=== PATIENT | female | born 1950 | race Caucasian/White ===

== ENCOUNTER → 2016-07-24 | Outpatient (CLI) | payer OTHER ==
[~2016-07-24] MED LIST: ASPEC81 PO; ASPI81TA28 PO; ATOR-24 PO; AZIT250T PO; BCTROWC TOP; FLUO40CA8 PO; FLUT1INH INH; GLC500 PO; HYG/25 PO; IPRA1AER2 INH; LISI-461 PO; METF-841 PO
[2016-07-24 12:27] LABS: BASO % 0.4 %; BASO ABS # 0.04 K/uL (0-0.2); COMPLETE YES; EOS % 5.3 %; HEMATOCRIT 39.9 % (37-47); IG% 0.3 %; LYMPH % 29.8 %; LYMPH ABS # 3.19 K/uL (1.2-3.4); MEAN CELL VOLUME 91.3 fL (80-100); MEAN CORPUSCULAR HEMOGLOBIN 30.4 pg (25-34); MEAN CORPUSCULAR HGB CONC 33.3 g/dl (32-36); MONO % 6.3 %; NEUT % 57.9 %; PLATELET COUNT 350 K/uL (130-400); RED BLOOD COUNT 4.37 M/uL (4.2-5.4); WHITE BLOOD COUNT 10.69 K/uL (4.8-10.8)
[2016-07-24 12:41] LABS: ESTIMATED AVERAGE GLUCOSE 134 mg/dl; HA1C FLAG Normal (Normal)
[2016-07-24 13:20] LABS: ALT/SGPT 21 U/L (12-78); BLOOD UREA NITROGEN 14 mg/dl (7-18); BUN/CREATININE RATIO 13.9 (10-20); CALCIUM 9.3 mg/dl (8.5-10.1); CARBON DIOXIDE 27 mmol/L (21-32); CHLORIDE 100 mmol/L (98-107); CHOLESTEROL 117 mg/dl (0-200); CREATININE 0.97 mg/dl (0.60-1.20); GLUCOSE 141 mg/dl (70-99); POTASSIUM 3.6 mmol/L (3.5-5.1); SODIUM 140 mmol/L (136-145)
[2016-07-24 13:25] LABS: ALB/GLOB RATIO 0.9 (0.9-2); ALKALINE PHOSPHATASE 97 U/L (45-117); AST/SGOT 12 U/L (15-37); CHOLESTEROL/HDL RATIO 1.9; HDL CHOLESTEROL 62 mg/dl; LDL CHOLESTEROL CALCULATED 19 mg/dl; TRIGLYCERIDES 180 mg/dl (0-150); VERY LOW DENSITY LIPOPROT CALC 36 mg/dl
== END | disposition home or self-care (01) ==
LOC: C.LABPVFM 07:53
PROVIDERS: ATTEND Family Medicine
DX: I10 Essential (primary) hypertension (principal); E11.9 Type 2 diabetes mellitus without complications; J44.9 Chronic obstructive pulmonary disease, unspecified; E78.5 Hyperlipidemia, unspecified

== ENCOUNTER → 2016-08-02 | Outpatient (CLI) | payer OTHER | END | disposition home or self-care (01) | LOC: C.LABPVFM 11:04 | PROVIDERS: ATTEND Family Medicine | DX: E11.9 Type 2 diabetes mellitus without complications (principal) ==

== ENCOUNTER → 2017-01-27 | Outpatient (CLI) | payer OTHER ==
[~2017-01-27] MED LIST changes: -AZIT250T PO
[2017-01-27 12:38] LABS: ALT/SGPT 22 U/L (12-78); AST/SGOT 13 U/L (15-37); BLOOD UREA NITROGEN 15 mg/dl (7-18); BUN/CREATININE RATIO 16.5 (10-20); CALCIUM 9.3 mg/dl (8.5-10.1); CARBON DIOXIDE 28 mmol/L (21-32); CHLORIDE 104 mmol/L (98-107); GLUCOSE 109 mg/dl (70-99); POTASSIUM 3.7 mmol/L (3.5-5.1); SODIUM 138 mmol/L (136-145)
[2017-01-27 12:41] LABS: ALB/GLOB RATIO 0.8 (0.9-2); ALKALINE PHOSPHATASE 88 U/L (45-117); CHOLESTEROL 190 mg/dl (0-200); CHOLESTEROL/HDL RATIO 3.5; HDL CHOLESTEROL 54 mg/dl; LDL CHOLESTEROL CALCULATED 83 mg/dl; TRIGLYCERIDES 267 mg/dl (0-150); VERY LOW DENSITY LIPOPROT CALC 53 mg/dl
[2017-01-27 12:58] LABS: ESTIMATED AVERAGE GLUCOSE 120 mg/dl; HA1C FLAG Normal (Normal)
[2017-01-27 13:25] LABS: RATIO 5.1 mcg/mg (0-30.0)
== END | disposition home or self-care (01) ==
LOC: C.LABPVFM 08:36
PROVIDERS: ATTEND Family Medicine
DX: J44.9 Chronic obstructive pulmonary disease, unspecified (principal); F32.9 Major depressive disorder, single episode, unspecified; E78.5 Hyperlipidemia, unspecified; I10 Essential (primary) hypertension; R73.03 Prediabetes

== ENCOUNTER → 2017-02-24 | Day surgery (SDC) | payer OTHER ==
[2017-02-20 11:24] VITALS: Ht 160 cm; Wt 80.9 kg
[~2017-02-24] VITALS: Ht 160 cm; Wt 80.9 kg
[~2017-02-24] MED LIST changes: +500ML BSS 0.3ML EPI 1:1000PF IRRIG ONE; +ACETAMINOPHEN 325 MG TAB PO PRN; +AMVISC PLUS 0.8ML SYRINGE INT OCU ONE; -ASPEC81 PO; +ATROPINE SULFATE 0.1 MG/ML 5ML SYR IV PRN; -BCTROWC TOP; +BRIMONIDINE TART 0.2% OP SOLN PER DROP CHARGE ONE; +BSS FLUSH ONE; +ENDOCOAT 0.85ML SYRINGE INT OCU ONE; +EpHEDrine SULFATE INJ 50 MG/ML AMP IV PRN; +EpINEphrine INJ 1MG/ML AMP 1 MG/ML AMP ONE; -GLC500 PO; +LACTATED RINGER'S 1000ML 500 ML IV SCH; +LIDOCAINE 4% OP SOLN DROP CHARGE ONE; +LIDOCAINE 4% OP SOLN DROP CHARGE OPL SCH; +LIDOCAINE HCL 1% MPF 2 ML VIAL ONE; +MIDAZOLAM HCL 1 MG/ML 2ML VIAL ONE; +MOXIFLOXACIN OPH SOLN PER DROP CHARGE ONE; +POVIDONE-IODINE OP SOLN 30 ML BTL ONE; +PROPARACAINE 0.5% OP SOLN PER DROP CHARGE OPL SCH; +TOBRAMYCIN/DEXAMETHASONE OPH OINT PER APPLN CHARGE ONE
[2017-02-24] MEDS: PHENYLEPHRINE HCL 2.5% OP SOLN PER DROP CHARGE OPL SCH ×2 (07:27→07:32)
[2017-02-24] MEDS: TROPICAMIDE 1% OP SOLN PER DROP CHARGE OPL SCH ×2 (07:28→07:33)
[2017-02-24] MEDS: CYCLOPENTOLATE HCL 1% OP SOLN PER DROP CHARGE OPL SCH ×2 (07:29→07:34)
[2017-02-24] MEDS: KETOROLAC 0.5% OP SOLN PER DROP CHARGE OPL SCH ×2 (07:30→07:35)
[2017-02-24] MEDS: MOXIFLOXACIN OPH SOLN PER DROP CHARGE OPL SCH ×2 (07:31→07:43)
--- NOTE | 2017-02-24 07:42 | History & Physical Bridge - [place] ---
H&P Re-Evaluation Bridge Note: I have examined the patient, reviewed the History & Physical and in the interval since the performance of the History & Physical I have noted the following changes of clinical significance: No changes noted
[2017-02-24 08:34] VITALS: TEMP 36.6
--- NOTE | 2017-02-24 08:35 | Discharge Instructions-SurgCtr ---
Discharge Instructions Date of Service Feb 24, 2017. Visit Reason for Visit: Cataract Left Eye Discharge Discharge Diagnosis / Problem: cataract left eye Discharge Goals Goal(s): Improve function Activity Recommendations Activity Limitations: per Instructions/Follow-up section Lifting Limitations: no more than 5 pounds Anesthesia . Post Anesthesia Instructions: If you have had General Anesthesia or IV Sedation: * Do not drive today. * Resume driving when surgeon permits. * Do not make important decisions or sign legal documents today. * Call surgeon for: 1. Temperature elevations greater than 101 degrees F. 2. Uncontrollable pain. 3. Excessive bleeding. 4. Persistent nausea and vomiting. 5. Medication intolerance (nausea, vomiting or rash). * For nausea and vomiting use only clear liquids such as: tea, soda, bouillon until nausea subsides, then gradually increase diet as tolerated. * If you have any concerns or questions, call your surgeon's office. If physician is unavailable and it is an emergency, call 911 or go to the nearest emergency room. . Instructions / Follow-Up Instructions / Follow-Up ACTIVITY RECOMMENDATIONS: * Light activities * You may walk outside, read, watch television. * Mild irritation and blurred vision are common for the first few days, redness around the white part of the eye is common. MEDICATIONS: Resume previous medications unless instructed otherwise by your surgeon. Eye drops (today and tomorrow): Cipro - one drop in operative eye every 2 hours while awake Prednisolone 1% - one drop in operative eye every 2 hours while awake Bromfenac - one drop in operative eye once daily SPECIAL CARE INSTRUCTIONS: * If any problems or concerns, please call Dr. Bose's office at . * Keep plastic shield taped over eye to sleep at night. * Keep plastic shield taped over eye except to administer eye drops. * Keep plastic shield on until office visit the following day. FOLLOW UP VISIT: Follow-up with Dr. Bose in the [place] office as scheduled. If not already scheduled, please call the office at . Diet Recommendations Home Diet: resume previous diet Procedures Procedures Performed: Left Cataract Phacoemulsification With Intraocular Lens Implant Pending Studies Studies pending at discharge: no Medical Emergencies . Who to Call and When: Medical Emergencies: If at any time you feel your situation is an emergency, please call 911 immediately. . Non-Emergent Contact Non-Emergency issues call your: Hat Lining Paster . . "Provider Documentation" section prepared by Zeyad Bose. .
--- NOTE | 2017-02-24 08:36 | [facility] Operative Report ---
Operative Report Operative Date Feb 24, 2017. 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 Gentle IV sedation was given, and the patient's left eye was prepped and draped in usual sterile fashion. A wire lid speculum was placed into the left eye and the operating microscope was swung into position. Using 0.12 forceps and a Supersharp blade a paracentesis port was made 2 o'clock hours away from the 3 o'clock position of the patient's left eye. 1% non-preserved Lidocaine was then injected into the anterior chamber for anesthesia. A 2.0 mm keratotome blade was then used to make a shelved clear corneal incision at the 3 o'clock position of the left eye. Amvisc was injected into the anterior chamber and a cystotome and Utrata forceps were used to perform a curvilinear capsulorrhexis. BSS on a hydrodissection cannula was used to hydrodissect the lens nucleus away from the capsular bag. The phacoemulsification handpiece was then used in a stop and chop fashion to remove the lens nucleus. The irrigation and aspiration handpiece was then used to remove the residual cortical material. Amvisc was injected into the capsular bag and anterior chamber and a Bausch [employer] Lomb MX60 23.0 Diopter intraocular lens was injected into the capsular bag. Irrigation and aspiration handpiece was used to remove the residual viscoelastic material. The wounds were hydrated and noted to be watertight. The wire lid speculum was removed from the eye. Vigamox, Brimonidine, and TobraDex ointment were placed on the eye and it was shielded. It should be noted that EndoCoat was used extensively during the case to protect the cornea endothelium. DISPOSITION: The patient tolerated the procedure well and was wheeled to the post anesthesia care unit in stable condition. I attest to the content of the Intraoperative Record and any orders documented therein. Any exceptions are noted below. I attest to the content of the Intraoperative Record and any orders documented therein. Any exceptions are noted below.
[2017-02-24 08:51] VITALS: BP 120/85; PULSE 74; O2SAT 95
--- NOTE | 2017-02-24 09:09 | Anesthesia Progress Nt - [facility] ---
Anesthesia Post Op Note Date & Time Feb 24, 2017 at 09:08 Vital Signs Pain Intensity: 0 Vital Signs Past 12 Hours Date Time Temp Pulse Resp B/P (MAP) Pulse Ox O2 Delivery O2 Flow Rate FiO2 02/24/17 08:51 74 20 120/85 (97) 95 Room Air 02/24/17 08:34 36.6 74 20 146/93 (110) 94 Room Air 02/24/17 07:17 36.9 83 18 143/88 (106) 95 Room Air Notes Mental Status: alert / awake / arousable, participated in evaluation Pt Amnestic to Procedure: Yes Nausea / Vomiting: adequately controlled Pain: adequately controlled Airway Patency, RR, SpO2: stable & adequate BP & HR: stable & adequate Hydration State: stable & adequate Anesthetic Complications: no major complications apparent
== END | disposition home or self-care (01) ==
LOC: X.SURG 07:06
PROVIDERS: ATTEND Ophthalmology
DX: H25.12 Age-related nuclear cataract, left eye (principal); E11.9 Type 2 diabetes mellitus without complications; F31.9 Bipolar disorder, unspecified; M19.90 Unspecified osteoarthritis, unspecified site; I10 Essential (primary) hypertension; Z79.899 Other long term (current) drug therapy; Z79.84 Long term (current) use of oral hypoglycemic drugs

== ENCOUNTER → 2017-06-10 | Outpatient (CLI) | payer OTHER ==
[~2017-06-10] MED LIST changes: -500ML BSS 0.3ML EPI 1:1000PF IRRIG ONE; -ACETAMINOPHEN 325 MG TAB PO PRN; -AMVISC PLUS 0.8ML SYRINGE INT OCU ONE; -ATROPINE SULFATE 0.1 MG/ML 5ML SYR IV PRN; -BRIMONIDINE TART 0.2% OP SOLN PER DROP CHARGE ONE; -BSS FLUSH ONE; -ENDOCOAT 0.85ML SYRINGE INT OCU ONE; -EpHEDrine SULFATE INJ 50 MG/ML AMP IV PRN; -EpINEphrine INJ 1MG/ML AMP 1 MG/ML AMP ONE; -LACTATED RINGER'S 1000ML 500 ML IV SCH; -LIDOCAINE 4% OP SOLN DROP CHARGE ONE; -LIDOCAINE 4% OP SOLN DROP CHARGE OPL SCH; -LIDOCAINE HCL 1% MPF 2 ML VIAL ONE; -MIDAZOLAM HCL 1 MG/ML 2ML VIAL ONE; -MOXIFLOXACIN OPH SOLN PER DROP CHARGE ONE; -POVIDONE-IODINE OP SOLN 30 ML BTL ONE; -PROPARACAINE 0.5% OP SOLN PER DROP CHARGE OPL SCH; -TOBRAMYCIN/DEXAMETHASONE OPH OINT PER APPLN CHARGE ONE
--- NOTE | 2017-06-10 15:11 | MAMMOGRAPHY REPORT ---
BILATERAL DIGITAL SCREENING MAMMOGRAM WITH CAD: 06/10/2017 CLINICAL HISTORY: Routine screening. Patient has no complaints. TECHNIQUE: Bilateral CC, MLO and right XCCL views were obtained. Current study was also evaluated wi th a Computer Aided Detection (CAD) system. COMPARISON: Comparison is made to exams dated: 06/06/2016 mammogram, 06/02/2015 mammogram, 06/01/2014 m ammogram, 05/31/2013 mammogram, 05/26/2012 mammogram, and 05/21/2011 mammogram - [facility]. BREAST COMPOSITION: There are scattered areas of fibroglandular density in both breasts. FINDINGS: A small grouping of faint punctate microcalcifications in the lateral left breast is unchan ged dating back to at least 2007, therefore likely benign. No suspicious mass, architectural distort ion or cluster of new, suspicious microcalcifications is seen. IMPRESSION: ACR BI-RADS CATEGORY 1: NEGATIVE There is no mammographic evidence of malignancy. A 1 year screening mammogram is recommended. The pa tient will receive written notification of the results. Approximately 10% of breast cancers are not detected with mammography. A negative mammographic report should not delay biopsy if a clinically suggestive mass is present. Eugenie Johnson M.D. ay/:06/10/2017 08:37:49 Male Model: Tamara HOPPER(Abdelrahman)(M), [facility] letter sent: Normal 1/2 BI-RADS Code: ACR BI-RADS Category 1: Negative
== END | disposition home or self-care (01) ==
LOC: C.MAMM 07:11
PROVIDERS: ATTEND Family Medicine
DX: Z12.31 Encounter for screening mammogram for malignant neoplasm of breast (principal)

== ENCOUNTER → 2017-10-21 | Outpatient (CLI) | payer OTHER ==
--- NOTE | 2017-10-21 16:02 | DIAGNOSTIC IMAGING REPORT ---
LEFT KNEE 2 VIEWS HISTORY: ARTHRITIS, KNEE JOINT EFFUSION, LT KNEE PAIN COMPARISON: None. FINDINGS: There is no fracture or dislocation. Soft tissues are unremarkable. No significant joint effusion. Moderate cartilage space narrowing within the medial compartment of the knee. Tricompartmental osteophytes. Mild cartilage space narrowing within the patellofemoral and lateral compartment of the knee. IMPRESSION: Mild to moderate osteoarthritis within the left knee most pronounced at the medial compartment. Electronically signed by: Tono Dial M.D. 10/21/2017 4:00 PM Dictated Date/Time: 10/21/2017 3:59 PM
== END | disposition home or self-care (01) ==
LOC: C.RADPV 15:45
PROVIDERS: ATTEND Family Medicine
DX: M17.12 Unilateral primary osteoarthritis, left knee (principal); M25.469 Effusion, unspecified knee; M25.562 Pain in left knee

== ENCOUNTER → 2018-01-26 | Outpatient (CLI) | payer OTHER ==
[2018-01-26 13:34] LABS: ALBUMIN 3.8 gm/dl (3.4-5.0); ALKALINE PHOSPHATASE 90 U/L (45-117); ALT/SGPT 21 U/L (12-78); AST/SGOT 15 U/L (15-37); BLOOD UREA NITROGEN 19 mg/dl (7-18); CALCIUM 9.4 mg/dl (8.5-10.1); CARBON DIOXIDE 28 mmol/L (21-32); CHOLESTEROL 95 mg/dl (0-200); CREATININE 0.98 mg/dl (0.60-1.20); GLUCOSE 134 mg/dl (70-99); LDL CHOLESTEROL CALCULATED 10 mg/dl; POTASSIUM 3.4 mmol/L (3.5-5.1); SODIUM 135 mmol/L (136-145); TOTAL PROTEIN 8.2 gm/dl (6.4-8.2)
[2018-01-26 13:39] LABS: HEMOGLOBIN A1C 6.7 % (4.5-5.6)
== END | disposition home or self-care (01) ==
LOC: C.LABPVFM 07:26
PROVIDERS: ATTEND Family Medicine
DX: F32.9 Major depressive disorder, single episode, unspecified (principal); E11.9 Type 2 diabetes mellitus without complications; S39.012A Strain of muscle, fascia and tendon of lower back, initial encounter; E78.5 Hyperlipidemia, unspecified; X58.XXXA Exposure to other specified factors, initial encounter

== ENCOUNTER 2019-06-01 13:54 | Inpatient (IN) ==
[2019-06-01] MEDS ORDERED: methylPREDNISolone 125 MG/2 ML VIAL IV STA (14:24)
[2019-06-01] MEDS ORDERED: ALBUT/IPRATROP 3MG/0.5MG NEB 3 ML VIAL NEB STA ×3 (14:24→16:28)
[2019-06-01 15:06] LABS: Basophils # (auto) 0.05 K/uL (0-0.2); Basophils % (auto) 0.4 %; Eosinophils # (auto) 1.16 K/uL (0-0.5); Eosinophils % (auto) 9.5 %; Hematocrit (blood only) 41.3 % (37-47); Immature Granulocytes # (auto) 0.04 K/uL (0.00-0.02); Immature Granulocytes % (auto) 0.3 %; Lymphocytes # (auto) 2.94 K/uL (1.2-3.4); Lymphocytes % (auto) 24.1 %; Mean Corpuscular Hemoglobin 31.1 pg (25-34); Mean Corpuscular Hgb Conc 33.9 g/dL (32-36); Mean Corpuscular Volume 91.8 fL (80-100); Mean Platelet Volume 9.3 fL (7.4-10.4); Monocytes # (auto) 0.85 K/uL (0.11-0.59); Neutrophils # (auto) 7.16 K/uL (1.4-6.5); Neutrophils % (auto) 58.7 %; Platelet Count 300 K/uL (130-400); RDW Coefficient of Variation 14.2 % (11.5-14.5); RDW Standard Deviation 47.8 fL (36.4-46.3)
[2019-06-01 15:21] LABS: BUN Creatinine Ratio 11.9 (10-20); Blood Urea Nitrogen 11 mg/dl (7-18); Calcium 9.2 mg/dl (8.5-10.1); Carbon Dioxide 27 mmol/L (21-32); Chloride 102 mmol/L (98-107); Creatinine Clr Calc Pharmacy 60.8 ml/min; Est GFR (African American) 73.7; Est GFR (Non-African American) 63.6; Glucose 228 mg/dl (70-99); Potassium 3.2 mmol/L (3.5-5.1); Sodium 136 mmol/L (136-145)
[2019-06-01 15:25] LABS: Troponin I < 0.015 ng/ml (0-0.045)
[2019-06-01 15:34] LABS: Influenza A virus by PCR Neg for Influ A (Neg); Influenza B virus by PCR Neg for Influ B (Neg)
--- NOTE | 2019-06-01 16:00 | XRay Report ---
XR chest 2V PA/lateral CLINICAL HISTORY: sob cough COMPARISON STUDY: 03/03/2016 FINDINGS: The cardiac and mediastinal contours are normal. There is no evidence of focal pulmonary co nsolidation. There is no evidence of failure. No pleural effusions are visualized.[There is a promine nt left cardiophrenic angle fat pad IMPRESSION: No active disease in the chest. Electronically signed by: Ruy Porras M.D. 06/01/2019 3:58 PM
--- NOTE | 2019-06-01 16:58 | Emergency Department Note ---
Entered by Zulema Healy acting as a scribe for History of Present Illness General Chief complaint: Shortness of Breath/Dyspnea Stated complaint: SOB, COUGH Time Seen by Provider: 06/01/19 14:08 Source: patient History of Present Illness Onset (ago): week(s) (1.5) Location: chest Pain Consistency: + other (persistent) Maximum Pain Intensity: 3 Quality: + other (shortness of breath) Relieved By: not by medication (inhaler) Associated symptoms: + cough (productive of clear/green phlegm); no chest pain The patient is a 69 year old female that is presenting to the Emergency Room wit h complaints of a persistent difficulty breathing that started 1.5 weeks ago. The patient reports that she has an associated cough producing a clear/green phlegm. She denies any blood in her sputum. She denies any significant chest pain except when coughing. The patient notes that she has a history of COPD and states that she has been using her inhalers without significant relief in her symptoms. She states that she is unable to take Prednisone as it makes her sick to her stomach. She denies using any other steroids in the past for her COPD. She denies having been intubated or hospitalized for COPD exacerbations. She notes that this is the first bad bout that she has had. She states that she stopped smoking tobacco 4 years ago. She notes that she smoked a pack a day for an extended period of time. The patient denies any recent surgeries, trauma, or long travel. She denies using any hormone therapies or blood thinners. She denies any history of blood clots. Home Medications Home Medications Medication Instructions Recorded Confirmed Type albuterol sulfate [ProAir HFA] 1 - 2 puff INHALATION Q4H PRN 04/10/18 06/01/19 History aspirin 81 mg PO DAILY 04/10/18 06/01/19 History blood sugar diagnostic #10 ea 01/25/19 01/25/19 History fluticasone furoate 100 1 inh INHALATION DAILY #60 ea 01/25/19 06/01/19 Rx mcg-vilanterol 25 mcg/dose inhalation powder lancets 33 gauge #100 ea 01/25/19 01/25/19 History atorvastatin 20 mg tablet 20 mg PO DAILY #90 tab 02/01/19 06/01/19 Rx fluoxetine 40 mg capsule 40 mg PO DAILY #90 cap 02/01/19 06/01/19 Rx hydrochlorothiazide 12.5 mg tablet 12.5 mg PO QAM #90 tab 02/01/19 06/01/19 Rx lisinopril 10 mg tablet 10 mg PO DAILY #90 tab 02/01/19 06/01/19 Rx metformin 500 mg tablet 500 mg PO BID #180 tab 02/01/19 06/01/19 Rx acetaminophen [Tylenol Extra 1,000 mg PO Q6H PRN 06/01/19 06/01/19 History Strength] Allergies Allergy/AdvReac Type Severity Reaction Status Date / Time acetaminophen [From Vicodin] Allergy Verified 02/01/19 07:49 hydrocodone AdvReac Mild NAUSEA Verified 02/01/19 07:49 prednisone AdvReac Mild NAUSEA Verified 02/01/19 07:49 Past Med/Surg History Medical History Chronic obstructive pulmonary disease (Acute) COPD (chronic obstructive pulmonary disease) (Chronic) Depression (Acute) Diabetes (Chronic) Diabetes type 2, controlled (Acute) Hypertension (Acute) IgG monoclonal gammopathy (Acute) Surgical History H/O oophorectomy H/O: hysterectomy (Chronic) Family History Father Diabetes CHF (congestive heart failure) Grandfather (Paternal) Diabetes Mother Deep vein thrombosis NHL (non-Hodgkin's lymphoma) Grandfather (Maternal) Acute leukemia Grandmother (Maternal) Deep vein thrombosis Aunt Deep vein thrombosis Other No pertinent family history Social History Feels Safe at Home: Yes Smoking Status: Former smoker Hx Alcohol Use: No Hx Substance Use: No Seatbelt Use: always Review of Systems See HPI for pertinent positives & negatives. and A total of 10 systems reviewed and were otherwise negative Physical Exam Vital Signs Vital Signs - 24 hr 06/01/19 14:02 06/01/19 14:15 06/01/19 14:18 Temperature 37.0 C Temperature Source Oral Pulse Rate 95 H 84 Pulse Rate [Right Radial] Pulse Rate from SpO2 Sensor 84 Respiratory Rate 22 21 Respiratory Effort / Characteristics Non-Labored Spontaneous Spontaneous Short of Breath Respiratory Depth Normal Respiratory Pattern Regular Blood Pressure 208/115 H 151/111 H Blood Pressure Mean 146 134 Pulse Oximetry 93 96 93 Oxygen Delivery Method Room Air Room Air Sepsis Recent Fever Within 48 Hours No Sepsis New/Unexplained Change in Mental Status No Sepsis Action Taken by Nursing No Action Required 06/01/19 14:27 06/01/19 14:30 06/01/19 14:47 Temperature Temperature Source Pulse Rate 82 Pulse Rate [Right Radial] 8 L Pulse Rate from SpO2 Sensor 82 Respiratory Rate 23 18 Respiratory Effort / Characteristics Non-Labored Spontaneous Respiratory Depth Respiratory Pattern Blood Pressure 151/105 H Blood Pressure Mean 115 Pulse Oximetry 95 94 98 Oxygen Delivery Method Room Air Room Air Sepsis Recent Fever Within 48 Hours Sepsis New/Unexplained Change in Mental Status Sepsis Action Taken by Nursing 06/01/19 15:06 Temperature Temperature Source Pulse Rate Pulse Rate [Right Radial] 81 Pulse Rate from SpO2 Sensor Respiratory Rate 20 Respiratory Effort / Characteristics Non-Labored Spontaneous Respiratory Depth Respiratory Pattern Blood Pressure Blood Pressure Mean Pulse Oximetry 93 Oxygen Delivery Method Room Air Sepsis Recent Fever Within 48 Hours Sepsis New/Unexplained Change in Mental Status Sepsis Action Taken by Nursing GENERAL: She is oriented to person, place, and time. She appears well-developed and well-nourished. She does not appear distressed. HENT: Exam performed. - Head: Normocephalic and atraumatic. - Right Ear: External ear normal. No mastoid tenderness. - Left Ear: External ear normal. No mastoid tenderness. - Mouth/Throat: The oropharynx is clear and moist. No trismus in the jaw. No dental abscesses or uvula swelling. No oropharyngeal exudate or tonsillar abscesses. EYES: Conjunctivae and EOM are normal. Pupils are equal, round, and reactive to light. Right eye exhibits no discharge. Left eye exhibits no discharge. No scleral icterus. NECK: Normal range of motion. Neck supple. No JVD present. No spinous process tenderness present. No carotid bruit present. No rigidity. No tracheal deviation and normal range of motion present. No Brudzinski's sign and no Kernig's sign noted. CV: Normal rate, regular rhythm, normal heart sounds and intact distal pulses. There is no peripheral edema. Palpable radial pulses bue. PULM/CHEST: Effort normal and breath sounds normal. No respiratory distress. No stridor. She has expiratory wheezes bilaterally. She has no rales. Chest Wall: She exhibits no tenderness. ABD: The abdomen is soft. Bowel sounds are normal. She has no distension. No mass is present. There is no tenderness. There is no rebound, no guarding, no Muñoz's sign and no tenderness at McBurney's point. Rovsig negative MUSC/SKEL: Normal range of motion. There is no peripheral edema, tenderness or deformity. LYMPH: No cervical adenopathy. NEURO: She is alert and oriented to person, place, and time. She has normal strength. No cranial nerve deficit or sensory deficit. Coordination and gait normal. GCS eye subscore is 4. GCS verbal subscore is 5. GCS motor subscore is 6. cerebellar tests wnl. SKIN: Skin is warm and dry. She is not diaphoretic. PSYCH: She has a normal mood and affect. Her behavior is normal. Judgment and thought content normal. Course Course 1421:The patient was evaluated in room A03. A complete history and physical examination was performed. 1456: I reassessed the patient. Vital signs stable. Patient reports feeling better after first Duoneb. On repeat exam, patient continues to have expiratory wheezes. Repeat Duoneb was ordered. 1635: Vital signs stable. Labs within normal limits with exception of a white count of 12.2 and potassium of 3.2. Potassium replaced in the emergency department. Imaging is within normal limits. Patient reports feeling better after second Duoneb treatment. Patient blew 100 on peak flow after 2 duo nebs but then started coughing heavily. Patient has agreed to being kept in the hospital for further evaluation. I discussed the patients case with Enriqueta llamas PA-C [facility], who will evaluate the patient for further management and care with Dr. Naima Car as the attending physician. Administered Medications Discontinued Medications Albuterol (Duoneb) 3 ml NEB NOW STA Stop: 06/01/19 14:25 Last Admin: 06/01/19 14:49 Dose: 3 ml Documented by: [id number] Albuterol (Duoneb) 3 ml NEB NOW STA Stop: 06/01/19 14:57 Last Admin: 06/01/19 15:05 Dose: 3 ml Documented by: [id number] Methylprednisolone (Solumedrol) 125 mg IV NOW STA Stop: 06/01/19 14:25 Last Admin: 06/01/19 15:12 Dose: 125 mg Documented by: [id number] Medical Decision Making Medical Records Attestation: I reviewed the patient's medical records. Home Medications Current Medication List: was personally reviewed by me Laboratory Data Attestation: I reviewed the patient's lab results. Result diagrams: 06/01/19 14:53 06/01/19 14:53 Lab Results 06/01/19 06/01/19 06/01/19 Range/Units 14:53 14:53 14:53 WBC 12.20 H (4.8-10.8) K/uL RBC 4.50 (4.2-5.4) M/uL Hgb 14.0 (12.0-16.0) g/dL Hct 41.3 (37-47) % MCV 91.8 (80-100) fL MCH 31.1 (25-34) pg MCHC 33.9 (32-36) g/dL RDW Std Deviation 47.8 H (36.4-46.3) fL RDW Coeff of Aniyah 14.2 (11.5-14.5) % Plt Count 300 (130-400) K/uL MPV 9.3 (7.4-10.4) fL Immature Gran % (Auto) 0.3 % Neut % (Auto) 58.7 % Lymph % (Auto) 24.1 % [place] % (Auto) 7.0 % Eos % (Auto) 9.5 % Baso % (Auto) 0.4 % Immature Gran # (Auto) 0.04 H (0.00-0.02) K/uL Neut # (Auto) 7.16 H (1.4-6.5) K/uL Lymph # (Auto) 2.94 (1.2-3.4) K/uL [place] # (Auto) 0.85 H (0.11-0.59) K/uL Eos # (Auto) 1.16 H (0-0.5) K/uL Baso # (Auto) 0.05 (0-0.2) K/uL Sodium 136 (136-145) mmol/L Potassium 3.2 L (3.5-5.1) mmol/L Chloride 102 (98-107) mmol/L Carbon Dioxide 27 (21-32) mmol/L Anion Gap 7.0 (3-11) BUN 11 (7-18) mg/dl Creatinine 0.93 (0.6-1.2) mg/dl Est Cr Clr Drug Dosing 60.8 ml/min Est GFR ( Amer) 73.7 Est GFR (Non-Af Amer) 63.6 BUN/Creatinine Ratio 11.9 (10-20) Glucose 228 H (70-99) mg/dl Calcium 9.2 (8.5-10.1) mg/dl Troponin I < 0.015 (0-0.045) ng/ml Influenza Type A (PCR) Neg for Influ A (Neg) Influenza Type B (PCR) Neg for Influ B (Neg) Imaging Data Radiologist's Impression: Radiology results as stated below per my review and the radiologist's interpretation: XR chest 2V PA/lateral CLINICAL HISTORY: sob cough COMPARISON STUDY: 03/03/2016 FINDINGS: The cardiac and mediastinal contours are normal. There is no evidence of focal pulmonary consolidation. There is no evidence of failure. No pleural effusions are visualized.[There is a prominent left cardiophrenic angle fat pad IMPRESSION: No active disease in the chest. Electronically signed by: Ruy Porras M.D. 06/01/2019 3:58 PM ECG Data Attestation: I personally reviewed and interpreted this ECG as follows: Indication: + SOB/dyspnea Rate (beats per minute): 85 Rhythm: + sinus rhythm ECG Intervals/blocks: + Normal QRS, + Normal QT and + Normal [place] ECG ST segments: + T-wave inversions (mild in lead 1, v2-v5) Blood Pressure Blood Pressure Findings: Elevated blood pressure Blood Pressure Disposition: elevated BP felt to be situational MDM Narrative 1421:The patient was evaluated in room A03. A complete history and physical examination was performed. 1456: I reassessed the patient. Vital signs stable. Patient reports feeling better after first Duoneb. On repeat exam, patient continues to have expiratory wheezes. Repeat Duoneb was ordered. 1635: Vital signs stable. Labs within normal limits with exception of a white count of 12.2 and potassium of 3.2. Potassium replaced in the emergency department. Imaging is within normal limits. Patient reports feeling better after second Duoneb treatment. Patient blew 100 on peak flow after 2 duo nebs but then started coughing heavily. Patient has agreed to being kept in the hospital for further evaluation. I discussed the patients case with Enriqueta Rogers PA-C [facility], who will evaluate the patient for further management and care with Dr. Naima Car as the attending physician. Impression & Plan COPD exacerbation Discharge Plan Visit Data Chief Complaint: Shortness of Breath/Dyspnea Stated Complaint: SOB, COUGH ED Provider: [place] [facility] Discharge Problem: COPD exacerbation Patient Disposition: Being Evaluated by Hospitalist Forms Stand Alone Forms: My [facility] LookFlow Prescriptions Prescriptions: No Action (DME) lancets [OneTouch Delica Lancets] 33 gauge misc See Dose Instructions .ROUTE .MEDSUPPLY Qty: 100 RF: 0 (DME) OneTouch Ultra Blue Test Strip strip See Dose Instructions .ROUTE .MEDSUPPLY Qty: 10 RF: 0 Breo Ellipta 100-25 mcg/dose blister with device 1 inh INHALATION DAILY Qty: 60 RF: 5 atorvastatin 20 mg tablet 20 mg PO DAILY Qty: 90 RF: 1 fluoxetine 40 mg capsule 40 mg PO DAILY Qty: 90 RF: 1 hydrochlorothiazide 12.5 mg tablet 12.5 mg PO QAM Qty: 90 RF: 1 lisinopril 10 mg tablet 10 mg PO DAILY Qty: 90 RF: 1 metformin 500 mg tablet 500 mg PO BID Qty: 180 RF: 1 aspirin 81 mg Tablet,Chewable 81 mg PO DAILY RF: 0 albuterol sulfate [ProAir HFA] 90 mcg/actuation Hfa Aerosol Inhaler 1 - 2 puff INHALATION Q4H PRN (Reason: SOB) RF: 0 acetaminophen [Tylenol Extra Strength] 500 mg Tablet 1,000 mg PO Q6H PRN (Reason: Pain) RF: 0 Referrals Referrals: Ryanne Smallwood MD [Primary Care Provider] - The scribe's documentation has been prepared under my direction and personally reviewed by me in its entirety. I confirm that the note above accurately reflects all work, treatment, procedures, and medical decision making performed by me.
[2019-06-01] MEDS ORDERED: POTASSIUM CHLORIDE 10 MEQ TABCR PO STA (17:05)
--- NOTE | 2019-06-01 17:33 | History & Physical Report ---
Date of Service June 01, 2019 Assessment & Plan (1) COPD exacerbation: 69-year-old female was admitted on 01 June 2019 for a COPD exacerbation. Shortness of breath, COPD exacerbation: Over the past 10 days. No known fevers or chest pain. Increased use of home albuterol without much relief. Also is on Breo Ellipta at baseline. - In the ED, afebrile, not tachycardic, is hypertensive, with lowest SpO2 87% on room air (during exam). WBC 12. Influenza negative. pCXR clear. EKG NSR [address]-segment depression in lateral leads (similar to 2016). TnI negative. - In ED, treated with DuoNeb 3 times as well as Solu-Medrol 125 mg IV x1. - Will continue with Solu-Medrol 40 mg IV twice daily, scheduled duo nebs, and azithromycin. - Given above EKG findings, as a precaution, will recheck EKG and TnI in the morning, though this does not seem like ACS. Prolonged QTc: EKG noted QTc 485. Is on fluoxetine. Would recommend against adding further contributing meds if possible. Hypokalemia: Admit K 3.2, perhaps related to home HTN meds. Given KCl 40 mEq in ED. Will recheck in a.m. Ongoing medical issues: - Hypertension: Continue home aspirin, hydrochlorothiazide, lisinopril. - Type 2 diabetes: Last HbA1c in chart was 7.0 in Jan 2019. Hold home metformin. Insulin sliding scale here. Continue atorvastatin. - Depression: Continue home fluoxetine. Code status: Full code. Diet: DM 2. DVT prophy: Lovenox. PT/OT: Deferred. Disbo: Admit to MedSurg. (2) Prolonged QT interval: (3) Hypokalemia: (4) Hypertension: (5) Diabetes type 2, controlled: (6) Depression: History of Present Illness Primary Care Provider: Ryanne Smallwood MD 69-year-old female notes that she has had persistent shortness of breath and productive cough over the past 10 days or so. No noted hemoptysis. Says she only has chest discomfort with prolonged coughing. Has been using her Breo as prescribed and increased amounts of albuterol during this time. Has a known history of COPD but denies any previous COPD exacerbations, hospitalizations, or other underlying lung disease. Otherwise she denies any other focal symptoms or concerns. - Past medical history includes hypertension, type 2 diabetes, IgG monoclonal gammopathy, COPD, depression, - Past surgical history includes hysterectomy and oophorectomy, cholecystectomy, appendectomy. - Social history includes having smoked about 1/2 pack/day for 40 years but quit in 2014. Denies alcohol use. , lives at home with her dog and daughter nearby. Allergies Allergy/AdvReac Type Severity Reaction Status Date / Time acetaminophen [From Vicodin] Allergy Verified 02/01/19 07:49 hydrocodone AdvReac Mild NAUSEA Verified 02/01/19 07:49 prednisone AdvReac Mild NAUSEA Verified 02/01/19 07:49 Home Medications Home Medications Medication Instructions Recorded Confirmed Type albuterol sulfate [ProAir HFA] 1 - 2 puff INHALATION Q4H PRN 04/10/18 06/01/19 History aspirin 81 mg PO DAILY 04/10/18 06/01/19 History blood sugar diagnostic #10 ea 01/25/19 01/25/19 History fluticasone furoate 100 1 inh INHALATION DAILY #60 ea 01/25/19 06/01/19 Rx mcg-vilanterol 25 mcg/dose inhalation powder lancets 33 gauge #100 ea 01/25/19 01/25/19 History atorvastatin 20 mg tablet 20 mg PO DAILY #90 tab 02/01/19 06/01/19 Rx fluoxetine 40 mg capsule 40 mg PO DAILY #90 cap 02/01/19 06/01/19 Rx hydrochlorothiazide 12.5 mg tablet 12.5 mg PO QAM #90 tab 02/01/19 06/01/19 Rx lisinopril 10 mg tablet 10 mg PO DAILY #90 tab 02/01/19 06/01/19 Rx metformin 500 mg tablet 500 mg PO BID #180 tab 02/01/19 06/01/19 Rx acetaminophen [Tylenol Extra 1,000 mg PO Q6H PRN 06/01/19 06/01/19 History Strength] Past Med/Surg History Medical History Chronic obstructive pulmonary disease (Acute) COPD (chronic obstructive pulmonary disease) (Chronic) Depression (Acute) Diabetes (Chronic) Diabetes type 2, controlled (Acute) Hypertension (Acute) IgG monoclonal gammopathy (Acute) Surgical History H/O oophorectomy H/O: hysterectomy (Chronic) Family History Father Diabetes CHF (congestive heart failure) Grandfather (Paternal) Diabetes Mother Deep vein thrombosis NHL (non-Hodgkin's lymphoma) Grandfather (Maternal) Acute leukemia Grandmother (Maternal) Deep vein thrombosis Aunt Deep vein thrombosis Other No pertinent family history Social History Preferred Language: [place] Communication Ability: Effective Beliefs That Will Affect Care: None Current Living Situation: Alone Other Information That Helps Us Care for You: No Feels Safe at Home: Yes Safety Concerns: Feels Safe At This Time Smoking Status: Former smoker Hx Alcohol Use: No Hx Substance Use: No Seatbelt Use: always Review of Systems Review of Systems: Constitutional: Denies fevers, chills, focal weakness Eyes: Denies any visual loss or diplopia ENT: Denies any ear/nose/throat pain or difficulty speaking or swallowing Respiratory: Positive cough and dyspnea. Denies hemoptysis. Cardiovascular: Denies any chest pain or feeling of edema Gastrointestinal: Denies any abdominal pain, nausea/vomiting/diarrhea Musculoskeletal: Denies any acute extremity pains, myalgias, or focal weakness Skin: Denies any known acute rashes or lesions Neuro: Denies any headache, acute focal weakness or numbness, or difficulties with speech or swallow. Physical Exam Physical Exam: GENERAL: Awake, alert, well-appearing, in no acute distress HENT: Normocephalic, atraumatic. Oropharynx unremarkable. EYES: Normal conjunctiva. Sclera non-icteric. NECK: Inspection normal. Supple and full ROM. No nuchal rigidity. CARDIAC: +S1S2 RRR, no murmurs. RESPIRATORY: Diffuse inspiratory and expiratory wheezing throughout. No overt ongoing cough during exam. GI: +BS, soft, non-distended. No tenderness to palpation. No rebound or guarding. EXTREMITIES: No pedal edema or calf tenderness. Moving all extremities naturally and easily. NEURO: No gross neuro deficits. Results & Data Vital Signs (Past 12 Hours) Vital Signs Temp Pulse Pulse Resp BP Pulse Ox 06/01/19 17:02 92 H 22 91 06/01/19 15:30 90 27 H 166/99 H 91 06/01/19 15:06 81 20 93 06/01/19 15:00 81 21 160/106 H 92 06/01/19 14:47 8 L 18 98 06/01/19 14:30 82 23 151/105 H 94 06/01/19 14:27 95 06/01/19 14:18 84 21 151/111 H 93 06/01/19 14:15 96 06/01/19 14:02 37.0 C 95 H 22 208/115 H 93 Laboratory Results 06/01/19 06/01/19 06/01/19 Range/Units 14:53 14:53 14:53 WBC 12.20 H (4.8-10.8) K/uL RBC 4.50 (4.2-5.4) M/uL Hgb 14.0 (12.0-16.0) g/dL Hct 41.3 (37-47) % MCV 91.8 (80-100) fL MCH 31.1 (25-34) pg MCHC 33.9 (32-36) g/dL RDW Std Deviation 47.8 H (36.4-46.3) fL RDW Coeff of Aniyah 14.2 (11.5-14.5) % Plt Count 300 (130-400) K/uL MPV 9.3 (7.4-10.4) fL Immature Gran % (Auto) 0.3 % Neut % (Auto) 58.7 % Lymph % (Auto) 24.1 % [place] % (Auto) 7.0 % Eos % (Auto) 9.5 % Baso % (Auto) 0.4 % Immature Gran # (Auto) 0.04 H (0.00-0.02) K/uL Neut # (Auto) 7.16 H (1.4-6.5) K/uL Lymph # (Auto) 2.94 (1.2-3.4) K/uL [place] # (Auto) 0.85 H (0.11-0.59) K/uL Eos # (Auto) 1.16 H (0-0.5) K/uL Baso # (Auto) 0.05 (0-0.2) K/uL Sodium 136 (136-145) mmol/L Potassium 3.2 L (3.5-5.1) mmol/L Chloride 102 (98-107) mmol/L Carbon Dioxide 27 (21-32) mmol/L Anion Gap 7.0 (3-11) BUN 11 (7-18) mg/dl Creatinine 0.93 (0.6-1.2) mg/dl Est Cr Clr Drug Dosing 60.8 ml/min Est GFR ( Amer) 73.7 Est GFR (Non-Af Amer) 63.6 BUN/Creatinine Ratio 11.9 (10-20) Glucose 228 H (70-99) mg/dl Calcium 9.2 (8.5-10.1) mg/dl Troponin I < 0.015 (0-0.045) ng/ml Influenza Type A (PCR) Neg for Influ A (Neg) Influenza Type B (PCR) Neg for Influ B (Neg) Medications Administered Discontinued Medications Albuterol (Duoneb) 3 ml NEB NOW STA Stop: 06/01/19 14:25 Last Admin: 06/01/19 14:49 Dose: 3 ml Documented by: [id number] Albuterol (Duoneb) 3 ml NEB NOW STA Stop: 06/01/19 14:57 Last Admin: 06/01/19 15:05 Dose: 3 ml Documented by: [id number] Albuterol (Duoneb) 3 ml NEB NOW STA Stop: 06/01/19 16:29 Last Admin: 06/01/19 17:01 Dose: 3 ml Documented by: [id number] Methylprednisolone (Solumedrol) 125 mg IV NOW STA Stop: 06/01/19 14:25 Last Admin: 06/01/19 15:12 Dose: 125 mg Documented by: [id number] Code Status & VTE Plan Code Status Full code VTE Prophylaxis Plan VTE Prophylaxis will be ordered: Yes Supervising Physician Co-Signing Physician Notes Patient seen and examined, chart reviewed, case discussed with Dr. Prado and I agree with his assessment and plan as documented above. Briefly, patient is a 69yo C female with history of COPD presenting with 10 d of SOB, cough, wheeze. No prior hospitalizations for COPD. Patient was walking in the cold today and did not have her inhaler - after that her breathing became acutely worse. On exam she is afebrile, tachycardic and mildly hypertensive, 92% on room air. Sats dropped to 89% with coughing Gen - patient appears anxious, + frequent coughing Skin- no rash HEENT - MMM, neck supple, no JVD Heart - +S1/S2, regular, tachycardic, no m/r/g Lungs - diffuse inspiratory and expiratory wheezing throughout bilateral lung calderon Abd - +BS, soft, NT/ND Ext - No edema Labs and images reviewed. Assessment/Plan - 69yo C female with COPD presenting with acute exacerbation -Admit to medical floor -Solulmedrol, Nebs, Azithromycin -Repeat troponin in AM - patient with some lateral TWI on EKG. She denies chest pain -Electrolyte repletion -Remainder of plan as above Resident Activity Tracking Resident Involvement: Resident Care Provided Care Provided: Adult Hospital Medicine
[2019-06-01] MEDS ORDERED: DEXTROSE 50% 50 ML SYRINGE IV PRN (19:30)
[2019-06-01] MEDS ORDERED: GLUCOSE 40% GEL 15 GM TUBE PO PRN (19:30)
[2019-06-01] MEDS ORDERED: GLUCOSE 10 TABS/TUBE PO PRN (19:30)
[2019-06-01] MEDS ORDERED: ACETAMINOPHEN 325 MG TAB PO PRN (19:30)
[2019-06-01] MEDS ORDERED: GLUCAGON FOR INJ 1 MG VIAL SQ PRN (19:30)
[2019-06-01] MEDS ORDERED: CARBOHYDRATES FOR HYPOGLYCEMIA PO PRN (19:30)
--- NOTE | 2019-06-01 19:42 | Billing Data ---
Coding Level of Care Code 90002 Initial Inpt Care Lvl 3
[2019-06-01] MEDS: ALBUT/IPRATROP 3MG/0.5MG NEB 3 ML VIAL NEB SCH ×2 (20:26→23:14)
[2019-06-01] MEDS: INSULIN ASPART 100 UNITS/ML 3 ML PEN SC SCH (20:39)
[2019-06-01] MEDS: INSULIN GLARGINE SOLOSTAR 100 UNITS/ML 3 ML PEN SC SCH (20:41)
[2019-06-01] MEDS: ENOXAPARIN INJ 40 MG/0.4 ML SYR SQ SCH (20:43)
[2019-06-02] MEDS: INSULIN ASPART 100 UNITS/ML 3 ML PEN SC SCH ×6 (00:49→20:42)
[2019-06-02] MEDS: ALBUT/IPRATROP 3MG/0.5MG NEB 3 ML VIAL NEB SCH ×6 (03:04→22:17)
[2019-06-02 07:23] LABS: BUN Creatinine Ratio 14.3 (10-20); Blood Urea Nitrogen 17 mg/dl (7-18); Calcium 9.8 mg/dl (8.5-10.1); Carbon Dioxide 23 mmol/L (21-32); Chloride 105 mmol/L (98-107); Creatinine Clr Calc Pharmacy 47.5 ml/min; Est GFR (African American) 54.7; Est GFR (Non-African American) 47.2; Glucose 205 mg/dl (70-99); Potassium 3.5 mmol/L (3.5-5.1); Sodium 139 mmol/L (136-145)
[2019-06-02 07:28] LABS: Troponin I < 0.015 ng/ml (0-0.045)
[2019-06-02] MEDS: INSULIN GLARGINE SOLOSTAR 100 UNITS/ML 3 ML PEN SC SCH ×2 (08:44→20:41)
[2019-06-02] MEDS: hydroCHLOROthiazide 25 MG TAB PO SCH (08:45)
[2019-06-02] MEDS: FLUOXETINE HCL 20 MG CAP PO SCH (08:46)
[2019-06-02] MEDS: lisinopriL 10 MG TAB PO SCH (08:46)
[2019-06-02] MEDS: ATORVASTATIN 20 MG TAB PO SCH (08:46)
[2019-06-02] MEDS: methylPREDNISolone 40 MG in SYRINGE 0 ML IV SCH ×2 (08:47→20:41)
[2019-06-02] MEDS: ASPIRIN 81 MG ECTAB PO SCH (08:47)
[2019-06-02] MEDS ORDERED: COUGH DROP (SUGAR FREE) LOZ 24 LOZ/1 BOX BUCCAL PRN (10:06)
[2019-06-02] MEDS ORDERED: COUGH DROP (SUGAR FREE) LOZ 24 LOZ/1 BOX BUCCAL ONE (10:16)
[2019-06-02] MEDS: BENZONATATE 100 MG CAPSULE PO PRN (10:58)
--- NOTE | 2019-06-02 12:21 | Hospitalist Progress Note ---
Date of Service June 02, 2019 Assessment & Plan (1) COPD exacerbation: Patient with COPD exacerbation, acute respiratory failure, likely bronchitic component to this. Patient is on nebulizers along with IV steroids she will continue as ordered. We did add Tessalon Perles earlier but consider stronger antitussive such as Tussionex if patient continues to have significant symptoms. Continue O2 support. (2) Prolonged QT interval: (3) Hypokalemia: Improved today to 3.5. Continue to monitor, replete as needed. (4) Hypertension: (5) Diabetes type 2, controlled: Blood sugars elevated overnight, likely secondary to steroid administration. Sugars seem to be improved at this morning. Continue sliding scale along with Lantus 15 units twice daily. If blood sugars remain elevated throughout the day, consider increasing Lantus slightly. (6) Depression: Subjective Patient was admitted last night with hypoxia, likely secondary to COPD exacerbation. Patient was in bed, vitals were improved the patient has had an ongoing barking cough. Difficult for her to communicate secondary cough. She was also in the middle of the nebulizer treatment with respiratory bedside. Physical Exam Physical Exam: Gen: AAOx3, NAD HEENT: neck supple, no JVD. MMM. Heart: RR, no murmurs Lungs: High-pitched expiratory wheeze. Limited by cough Abd: soft, nontender, nondistended. Normal BS Neuro: awake, alert. Nonfocal Psych: appropriate mood and affect Ext: No clubbing, cyanosis, edema Results & Data Vital Signs (Past 12 Hours) Vital Signs Temp Pulse Resp BP Pulse Ox 06/02/19 11:06 104 H 20 89 L 06/02/19 07:27 36.7 C 107 H 20 151/95 H 91 06/02/19 06:55 103 H 18 91 06/02/19 03:04 101 H 16 92 PG Care Time/CCT Total # of Minutes Spent Total Time Spent with Patient: Total time spent is greater than 50% in coordination of care (as documented) at patient's floor/unit and/or counseling patient:
[2019-06-02] MEDS: GUAIFENESIN/CODEINE 200MG/20MG 10ML UDC PO PRN ×2 (15:35→21:40)
[2019-06-02] MEDS: ENOXAPARIN INJ 40 MG/0.4 ML SYR SQ SCH (20:42)
[2019-06-03] MEDS: ALBUT/IPRATROP 3MG/0.5MG NEB 3 ML VIAL NEB SCH ×6 (03:16→23:11)
[2019-06-03 05:52] LABS: Basophils # (auto) 0.01 K/uL (0-0.2); Basophils % (auto) 0.1 %; Hematocrit (blood only) 39.3 % (37-47); Hemoglobin 12.7 g/dL (12.0-16.0); Immature Granulocytes # (auto) 0.07 K/uL (0.00-0.02); Immature Granulocytes % (auto) 0.4 %; Lymphocytes % (auto) 8.2 %; Mean Corpuscular Hemoglobin 30.1 pg (25-34); Mean Corpuscular Hgb Conc 32.3 g/dL (32-36); Mean Corpuscular Volume 93.1 fL (80-100); Mean Platelet Volume 10.1 fL (7.4-10.4); Monocytes # (auto) 0.66 K/uL (0.11-0.59); Monocytes % (auto) 4.2 %; Neutrophils # (auto) 13.84 K/uL (1.4-6.5); Neutrophils % (auto) 87.1 %; Platelet Count 297 K/uL (130-400); RDW Coefficient of Variation 14.9 % (11.5-14.5); RDW Standard Deviation 50.5 fL (36.4-46.3); Red Blood Count 4.22 M/uL (4.2-5.4); White Blood Count 15.88 K/uL (4.8-10.8)
[2019-06-03 06:34] LABS: BUN Creatinine Ratio 26.8 (10-20); Calcium 9.3 mg/dl (8.5-10.1); Creatinine Clr Calc Pharmacy 52.9 ml/min; Est GFR (African American) 62.2; Est GFR (Non-African American) 53.7; Potassium 4.2 mmol/L (3.5-5.1)
[2019-06-03] MEDS: INSULIN GLARGINE SOLOSTAR 100 UNITS/ML 3 ML PEN SC SCH ×2 (08:43→21:03)
[2019-06-03] MEDS: INSULIN ASPART 100 UNITS/ML 3 ML PEN SC SCH ×4 (08:43→21:02)
[2019-06-03] MEDS: ASPIRIN 81 MG ECTAB PO SCH (08:45)
[2019-06-03] MEDS: ATORVASTATIN 20 MG TAB PO SCH (08:45)
[2019-06-03] MEDS: hydroCHLOROthiazide 25 MG TAB PO SCH (08:45)
[2019-06-03] MEDS: lisinopriL 10 MG TAB PO SCH (08:46)
[2019-06-03] MEDS: FLUOXETINE HCL 20 MG CAP PO SCH (08:46)
[2019-06-03] MEDS: BENZONATATE 100 MG CAPSULE PO PRN ×2 (08:46→21:01)
[2019-06-03] MEDS: methylPREDNISolone 40 MG in SYRINGE 0 ML IV SCH (08:47)
[2019-06-03] MEDS: GUAIFENESIN/CODEINE 200MG/20MG 10ML UDC PO PRN (19:57)
[2019-06-03] MEDS: guaiFENesin 600 MG TABCR PO SCH (19:59)
[2019-06-03] MEDS: ENOXAPARIN INJ 40 MG/0.4 ML SYR SQ SCH (20:00)
[2019-06-03] MEDS: methylPREDNISolone 30 MG in SYRINGE 0 ML IV SCH (20:01)
--- NOTE | 2019-06-03 20:05 | Hospitalist Progress Note ---
Date of Service June 03, 2019 Assessment & Plan (1) COPD exacerbation: improving. wean IV solumedrol to 30mg q12h. hopefully over to prednisone tomorrow. add mucinex. add flutter valve. add incentive spirometry. wean O2 if O2 sats are >90%. cont nebs. consider antibiotics if any worsening. (2) Hypertension: controlled cont home meds (3) Depression: cont SSRI (4) Prolonged QT interval: I reviewed several EKGs going back several years and QTc has been mildly prolonged for some time. K was recently low but now normal. Check mag in am. (5) Abnormal EKG: diffuse anterior ST depressions. this is somewhat chronic - [address] depression but now more pronounced. had stress test in the last few years - negative. will inquire with her tomorrow if she is having symptoms suggestive of ischemia. (6) DM w/o complication type II, uncontrolled: adjust correction and carb ratio on novolog (7) DVT prophylaxis: lovenox if o2 is weaned off by the AM and she is feeling well can likely d/c home Subjective patient reports feeling "80-90%" better no MCKINNEY minimal cough she did, however, desaturate into the high 80s with walking and O2 was placed back eating well no fever no other complaints Review of Systems Constitutional: no fever, no chills, no fatigue and no anorexia Respiratory: no hemoptysis, no sputum production and no wheezing Cardiovascular: no chest pain, no orthopnea, no paroxysmal nocturnal dyspnea and no edema Gastrointestinal: no abdominal pain, no nausea and no vomiting Physical Exam Constitutional: well developed and well nourished; no acute distress ENMT: external ear and nose normal, oropharynx normal Respiratory: normal respiratory effort, lungs clear to auscultation Auscultation: + diminished lung sounds (expiratory phase as well as bases ) Cardiovascular: Rate/Rhythm: regular rate and regular rhythm Heart Sounds: normal S1 and normal S2; no murmur Vessels: posterior tibial pulses present and dorsalis pedis pulses present; no JVD Extremities: no edema Gastrointestinal (Abdomen): normal bowel sounds, soft, nontender, no hepatosplenomegaly Psychiatric: A+Ox3, euthymic affect Results & Data Vital Signs (Past 12 Hours) Vital Signs Temp Pulse Resp BP Pulse Ox 06/03/19 19:08 115 H 20 91 06/03/19 15:17 36.8 C 87 20 128/78 94 06/03/19 15:14 85 20 97 06/03/19 13:45 95 06/03/19 11:24 99 H 20 85 L Laboratory Results Laboratory Results - last 24 hr 06/02/19 06/03/19 06/03/19 20:33 05:14 05:14 WBC 15.88 H RBC 4.22 Hgb 12.7 Hct 39.3 MCV 93.1 MCH 30.1 MCHC 32.3 RDW Std Deviation 50.5 H RDW Coeff of Aniyah 14.9 H Plt Count 297 MPV 10.1 Immature Gran % (Auto) 0.4 Neut % (Auto) 87.1 Lymph % (Auto) 8.2 [place] % (Auto) 4.2 Eos % (Auto) 0.0 Baso % (Auto) 0.1 Immature Gran # (Auto) 0.07 H Neut # (Auto) 13.84 H Lymph # (Auto) 1.30 [place] # (Auto) 0.66 H Eos # (Auto) 0.00 Baso # (Auto) 0.01 Sodium 138 Potassium 4.2 D Chloride 104 Carbon Dioxide 28 Anion Gap 6.0 BUN 29 H D Creatinine 1.07 Est Cr Clr Drug Dosing 52.9 Est GFR ( Amer) 62.2 Est GFR (Non-Af Amer) 53.7 BUN/Creatinine Ratio 26.8 H Glucose 285 H POC Glucose 197 H Calcium 9.3 06/03/19 06/03/19 06/03/19 07:28 11:27 16:21 WBC RBC Hgb Hct MCV MCH MCHC RDW Std Deviation RDW Coeff of Aniyah Plt Count MPV Immature Gran % (Auto) Neut % (Auto) Lymph % (Auto) [place] % (Auto) Eos % (Auto) Baso % (Auto) Immature Gran # (Auto) Neut # (Auto) Lymph # (Auto) [place] # (Auto) Eos # (Auto) Baso # (Auto) Sodium Potassium Chloride Carbon Dioxide Anion Gap BUN Creatinine Est Cr Clr Drug Dosing Est GFR ( Amer) Est GFR (Non-Af Amer) BUN/Creatinine Ratio Glucose POC Glucose 241 H 149 H 148 H Calcium PG Care Time/CCT Total # of Minutes Spent Total Time Spent with Patient: Total time spent is greater than 50% in coordination of care (as documented) at patient's floor/unit and/or counseling patient: (1) Hypertension Hypertension type: essential hypertension Qualified Code(s): I10 - Essential (primary) hypertension (2) Depression Depression Type: other depression Qualified Code(s): F32.89 - Other specified depressive episodes (3) DM w/o complication type II, uncontrolled Glycemic state: with hyperglycemia Qualified Code(s): E11.65 - Type 2 diabetes mellitus with hyperglycemia
[2019-06-04] MEDS: ALBUT/IPRATROP 3MG/0.5MG NEB 3 ML VIAL NEB SCH ×6 (03:19→23:30)
[2019-06-04] MEDS: FLUOXETINE HCL 20 MG CAP PO SCH (08:23)
[2019-06-04] MEDS: methylPREDNISolone 30 MG in SYRINGE 0 ML IV SCH ×2 (08:23→20:42)
[2019-06-04] MEDS: ASPIRIN 81 MG ECTAB PO SCH (08:25)
[2019-06-04] MEDS: INSULIN GLARGINE SOLOSTAR 100 UNITS/ML 3 ML PEN SC SCH ×2 (08:25→20:44)
[2019-06-04] MEDS: guaiFENesin 600 MG TABCR PO SCH ×2 (08:25→20:43)
[2019-06-04] MEDS: ATORVASTATIN 20 MG TAB PO SCH (08:25)
[2019-06-04] MEDS: lisinopriL 10 MG TAB PO SCH (08:26)
[2019-06-04] MEDS: hydroCHLOROthiazide 25 MG TAB PO SCH (08:26)
[2019-06-04] MEDS: BENZONATATE 100 MG CAPSULE PO PRN (08:29)
[2019-06-04] MEDS: INSULIN ASPART 100 UNITS/ML 3 ML PEN SC SCH ×4 (08:30→20:42)
[2019-06-04] MEDS: GUAIFENESIN/CODEINE 200MG/20MG 10ML UDC PO PRN (15:50)
[2019-06-04] MEDS: ENOXAPARIN INJ 40 MG/0.4 ML SYR SQ SCH (20:43)
--- NOTE | 2019-06-04 21:26 | Hospitalist Progress Note ---
Date of Service June 04, 2019 Assessment & Plan (1) COPD exacerbation: improving. airation much better today following aggressive use of incentive reza & flutter valve overnight. however, with walking today, sats were 80-86% in RA. thus, I deferred on d/c home today. cont IV solumedrol 30mg q12h overnight. I encouraged ongoing flutter/incentive use and walking to promote pulm toilet. hopefully over to prednisone tomorrow if sats are stable (at rest and with walking). cont nebs. consider antibiotics if any worsening. ultimately, she could potentially need a 2-step prior to d/c home. (2) Hypertension: controlled cont home meds (3) Depression: cont SSRI (4) Prolonged QT interval: I reviewed several EKGs going back several years and QTc has been mildly prolonged for some time. K was recently low but now normal. Check mag in am. (5) Abnormal EKG: diffuse anterior ST depressions. this is somewhat chronic - [address] depression but now more pronounced. had stress test in the last few years - negative. she denies any chronic ischemic type symptoms to me today. denies any family h/o CAD. [id number] consider outpatient stress test. (6) DM w/o complication type II, uncontrolled: improved glycemic control w/ weaning of steroids cont lantus and novolog (7) DVT prophylaxis: lovenox no d/c today due to hypoxia w/ walking cont IV steroids eval candidacy for d/c home tomorrow Subjective patient feeling good still having MCKINNEY hoping for discharge home today mild cough some sputum good appetite patient denies any chronic ischemic symptoms at home - no exertional cp, no cp at rest, chronic MCKINNEY has been unchanged no family h/o CAD Review of Systems Constitutional: no fever, no chills and no anorexia Respiratory: + dyspnea on exertion; no hemoptysis Cardiovascular: no chest pain, no dyspnea at rest, no orthopnea and no paroxysmal nocturnal dyspnea Gastrointestinal: no abdominal pain, no nausea and no vomiting Physical Exam Constitutional: well developed and well nourished; no acute distress ENMT: external ear and nose normal, oropharynx normal Respiratory: Auscultation: + wheezes (airation markedly better today); no crackles Cardiovascular: Rate/Rhythm: regular rate and regular rhythm Heart Sounds: normal S1 and normal S2; no murmur Vessels: posterior tibial pulses present and dorsalis pedis pulses present; no JVD Extremities: no edema Gastrointestinal (Abdomen): normal bowel sounds, soft, nontender, no hepatosplenomegaly Psychiatric: A+Ox3, euthymic affect Results & Data Vital Signs (Past 12 Hours) Vital Signs Temp Pulse Resp BP Pulse Ox 06/04/19 19:10 92 H 19 06/04/19 15:05 91 H 16 94 06/04/19 14:44 36.9 C 91 H 18 139/84 91 06/04/19 13:34 86 L 06/04/19 12:01 84 14 90 06/04/19 11:00 92 Laboratory Results Laboratory Results - last 24 hr 06/04/19 06/04/19 06/04/19 07:57 11:47 16:10 POC Glucose 169 H 106 H 207 H 06/04/19 06/04/19 18:17 20:02 POC Glucose 199 H 85 PG Care Time/CCT Total # of Minutes Spent Total Time Spent with Patient: Total time spent is greater than 50% in coordination of care (as documented) at patient's floor/unit and/or counseling patient: (1) Depression Depression Type: other depression Qualified Code(s): F32.89 - Other specified depressive episodes (2) Hypertension Hypertension type: essential hypertension Qualified Code(s): I10 - Essential (primary) hypertension (3) DM w/o complication type II, uncontrolled Glycemic state: with hyperglycemia Qualified Code(s): E11.65 - Type 2 diabetes mellitus with hyperglycemia
[2019-06-05] MEDS: ALBUT/IPRATROP 3MG/0.5MG NEB 3 ML VIAL NEB SCH ×3 (03:24→10:56)
[2019-06-05 06:31] LABS: BUN Creatinine Ratio 28.2 (10-20); Calcium 9.2 mg/dl (8.5-10.1); Creatinine Clr Calc Pharmacy 50.1 ml/min; Est GFR (African American) 58.2; Est GFR (Non-African American) 50.3; Magnesium 2.2 mg/dl (1.8-2.4); Potassium 4.1 mmol/L (3.5-5.1)
[2019-06-05] MEDS: hydroCHLOROthiazide 25 MG TAB PO SCH (08:42)
[2019-06-05] MEDS: methylPREDNISolone 30 MG in SYRINGE 0 ML IV SCH (08:42)
[2019-06-05] MEDS: ATORVASTATIN 20 MG TAB PO SCH (08:42)
[2019-06-05] MEDS: guaiFENesin 600 MG TABCR PO SCH (08:42)
[2019-06-05] MEDS: BENZONATATE 100 MG CAPSULE PO PRN (08:43)
[2019-06-05] MEDS: FLUOXETINE HCL 20 MG CAP PO SCH (08:43)
[2019-06-05] MEDS: lisinopriL 10 MG TAB PO SCH (08:43)
[2019-06-05] MEDS: ASPIRIN 81 MG ECTAB PO SCH (08:43)
[2019-06-05] MEDS: INSULIN ASPART 100 UNITS/ML 3 ML PEN SC SCH ×2 (08:45→12:57)
[2019-06-05] MEDS ORDERED: INSULIN GLARGINE SOLOSTAR 100 UNITS/ML 3 ML PEN SC SCH (09:00)
[2019-06-05] MEDS: GUAIFENESIN/CODEINE 200MG/20MG 10ML UDC PO PRN (10:06)
--- NOTE | 2019-06-05 11:46 | Discharge Summary ---
Date of Service June 05, 2019 Admission HPI Per Admitting Provider 69-year-old female notes that she has had persistent shortness of breath and productive cough over the past 10 days or so. No noted hemoptysis. Says she only has chest discomfort with prolonged coughing. Has been using her Breo as prescribed and increased amounts of albuterol during this time. Has a known history of COPD but denies any previous COPD exacerbations, hospitalizations, or other underlying lung disease. Otherwise she denies any other focal symptoms or concerns. - Past medical history includes hypertension, type 2 diabetes, IgG monoclonal gammopathy, COPD, depression, - Past surgical history includes hysterectomy and oophorectomy, cholecystectomy, appendectomy. - Social history includes having smoked about 1/2 pack/day for 40 years but quit in 2014. Denies alcohol use. , lives at home with her dog and daughter nearby. Principal Diagnosis COPD Exacerbation Discharge Exam Constitutional WD/WN, vitals as above Eyes PERRL, conjunctivae normal, anicteric sclerae ENMT external ear and nose normal, oropharynx normal Neck trachea midline, no thyromegaly Respiratory normal respiratory effort; no respiratory distress Auscultation: + wheezes (faint, end exhalation bilaterally); no crackles, no rales, no rhonchi and no egophony Cardiovascular RRR, no murmur, no edema Gastrointestinal (Abdomen) normal bowel sounds, soft, nontender, no hepatosplenomegaly Musculoskeletal no cyanosis or clubbing, extremities motor strength 5/5 Skin no rashes, warm and dry Neurologic patellar DTR's 2+ bilat, sensation intact and PERRL, EOMI, accommodation nl, no face palsy, no dysarthria Psychiatric A+Ox3, euthymic affect Lymphatic no cervical or axillary lymphadenopathy Discharge Data Allergies Allergy/AdvReac Type Severity Reaction Status Date / Time acetaminophen [From Vicodin] Allergy Verified 02/01/19 07:49 hydrocodone AdvReac Mild NAUSEA Verified 02/01/19 07:49 prednisone AdvReac Mild NAUSEA Verified 02/01/19 07:49 Consultations 06/01/19 16:35 ED Decision to Admit Stat Hospital Course (1) COPD exacerbation: responded well to Solu Medrol and Duoneb aeration much better today following aggressive use of incentive reza & flutter valve overnight. 2 step on 06/05 shows no need for home oxygen transition to Prednisone 40mg daily, taper down to 10mg every 2 days over next 8 days since she admits to increased mucous production, will use Doxycycline Bid for 5 days (cannot use Zithromax or Levaquin due to QT prolongation) cont nebs, provided with script for home nebulizer and wrote for Duoneb follow up with PCP in one week (2) Hypertension: controlled cont home meds (3) Depression: cont SSRI (4) Prolonged QT interval: I reviewed several EKGs going back several years and QTc has been mildly prolonged for some time. K was recently low but now normal. Check mag in am. (5) Abnormal EKG: diffuse anterior ST depressions. this is somewhat chronic - [address] depression but now more pronounced. had stress test in the last few years - negative. she denies any chronic ischemic type symptoms to me today. denies any family h/o CAD. [id number] consider outpatient stress test. (6) DM w/o complication type II, uncontrolled: improved glycemic control w/ weaning of steroids cont lantus and novolog (7) DVT prophylaxis: lovenox no d/c today due to hypoxia w/ walking cont IV steroids eval candidacy for d/c home tomorrow Total Time Total Time Spent Total Time Spent (In Minutes): 31 minutes Total Time Includes: Examination of the Patient, Discharge Planning and Medication Reconciliation Discharge Plan Discharge Items Patient Disposition: Home - Self-Care Reason For Visit: COPD EXACERBATION Discharge Diagnosis: COPD Exacerbation Condition on Discharge: Good Goals: improve treatment of COPD exacerbation Activity: Resume your previous activity Non-emergency contact: Primary Care Provider Call non-emergency contact if: you have any medication questions, your symptoms worsen and you have a fever Follow-up/Referrals: Ryanne Smallwood MD [Primary Care Provider] - Diet: Carb Consistent or DM2 and Heart Healthy Addtl Attending Provider Instructions: Medications: - PREDNISONE: taper as follows, starting tomorrow take 40mg (4 tabs) for two days, then 30mg for two days, 20mg for two days and 10mg for two days then stop - DOXYCYCLINE: 100mg twice a day for 5 days, start this evening - DUONEB: use nebulizer four times a day scheduled for the next 4 days then you can use as needed COPD exacerbation responded well to steroids and breathing treatment will finish taper of Prednisone and 5 day course of Doxycycline use Duoneb at home, will provide you with home nebulizer script oxygen testing today showed that you do not need oxygen at home FOLLOW UP - call office of Dr. Jameson on Friday to request a hospital follow up visit for later in the week Pending Studies at Discharge: No Stand-Alone Forms: My [facility], Smoking Cessation Medications and DC Order Prescriptions: New ipratropium-albuterol 0.5 mg-3 mg(2.5 mg base)/3 mL Solution For Nebulization 3 ml NEB QID 7 Days Qty: 90 RF: 1 doxycycline hyclate 100 mg capsule 100 mg PO BID 5 Days Qty: 10 RF: 0 prednisone 10 mg tablet 10 mg PO UD 8 Days Qty: 20 RF: 0 Continued Breo Ellipta 100-25 mcg/dose blister with device 1 inh INHALATION DAILY Qty: 60 RF: 5 atorvastatin 20 mg tablet 20 mg PO DAILY Qty: 90 RF: 1 fluoxetine 40 mg capsule 40 mg PO DAILY Qty: 90 RF: 1 hydrochlorothiazide 12.5 mg tablet 12.5 mg PO QAM Qty: 90 RF: 1 lisinopril 10 mg tablet 10 mg PO DAILY Qty: 90 RF: 1 metformin 500 mg tablet 500 mg PO BID Qty: 180 RF: 1 aspirin 81 mg Tablet,Chewable 81 mg PO DAILY RF: 0 albuterol sulfate [ProAir HFA] 90 mcg/actuation Hfa Aerosol Inhaler 1 - 2 puff INHALATION Q4H PRN (Reason: SOB) RF: 0 acetaminophen [Tylenol Extra Strength] 500 mg Tablet 1,000 mg PO Q6H PRN (Reason: Pain) RF: 0 Discharge Orders: Discharge Order (Routine); Ordered 06/05/19 Ordered By: Julián Dozier Admission Data Admit Date/Time: 06/01/19 17:58 Attending Provider: Julián Dozier Admit Provider: Maxim Prado Primary Care Provider: Ryanne Smallwood Other Providers: Polina Car
[2019-06-05] MEDS ORDERED: predniSONE 20 MG TAB PO STA (11:49)
[2019-06-05] MEDS ORDERED: DOXYCYCLINE HYCLATE 100 MG CAP PO STA (11:49)
--- NOTE | 2019-06-14 12:47 | Coding Query ---
CODING QUERY To promote full compliance with coding requirements relating to patient care, provider participation is requested in all cases of billing machine operator uncertainty. Please assist us with the question(s) below: Coding Question(s): There is documentation on the first Progress Note on of, "Patient with COPD exacerbation, acute respiratory failure, likely bronchitic component to this.". There is no further documentation of Acute Respiratory Failure. Please clarify below, in your clinical opinion, regarding Acute Respiratory Failure. ( ) Acute Respiratory Failure ( ) likely present on admission ( ) not likely present on admission ( ) unknown if present on admission or occurred after admission (x ) No Acute Respiratory Failure - this is Ruled-Out ( ) Other: Please Specify Physician's Response(s): Thank you Maria Elena Mendoza Principal Diagnosis: "that condition established after study, to be chiefly responsible for occasioning the admission of the patient to the hospital for care." Co-Existing Principal Diagnosis: "when two or more diagnoses equally meet the criteria for principal diagnosis as determined by the circumstances of admission, diagnostic work up, and/or therapy provided, and the Alphabetic Index, Tabular List, or another coding guideline does not provide sequencing direction, any one of the diagnoses may be sequenced first." "When the physician has documented what appears to be a current diagnosis in the body of the record, but has not included the diagnosis in the final diagnostic statement, the physician should be asked whether the diagnosis should be added." (Source Coding Clinic 2 QTR90. p3-4) [place]
== END 2019-06-05 13:45 | disposition home or self-care (01) | DRG 192 ==
LOC: ED 13:54 → 4W 17:58 → SUATTDRO 17:58 → 4W 19:03

== ENCOUNTER 2020-12-09 02:59 | Inpatient (IN) ==
[2020-12-09] MEDS ORDERED: methylPREDNISolone 125 MG/2 ML VIAL IV STA (03:05)
[2020-12-09] MEDS ORDERED: ALBUT/IPRATROP 3MG/0.5MG NEB 3 ML VIAL ONE (03:05)
[2020-12-09] MEDS ORDERED: ALBUT/IPRATROP 3MG/0.5MG NEB 3 ML VIAL NEB ONE (03:05)
[2020-12-09] MEDS ORDERED: ONDANSETRON INJ 2 MG/ML 2 ML VIAL IV STA (03:12)
--- NOTE | 2020-12-09 03:12 | Emergency Department Note ---
History of Present Illness General Chief complaint: Respiratory Problems Stated complaint: BREATHING DIFFICULTY Time Seen by Provider: 12/09/20 03:00 Source: patient and EMS Mode of arrival: EMS Limitations: clinical acuity History of Present Illness Provider complaint: Shortness of breath Onset (ago): hour(s) Associated symptoms: + cough and + shortness of breath; no chest pain, no fever/chills and no nausea/vomiting This is a 62-year-old female who presents via EMS with acute onset of respiratory distress. Per EMS patient stated she began getting short of breath earlier in the day. Does wear 3 L of oxygen chronically and uses home MDI and nebulizer treatments. Upon their arrival patient was 90% on her usual 3 L/min however had increased work of breathing, tachypnea, and diaphoresis. They began by giving the patient additional nebulizer treatments with minimal improvement and due to her increased work of breathing then transitioned her to CPAP. State patient did seem slightly improved after breathing treatments and application of CPAP in route here. Patient does have a history of COPD, and does smoke. Patient denies chest pain, abdominal pain, or fevers. Denies any known sick contacts. States minimal improvement after treatment prehospital. States she feels nauseated. Patient immediately transitioned to BiPAP and continuous nebulizer treatment started. RT at bedside. Pt seen during a time of high acuity and national emergency pandemic while wearing PPE. Home Medications Medication Instructions Recorded Confirmed Type aspirin 81 mg PO QAM 04/10/18 10/13/20 History acetaminophen [Tylenol Extra 1,000 mg PO Q6H PRN 06/01/19 10/13/20 History Strength] lancets 33 gauge #100 ea 03/02/20 10/13/20 Rx [id number]-[id number] 1 inh INH QAM 09/28/20 10/13/20 History [Trelegy Ellipta] atorvastatin 20 mg tablet 20 mg PO QAM #30 tab 10/13/20 10/13/20 Rx blood sugar diagnostic #100 ea 10/13/20 10/13/20 Rx fluoxetine 40 mg capsule 40 mg PO QAM #30 cap 10/13/20 10/13/20 Rx glimepiride 2 mg tablet 2 mg PO QAM #30 tab 10/13/20 10/13/20 Rx hydrochlorothiazide 25 mg tablet 25 mg PO QAM #90 tab 10/13/20 10/13/20 Rx lisinopril 10 mg tablet 10 mg PO QAM #90 tab 10/13/20 10/13/20 Rx meclizine 25 mg tablet 25 mg PO TID PRN #12 tab 10/13/20 10/13/20 Rx metformin 500 mg tablet 1,000 mg PO BID #360 tab 10/13/20 10/13/20 Rx ipratropium 0.5 mg-albuterol 3 mg See Rx Instructions .ROUTE 10/23/20 Rx (2.5 mg base)/3 mL nebulization .COMPLEX #90 milliliter soln Allergies Allergy/AdvReac Type Severity Reaction Status Date / Time acetaminophen [From Vicodin] Allergy Verified 10/13/20 08:49 hydrocodone AdvReac Mild NAUSEA Verified 10/13/20 08:49 prednisone AdvReac Mild NAUSEA Verified 10/13/20 08:49 Past Med/Surg History Medical History Chronic obstructive pulmonary disease Depression Hyperlipidemia Hypertension Surgical History H/O oophorectomy H/O: hysterectomy Family History Father Diabetes CHF (congestive heart failure) Grandfather (Paternal) Diabetes Mother Deep vein thrombosis NHL (non-Hodgkin's lymphoma) Grandfather (Maternal) Acute leukemia Grandmother (Maternal) Deep vein thrombosis Aunt Deep vein thrombosis Other No pertinent family history Denies family history of Ovarian cancer Prostate cancer Myocardial infarction Breast cancer Colorectal cancer Social History Smoking Status: Former smoker Tobacco Type: Cigarettes Second Hand Exposure: No; Hx Alcohol Use: No Hx Substance Use: No Preferred Language: Namibian Communication Ability: Effective Visual Impairment: No Limitations Hearing Ability: Normal 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 and A total of 10 systems reviewed and were otherwise negative Physical Exam Vital Signs Vital Signs - 24 hr 12/09/20 02:59 12/09/20 03:07 12/09/20 03:11 Temperature 36.7 C Temperature Source Oral Pulse Rate 88 103 H Pulse Rate [Right Finger] 87 Pulse Rate from SpO2 Sensor 101 H Respiratory Rate 30 H 22 32 H Respiratory Effort / Characteristics Labored Spontaneous Labored Short of Breath Respiratory Pattern Blood Pressure 153/115 H 136/84 Blood Pressure Mean 127 101 Pulse Oximetry 94 100 96 Oxygen Delivery Method CPAP BiPAP BiPAP Fraction of Inspired Oxygen 35 Sepsis Recent Fever Within 48 Hours No Sepsis New/Unexplained Change in Mental Status No Sepsis Action Taken by Nursing No Action Required 12/09/20 03:15 12/09/20 04:00 12/09/20 04:34 Temperature Temperature Source Pulse Rate 98 H 103 H 106 H Pulse Rate [Right Finger] Pulse Rate from SpO2 Sensor 102 H 107 H Respiratory Rate 28 H 23 22 Respiratory Effort / Characteristics Spontaneous Labored Short of Breath Respiratory Pattern Tachypnea Blood Pressure 126/78 139/83 Blood Pressure Mean 94 101 Pulse Oximetry 99 99 97 Oxygen Delivery Method BiPAP BiPAP Fraction of Inspired Oxygen 35 Sepsis Recent Fever Within 48 Hours Sepsis New/Unexplained Change in Mental Status Sepsis Action Taken by Nursing 12/09/20 05:00 Temperature Temperature Source Pulse Rate 106 H Pulse Rate [Right Finger] Pulse Rate from SpO2 Sensor 107 H Respiratory Rate 30 H Respiratory Effort / Characteristics Respiratory Pattern Blood Pressure 115/76 Blood Pressure Mean 89 Pulse Oximetry 97 Oxygen Delivery Method BiPAP Fraction of Inspired Oxygen Sepsis Recent Fever Within 48 Hours Sepsis New/Unexplained Change in Mental Status Sepsis Action Taken by Nursing GENERAL: alert, ill and uncomfortable appearing, well nourished, moderate distress, non-toxic, diaphoretic EYE EXAM: normal conjunctiva, PERRL and EOM's grossly intact OROPHARYNX: no exudate, no erythema, lips, buccal mucosa, and tongue normal and mucous membranes are moist NECK: supple, no nuchal rigidity, no adenopathy, non-tender LUNGS: Significantly diminished bilaterally to auscultation. Normal chest wall mechanics, no r/r, scattered bilateral expiratory wheeze HEART: no murmurs, S1 normal and S2 normal ABDOMEN: abdomen soft, non-tender, normo-active bowel sounds, no masses, no rebound or guarding. BACK: Back is symmetrical on inspection and there is no deformity, no midline tenderness, no CVA tenderness. SKIN: no rashes and no bruising, slightly pale UPPER EXTREMITIES: upper extremities are grossly normal. FROM, nml pulses b/l. LOWER EXTREMITIES: No pitting edema. FROM, nml pulses b/l. NEURO EXAM: Normal sensorium, cranial nerves II-XII grossly intact, normal speech, no gross weakness of arms, no gross weakness of legs. Gross sensation intact. Course Course 0324: Patient sitting up, BiPAP in place, patient still tachypneic although slightly improved. 0342: Patient states nausea is improved since medication. Patient still feels breathing is not normal though it is slowly improving. Neb running through the BiPAP. Administered Medications Discontinued Medications Albuterol (Albut/Ipratrop 3mg/0.5mg Neb 3 Ml Vial) Confirm Administered Dose 12 ml .ROUTE .STK-MED ONE Stop: 12/09/20 03:06 Last Admin: 12/09/20 03:37 Dose: Not Given Documented by: [id number] Albuterol (Albut/Ipratrop 3mg/0.5mg Neb 3 Ml Vial) 12 ml NEB ONE ONE Stop: 12/09/20 03:06 Last Admin: 12/09/20 03:14 Dose: 12 ml Documented by: [id number] Cefepime HCl (Maxipime) 2,000 mg in 20 mls @ 5 mls/min IV NOW STA Stop: 12/09/20 04:22 Last Admin: 12/09/20 04:31 Dose: 5 mls/min Documented by: [id number] Ioversol (Optiray 350 500ml) 118 ml IV ONCE ONE Stop: 12/09/20 06:08 Last Admin: 12/09/20 06:08 Dose: 118 ml Documented by: [id number] Methylprednisolone (Methylprednisolone 125 Mg/2 Ml Vial) 60 mg IV NOW STA Stop: 12/09/20 03:06 Last Admin: 12/09/20 03:37 Dose: 60 mg Documented by: [id number] Ondansetron HCl (Ondansetron Inj 2 Mg/Ml 2 Ml Vial) 4 mg IV NOW STA Stop: 12/09/20 03:13 Last Admin: 12/09/20 03:37 Dose: 4 mg Documented by: [id number] Critical Care Time Critical Care Time: Yes Total Critical Care Time: 39 Critical care of 39 min performed to assess and manage high likelihood of life- threatening respiratory failure, involving labs and imaging performed with assessment to evaluate respiratory failure diagnosis with frequent reassessment. This time includes bedside time, treatment discussions with patient/family/consultants, documentation time and excludes procedure time. Medical Decision Making Differential Diagnosis Differential diagnoses includes but is not limited to pneumonia, bronchitis, COPD/Asthma exacerbation, pneumothorax, pulmonary embolism, congestive heart failure, acute coronary syndrome Medical Records Attestation: I reviewed the patient's medical records. Home Medications Current Medication List: was personally reviewed by me Laboratory Data Attestation: I reviewed the patient's lab results. Result diagrams: 12/09/20 03:35 12/09/20 04:41 Lab Results 12/09/20 12/09/20 12/09/20 Range/Units 03:35 03:35 03:35 WBC 15.46 H (4.8-10.8) K/uL RBC 3.94 L (4.2-5.4) M/uL Hgb 12.1 (12.0-16.0) g/dL Hct 37.1 (37-47) % MCV 94.2 (80-100) fL MCH 30.7 (25-34) pg MCHC 32.6 (32-36) g/dL RDW Std Deviation 47.0 H (36.4-46.3) fL RDW Coeff of Aniyah 13.6 (11.5-14.5) % Plt Count 258 (130-400) K/uL MPV 9.9 (7.4-10.4) fL Immature Gran % (Auto) 0.3 % Neut % (Auto) 65.3 % Lymph % (Auto) 18.4 % [place] % (Auto) 5.8 % Eos % (Auto) 9.9 % Baso % (Auto) 0.3 % Neut # (Auto) 10.09 H (1.4-6.5) K/uL Lymph # (Auto) 2.85 (1.2-3.4) K/uL [place] # (Auto) 0.90 H (0.11-0.59) K/uL Eos # (Auto) 1.53 H (0-0.5) K/uL Baso # (Auto) 0.04 (0-0.2) K/uL Immature Gran # (Auto) 0.05 H (0.00-0.02) K/uL Sodium 140 (136-145) mmol/L Potassium (3.5-5.1) mmol/L Chloride 109 H (98-107) mmol/L Carbon Dioxide 25 (21-32) mmol/L Anion Gap 6.0 (3-11) BUN 12 (7-18) mg/dl Creatinine 0.87 (0.6-1.2) mg/dl Est Cr Clr Drug Dosing 66.6 ml/min Est GFR ( Amer) 79.3 ml/min Est GFR (Non-Af Amer) 68.5 ml/min BUN/Creatinine Ratio 13.2 (10-20) Glucose 206 H (70-99) mg/dl Calcium 8.7 (8.5-10.1) mg/dl Magnesium (1.8-2.4) mg/dl Total Bilirubin 0.5 (0.2-1) mg/dl AST (15-37) U/L ALT 17 (12-78) U/L Alkaline Phosphatase 70 (45-117) U/L Troponin I 0.157 H* (0-0.045) ng/ml NT-Pro-B Natriuret Pep 109 (0-900) pg/ml Total Protein 7.6 (6.4-8.2) gm/dl Albumin 3.4 (3.4-5.0) gm/dl Globulin 4.2 H (2.5-4.0) gm/dl Albumin/Globulin Ratio 0.8 L (0.9-2) COVID-19 Eval Order Covid19 at [facility] SARS-CoV-2 (PCR) (Negative) 12/09/20 12/09/20 Range/Units 03:35 04:41 WBC (4.8-10.8) K/uL RBC (4.2-5.4) M/uL Hgb (12.0-16.0) g/dL Hct (37-47) % MCV (80-100) fL MCH (25-34) pg MCHC (32-36) g/dL RDW Std Deviation (36.4-46.3) fL RDW Coeff of Aniyah (11.5-14.5) % Plt Count (130-400) K/uL MPV (7.4-10.4) fL Immature Gran % (Auto) % Neut % (Auto) % Lymph % (Auto) % [place] % (Auto) % Eos % (Auto) % Baso % (Auto) % Neut # (Auto) (1.4-6.5) K/uL Lymph # (Auto) (1.2-3.4) K/uL [place] # (Auto) (0.11-0.59) K/uL Eos # (Auto) (0-0.5) K/uL Baso # (Auto) (0-0.2) K/uL Immature Gran # (Auto) (0.00-0.02) K/uL Sodium (136-145) mmol/L Potassium 3.6 (3.5-5.1) mmol/L Chloride (98-107) mmol/L Carbon Dioxide (21-32) mmol/L Anion Gap (3-11) BUN (7-18) mg/dl Creatinine (0.6-1.2) mg/dl Est Cr Clr Drug Dosing ml/min Est GFR ( Amer) ml/min Est GFR (Non-Af Amer) ml/min BUN/Creatinine Ratio (10-20) Glucose (70-99) mg/dl Calcium (8.5-10.1) mg/dl Magnesium 2.1 (1.8-2.4) mg/dl Total Bilirubin (0.2-1) mg/dl AST 10 L (15-37) U/L ALT (12-78) U/L Alkaline Phosphatase (45-117) U/L Troponin I (0-0.045) ng/ml NT-Pro-B Natriuret Pep (0-900) pg/ml Total Protein (6.4-8.2) gm/dl Albumin (3.4-5.0) gm/dl Globulin (2.5-4.0) gm/dl Albumin/Globulin Ratio (0.9-2) COVID-19 Eval Order SARS-CoV-2 (PCR) NEGATIVE (Negative) Imaging Data My Impression: X-ray: I interpreted the following studies. Chest: A single view study of the chest was reviewed and was negative for cardiomegaly, focal infiltrate, effusion, pulmonary edema, or wide mediastinum. ECG Data Attestation: I personally reviewed and interpreted this ECG as follows: Indication: + SOB/dyspnea Rate (beats per minute): 97 Rhythm: + normal sinus ECG Intervals/blocks: + Normal QRS and + Prolonged QT ECG ST segments: + Nonspecific ST abnormalities MDM Narrative This is a 62-year-old female [facility] emergency department in acute respiratory distress. Patient given nebulizer treatments and started on CPAP by EMS prior to arrival. Patient with longstanding history of COPD, is a reformed smoker, and wears chronic oxygen daily at home. Patient had tried her own home nebulizer treatments prior to EMS arrival. Upon arrival here in the emergency department she was quickly transitioned to BiPAP therapy and a continuous nebulizer treatment started. RT was at bedside assisting with this. Patient had diminished breath sounds bilaterally and a scattered expiratory wheeze. Stated she only felt marginally improved from EMS treatment, continued to sit bolt upright, appear to have increased work of breathing, pursed lip respirations, and appear mildly diaphoretic. Patient denied any chest pain, abdominal pain, did admit to nausea. Patient denies any prior cardiac history. Patient's x-ray did not reveal any obvious CHF, pleural effusion, or pneumonia. Patient's labs were reassuring. Patient remained on BiPAP. She was given IV steroids, Covid swab was negative. Patient's troponin mildly elevated although no acute EKG changes. I suspect this may be due to demand. Leukocytosis also noted, unclear if this is secondary to evolving infection versus stress to margination. Patient was covered with cefepime. Patient does have a history of prolonged QT syndrome. I do not suspect ACS, PE, dissection, perforation, foreign body, deep space infection. Case discussed with hospitalist for additional evaluation and management. An order was placed for continuous cardiac monitoring. The monitor shows a rate of 102_ with _sinus tachycardia_ rhythm. Impression & Plan Respiratory failure, Acute exacerbation of chronic obstructive pulmonary disease (COPD), Chronic respiratory failure with hypoxia, on home O2 therapy, Prolonged QT interval Discharge Plan Visit Data Chief Complaint: Respiratory Problems Stated Complaint: BREATHING DIFFICULTY ED Provider: Brittany Jaimes Discharge Problem: Respiratory failure, Acute exacerbation of chronic obstructive pulmonary disease (COPD), Chronic respiratory failure with hypoxia, on home O2 therapy, Prolonged QT interval Patient Disposition: Admitted As Inpatient Discharge Instructions Interventions: ED Discharge Assessment Last Done: 12/09/20 05:43 Discharge Problem: Respiratory failure Qualifiers: Chronicity: acute on chronic Respiratory failure complication: unspecified whether with hypoxia or hypercapnia Qualified Code(s): J96.20 - Acute and chronic respiratory failure, unspecified whether with hypoxia or hypercapnia
[2020-12-09 03:46] LABS: Basophils # (auto) 0.04 K/uL (0-0.2); Basophils % (auto) 0.3 %; Eosinophils # (auto) 1.53 K/uL (0-0.5); Eosinophils % (auto) 9.9 %; Hematocrit (blood only) 37.1 % (37-47); Hemoglobin 12.1 g/dL (12.0-16.0); Immature Granulocytes # (auto) 0.05 K/uL (0.00-0.02); Immature Granulocytes % (auto) 0.3 %; Lymphocytes # (auto) 2.85 K/uL (1.2-3.4); Lymphocytes % (auto) 18.4 %; Mean Corpuscular Hemoglobin 30.7 pg (25-34); Mean Corpuscular Hgb Conc 32.6 g/dL (32-36); Mean Corpuscular Volume 94.2 fL (80-100); Mean Platelet Volume 9.9 fL (7.4-10.4); Monocytes % (auto) 5.8 %; Neutrophils # (auto) 10.09 K/uL (1.4-6.5); Neutrophils % (auto) 65.3 %; Platelet Count 258 K/uL (130-400); RDW Coefficient of Variation 13.6 % (11.5-14.5); Red Blood Count 3.94 M/uL (4.2-5.4); White Blood Count 15.46 K/uL (4.8-10.8)
[2020-12-09 04:11] LABS: Albumin Level 3.4 gm/dl (3.4-5.0); Bilirubin,Total 0.5 mg/dl (0.2-1); Creatinine Clr Calc Pharmacy 66.6 ml/min; Est GFR (African American) 79.3 ml/min; Est GFR (Non-African American) 68.5 ml/min
[2020-12-09 04:12] LABS: Albumin Globulin Ratio 0.8 (0.9-2); BUN Creatinine Ratio 13.2 (10-20); Calcium 8.7 mg/dl (8.5-10.1); Globulin 4.2 gm/dl (2.5-4.0); Total Protein 7.6 gm/dl (6.4-8.2)
[2020-12-09 04:14] LABS: Troponin I 0.157 ng/ml (0-0.045)
[2020-12-09] MEDS ORDERED: CEFEPIME 2,000 MG/20 ML VIAL IV STA (04:19)
[2020-12-09 05:05] LABS: Potassium 3.6 mmol/L (3.5-5.1)
[2020-12-09 05:10] LABS: Magnesium 2.1 mg/dl (1.8-2.4)
--- NOTE | 2020-12-09 05:50 | History & Physical Report ---
Date of Service December 09, 2020 Assessment & Plan Admission and Anticipated Discharge Date Admission Date: 70 yo F w/ pMHx. of DM II, HTN, HLD, BPPV, COPD on 3L baseline presents with acute worsening of COPD requiring BiPAP in the ER admit PCU Acute COPD exacerbation CXR with no clear acute process BiPAP ordered - continue home inhalers - DuoNeb scheduled and PRN - Pulmicort, Mucinex - Solu-Medrol 125 IV in the ER and 40 Q6H - Azithromycin Elevated troponin likely type II supply demand mismatch 2/2 COPD exacerbation initial troponin 0.125, no history of IN although she does have risk factors including DM, HTN, HLD EKG without ST elevation or depression seen - trend troponin - ECHO ordered to evaluate for wall motion abnormalities Tachycardia Wells' criteria 4.5 -- points moderate risk based on HR and PE as equally likely diagnosis - CTA ordered DM II held oral home meds - Pharmacy consult given steroids HTN - continue home medications HLD - continue home statin BPPV - continue home meds Code: DNR/DNI Diet: CC w/ DM II VTE: Heparin History of Present Illness Chief Complaint: shortness of breath Primary Care Provider: Shira Lopez MD Sharri Conklin is here with shortness of breath and cough over the last week that got worse today. She was on BiPAP when I saw here and she was not able to speak much at one time. She has no increased sputum production, just some slight clear sputum. She has no sick contacts. She feels improved after starting BiPAP, Cefepime and steroids in the ER. She is normally on 3L oxygen at home. She was hospitalized last for COPD exacerbation on 06/01/19. She has been taking her medication as prescribed. She has been lying in bed more. She has no history of blood clot or IN. Allergies Allergy/AdvReac Type Severity Reaction Status Date / Time acetaminophen [From Vicodin] Allergy Verified 10/13/20 08:49 hydrocodone AdvReac Mild NAUSEA Verified 10/13/20 08:49 prednisone AdvReac Mild NAUSEA Verified 10/13/20 08:49 Home Medications Medication Instructions Recorded Confirmed Type aspirin 81 mg PO QAM 04/10/18 10/13/20 History acetaminophen [Tylenol Extra 1,000 mg PO Q6H PRN 06/01/19 10/13/20 History Strength] lancets 33 gauge #100 ea 03/02/20 10/13/20 Rx khxbssabfow-efdwqwkzk-qtuaijkw 1 inh INH QAM 09/28/20 10/13/20 History [Trelegy Ellipta] atorvastatin 20 mg tablet 20 mg PO QAM #30 tab 10/13/20 10/13/20 Rx blood sugar diagnostic #100 ea 10/13/20 10/13/20 Rx fluoxetine 40 mg capsule 40 mg PO QAM #30 cap 10/13/20 10/13/20 Rx glimepiride 2 mg tablet 2 mg PO QAM #30 tab 10/13/20 10/13/20 Rx hydrochlorothiazide 25 mg tablet 25 mg PO QAM #90 tab 10/13/20 10/13/20 Rx lisinopril 10 mg tablet 10 mg PO QAM #90 tab 10/13/20 10/13/20 Rx meclizine 25 mg tablet 25 mg PO TID PRN #12 tab 10/13/20 10/13/20 Rx metformin 500 mg tablet 1,000 mg PO BID #360 tab 10/13/20 10/13/20 Rx ipratropium 0.5 mg-albuterol 3 mg See Rx Instructions .ROUTE 10/23/20 Rx (2.5 mg base)/3 mL nebulization .COMPLEX #90 milliliter soln Past Med/Surg History Medical History Chronic obstructive pulmonary disease Depression Hyperlipidemia Hypertension Surgical History H/O oophorectomy H/O: hysterectomy Family History Father Diabetes CHF (congestive heart failure) Grandfather (Paternal) Diabetes Mother Deep vein thrombosis NHL (non-Hodgkin's lymphoma) Grandfather (Maternal) Acute leukemia Grandmother (Maternal) Deep vein thrombosis Aunt Deep vein thrombosis Other No pertinent family history Denies family history of Ovarian cancer Prostate cancer Myocardial infarction Breast cancer Colorectal cancer Social History Smoking Status: Former smoker Tobacco Type: Cigarettes Second Hand Exposure: No; Hx Alcohol Use: No Hx Substance Use: No Preferred Language: Welsh Communication Ability: Effective Visual Impairment: No Limitations Hearing Ability: Normal Director Of Placement Required: No Beliefs That Will Affect Care: None Current Living Situation: Alone current occupational status: retired Feels Safe at Home: Yes Safety Concerns: Feels Safe At This Time Dental Care, Regularly: No Seatbelt Use: always Sunscreen Use: Yes Assistive Devices: Oxygen - Continuous Review of Systems Review of Systems: Constitutional: denies fevers, chills, nausea, vomiting, weight loss, admits nigh sweats Head: denies trauma or LOC admits some confusion and lightheadedness ENT: denies current vertigo, rhinorrhea, stuffiness, sneezing Cardiac: denies chest pain, palpitations Pulm: denies hemoptysis admits cough and shortness of breath GI: denies constipation, diarrhea : denies urgency, dysuria Physical Exam Constitutional: + acute distress Eyes: PERRL, conjunctivae normal, anicteric sclerae ENMT: external ear and nose normal, oropharynx normal Neck: normal visual inspection Respiratory: able to speak in 3 word sentences increased work of breathing slight wheeze more prominent on left lung calderon Cardiovascular: RRR, no murmur, no edema Gastrointestinal (Abdomen): normal bowel sounds, soft, nontender, no hepatosplenomegaly Skin: no rashes, warm and dry Neurologic: no focal motor deficits Psychiatric: A+Ox3, euthymic affect Results & Data Results & Data ([facility]) Vital Signs (Past 12 Hours) Vital Signs Temp Pulse Pulse Resp BP Pulse Ox 12/09/20 05:00 106 H 30 H 115/76 97 12/09/20 04:34 106 H 22 139/83 97 12/09/20 04:00 103 H 23 126/78 99 12/09/20 03:15 98 H 28 H 99 12/09/20 03:11 87 32 H 96 12/09/20 03:07 103 H 22 136/84 100 12/09/20 02:59 36.7 C 88 30 H 153/115 H 94 CBC Results Results Complete Blood Count Results: RBC 3.94 M/uL (4.2-5.4) L 12/09/20 WBC 15.46 K/uL (4.8-10.8) H 12/09/20 Hgb 12.1 g/dL (12.0-16.0) 12/09/20 Hct 37.1 % (37-47) 12/09/20 Plt Count 258 K/uL (130-400) 12/09/20 Chemistry (BMP) Results BMP Results: Sodium 140 mmol/L (136-145) 12/09/20 Potassium 3.6 mmol/L (3.5-5.1) 12/09/20 Chloride 109 mmol/L (98-107) H 12/09/20 BUN 12 mg/dl (7-18) 12/09/20 Creatinine 0.87 mg/dl (0.6-1.2) 12/09/20 Glucose 206 mg/dl (70-99) H 12/09/20 Code Status & VTE Plan VTE Prophylaxis Plan VTE Prophylaxis will be ordered: Yes Supervising Physician Co-Signing Physician Notes Attending addendum: I have physically seen this patient, have supervised the medical residents activities, and agree with the H&P unless as otherwise noted. Assessment and Plan: COPD exacerbation with hypoxia- Continue BiPAP and has begun in the ED, and titrate downward to nasal cannula as symptoms improve Duonebs every 4 hours while awake and every 2 hours when necessary. Guaifenesin extended release 600 mg p.o. twice daily Pulmicort Respules 0.5 mg inhaled twice daily Given methylprednisolone 1.5 mg IV in the ED. Continue methylprednisolone 40 mg IV every 6 hours Azithromycin 2050 mg IV daily Elevated troponin/hypertension- The patient will be admitted to telemetry for serial cardiac enzymes, serial EKG's, cardiac rhythm monitoring and a 2-D echocardiogram with Dopplers. Likely supply demand type II IN Continue aspirin and lisinopril. Hold HCTZ Consult cardiology Diabetes mellitus- Hold glimepiride and Metformin Placed on Accu-Cheks before meals and at bedtime with NovoLog coverage per scale Remaining orders and notations as noted Resident Activity Tracking Resident Involvement: Resident Care Provided Care Provided: Adult Hospital Medicine
[2020-12-09] MEDS ORDERED: OPTIRAY 350 500ml IV ONE (06:07)
[2020-12-09] MEDS ORDERED: ALBUT/IPRATROP 3MG/0.5MG NEB 3 ML VIAL NEB PRN (06:14)
[2020-12-09] MEDS ORDERED: PHARMACY GLYCEMIC MGMT CONSULT PRN (06:43)
[2020-12-09] MEDS ORDERED: GLUCOSE 10 TABS/TUBE PO PRN (07:00)
[2020-12-09] MEDS ORDERED: DEXTROSE 50% 50 ML SYRINGE IV PRN (07:00)
[2020-12-09] MEDS ORDERED: GLUCAGON FOR INJ 1 MG VIAL IM PRN (07:00)
[2020-12-09] MEDS: BUDESONIDE 0.5 MG/2 ML VIAL (PULMICORT) NEB SCH ×2 (07:20→19:46)
[2020-12-09] MEDS: ALBUT/IPRATROP 3MG/0.5MG NEB 3 ML VIAL NEB SCH ×5 (07:20→19:37)
--- NOTE | 2020-12-09 07:24 | XRay Report ---
XR chest 1V portable CLINICAL HISTORY: sob COMPARISON STUDY: Chest radiograph September 28, 2020. FINDINGS: Lung volumes are normal. Lungs are clear. There is no pneumothorax or pleural effusion. Car diac size is normal. Mediastinal contours are normal. There is slight interstitial prominence. IMPRESSION: 1. Slight interstitial thickening, a nonspecific finding. 2. No consolidation. ACT 112: Negative or not required by law. Electronically signed by: Glen Humphrey M.D. 12/09/2020 7:23 AM
--- NOTE | 2020-12-09 07:55 | CT Scan Report ---
CT ANGIOGRAPHY OF THE CHEST, PULMONARY EMBOLUS PROTOCOL CLINICAL HISTORY: Shortness of breath. Evaluate for pulmonary embolus. COMPARISON STUDY: Chest CT March 03, 2016. Chest radiograph December 09, 2020. TECHNIQUE: Following IV administration of 118 mL of Optiray, helical axial images of the chest were o btained utilizing the pulmonary embolus protocol. Maximal intensity projections and sagittal and cor onal reformats were viewed on an independent 3D workstation. IV contrast was administered without co mplication. Automated exposure control was utilized for the study. A dose lowering technique was ut ilized adhering to the principles of ALARA. CT DOSE: 905.01 mGy.cm FINDINGS: This exam is mildly compromised by respiratory motion artifact. No pulmonary emboli are id entified. There is no thoracic aortic dissection. Size the heart is normal. There is no pericardial e ffusion. No enlarged axillary, mediastinal or hilar lymph nodes are present. Mild diffuse bronchial w all thickening is noted. There is no consolidation. No pneumothorax or pleural effusion is noted. No acute fractures are identified within visualized portions of the bony thorax. IMPRESSION: 1. Exam mildly compromised by motion artifact. No pulmonary emboli identified. 2. No consolidation. Mild diffuse bronchial wall thickening. ACT 112: Negative or not required by law. Electronically signed by: Glen Humphrey M.D. 12/09/2020 7:54 AM
[2020-12-09] MEDS ORDERED: INSULIN GLARGINE SOLOSTAR 100 UNITS/ML 3 ML PEN SC ONE ×2 (08:00)
[2020-12-09] MEDS ORDERED: ATORVASTATIN 20 MG TAB PO SCH (09:00)
[2020-12-09] MEDS ORDERED: HEPARIN SOD 5,000 UNIT/0.5 ML VIAL SQ SCH (09:00)
[2020-12-09] MEDS: FLUoxetine HCL 20 MG CAP PO SCH (09:03)
[2020-12-09] MEDS: AZITHROMYCIN 500 MG in DEXTROSE 5% 250 ML IV SCH (09:03)
[2020-12-09] MEDS: guaiFENesin 600 MG TABCR PO SCH ×2 (09:04→20:56)
[2020-12-09] MEDS: lisinopril 10 MG TAB PO SCH (09:04)
[2020-12-09] MEDS: hydroCHLOROthiazide 25 MG TAB PO SCH (09:04)
[2020-12-09] MEDS: ASPIRIN 81 MG CHEW PO SCH (09:04)
[2020-12-09] MEDS: MECLIZINE HCL 25 MG TAB PO PRN (09:04)
[2020-12-09] MEDS: UMECLIDINIUM/VILANTEROL 62.5/25MCG 7 PUFFS/INHALER INH SCH (09:05)
[2020-12-09] MEDS: INSULIN ASPART 100 UNITS/ML 3 ML PEN SC SCH ×4 (09:28→20:58)
[2020-12-09] MEDS: methylPREDNISolone 40 MG in SYRINGE 0 ML IV SCH ×3 (09:34→23:00)
[2020-12-09] MEDS ORDERED: Heparin IV Adult Wt-Based Standard WITH Bolus Protocol IV STA (11:27)
[2020-12-09] MEDS ORDERED: METOPROLOL TARTRATE 1 MG/ML VIAL IV STA (11:28)
[2020-12-09] MEDS ORDERED: MoRPHine SULFATE 2 MG/ML CARP IV PRN (11:33)
[2020-12-09] MEDS ORDERED: NITROGLYCERIN SL 0.4 MG/TAB TAB SL STA (11:33)
[2020-12-09] MEDS ORDERED: NITROGLYCERIN SL 0.4 MG/TAB TAB SL PRN (11:33)
[2020-12-09] MEDS ORDERED: ATORVASTATIN 40 MG TAB PO SCH (11:45)
--- NOTE | 2020-12-09 11:47 | Pharmacy Report ---
Pharmacy Glycemic Short Note 2 - Date of Service December 09, 2020 - Glycemic Short BSG Results (Last 24 hours): 12/09/20 12/09/20 12/09/20 03:35 07:13 11:23 Glucose 206 H POC Glucose 214 H 290 H OUTPATIENT ANTIDIABETIC REGIMEN: * Metformin 1g PO BIDM * Glimepiride 2mg PO QAM * A1c = 6.6% on 10/13/20 ASSESSMENT: * 70 yo T2DM female with excellent outpatient control on oral antidiabetic agents * Oral agents are not recommended for inpatient use d/t drug interactions, changing PO intake, and difficulty titrating for acute hyper/hypoglycemia. ADA recommends re-initiating outpatient oral agents 1-2 days prior to discharge if/when appropriate if they were held on admission. * Will hold oral agents for admission and utilize SQ basal bolus insulin regimen which is the recommended regimen for inpatient glycemic control. * Will initiate weight based insulin dosing for insulin genny patient and titrate based on BSG trends. * Pt initiated on high dose RTC steroids - will start with weight based, high stress insulin dosing and titrate based on BSG trends PLAN FOR INPATIENT GLYCEMIC CONTROL: * Hold outpatient oral diabetes medications * Basal insulin * Lantus 40 units SQ x 1 dose this AM then * Lantus SQ BID - dosing based on BSG * BSG below 110 --> HOLD * BSG 110-140 --> 7 units * BSG 141 - 180 --> 14 units * BSG above 180 --> 20 units * Bolus insulin * NovoLog per scale ACHS or Q6hrs while NPO * Goal Range: Low 110 mg/dL - High 140 mg/dL * Correction Factor: 15 mg/dL/unit * Nutritional / Prandial insulin per carb ratio of 1 unit per 6 grams CHO consumed PLAN FOR DISCHARGE: * A1c = 6.6% on 10/13/20 * Goal A1c < 7% * No changes needed to outpatient regimen unless patient will be going home on significant steroid taper.
[2020-12-09 11:49] LABS: Partial Thromboplastin Ratio 0.8; Partial Thromboplastin Time 21.5 Seconds (21.0-31.0)
[2020-12-09] MEDS: METOPROLOL TARTRATE 1 MG/ML VIAL IV SCH ×3 (12:19→20:57)
[2020-12-09] MEDS ORDERED: HEPARIN SOD (PORCINE) 1000 UNIT/ML IV ONE (12:30)
[2020-12-09] MEDS ORDERED: HEPARIN SODIUM/DEXTROSE 25,000 UNITS/500 ML BAG IV SCH (12:30)
--- NOTE | 2020-12-09 14:16 | XCELERA ---
[id number]
--- NOTE | 2020-12-09 14:36 | Cardiology Consultation ---
Date of Consultation December 09, 2020 Assessment & Plan (1) Chest pain syndrome: -she describes upper abdominal discomfort as an elephant sitting on her abdomen. -concurrent with her shortness of breath. -prolonged episode prompting admission, but minimal troponin elevation. -echocardiogram technically limited, but no obvious wall motion abnormality. -agree with intravenous heparin for now. -would trend troponin I for an additional 24 hours. (2) Elevated troponin: -minimal elevation. -suspect supply demand mismatch as she was very hypertensive on presentation, and has mild LVH. -could consider stress testing at a later date if her troponins remain minimally elevated. (3) Acute exacerbation of chronic obstructive pulmonary disease (COPD): -management per Dr. Marshall. (4) Hypertension: -adequate control on current regimen. History of Present Illness Attending Physician: Chucky Marshall, History of Present Illness Mrs. Conklin is a 70-year-old female admitted earlier today with a chest pain syndrome and a COPD exacerbation. This consultation was ordered as she has a mildly elevated troponin I level. The patient carries the diagnosis of severe COPD and has been oxygen dependent for approximately 4 months. Approximately 1 week ago, she began to note progressive shortness of breath and an associated upper abdominal discomfort. The patient explains that her episodes of shortness of breath occurred paroxysmally. She describes her upper abdominal discomfort as an elephant sitting on her abdomen. The patient explains that her symptoms of shortness of breath and her upper abdominal discomfort improved when she used nebulizer treatments. However, last evening at approximately 8:00 p.m., she developed another paroxysm which was severe and did not respond to her nebulizer treatments. She proceeded to the emergency room for further care. She explains that her symptoms finally improved at approximately 3:00 a.m. after she received intravenous steroid. The patient's initial troponin on presentation was mildly elevated 0.157. A follow-up value was increased to 1.09. The patient has never known of a cardiac event. She has never had a cardiac catheterization. She has never experienced exertional angina pectoris. She further denies syncope, presyncope, PND, orthopnea, palpitations, lower extremity edema, and claudication. Currently, patient is resting comfortably in bed without complaints. Past medical and surgical history 1. Hypertension 2. Hypercholesterolemia 3. Diabetes mellitus 4. Oxygen-dependent COPD 5. Depression 6. Benign paroxysmal positional vertigo 7. HIEU/BSO Social history , lives alone Retired from [employer] Quit tobacco use 6 years ago, 25 pack year history. No alcohol Family history Mother at 82 from non-Hodgkin's lymphoma Father at 75 from CHF No early coronary artery disease Review of systems A 10 review systems was undertaken and negative except that described above. Allergies Allergy/AdvReac Type Severity Reaction Status Date / Time acetaminophen [From Vicodin] Allergy Verified 10/13/20 08:49 hydrocodone AdvReac Mild NAUSEA Verified 10/13/20 08:49 prednisone AdvReac Mild NAUSEA Verified 10/13/20 08:49 Home Medications Medication Instructions Recorded Confirmed Type aspirin 81 mg PO QAM 04/10/18 10/13/20 History acetaminophen [Tylenol Extra 1,000 mg PO Q6H PRN 06/01/19 10/13/20 History Strength] lancets 33 gauge #100 ea 03/02/20 10/13/20 Rx yaochdkysas-jiiaxrqac-eramwazh 1 inh INH QAM 09/28/20 10/13/20 History [Trelegy Ellipta] atorvastatin 20 mg tablet 20 mg PO QAM #30 tab 10/13/20 10/13/20 Rx blood sugar diagnostic #100 ea 10/13/20 10/13/20 Rx fluoxetine 40 mg capsule 40 mg PO QAM #30 cap 10/13/20 10/13/20 Rx glimepiride 2 mg tablet 2 mg PO QAM #30 tab 10/13/20 10/13/20 Rx hydrochlorothiazide 25 mg tablet 25 mg PO QAM #90 tab 10/13/20 10/13/20 Rx lisinopril 10 mg tablet 10 mg PO QAM #90 tab 10/13/20 10/13/20 Rx meclizine 25 mg tablet 25 mg PO TID PRN #12 tab 10/13/20 10/13/20 Rx metformin 500 mg tablet 1,000 mg PO BID #360 tab 10/13/20 10/13/20 Rx ipratropium 0.5 mg-albuterol 3 mg See Rx Instructions .ROUTE 10/23/20 Rx (2.5 mg base)/3 mL nebulization .COMPLEX #90 milliliter soln Patient History Medical History Chronic obstructive pulmonary disease Depression Hyperlipidemia Hypertension Surgical History H/O oophorectomy H/O: hysterectomy Family History Father Diabetes CHF (congestive heart failure) Grandfather (Paternal) Diabetes Mother Deep vein thrombosis NHL (non-Hodgkin's lymphoma) Grandfather (Maternal) Acute leukemia Grandmother (Maternal) Deep vein thrombosis Aunt Deep vein thrombosis Other No pertinent family history Denies family history of Ovarian cancer Prostate cancer Myocardial infarction Breast cancer Colorectal cancer Social History Smoking Status: Former smoker Tobacco Type: Cigarettes Second Hand Exposure: No; Hx Alcohol Use: No Hx Substance Use: No Preferred Language: Mauritian Communication Ability: Effective Visual Impairment: No Limitations Hearing Ability: Normal [employer] Required: No Beliefs That Will Affect Care: None Current Living Situation: Alone current occupational status: retired Feels Safe at Home: Yes Safety Concerns: Feels Safe At This Time Dental Care, Regularly: No Seatbelt Use: always Sunscreen Use: Yes Assistive Devices: Oxygen - Continuous Physical Exam Physical Exam: In general is well-developed well-nourished white female no acute distress. HEENT exam is negative. Neck is supple with full carotid upstrokes. No carotid bruits. Jugular venous pressure is flat at 90. There is no thyromegaly. Cardiovascular exam reveals a regular rhythm with normal S1 and S2. No S3, S4, or murmurs are noted. Lungs note rhonchorous breath sounds throughout. No rales or wheezes. Abdomen is soft without bruits. Extremities reveal intact radial artery pulses bilaterally. There is no peripheral edema. Results & Data ([facility]) Vital Signs (Past 12 Hours) Vital Signs Temp Pulse Pulse Pulse Resp BP BP 12/09/20 13:00 90 104/72 12/09/20 12:30 94 H 116/73 12/09/20 12:08 109 H 111/78 12/09/20 11:26 37.5 C 102 H 31 H 105/71 12/09/20 09:45 117 H 22 12/09/20 08:00 110 H 12/09/20 07:30 108 H 18 12/09/20 07:20 104 H 104 H 23 12/09/20 07:08 37.0 C 105 H 26 H 123/83 12/09/20 06:58 115 H 12/09/20 06:15 36.7 C 113 H 24 135/86 12/09/20 06:04 118 H 34 H 12/09/20 05:00 106 H 30 H 115/76 12/09/20 04:34 106 H 22 139/83 12/09/20 04:00 103 H 23 126/78 12/09/20 03:15 98 H 28 H 12/09/20 03:11 87 32 H 12/09/20 03:07 103 H 22 136/84 12/09/20 02:59 36.7 C 88 30 H 153/115 H Pulse Ox 12/09/20 13:00 12/09/20 12:30 12/09/20 12:08 12/09/20 11:26 93 12/09/20 09:45 95 12/09/20 08:00 12/09/20 07:30 95 12/09/20 07:20 94 12/09/20 07:08 94 12/09/20 06:58 12/09/20 06:15 95 12/09/20 06:04 100 12/09/20 05:00 97 12/09/20 04:34 97 12/09/20 04:00 99 12/09/20 03:15 99 12/09/20 03:11 96 12/09/20 03:07 100 12/09/20 02:59 94 PG Care Time/CCT Total # of Minutes Spent Total Time Spent with Patient: Total time spent is greater than 50% in coordination of care (as documented) at patient's floor/unit and/or counseling patient: Coding Level of Care Code 46302 Initial Inpt Care Lvl 3 Diagnoses Chest pain syndrome R07.9 Elevated troponin R77.8 Acute exacerbation of chronic obstructive pulmonary disease (COPD) J44.1 Hypertension I10 Hypertension type: essential hypertension (1) Hypertension Hypertension type: essential hypertension Qualified Code(s): I10 - Essential (primary) hypertension
--- NOTE | 2020-12-09 14:59 | Electrocardiogram Report ---
Test Reason : Blood Pressure : / mmHG Vent. Rate : 104 BPM Atrial Rate : 104 BPM P-R Int : 148 ms QRS Dur : 086 ms QT Int : 304 ms P-R-T Axes : 076 020 086 degrees QTc Int : 399 ms Sinus tachycardia with occasional Premature ventricular complexes Nonspecific T wave abnormality Abnormal ECG When compared with ECG of 09-DEC-2020 03:20, (unconfirmed) Premature ventricular complexes are now Present Nonspecific T wave abnormality, worse in Inferior leads Nonspecific T wave abnormality now evident in Anterolateral leads QT has shortened Confirmed by Franklin Boucher ([id number]) on 12/09/2020 2:59:15 PM Referred By: REFERRED SELF Confirmed By:Franklin Boucher
--- NOTE | 2020-12-09 15:01 | Electrocardiogram Report ---
Test Reason : Blood Pressure : / mmHG Vent. Rate : 097 BPM Atrial Rate : 097 BPM P-R Int : 154 ms QRS Dur : 086 ms QT Int : 402 ms P-R-T Axes : 079 013 047 degrees QTc Int : 510 ms Normal sinus rhythm Nonspecific ST abnormality Prolonged QT Abnormal ECG When compared with ECG of 28-SEP-2020 11:37, Nonspecific T wave abnormality no longer evident in Anterolateral leads Confirmed by Franklin Boucher ([id number]) on 12/09/2020 3:01:01 PM Referred By: REFERRED SELF Confirmed By:Franklin Boucher
--- NOTE | 2020-12-09 15:50 | Hospitalist Progress Note ---
Date of Service December 09, 2020 Assessment & Plan (1) Acute exacerbation of chronic obstructive pulmonary disease (COPD): Steroids, Zithromax, inhalers, supportive care, time (2) Elevated troponin: Most likely demand ischemia from her COPD exacerbation and hypoxia, elevator service technician raise concern of new wall motion abnormalitiestherefore management as a possible non-STEMI was initiated, fortunately later in discussion with cardiology it was very difficult study and the wall motion abnormalities may not even be real. At any rate given that she does appear to have demand ischemia, including a positive troponin, will need to manage with supportive care at this point time, and then likely at a later date whenever she is improved from the COPD exacerbation move towards an ischemic work-up (either nuc med stress test or less likely cath) (3) Chronic respiratory failure with hypoxia, on home O2 therapy: (4) Hypertension: Blood pressure reasonable for the situation. Continue to follow (5) Hyperlipidemia: While managing her non-STEMI type demand ischemia, have escalated her atorvastatin to 80 mg for the time being. (6) DM w/o complication type II, uncontrolled: Continue glycemic management, adjust as needed to match sugars in light of the steroids (7) DVT prophylaxis: Was on heparin subcuuntil the situation declares itself as it relates to her cardiac status, she is now on a heparin drip (8) Discharge planning issues: Maintain on PCU for now Admission and Anticipated Discharge Date Admission Date: December 09, 2020 Subjective Still feeling short of breath, on and off chest pressureapparently improved after nebulizer. Ongoing cough. No cardiac history that she is aware of. Review of Systems Review of Systems: All systems reviewed & are unremarkable except as noted in HPI & below Physical Exam Physical Exam: General she is awake and alert pleasant no distress. HEENT normocephalic atraumatic mucous membranes moist. Lungs show faint wheezes throughout, moderate air entry although it is somewhat diminished. Cardio is regular no rubs murmurs or gallops. Skin shows no rashes no pallor or icterus. Results & Data Results & Data ([facility]) Vital Signs (Past 12 Hours) Vital Signs Temp Pulse Pulse Pulse Resp BP BP 12/09/20 15:02 99.0 F 87 105/74 12/09/20 15:00 88 12/09/20 14:48 90 24 12/09/20 13:30 89 114/82 12/09/20 13:00 90 104/72 12/09/20 12:30 94 H 116/73 12/09/20 12:08 109 H 111/78 12/09/20 11:26 99.5 F 102 H 31 H 105/71 12/09/20 09:45 117 H 22 12/09/20 08:00 110 H 12/09/20 07:30 108 H 18 12/09/20 07:20 104 H 104 H 23 12/09/20 07:08 98.6 F 105 H 26 H 123/83 12/09/20 06:58 115 H 12/09/20 06:15 98.1 F 113 H 24 135/86 12/09/20 06:04 118 H 34 H 12/09/20 05:00 106 H 30 H 115/76 12/09/20 04:34 106 H 22 139/83 12/09/20 04:00 103 H 23 126/78 Pulse Ox 12/09/20 15:02 100 12/09/20 15:00 12/09/20 14:48 95 12/09/20 13:30 12/09/20 13:00 12/09/20 12:30 12/09/20 12:08 12/09/20 11:26 93 12/09/20 09:45 95 12/09/20 08:00 12/09/20 07:30 95 12/09/20 07:20 94 12/09/20 07:08 94 12/09/20 06:58 12/09/20 06:15 95 12/09/20 06:04 100 12/09/20 05:00 97 12/09/20 04:34 97 12/09/20 04:00 99 PG Care Time/CCT Total # of Minutes Spent Total Time Spent with Patient: Total time spent is greater than 50% in coordination of care (as documented) at patient's floor/unit and/or counseling patient: Coding Level of Care Code None Diagnoses Acute exacerbation of chronic obstructive pulmonary disease (COPD) J44.1 Elevated troponin R77.8 Chronic respiratory failure with hypoxia, on home O2 therapy J96.11; Z99.81 Hypertension I10 Hypertension type: essential hypertension Hyperlipidemia E78.5 DM w/o complication type II, uncontrolled E11.65 Glycemic state: with hyperglycemia DVT prophylaxis Z29.9 Discharge planning issues Z02.9 (1) Hypertension Hypertension type: essential hypertension Qualified Code(s): I10 - Essential (primary) hypertension (2) DM w/o complication type II, uncontrolled Glycemic state: with hyperglycemia Qualified Code(s): E11.65 - Type 2 diabetes mellitus with hyperglycemia
[2020-12-09] MEDS: guaiFENesin/CODEINE 100MG/10MG 5ML UDC PO PRN ×2 (16:54→23:00)
[2020-12-09 19:16] LABS: Partial Thromboplastin Ratio 2.5
[2020-12-09 19:30] LABS: Partial Thromboplastin Time 64.6 Seconds (21.0-31.0)
[2020-12-09] MEDS ORDERED: INSULIN GLARGINE SOLOSTAR 100 UNITS/ML 3 ML PEN SC SCH (21:00)
[2020-12-10] MEDS: METOPROLOL TARTRATE 1 MG/ML VIAL IV SCH ×3 (00:20→09:18)
[2020-12-10] MEDS: methylPREDNISolone 40 MG in SYRINGE 0 ML IV SCH ×4 (04:38→23:10)
--- NOTE | 2020-12-10 05:26 | Billing Data ---
Date of Service December 10, 2020 Coding Level of Care Code 69004 Initial Inpt Care Lvl 3
[2020-12-10 06:45] LABS: Hemoglobin 12.3 g/dL (12.0-16.0); Mean Corpuscular Hemoglobin 31.1 pg (25-34); Mean Corpuscular Hgb Conc 33.2 g/dL (32-36); Mean Corpuscular Volume 93.4 fL (80-100); Mean Platelet Volume 9.9 fL (7.4-10.4); Platelet Count 321 K/uL (130-400); RDW Coefficient of Variation 13.5 % (11.5-14.5); Red Blood Count 3.96 M/uL (4.2-5.4); White Blood Count 23.58 K/uL (4.8-10.8)
[2020-12-10 06:52] LABS: Calcium 9.5 mg/dl (8.5-10.1); Creatinine Clr Calc Pharmacy 56.8 ml/min; Est GFR (African American) 71.3 ml/min; Est GFR (Non-African American) 61.5 ml/min; Potassium 4.1 mmol/L (3.5-5.1)
[2020-12-10 06:56] LABS: Partial Thromboplastin Ratio 2.5
[2020-12-10] MEDS: ALBUT/IPRATROP 3MG/0.5MG NEB 3 ML VIAL NEB SCH ×4 (07:13→19:35)
[2020-12-10] MEDS: BUDESONIDE 0.5 MG/2 ML VIAL (PULMICORT) NEB SCH ×2 (07:13→19:35)
[2020-12-10 07:19] LABS: Basophils # (auto) 0.01 K/uL (0-0.2); Immature Granulocytes % (auto) 0.4 %; Lymphocytes # (auto) 1.73 K/uL (1.2-3.4); Lymphocytes % (auto) 7.3 %; Monocytes # (auto) 0.99 K/uL (0.11-0.59); Monocytes % (auto) 4.2 %; Neutrophils # (auto) 20.75 K/uL (1.4-6.5); Neutrophils % (auto) 88.1 %; Partial Thromboplastin Time 64.9 Seconds (21.0-31.0)
[2020-12-10] MEDS ORDERED: INSULIN GLARGINE SOLOSTAR 100 UNITS/ML 3 ML PEN SC ONE (08:00)
[2020-12-10] MEDS: guaiFENesin 600 MG TABCR PO SCH ×2 (08:32→20:40)
[2020-12-10] MEDS: lisinopril 10 MG TAB PO SCH (08:32)
[2020-12-10] MEDS: hydroCHLOROthiazide 25 MG TAB PO SCH (08:33)
[2020-12-10] MEDS: ASPIRIN 81 MG CHEW PO SCH (08:33)
[2020-12-10] MEDS: MECLIZINE HCL 25 MG TAB PO PRN (08:33)
[2020-12-10] MEDS: FLUoxetine HCL 20 MG CAP PO SCH (08:33)
[2020-12-10] MEDS: INSULIN ASPART 100 UNITS/ML 3 ML PEN SC SCH ×4 (08:36→20:44)
[2020-12-10] MEDS: UMECLIDINIUM/VILANTEROL 62.5/25MCG 7 PUFFS/INHALER INH SCH (08:38)
[2020-12-10] MEDS: AZITHROMYCIN 500 MG in DEXTROSE 5% 250 ML IV SCH (08:43)
[2020-12-10] MEDS: METOPROLOL TARTRATE 25 MG TAB PO SCH ×2 (09:59→20:42)
[2020-12-10] MEDS: ATORVASTATIN 40 MG TAB PO SCH (09:59)
--- NOTE | 2020-12-10 10:15 | Pharmacy Report ---
Pharmacy Glycemic Short Note 2 - Date of Service December 10, 2020 - Glycemic Short BSG Results (Last 24 hours): 12/09/20 12/09/20 12/09/20 11:23 16:02 20:05 Glucose POC Glucose 290 H 107 H 163 H 12/10/20 12/10/20 06:16 07:08 Glucose 212 H POC Glucose 235 H OUTPATIENT ANTIDIABETIC REGIMEN: * Metformin 1g PO BIDM * Glimepiride 2mg PO QAM * A1c = 6.6% on 10/13/20 ASSESSMENT: 12/10 * Pt has received 94 units of insulin over the past 24hrs * 54 units of basal with Lantus * 40 units of bolus with NovoLog * BSGs 254-106-470-163-235 mg/dl * Pt continues on RTC steroids with Solumedrol 40mg IV Q6hrs. Most BSGs above goal range; will increase basal and tighten CR/CR * Insulin regimen will need tapered when steroids tapered 12/09 * 70 yo T2DM female with excellent outpatient control on oral antidiabetic agents * Oral agents are not recommended for inpatient use d/t drug interactions, changing PO intake, and difficulty titrating for acute hyper/hypoglycemia. ADA recommends re-initiating outpatient oral agents 1-2 days prior to discharge if/when appropriate if they were held on admission. * Will hold oral agents for admission and utilize SQ basal bolus insulin regimen which is the recommended regimen for inpatient glycemic control. * Will initiate weight based insulin dosing for insulin genny patient and titrate based on BSG trends. * Pt initiated on high dose RTC steroids - will start with weight based, high stress insulin dosing and titrate based on BSG trends PLAN FOR INPATIENT GLYCEMIC CONTROL: * Hold outpatient oral diabetes medications * Basal insulin * Lantus 40 units SQ x 1 dose this AM then * Lantus SQ BID - dosing based on BSG * BSG 180 mg/dl or below --> 20 units * BSG above 180 --> 30 units * Bolus insulin * NovoLog per scale ACHS or Q6hrs while NPO * Goal Range: Low 110 mg/dL - High 140 mg/dL * Correction Factor: 18 mg/dL/unit * Nutritional / Prandial insulin per carb ratio of 1 unit per 5 grams CHO consumed PLAN FOR DISCHARGE: * A1c = 6.6% on 10/13/20 * Goal A1c < 7% * No changes needed to outpatient regimen unless patient will be going home on significant steroid taper.
[2020-12-10] MEDS: guaiFENesin/CODEINE 100MG/10MG 5ML UDC PO PRN (10:54)
[2020-12-10] MEDS: BENZONATATE 100 MG CAPSULE PO SCH ×2 (13:48→20:40)
[2020-12-10] MEDS: CARBOHYDRATES FOR HYPOGLYCEMIA PO PRN (16:10)
--- NOTE | 2020-12-10 19:19 | Hospitalist Progress Note ---
Date of Service December 10, 2020 Assessment & Plan (1) Acute exacerbation of chronic obstructive pulmonary disease (COPD): Steroids, Zithromax, inhalers, supportive care, timeseems to be slowly improving. (2) Elevated troponin: Most likely demand ischemia from her COPD exacerbation and hypoxia, fortunately troponin peaked, and on cardiology reading, question of wall motion abnormalities that was raised by the oven technician yesterday were more because it was a very difficult study. Treat the COPD exacerbation, and then once she is back to her baseline, would be quite reasonable to proceed with a stress test (probably nuclear medicine study given the difficulty getting good echo views) to rule out any clinically significant reversible ischemia (To clarifyyesterday given the "wet read" of new wall motion abnormalities this was being labeled as a non-STEMInow that I have better information at my disposal, it is simply demand ischemia) (3) Chronic respiratory failure with hypoxia, on home O2 therapy: (4) Hypertension: Blood pressure reasonable for the situation. Continue to follow (5) Hyperlipidemia: While managing her demand ischemia, have escalated her atorvastatin to 80 mg for the time being. (6) DM w/o complication type II, uncontrolled: Ongoing insulin titration/inpatient glycemic control consult (7) DVT prophylaxis: Lovenox (8) Discharge planning issues: Maintain on PCU for now Admission and Anticipated Discharge Date Admission Date: December 09, 2020 Subjective Significant coughing fits, and in the coughing flares of her chronic vertigo. But otherwise feeling a decent amount better. Breathing is a little bit easier. Out of bed. Still short of breath, but seems overall better than yesterday. Review of Systems Review of Systems: All systems reviewed & are unremarkable except as noted in HPI & below Physical Exam Physical Exam: Vitals noted, awake alert oriented x3 pleasant fatigued but no distress. HEENT normocephalic atraumatic mucous membranes moist. Lungs diminished throughout but actually no wheezes may be a scattered rale here there. No accessory muscle use good effort. Extremities show no cyanosis or clubbing. Neuro shows no focal deficits. Results & Data Results & Data ([facility]) Vital Signs (Past 12 Hours) Vital Signs Temp Pulse Pulse Resp BP Pulse Ox 12/10/20 15:03 99.5 F 81 10 L 105/63 96 12/10/20 15:00 89 12/10/20 14:25 85 20 94 06/13/21 11:09 99.0 F 89 25 H 125/81 95 12/10/20 10:21 65 18 97 12/10/20 08:00 93 H 12/10/20 07:37 98.8 F 78 19 104/74 95 PG Care Time/CCT Total # of Minutes Spent Total Time Spent with Patient: Total time spent is greater than 50% in coordination of care (as documented) at patient's floor/unit and/or counseling patient: Coding Level of Care Code 29517 Subseq Hosp Care Lvl 3 Diagnoses Acute exacerbation of chronic obstructive pulmonary disease (COPD) J44.1 Elevated troponin R77.8 Chronic respiratory failure with hypoxia, on home O2 therapy J96.11; Z99.81 Hypertension I10 Hypertension type: essential hypertension Hyperlipidemia E78.5 DM w/o complication type II, uncontrolled E11.65 Glycemic state: with hyperglycemia DVT prophylaxis Z29.9 Discharge planning issues Z02.9 (1) Hypertension Hypertension type: essential hypertension Qualified Code(s): I10 - Essential (primary) hypertension (2) DM w/o complication type II, uncontrolled Glycemic state: with hyperglycemia Qualified Code(s): E11.65 - Type 2 diabetes mellitus with hyperglycemia
[2020-12-10] MEDS ORDERED: INSULIN GLARGINE SOLOSTAR 100 UNITS/ML 3 ML PEN SC SCH (21:00)
[2020-12-11] MEDS: methylPREDNISolone 40 MG in SYRINGE 0 ML IV SCH ×2 (03:58→10:27)
[2020-12-11] MEDS: guaiFENesin/CODEINE 100MG/10MG 5ML UDC PO PRN ×2 (03:58→14:45)
[2020-12-11 06:09] LABS: Hematocrit (blood only) 37.2 % (37-47); Hemoglobin 12.2 g/dL (12.0-16.0); Mean Corpuscular Hemoglobin 30.7 pg (25-34); Mean Corpuscular Hgb Conc 32.8 g/dL (32-36); Mean Corpuscular Volume 93.7 fL (80-100); Mean Platelet Volume 9.9 fL (7.4-10.4); Platelet Count 366 K/uL (130-400); RDW Coefficient of Variation 13.8 % (11.5-14.5); RDW Standard Deviation 47.3 fL (36.4-46.3); Red Blood Count 3.97 M/uL (4.2-5.4); White Blood Count 24.78 K/uL (4.8-10.8)
[2020-12-11 06:52] LABS: BUN Creatinine Ratio 26.8 (10-20); Calcium 8.9 mg/dl (8.5-10.1); Creatinine Clr Calc Pharmacy 54.6 ml/min; Est GFR (Non-African American) 57.8 ml/min; Potassium 3.5 mmol/L (3.5-5.1)
[2020-12-11 06:56] LABS: Basophils # (auto) 0.01 K/uL (0-0.2); Immature Granulocytes # (auto) 0.08 K/uL (0.00-0.02); Immature Granulocytes % (auto) 0.3 %; Lymphocytes # (auto) 1.27 K/uL (1.2-3.4); Lymphocytes % (auto) 5.1 %; Monocytes # (auto) 0.87 K/uL (0.11-0.59); Monocytes % (auto) 3.5 %; Neutrophils # (auto) 22.55 K/uL (1.4-6.5); Neutrophils % (auto) 91.1 %
[2020-12-11] MEDS: ALBUT/IPRATROP 3MG/0.5MG NEB 3 ML VIAL NEB SCH ×4 (07:41→19:33)
[2020-12-11] MEDS: BUDESONIDE 0.5 MG/2 ML VIAL (PULMICORT) NEB SCH (07:41)
[2020-12-11] MEDS: AZITHROMYCIN 500 MG in DEXTROSE 5% 250 ML IV SCH (08:15)
[2020-12-11] MEDS: POLYETHYLENE (MIRALAX) 17 GM PACK PO PRN (08:15)
[2020-12-11] MEDS: ASPIRIN 81 MG CHEW PO SCH (08:17)
[2020-12-11] MEDS: hydroCHLOROthiazide 25 MG TAB PO SCH (08:17)
[2020-12-11] MEDS: FLUoxetine HCL 20 MG CAP PO SCH (08:17)
[2020-12-11] MEDS: ATORVASTATIN 40 MG TAB PO SCH (08:17)
[2020-12-11] MEDS: guaiFENesin 600 MG TABCR PO SCH ×2 (08:18→20:05)
[2020-12-11] MEDS: METOPROLOL TARTRATE 25 MG TAB PO SCH ×2 (08:18→20:06)
[2020-12-11] MEDS: lisinopril 10 MG TAB PO SCH (08:18)
[2020-12-11] MEDS: BENZONATATE 100 MG CAPSULE PO SCH ×3 (08:18→20:07)
[2020-12-11] MEDS: ENOXAPARIN INJ 40 MG/0.4 ML SYR SQ SCH (08:20)
[2020-12-11] MEDS: UMECLIDINIUM/VILANTEROL 62.5/25MCG 7 PUFFS/INHALER INH SCH (08:21)
[2020-12-11] MEDS: INSULIN ASPART 100 UNITS/ML 3 ML PEN SC SCH ×4 (08:23→21:37)
[2020-12-11] MEDS ORDERED: INSULIN GLARGINE SOLOSTAR 100 UNITS/ML 3 ML PEN SC SCH ×2 (09:00→21:00)
--- NOTE | 2020-12-11 09:18 | Pharmacy Report ---
Pharmacy Glycemic Short Note 2 - Date of Service December 11, 2020 - Glycemic Short BSG Results (Last 24 hours): 12/10/20 12/10/20 12/10/20 10:58 16:00 16:26 Glucose POC Glucose 325 H* 63 L* 72 12/10/20 12/11/20 12/11/20 20:12 05:40 07:11 Glucose 168 H POC Glucose 113 H 152 H OUTPATIENT ANTIDIABETIC REGIMEN: * Metformin 1g PO BIDM * Glimepiride 2mg PO QAM * A1c = 6.6% on 10/13/20 ASSESSMENT: 12/11 * BSGs yesterday of 235, 325, 62, and 113 mg/dL * trend continues of elevated lunchtime and subsequent dinnertime low * Received 101+ units of insulin yesterday (60 units of basal and 41+ units of bolus) * Continues on Solu-medrol 40 mg IV q6h * Give BSG trend throughout the day - will tighten AM Novolog and loosen at lunchtime 12/10 * Pt has received 94 units of insulin over the past 24hrs * 54 units of basal with Lantus * 40 units of bolus with NovoLog * BSGs 402-661-232-163-235 mg/dl * Pt continues on RTC steroids with Solumedrol 40mg IV Q6hrs. Most BSGs above goal range; will increase basal and tighten CR/CR * Insulin regimen will need tapered when steroids tapered 12/09 * 70 yo T2DM female with excellent outpatient control on oral antidiabetic agents * Oral agents are not recommended for inpatient use d/t drug interactions, changing PO intake, and difficulty titrating for acute hyper/hypoglycemia. ADA recommends re-initiating outpatient oral agents 1-2 days prior to discharge if/when appropriate if they were held on admission. * Will hold oral agents for admission and utilize SQ basal bolus insulin regimen which is the recommended regimen for inpatient glycemic control. * Will initiate weight based insulin dosing for insulin genny patient and titrate based on BSG trends. * Pt initiated on high dose RTC steroids - will start with weight based, high stress insulin dosing and titrate based on BSG trends PLAN FOR INPATIENT GLYCEMIC CONTROL: * Hold outpatient oral diabetes medications * Basal insulin * Lantus 20-30 units SC BID (see EHR for details) * Bolus insulin * NovoLog per scale ACHS or Q6hrs while NPO * Goal Range: Low 110 mg/dL - High 140 mg/dL * Correction Factor: 15 mg/dL/unit at breakfast, 20 mg/dL/unit at lunch, dinner, and HS * Nutritional / Prandial insulin per carb ratio of 1 unit per 5 grams CHO consumed at breakfast, and 1 unit per 7 grams CHO at lunch, dinner, and HS PLAN FOR DISCHARGE: * A1c = 6.6% on 10/13/20 * Goal A1c < 7% * No changes needed to outpatient regimen unless patient will be going home on significant steroid taper.
--- NOTE | 2020-12-11 12:19 | Hospitalist Progress Note ---
Date of Service December 11, 2020 Assessment & Plan (1) Acute exacerbation of chronic obstructive pulmonary disease (COPD): Improved from admission but still bad cough CXR and CTA CHest clear, no PNA< no PE No PFTs in recent past and does not follow with PULM Would be a good candidate for PULM rehab as per RT-will place PULM consult -continue same dose of Steroids -continue Zithromax x 5 day course -continue inhalers, supportive care, timeseems to be slowly improving -add flutter valve today -continue chronic O2 (2) Elevated troponin: Most likely myocardial demand ischemia from her COPD exacerbation and hypoxia - fortunately troponin peaked at 1.5 -was on heparin gtt for 48 hrs Appreciate Cardiology consult -cardiology reading of ECHO--> question of wall motion abnormalities that was raised by the technician support engineer more because it was a very difficult study. EF preserved, pro BNP normal on admission ECGs with nonspecific TW abnormalities in inferior and anterolat leads Treat the COPD exacerbation, and then once she is back to her baseline, would be quite reasonable to proceed with a stress test (probably nuclear medicine study given the difficulty getting good echo views) to rule out any clinically significant reversible ischemia continue home ASA, atorvastatin increased to 40mg, and added on metoprolol (3) Chronic respiratory failure with hypoxia, on home O2 therapy: on 3LNC at home continue such here (4) Hypertension: Blood pressure normal -continue lisinopril, HCTZ, metoprolol (5) Hyperlipidemia: While managing her demand ischemia, have escalated her atorvastatin to 40 mg for the time being. (6) DM w/o complication type II, uncontrolled: Ongoing insulin titration/inpatient glycemic control consult holding home po meds (7) DVT prophylaxis: Lovenox (8) Discharge planning issues: Maintain on PCU for now Admission and Anticipated Discharge Date Admission Date: December 09, 2020 Subjective Pt still feeling "blah" and not much better than yesterday. Not currently SOB at rest. Is coughing a lot. APpetite is "ok." Tele with NSR, PACs, PVCs, rtes 70-80s. Review of Systems Review of Systems: All systems reviewed & are unremarkable except as noted in HPI & below no diarrhea, no constipation no leg swelling Physical Exam Constitutional: WD/WN, vitals as above Eyes: + anicteric sclerae ENMT: external ear and nose normal, oropharynx normal Neck: trachea midline, no thyromegaly Respiratory: normal respiratory effort Auscultation: + diminished lung sounds (throughout); no crackles and no wheezes Cardiovascular: RRR, no murmur, no edema Vessels: dorsalis pedis pulses present Chest (Breasts): Chest: normal inspection of chest Gastrointestinal (Abdomen): normal bowel sounds, soft, nontender, no hepatosplenomegaly Musculoskeletal: Extremities: extremities normal to inspection; no cyanosis and no clubbing Skin: no rashes, warm and dry Neurologic: moves all extremities and awake; no focal motor deficits Psychiatric: A+Ox3, euthymic affect Lymphatic: no lymphedema Results & Data Results & Data ([facility]) Vital Signs (Past 12 Hours) Vital Signs Temp Pulse Pulse Resp BP Pulse Ox Pulse Ox 12/11/20 11:54 37.0 C 90 20 107/71 95 12/11/20 10:50 87 21 98 12/11/20 07:30 87 22 97 12/11/20 07:08 36.7 C 73 20 131/84 93 12/11/20 07:00 72 12/11/20 06:00 95 12/11/20 03:28 37.2 C 81 20 105/77 98 12/11/20 01:56 83 Laboratory Results 12/11/20 12/11/20 12/11/20 Range/Units 11:24 07:11 05:40 WBC (4.8-10.8) K/uL RBC (4.2-5.4) M/uL Hgb (12.0-16.0) g/dL Hct (37-47) % MCV (80-100) fL MCH (25-34) pg MCHC (32-36) g/dL RDW Std Deviation (36.4-46.3) fL RDW Coeff of Aniyah (11.5-14.5) % Plt Count (130-400) K/uL MPV (7.4-10.4) fL Immature Gran % (Auto) % Neut % (Auto) % Lymph % (Auto) % [place] % (Auto) % Eos % (Auto) % Baso % (Auto) % Neut # (Auto) (1.4-6.5) K/uL Lymph # (Auto) (1.2-3.4) K/uL [place] # (Auto) (0.11-0.59) K/uL Eos # (Auto) (0-0.5) K/uL Baso # (Auto) (0-0.2) K/uL Immature Gran # (Auto) (0.00-0.02) K/uL Sodium 139 (136-145) mmol/L Potassium 3.5 (3.5-5.1) mmol/L Chloride 103 (98-107) mmol/L Carbon Dioxide 29 (21-32) mmol/L Anion Gap 7.0 (3-11) BUN 27 H (7-18) mg/dl Creatinine 1.00 (0.6-1.2) mg/dl Est Cr Clr Drug Dosing 54.6 ml/min Est GFR ( Amer) 67.0 ml/min Est GFR (Non-Af Amer) 57.8 ml/min BUN/Creatinine Ratio 26.8 H (10-20) Glucose 168 H (70-99) mg/dl POC Glucose 219 H 152 H (70-99) mg/dl Calcium 8.9 (8.5-10.1) mg/dl 12/11/20 12/10/20 12/10/20 Range/Units 05:40 20:12 16:26 WBC 24.78 H (4.8-10.8) K/uL RBC 3.97 L (4.2-5.4) M/uL Hgb 12.2 (12.0-16.0) g/dL Hct 37.2 (37-47) % MCV 93.7 (80-100) fL MCH 30.7 (25-34) pg MCHC 32.8 (32-36) g/dL RDW Std Deviation 47.3 H (36.4-46.3) fL RDW Coeff of Aniyah 13.8 (11.5-14.5) % Plt Count 366 (130-400) K/uL MPV 9.9 (7.4-10.4) fL Immature Gran % (Auto) 0.3 % Neut % (Auto) 91.1 % Lymph % (Auto) 5.1 % [place] % (Auto) 3.5 % Eos % (Auto) 0.0 % Baso % (Auto) 0.0 % Neut # (Auto) 22.55 H (1.4-6.5) K/uL Lymph # (Auto) 1.27 (1.2-3.4) K/uL [place] # (Auto) 0.87 H (0.11-0.59) K/uL Eos # (Auto) 0.00 (0-0.5) K/uL Baso # (Auto) 0.01 (0-0.2) K/uL Immature Gran # (Auto) 0.08 H (0.00-0.02) K/uL Sodium (136-145) mmol/L Potassium (3.5-5.1) mmol/L Chloride (98-107) mmol/L Carbon Dioxide (21-32) mmol/L Anion Gap (3-11) BUN (7-18) mg/dl Creatinine (0.6-1.2) mg/dl Est Cr Clr Drug Dosing ml/min Est GFR ( Amer) ml/min Est GFR (Non-Af Amer) ml/min BUN/Creatinine Ratio (10-20) Glucose (70-99) mg/dl POC Glucose 113 H 72 (70-99) mg/dl Calcium (8.5-10.1) mg/dl 12/10/20 Range/Units 16:00 WBC (4.8-10.8) K/uL RBC (4.2-5.4) M/uL Hgb (12.0-16.0) g/dL Hct (37-47) % MCV (80-100) fL MCH (25-34) pg MCHC (32-36) g/dL RDW Std Deviation (36.4-46.3) fL RDW Coeff of Aniyah (11.5-14.5) % Plt Count (130-400) K/uL MPV (7.4-10.4) fL Immature Gran % (Auto) % Neut % (Auto) % Lymph % (Auto) % [place] % (Auto) % Eos % (Auto) % Baso % (Auto) % Neut # (Auto) (1.4-6.5) K/uL Lymph # (Auto) (1.2-3.4) K/uL [place] # (Auto) (0.11-0.59) K/uL Eos # (Auto) (0-0.5) K/uL Baso # (Auto) (0-0.2) K/uL Immature Gran # (Auto) (0.00-0.02) K/uL Sodium (136-145) mmol/L Potassium (3.5-5.1) mmol/L Chloride (98-107) mmol/L Carbon Dioxide (21-32) mmol/L Anion Gap (3-11) BUN (7-18) mg/dl Creatinine (0.6-1.2) mg/dl Est Cr Clr Drug Dosing ml/min Est GFR ( Amer) ml/min Est GFR (Non-Af Amer) ml/min BUN/Creatinine Ratio (10-20) Glucose (70-99) mg/dl POC Glucose 63 L* (70-99) mg/dl Calcium (8.5-10.1) mg/dl PG Care Time/CCT Total # of Minutes Spent Total Time Spent with Patient: Total time spent is greater than 50% in coordination of care (as documented) at patient's floor/unit and/or counseling patient: Coding Level of Care Code 68929 Subseq Hosp Care Lvl 3 Diagnoses Acute exacerbation of chronic obstructive pulmonary disease (COPD) J44.1 Elevated troponin R77.8 Chronic respiratory failure with hypoxia, on home O2 therapy J96.11; Z99.81 Hypertension I10 Hypertension type: essential hypertension Hyperlipidemia E78.5 DM w/o complication type II, uncontrolled E11.65 Glycemic state: with hyperglycemia DVT prophylaxis Z29.9 Discharge planning issues Z02.9 (1) Hypertension Hypertension type: essential hypertension Qualified Code(s): I10 - Essential (primary) hypertension (2) DM w/o complication type II, uncontrolled Glycemic state: with hyperglycemia Qualified Code(s): E11.65 - Type 2 diabetes mellitus with hyperglycemia
--- NOTE | 2020-12-11 16:01 | Pulmonary Consultation ---
Date of Consultation December 11, 2020 Assessment & Plan (1) Acute exacerbation of chronic obstructive pulmonary disease (COPD): 62-year-old female with a past medical history of tobacco abuse and secondhand exposure to tobacco presenting to the hospital due to shortness of breath. Shortness of breath: No PFTs available for review, but history is suggestive of COPD/asthma. PFTs will need to be obtained in the outpatient setting. Transition Solu-Medrol to prednisone 40 mg daily. She did note a history of adverse reaction to prednisone which caused upset stomach and nausea. She has been on high doses of IV Solu-Medrol and tolerated this well. Suspect that she should tolerate prednisone well and if we run into difficulties, then we can consider Decadron instead of prednisone. I have changed her hospital inhaler regimen to Breo Ellipta 200 mcg daily and Incruse Ellipta. Upon discharge, she should be discharged on a higher dose of Trelegy (200 mcg daily). I would recommend discontinuing lisinopril as this can cause an DELBERT inhibitor induced cough. She does have a history of peripheral eosinophilia and most recently her absolute eosinophil count was 1500 on admission. I suspect that she likely has an eosinophilic phenotype to her airway disease and she may have underlying eosinophilic asthma. I am going to add montelukast to her regimen. IgE level can be ordered as an outpatient. I encouraged her to get out of bed and increase her mobility. She may be a candidate for pulmonary rehab depending on her pulmonary function testing as an outpatient. Cough: Likely secondary to underlying asthma and possible COPD. Allergies may be playing a role. Recommend discontinuing lisinopril. Pulmonary will continue to follow along with you. Thank you for the consult. (2) Cough: (3) Shortness of breath: (4) Peripheral eosinophilia: History of Present Illness Reason for Consultation: Shortness of breath and wheezing Attending Physician: Arleen Espinoza MD History of Present Illness 62-year-old female with a past medical history of depression, hypertension and history of tobacco abuse presenting to the hospital due to shortness of breath. Patient notes that over the past month she has been having increasing shortness of breath. She uses albuterol and Trelegy at home. She denies ever being seen by a paper roller. She denies any history of pulmonary function testing. She notes that she smoked for roughly 20 years and quit many years ago. She has had significant secondhand exposure to tobacco in her lifetime. She notes a significant cough which will worsen her shortness of breath symptoms. She has occasional phlegm. She denies any hemoptysis. She had chest pain earlier during the hospitalization and was evaluated by cardiology. She did have a mild troponin elevation. Echo was completed on 12/09/2020 which demonstrated normal LVEF of 50 to 55%. RV was poorly visualized. Mild concentric LVH was noted. She is currently on IV Solu-Medrol. She notes a history of upset stomach with prednisone. Allergies Allergy/AdvReac Type Severity Reaction Status Date / Time acetaminophen [From Vicodin] Allergy Verified 10/13/20 08:49 hydrocodone AdvReac Mild NAUSEA Verified 10/13/20 08:49 prednisone AdvReac Mild NAUSEA Verified 10/13/20 08:49 Home Medications Medication Instructions Recorded Confirmed Type aspirin 81 mg PO QAM 04/10/18 10/13/20 History acetaminophen [Tylenol Extra 1,000 mg PO Q6H PRN 06/01/19 10/13/20 History Strength] lancets 33 gauge #100 ea 03/02/20 10/13/20 Rx [id number]-[id number] 1 inh INH QAM 09/28/20 10/13/20 History [Trelegy Ellipta] atorvastatin 20 mg tablet 20 mg PO QAM #30 tab 10/13/20 10/13/20 Rx blood sugar diagnostic #100 ea 10/13/20 10/13/20 Rx fluoxetine 40 mg capsule 40 mg PO QAM #30 cap 10/13/20 10/13/20 Rx glimepiride 2 mg tablet 2 mg PO QAM #30 tab 10/13/20 10/13/20 Rx hydrochlorothiazide 25 mg tablet 25 mg PO QAM #90 tab 10/13/20 10/13/20 Rx lisinopril 10 mg tablet 10 mg PO QAM #90 tab 10/13/20 10/13/20 Rx meclizine 25 mg tablet 25 mg PO TID PRN #12 tab 10/13/20 10/13/20 Rx metformin 500 mg tablet 1,000 mg PO BID #360 tab 10/13/20 10/13/20 Rx ipratropium 0.5 mg-albuterol 3 mg See Rx Instructions .ROUTE 10/23/20 Rx (2.5 mg base)/3 mL nebulization .COMPLEX #90 milliliter soln Patient History Medical History Chronic obstructive pulmonary disease Depression Hyperlipidemia Hypertension Surgical History H/O oophorectomy H/O: hysterectomy Family History Father Diabetes CHF (congestive heart failure) Grandfather (Paternal) Diabetes Mother Deep vein thrombosis NHL (non-Hodgkin's lymphoma) Grandfather (Maternal) Acute leukemia Grandmother (Maternal) Deep vein thrombosis Aunt Deep vein thrombosis Other No pertinent family history Denies family history of Ovarian cancer Prostate cancer Myocardial infarction Breast cancer Colorectal cancer Social History Smoking Status: Former smoker Tobacco Type: Cigarettes Second Hand Exposure: No; Hx Alcohol Use: No Hx Substance Use: No Preferred Language: Latvian Communication Ability: Effective Visual Impairment: No Limitations Hearing Ability: Normal Telephone Cleaner Required: No Beliefs That Will Affect Care: None Current Living Situation: Alone current occupational status: retired Feels Safe at Home: Yes Safety Concerns: Feels Safe At This Time Dental Care, Regularly: No Seatbelt Use: always Sunscreen Use: Yes Assistive Devices: Oxygen - Continuous Review of Systems Review of Systems: All systems reviewed & are unremarkable except as noted in HPI & below Physical Exam 2 Constitutional: WD/WN, vitals as above Respiratory: no cough and not tachypneic Auscultation: + wheezes Cardiovascular: RRR, no murmur, no edema Gastrointestinal (Abdomen): normal bowel sounds, soft, nontender, no hepatosplenomegaly Neurologic: PERRL, EOMI, accommodation nl, no face palsy, no dysarthria Psychiatric: A+Ox3, euthymic affect Results & Data Results & Data ([facility]) Vital Signs (Past 12 Hours) Vital Signs Temp Pulse Pulse Pulse Resp BP Pulse Ox 12/11/20 15:20 76 20 96 12/11/20 11:54 98.6 F 90 20 107/71 95 12/11/20 10:50 87 21 98 12/11/20 07:30 87 22 97 12/11/20 07:08 98.1 F 73 20 131/84 93 12/11/20 07:00 72 12/11/20 06:00 Pulse Ox 12/11/20 15:20 12/11/20 11:54 12/11/20 10:50 12/11/20 07:30 12/11/20 07:08 12/11/20 07:00 12/11/20 06:00 95 vital signs, labs and imaging reviewed PG Care Time/CCT Total # of Minutes Spent Total Time Spent with Patient: Total time spent is greater than 50% in coordination of care (as documented) at patient's floor/unit and/or counseling patient: Coding Level of Care Code 15232 Initial Inpt Care Lvl 3 Diagnoses Acute exacerbation of chronic obstructive pulmonary disease (COPD) J44.1 Cough R05 Shortness of breath R06.02 Peripheral eosinophilia D72.19
[2020-12-11] MEDS: MONTELUKAST SODIUM 10 MG TABLET PO SCH (21:36)
[2020-12-12 06:46] LABS: Basophils # (auto) 0.01 K/uL (0-0.2); Basophils % (auto) 0.1 %; Eosinophils # (auto) 0.01 K/uL (0-0.5); Eosinophils % (auto) 0.1 %; Hematocrit (blood only) 37.2 % (37-47); Hemoglobin 12.2 g/dL (12.0-16.0); Immature Granulocytes # (auto) 0.08 K/uL (0.00-0.02); Immature Granulocytes % (auto) 0.5 %; Lymphocytes # (auto) 3.25 K/uL (1.2-3.4); Lymphocytes % (auto) 18.6 %; Mean Corpuscular Hemoglobin 30.3 pg (25-34); Mean Corpuscular Hgb Conc 32.8 g/dL (32-36); Mean Corpuscular Volume 92.5 fL (80-100); Mean Platelet Volume 9.5 fL (7.4-10.4); Monocytes # (auto) 1.54 K/uL (0.11-0.59); Monocytes % (auto) 8.8 %; Neutrophils # (auto) 12.63 K/uL (1.4-6.5); Neutrophils % (auto) 71.9 %; Platelet Count 293 K/uL (130-400); RDW Coefficient of Variation 13.8 % (11.5-14.5); RDW Standard Deviation 46.9 fL (36.4-46.3); Red Blood Count 4.02 M/uL (4.2-5.4); White Blood Count 17.52 K/uL (4.8-10.8)
[2020-12-12] MEDS: ALBUT/IPRATROP 3MG/0.5MG NEB 3 ML VIAL NEB SCH ×4 (07:06→19:16)
[2020-12-12 07:20] LABS: BUN Creatinine Ratio 37.7 (10-20); Calcium 8.7 mg/dl (8.5-10.1); Creatinine Clr Calc Pharmacy 65.7 ml/min; Est GFR (Non-African American) 72.5 ml/min; Magnesium 2.4 mg/dl (1.8-2.4); Potassium 3.3 mmol/L (3.5-5.1)
[2020-12-12] MEDS: INSULIN ASPART 100 UNITS/ML 3 ML PEN SC SCH ×4 (08:04→21:15)
[2020-12-12] MEDS: guaiFENesin 600 MG TABCR PO SCH ×2 (08:05→20:47)
[2020-12-12] MEDS: ATORVASTATIN 40 MG TAB PO SCH (08:05)
[2020-12-12] MEDS: hydroCHLOROthiazide 25 MG TAB PO SCH (08:06)
[2020-12-12] MEDS: ASPIRIN 81 MG CHEW PO SCH (08:06)
[2020-12-12] MEDS: BENZONATATE 100 MG CAPSULE PO SCH ×3 (08:06→20:45)
[2020-12-12] MEDS: FLUoxetine HCL 20 MG CAP PO SCH (08:06)
[2020-12-12] MEDS: METOPROLOL TARTRATE 25 MG TAB PO SCH ×2 (08:06→20:46)
[2020-12-12] MEDS: ENOXAPARIN INJ 40 MG/0.4 ML SYR SQ SCH (08:07)
[2020-12-12] MEDS: AZITHROMYCIN 500 MG in DEXTROSE 5% 250 ML IV SCH (08:09)
[2020-12-12] MEDS: FLUTICASONE/VILANTEROL 200/25MCG 14 PUFFS/INHALER INH SCH (08:37)
[2020-12-12] MEDS: predniSONE 20 MG TAB PO SCH (08:37)
[2020-12-12] MEDS: LOSARTAN POTASSIUM 50 MG TAB PO SCH (08:37)
[2020-12-12] MEDS: UMECLIDINIUM BROMIDE 62.5MCG/BLISTER 7 PUFFS/INHALER INH SCH (08:38)
[2020-12-12] MEDS: POLYETHYLENE (MIRALAX) 17 GM PACK PO PRN (08:46)
--- NOTE | 2020-12-12 08:47 | Pharmacy Report ---
Pharmacy Glycemic Short Note 2 - Date of Service December 12, 2020 - Glycemic Short BSG Results (Last 24 hours): 12/11/20 12/11/20 12/11/20 11:24 16:09 20:33 Glucose POC Glucose 219 H 136 H 220 H 12/12/20 12/12/20 06:20 07:28 Glucose 65 L POC Glucose 74 OUTPATIENT ANTIDIABETIC REGIMEN: * Metformin 1g PO BIDM * Glimepiride 2mg PO QAM * A1c = 6.6% on 10/13/20 ASSESSMENT: 12/12 * BSGs yesterday of 152, 219, 136, and 220 mg/dL * Received 96 units of insulin (60 units of basal and 36 units of prandial/correctional bolus) * Solu-medrol was discontinued after noon dose - glycemic pharmacist not notified and HS Lantus dose not adjusted * Borderline low BSG fasting BSG this morning at 74 mg/dL * Steroids changed to prednisone 40 mg PO daily to start this morning * Will utilize NPH at ~0.4 unit/kg to cover steroid * Unfortunately, patient experienced a symptomatically hypoglycemic episode at lunchtime (experiencing diaphoresis and lightheadedness for BSG of 48 mg/dL). Treated with 45 g of glucose gel and apple juice. Lunch was not covered with insulin and 1400 BSG check was 348 mg/dL. * Will cover lunch carbs late 12/11 * BSGs yesterday of 235, 325, 62, and 113 mg/dL * trend continues of elevated lunchtime and subsequent dinnertime low * Received 101+ units of insulin yesterday (60 units of basal and 41+ units of bolus) * Continues on Solu-medrol 40 mg IV q6h * Give BSG trend throughout the day - will tighten AM Novolog and loosen at lunchtime 12/10 * Pt has received 94 units of insulin over the past 24hrs * 54 units of basal with Lantus * 40 units of bolus with NovoLog * BSGs 119-218-214-163-235 mg/dl * Pt continues on RTC steroids with Solumedrol 40mg IV Q6hrs. Most BSGs above goal range; will increase basal and tighten CR/CR * Insulin regimen will need tapered when steroids tapered 12/09 * 70 yo T2DM female with excellent outpatient control on oral antidiabetic agents * Oral agents are not recommended for inpatient use d/t drug interactions, changing PO intake, and difficulty titrating for acute hyper/hypoglycemia. ADA recommends re-initiating outpatient oral agents 1-2 days prior to discharge if/when appropriate if they were held on admission. * Will hold oral agents for admission and utilize SQ basal bolus insulin regimen which is the recommended regimen for inpatient glycemic control. * Will initiate weight based insulin dosing for insulin genny patient and ti trate based on BSG trends. * Pt initiated on high dose RTC steroids - will start with weight based, high stress insulin dosing and titrate based on BSG trends PLAN FOR INPATIENT GLYCEMIC CONTROL: * Hold outpatient oral diabetes medications * Basal insulin * NPH 30 units (~0.4 unit) SC qAM with prednisone 40 mg PO daily * Hold Lantus for now * Bolus insulin * NovoLog per scale ACHS or Q6hrs while NPO * Goal Range: Low 110 mg/dL - High 140 mg/dL * Correction Factor: 15 mg/dL/unit at breakfast, 20 mg/dL/unit at lunch, dinner, and HS * Nutritional / Prandial insulin per carb ratio of 1 unit per 5 grams CHO consumed at breakfast, and 1 unit per 7 grams CHO at lunch, dinner, and HS PLAN FOR DISCHARGE: * A1c = 6.6% on 10/13/20 * Goal A1c < 7% * No changes needed to outpatient regimen unless patient will be going home on significant steroid taper.
[2020-12-12] MEDS ORDERED: predniSONE 20 MG TAB PO SCH (09:00)
[2020-12-12] MEDS ORDERED: INSULIN HUMAN NPH SC SCH (09:00)
[2020-12-12] MEDS ORDERED: POTASSIUM CHLORIDE CRTAB 20 MEQ TABCR PO SCH (09:00)
[2020-12-12] MEDS: CARBOHYDRATES FOR HYPOGLYCEMIA PO PRN (11:20)
[2020-12-12] MEDS: GLUCOSE 40% GEL 15 GM TUBE PO PRN ×2 (11:40→12:02)
[2020-12-12] MEDS ORDERED: INSULIN ASPART 100 UNITS/ML 3 ML PEN SC ONE (14:30)
--- NOTE | 2020-12-12 15:08 | Hospitalist Progress Note ---
Date of Service December 12, 2020 Assessment & Plan (1) Acute exacerbation of chronic obstructive pulmonary disease (COPD): Improved from admission but still bad cough CXR and CTA CHest clear, no PNA< no PE Eosinophils high on admission PULM thinks may have component of eosinophilic asthma Now much improved No PFTs in recent past and does not follow with PULM Would be a good candidate for PULM rehab -can be referred as outpt through PULM -was on IV SOlu Medrol and now weaned down to po prednisone 40mg daily -continue Zithromax x 5 day course-convert to po for last dose tomorrow -continue inhalers, supportive care, timeseems to be slowly improving -continue flutter valve today -continue chronic O2 -PULM changed lisinopril to losartan in case of ACEi-associated cough -added SIngulair (2) Elevated troponin: Most likely myocardial demand ischemia from her COPD exacerbation and hypoxia - fortunately troponin peaked at 1.5 -was on heparin gtt for 48 hrs Appreciate Cardiology consult -cardiology reading of ECHO--> question of wall motion abnormalities that was raised by the technician preventative medicine more because it was a very difficult study. EF preserved, pro BNP normal on admission ECGs with nonspecific TW abnormalities in inferior and anterolat leads Treat the COPD exacerbation, and then once she is back to her baseline, would be quite reasonable to proceed with a stress test (probably nuclear medicine study given the difficulty getting good echo views) to rule out any clinically significant reversible ischemia. WOuld do as an outpt continue home ASA, atorvastatin increased to 40mg, and added on metoprolol (3) Chronic respiratory failure with hypoxia, on home O2 therapy: Acute respiratory failure, POA, resolved In setting of chronic resp failure with hypoxia on 3LNC at home continue such here (4) Hypertension: Blood pressure normal -continue lisinopril, HCTZ, metoprolol (5) Hyperlipidemia: While managing her demand ischemia, have escalated her atorvastatin to 40 mg for the time being. (6) DM w/o complication type II, uncontrolled: Ongoing insulin titration/inpatient glycemic control consult holding home po meds With hypoglycemia here after switching from IV to po steroids from overcorrection Continue Lantus and Novolog, NPH for prednisone (7) Hypokalemia: low today replace with po KCl follow BMP in AM (8) DVT prophylaxis: Lovenox (9) Discharge planning issues: Dispo-downgrade to medical floor and likely dc to home tomorrow-held off on dc today due to labile glucose Admission and Anticipated Discharge Date Admission Date: December 09, 2020 Subjective Pt feels better today, less cough, not SOB. Is on home O2 requirement. Is eating and drinking. Not moving bowels yet. Had symptomatic hypoglycemia this AM that persisted and is now hyperglycemic with correction orally and with reducing/holding insulin. Denies chest pain Tele with NSR, rates 60-70s, PVCs Review of Systems Review of Systems: All systems reviewed & are unremarkable except as noted in HPI & below Physical Exam Constitutional: WD/WN, vitals as above Eyes: + anicteric sclerae Neck: trachea midline, no thyromegaly Respiratory: normal respiratory effort Auscultation: + diminished lung sounds (throughout but improved air movement from yesterday); no crackles and no wheezes Cardiovascular: RRR, no murmur, no edema Chest (Breasts): Chest: normal inspection of chest Gastrointestinal (Abdomen): normal bowel sounds, soft, nontender, no hepatosplenomegaly Musculoskeletal: Extremities: extremities normal to inspection; no cyanosis and no clubbing Skin: no rashes, warm and dry Neurologic: moves all extremities and awake; no focal motor deficits Psychiatric: A+Ox3, euthymic affect Lymphatic: no lymphedema Results & Data Results & Data ([facility]) Vital Signs (Past 12 Hours) Vital Signs Temp Pulse Pulse Pulse Resp BP Pulse Ox 12/12/20 12:06 64 22 156/91 H 12/12/20 11:44 36.4 C L 64 22 167/109 H 97 12/12/20 11:24 78 194/109 H 12/12/20 11:01 62 16 97 12/12/20 08:25 116/74 12/12/20 07:16 66 12/12/20 07:07 62 16 99 12/12/20 06:00 12/12/20 03:23 36.4 C L 64 14 144/90 H 99 Pulse Ox 12/12/20 12:06 12/12/20 11:44 12/12/20 11:24 12/12/20 11:01 12/12/20 08:25 12/12/20 07:16 12/12/20 07:07 12/12/20 06:00 96 12/12/20 03:23 Laboratory Results 12/12/20 12/12/20 12/12/20 Range/Units 14:00 11:56 11:34 WBC (4.8-10.8) K/uL RBC (4.2-5.4) M/uL Hgb (12.0-16.0) g/dL Hct (37-47) % MCV (80-100) fL MCH (25-34) pg MCHC (32-36) g/dL RDW Std Deviation (36.4-46.3) fL RDW Coeff of Aniyah (11.5-14.5) % Plt Count (130-400) K/uL MPV (7.4-10.4) fL Immature Gran % (Auto) % Neut % (Auto) % Lymph % (Auto) % Hooker % (Auto) % Eos % (Auto) % Baso % (Auto) % Neut # (Auto) (1.4-6.5) K/uL Lymph # (Auto) (1.2-3.4) K/uL Hooker # (Auto) (0.11-0.59) K/uL Eos # (Auto) (0-0.5) K/uL Baso # (Auto) (0-0.2) K/uL Immature Gran # (Auto) (0.00-0.02) K/uL Sodium (136-145) mmol/L Potassium (3.5-5.1) mmol/L Chloride (98-107) mmol/L Carbon Dioxide (21-32) mmol/L Anion Gap (3-11) BUN (7-18) mg/dl Creatinine (0.6-1.2) mg/dl Est Cr Clr Drug Dosing ml/min Est GFR ( Amer) ml/min Est GFR (Non-Af Amer) ml/min BUN/Creatinine Ratio (10-20) Glucose (70-99) mg/dl POC Glucose 348 H* 64 L* 52 L* (70-99) mg/dl Calcium (8.5-10.1) mg/dl Magnesium (1.8-2.4) mg/dl Hepatitis C Ab Screen (Neg) 12/12/20 12/12/20 12/12/20 Range/Units 11:18 07:28 06:20 WBC (4.8-10.8) K/uL RBC (4.2-5.4) M/uL Hgb (12.0-16.0) g/dL Hct (37-47) % MCV (80-100) fL MCH (25-34) pg MCHC (32-36) g/dL RDW Std Deviation (36.4-46.3) fL RDW Coeff of Aniyah (11.5-14.5) % Plt Count (130-400) K/uL MPV (7.4-10.4) fL Immature Gran % (Auto) % Neut % (Auto) % Lymph % (Auto) % Hooker % (Auto) % Eos % (Auto) % Baso % (Auto) % Neut # (Auto) (1.4-6.5) K/uL Lymph # (Auto) (1.2-3.4) K/uL Hooker # (Auto) (0.11-0.59) K/uL Eos # (Auto) (0-0.5) K/uL Baso # (Auto) (0-0.2) K/uL Immature Gran # (Auto) (0.00-0.02) K/uL Sodium 144 (136-145) mmol/L Potassium 3.3 L (3.5-5.1) mmol/L Chloride 105 (98-107) mmol/L Carbon Dioxide 34 H (21-32) mmol/L Anion Gap 5.0 (3-11) BUN 31 H (7-18) mg/dl Creatinine 0.83 (0.6-1.2) mg/dl Est Cr Clr Drug Dosing 65.7 ml/min Est GFR ( Amer) 84.0 ml/min Est GFR (Non-Af Amer) 72.5 ml/min BUN/Creatinine Ratio 37.7 H (10-20) Glucose 65 L (70-99) mg/dl POC Glucose 48 L* 74 (70-99) mg/dl Calcium 8.7 (8.5-10.1) mg/dl Magnesium 2.4 (1.8-2.4) mg/dl Hepatitis C Ab Screen (Neg) 12/12/20 12/11/20 12/11/20 Range/Units 06:20 20:33 16:09 WBC 17.52 H (4.8-10.8) K/uL RBC 4.02 L (4.2-5.4) M/uL Hgb 12.2 (12.0-16.0) g/dL Hct 37.2 (37-47) % MCV 92.5 (80-100) fL MCH 30.3 (25-34) pg MCHC 32.8 (32-36) g/dL RDW Std Deviation 46.9 H (36.4-46.3) fL RDW Coeff of Aniyah 13.8 (11.5-14.5) % Plt Count 293 (130-400) K/uL MPV 9.5 (7.4-10.4) fL Immature Gran % (Auto) 0.5 % Neut % (Auto) 71.9 % Lymph % (Auto) 18.6 % Hooker % (Auto) 8.8 % Eos % (Auto) 0.1 % Baso % (Auto) 0.1 % Neut # (Auto) 12.63 H (1.4-6.5) K/uL Lymph # (Auto) 3.25 (1.2-3.4) K/uL Hooker # (Auto) 1.54 H (0.11-0.59) K/uL Eos # (Auto) 0.01 (0-0.5) K/uL Baso # (Auto) 0.01 (0-0.2) K/uL Immature Gran # (Auto) 0.08 H (0.00-0.02) K/uL Sodium (136-145) mmol/L Potassium (3.5-5.1) mmol/L Chloride (98-107) mmol/L Carbon Dioxide (21-32) mmol/L Anion Gap (3-11) BUN (7-18) mg/dl Creatinine (0.6-1.2) mg/dl Est Cr Clr Drug Dosing ml/min Est GFR ( Amer) ml/min Est GFR (Non-Af Amer) ml/min BUN/Creatinine Ratio (10-20) Glucose (70-99) mg/dl POC Glucose 220 H 136 H (70-99) mg/dl Calcium (8.5-10.1) mg/dl Magnesium (1.8-2.4) mg/dl Hepatitis C Ab Screen (Neg) 12/10/20 Range/Units 06:16 WBC (4.8-10.8) K/uL RBC (4.2-5.4) M/uL Hgb (12.0-16.0) g/dL Hct (37-47) % MCV (80-100) fL MCH (25-34) pg MCHC (32-36) g/dL RDW Std Deviation (36.4-46.3) fL RDW Coeff of Aniyah (11.5-14.5) % Plt Count (130-400) K/uL MPV (7.4-10.4) fL Immature Gran % (Auto) % Neut % (Auto) % Lymph % (Auto) % Hooker % (Auto) % Eos % (Auto) % Baso % (Auto) % Neut # (Auto) (1.4-6.5) K/uL Lymph # (Auto) (1.2-3.4) K/uL Hooker # (Auto) (0.11-0.59) K/uL Eos # (Auto) (0-0.5) K/uL Baso # (Auto) (0-0.2) K/uL Immature Gran # (Auto) (0.00-0.02) K/uL Sodium (136-145) mmol/L Potassium (3.5-5.1) mmol/L Chloride (98-107) mmol/L Carbon Dioxide (21-32) mmol/L Anion Gap (3-11) BUN (7-18) mg/dl Creatinine (0.6-1.2) mg/dl Est Cr Clr Drug Dosing ml/min Est GFR ( Amer) ml/min Est GFR (Non-Af Amer) ml/min BUN/Creatinine Ratio (10-20) Glucose (70-99) mg/dl POC Glucose (70-99) mg/dl Calcium (8.5-10.1) mg/dl Magnesium (1.8-2.4) mg/dl Hepatitis C Ab Screen Neg (Neg) PG Care Time/CCT Total # of Minutes Spent Total Time Spent with Patient: Total time spent is greater than 50% in coordination of care (as documented) at patient's floor/unit and/or counseling patient: Coding Level of Care Code 43087 Subseq Hosp Care Lvl 3 Diagnoses Acute exacerbation of chronic obstructive pulmonary disease (COPD) J44.1 Elevated troponin R77.8 Chronic respiratory failure with hypoxia, on home O2 therapy J96.11; Z99.81 Hypertension I10 Hypertension type: essential hypertension Hyperlipidemia E78.5 DM w/o complication type II, uncontrolled E11.65 Glycemic state: with hyperglycemia Hypokalemia E87.6 DVT prophylaxis Z29.9 Discharge planning issues Z02.9 (1) Hypertension Hypertension type: essential hypertension Qualified Code(s): I10 - Essential (primary) hypertension (2) DM w/o complication type II, uncontrolled Glycemic state: with hyperglycemia Qualified Code(s): E11.65 - Type 2 diabetes mellitus with hyperglycemia
--- NOTE | 2020-12-12 15:47 | Pulmonology Progress Note ---
Date of Service December 12, 2020 Assessment & Plan (1) Acute exacerbation of chronic obstructive pulmonary disease (COPD): 62-year-old female with a past medical history of tobacco abuse and secondhand exposure to tobacco presenting to the hospital due to shortness of breath. Shortness of breath: No PFTs available for review, but history is suggestive of COPD/asthma. PFTs will need to be obtained in the outpatient setting. She is tolerant of prednisone. I have changed her hospital inhaler regimen to Breo Ellipta 200 mcg daily and Incruse Ellipta. Upon discharge, she should be discharged on a higher dose of Trelegy (200 mcg daily). Lisinopril has been discontinued in favor of losartan given the possibility of DELBERT inhibitor cough. She does have a history of peripheral eosinophilia and most recently her absolute eosinophil count was 1500 on admission. I suspect that she likely has an eosinophilic phenotype to her airway disease and she may have underlying eosinophilic asthma. Montelukast was added to her regimen. IgE level can be ordered as an outpatient. I encouraged her to get out of bed and increase her mobility. She may be a candidate for pulmonary rehab depending on her pulmonary function testing as an outpatient. Cough: Likely secondary to underlying asthma and possible COPD. Allergies may be playing a role. Lisinopril may have been playing a role. I think she is close to her baseline and can likely be discharged tomorrow. Thank you for the consultation. Please call with questions. (2) Cough: (3) Shortness of breath: (4) Peripheral eosinophilia: Admission and Anticipated Discharge Date Admission Date: December 09, 2020 Subjective Patient seen and examined this afternoon. She is feeling improved from a respiratory standpoint. She still has occasional cough. No wheezing today. She did feel like she was "floating on air" due to hypoglycemia earlier today. She has had no significant nausea from prednisone. Denies chest pain. Review of Systems Review of Systems: All systems reviewed & are unremarkable except as noted in HPI & below Physical Exam Constitutional: WD/WN, vitals as above Respiratory: no cough and not tachypneic Auscultation: no wheezes Cardiovascular: RRR, no murmur, no edema Gastrointestinal (Abdomen): normal bowel sounds, soft, nontender, no hep atosplenomegaly Neurologic: PERRL, EOMI, accommodation nl, no face palsy, no dysarthria Psychiatric: A+Ox3, euthymic affect Results & Data Results & Data ([facility]) Vital Signs (Past 12 Hours) Vital Signs Temp Pulse Pulse Pulse Resp BP Pulse Ox 12/12/20 15:22 68 12/12/20 15:18 98.4 F 64 19 119/76 97 12/12/20 12:06 64 22 156/91 H 12/12/20 11:44 97.5 F L 64 22 167/109 H 97 12/12/20 11:24 78 194/109 H 12/12/20 11:01 62 16 97 12/12/20 08:25 116/74 12/12/20 07:16 66 12/12/20 07:07 62 16 99 12/12/20 06:00 Pulse Ox 12/12/20 15:22 12/12/20 15:18 12/12/20 12:06 12/12/20 11:44 12/12/20 11:24 12/12/20 11:01 12/12/20 08:25 12/12/20 07:16 12/12/20 07:07 12/12/20 06:00 96 vital signs, labs and imaging reviewed. PG Care Time/CCT Total # of Minutes Spent Total Time Spent with Patient: Total time spent is greater than 50% in coordination of care (as documented) at patient's floor/unit and/or counseling patient: Coding Level of Care Code 87533 Subseq Hosp Care Lvl 2 Diagnoses Acute exacerbation of chronic obstructive pulmonary disease (COPD) J44.1 Cough R05 Shortness of breath R06.02 Peripheral eosinophilia D72.19
[2020-12-12] MEDS: MONTELUKAST SODIUM 10 MG TABLET PO SCH (20:46)
[2020-12-13] MEDS: INSULIN ASPART 100 UNITS/ML 3 ML PEN SC SCH ×6 (00:58→20:53)
[2020-12-13 06:55] LABS: Hematocrit (blood only) 37.5 % (37-47); Hemoglobin 11.9 g/dL (12.0-16.0); Mean Corpuscular Hemoglobin 30.3 pg (25-34); Mean Corpuscular Hgb Conc 31.7 g/dL (32-36); Mean Corpuscular Volume 95.4 fL (80-100); Mean Platelet Volume 9.8 fL (7.4-10.4); Platelet Count 283 K/uL (130-400); RDW Coefficient of Variation 14.1 % (11.5-14.5); RDW Standard Deviation 49.3 fL (36.4-46.3); Red Blood Count 3.93 M/uL (4.2-5.4); White Blood Count 14.64 K/uL (4.8-10.8)
[2020-12-13 07:15] LABS: BUN Creatinine Ratio 31.6 (10-20); Calcium 8.6 mg/dl (8.5-10.1); Est GFR (African American) 75.1 ml/min; Est GFR (Non-African American) 64.8 ml/min; Magnesium 2.3 mg/dl (1.8-2.4); Potassium 3.6 mmol/L (3.5-5.1)
[2020-12-13] MEDS: ALBUT/IPRATROP 3MG/0.5MG NEB 3 ML VIAL NEB SCH ×4 (07:54→22:35)
[2020-12-13] MEDS ORDERED: AZITHROMYCIN 250 MG TAB PO SCH (09:00)
[2020-12-13] MEDS ORDERED: INSULIN HUMAN NPH SC SCH (09:00)
[2020-12-13] MEDS: predniSONE 20 MG TAB PO SCH (09:48)
[2020-12-13] MEDS: BENZONATATE 100 MG CAPSULE PO SCH ×3 (09:51→20:59)
[2020-12-13] MEDS: FLUoxetine HCL 20 MG CAP PO SCH (09:51)
[2020-12-13] MEDS: ASPIRIN 81 MG CHEW PO SCH (09:52)
[2020-12-13] MEDS: ATORVASTATIN 40 MG TAB PO SCH (09:52)
[2020-12-13] MEDS: guaiFENesin 600 MG TABCR PO SCH ×2 (09:53→20:50)
[2020-12-13] MEDS: FLUTICASONE/VILANTEROL 200/25MCG 14 PUFFS/INHALER INH SCH (09:54)
[2020-12-13] MEDS: UMECLIDINIUM BROMIDE 62.5MCG/BLISTER 7 PUFFS/INHALER INH SCH (09:54)
[2020-12-13] MEDS: ENOXAPARIN INJ 40 MG/0.4 ML SYR SQ SCH (09:58)
[2020-12-13] MEDS: hydroCHLOROthiazide 25 MG TAB PO SCH (10:29)
[2020-12-13] MEDS: LOSARTAN POTASSIUM 50 MG TAB PO SCH (10:29)
[2020-12-13] MEDS: METOPROLOL TARTRATE 25 MG TAB PO SCH ×2 (10:31→20:50)
--- NOTE | 2020-12-13 10:34 | Pharmacy Report ---
Pharmacy Glycemic Short Note 2 - Date of Service December 13, 2020 - Glycemic Short BSG Results (Last 24 hours): 12/12/20 12/12/20 12/12/20 11:18 11:34 11:56 Glucose POC Glucose 48 L* 52 L* 64 L* 12/12/20 12/12/20 12/12/20 14:00 16:39 20:35 Glucose POC Glucose 348 H* 162 H 88 12/13/20 12/13/20 12/13/20 00:05 03:15 06:26 Glucose 70 POC Glucose 105 H 80 12/13/20 08:11 Glucose POC Glucose 70 OUTPATIENT ANTIDIABETIC REGIMEN: * Metformin 1g PO BIDM * Glimepiride 2mg PO QAM * A1c = 6.6% on 10/13/20 ASSESSMENT: 12/13: * BSGs yesterday: 74,48,348,168,88,105 mg/dL * Received 50 units of insulin (30 basal, 29 bolus) * Labile BSG's yesterday likely due to IV solumedrol cut (see below for more info) and correction of low/lack of novolog coverage at lunch * Although hypoglycemia yesterday was thought to be due in part to higher Lantus dose after IV steroid d/c, symptomatic hypoglycemia occurred again today even with a NPH dose reduction of ~35% this morning and loosening of novolog. Patient's BSGs appear to be affected much less by oral prednisone when compared to IV solumedrol. Will plan on withholding NPH tomorrow and re- evaluating basal needs at that time. * Blood sugar corrected to 166 mg/dL after 2 juices and an amp of dextrose. The patient then ate lunch. Discussed with RN to cover carbs only. * Patient remains on prednisone 40mg daily and is tolerating a diet. 12/12 * BSGs yesterday of 152, 219, 136, and 220 mg/dL * Received 96 units of insulin (60 units of basal and 36 units of prandial/correctional bolus) * Solu-medrol was discontinued after noon dose - glycemic pharmacist not notified and HS Lantus dose not adjusted * Borderline low BSG fasting BSG this morning at 74 mg/dL * Steroids changed to prednisone 40 mg PO daily to start this morning * Will utilize NPH at ~0.4 unit/kg to cover steroid * Unfortunately, patient experienced a symptomatically hypoglycemic episode at lunchtime (experiencing diaphoresis and lightheadedness for BSG of 48 mg/dL). Treated with 45 g of glucose gel and apple juice. Lunch was not covered with insulin and 1400 BSG check was 348 mg/dL. * Will cover lunch carbs late 12/11 * BSGs yesterday of 235, 325, 62, and 113 mg/dL * trend continues of elevated lunchtime and subsequent dinnertime low * Received 101+ units of insulin yesterday (60 units of basal and 41+ units of bolus) * Continues on Solu-medrol 40 mg IV q6h * Give BSG trend throughout the day - will tighten AM Novolog and loosen at lunchtime 12/10 * Pt has received 94 units of insulin over the past 24hrs * 54 units of basal with Lantus * 40 units of bolus with NovoLog * BSGs [id number] mg/dl * Pt continues on RTC steroids with Solumedrol 40mg IV Q6hrs. Most BSGs above goal range; will increase basal and tighten CR/CR * Insulin regimen will need tapered when steroids tapered 12/09 * 70 yo T2DM female with excellent outpatient control on oral antidiabetic agents * Oral agents are not recommended for inpatient use d/t drug interactions, changing PO intake, and difficulty titrating for acute hyper/hypoglycemia. ADA recommends re-initiating outpatient oral agents 1-2 days prior to discharge if/when appropriate if they were held on admission. * Will hold oral agents for admission and utilize SQ basal bolus insulin regimen which is the recommended regimen for inpatient glycemic control. * Will initiate weight based insulin dosing for insulin genny patient and titrate based on BSG trends. * Pt initiated on high dose RTC steroids - will start with weight based, high stress insulin dosing and titrate based on BSG trends PLAN FOR INPATIENT GLYCEMIC CONTROL: * Hold outpatient oral diabetes medications * Basal insulin * NPH 20 units (~0.25 unit) SC qAM with prednisone 40 mg PO daily- d/c'd for tomorrow * Hold Lantus for now * Bolus insulin * NovoLog per scale ACHS or Q6hrs while NPO * Goal Range: Low 110 mg/dL - High 140 mg/dL * Correction Factor: 25 mg/dL/unit * Nutritional / Prandial insulin per carb ratio of 1 unit per 8 grams CHO consumed PLAN FOR DISCHARGE: * A1c = 6.6% on 10/13/20 * Goal A1c < 7% * No changes needed to outpatient regimen unless patient will be going home on significant steroid taper.
[2020-12-13] MEDS: CARBOHYDRATES FOR HYPOGLYCEMIA PO PRN (11:53)
--- NOTE | 2020-12-13 12:15 | Hospitalist Progress Note ---
Date of Service December 13, 2020 Assessment & Plan (1) Acute exacerbation of chronic obstructive pulmonary disease (COPD): Improved from admission, cough improved CXR and CTA CHest clear, no PNA< no PE peripheral abs Eosinophils high on admission PULM thinks may have component of eosinophilic asthma Now much improved No PFTs in recent past and does not follow with PULM Would be a good candidate for PULM rehab -can be referred as outpt through PULM -was on IV SOlu Medrol and then weaned down to po prednisone 40mg daily -completed Zithromax x 5 day course -continue inhalers, supportive care, timeseems to be slowly improving -continue flutter valve -continue chronic O2 -PULM changed lisinopril to losartan in case of ACEi-associated cough -added SIngulair (2) Elevated troponin: Most likely myocardial demand ischemia from her COPD exacerbation and hypoxia - fortunately troponin peaked at 1.5 -was on heparin gtt for 48 hrs Appreciate Cardiology consult -cardiology reading of ECHO--> question of wall motion abnormalities that was raised by the satellite technician more because it was a very difficult study. EF preserved, pro BNP normal on admission ECGs with nonspecific TW abnormalities in inferior and anterolat leads Treat the COPD exacerbation, and then once she is back to her baseline, would be quite reasonable to proceed with a stress test (probably nuclear medicine study given the difficulty getting good echo views) to rule out any clinically significant reversible ischemia. WOuld do as an outpt continue home ASA, atorvastatin increased to 40mg, and added on low dose metoprolol (3) Chronic respiratory failure with hypoxia, on home O2 therapy: Acute respiratory failure, POA, resolved In setting of chronic resp failure with hypoxia on 3LNC at home continue such here (4) Hypertension: Blood pressure low normal today -continue losartan but lowered dose to 25mg daily dc HCTZ -started low dose metoprolol as above for elevated trop, suspected underlying CAD (5) Hyperlipidemia: While managing her demand ischemia, have escalated her atorvastatin to 40 mg (6) DM w/o complication type II, uncontrolled: Again today with severe, symptomatic hypoglycemia gave 1 amp D50 and 2 OJs discussed with Pharmacist and will dc NPH for tomorrow, loosen Novolog, dcd Lantus yesterday holding home po meds (7) Hypokalemia: resolved with replacement dc HCTZ as low normal BPs as above after adding metoprolol follow BMP in AM (8) DVT prophylaxis: Lovenox (9) Discharge planning issues: Dispo-continued stay on medical floor and likely dc to home tomorrow-held off on dc AGAIN today due to severe hypoglycemia Admission and Anticipated Discharge Date Admission Date: December 09, 2020 Subjective Pt seen urgently at lunchtime as was sweating and noted to be pursed-lip breathing and felt like a pill was stuck in her throat.Her vitals were normal and POx 95% on her usual NC but glucose found to be severely low in the mid 30s. SHe drank 2 orange juices just before I saw her. She was lethargic, diaphoretic, and would wake up and give simple answers but was certainly not at her baseline. I asked RN to give 1 amp of D50. She was starting to improve already within minutes and she said she no longer felt like a pill was in her throat. Denies CP or SOB, no headache or lightheadedness, no abd pain or nausea. [place] "like I was floating on air." Review of Systems Review of Systems: All systems reviewed & are unremarkable except as noted in HPI & below Physical Exam Constitutional: WD/WN, vitals as above + diaphoretic and + lethargic Eyes: + anicteric sclerae Neck: trachea midline, no thyromegaly Respiratory: normal respiratory effort Auscultation: + diminished lung sounds (throughout but improved air movement from yesterday); no crackles and no wheezes Cardiovascular: RRR, no murmur, no edema Chest (Breasts): Chest: normal inspection of chest Gastrointestinal (Abdomen): normal bowel sounds, soft, nontender, no hepatosplenomegaly Musculoskeletal: Extremities: extremities normal to inspection; no cyanosis and no clubbing Neurologic: PERRL, EOMI, accommodation nl, no face palsy, no dysarthria moves all extremities and awake; no focal motor deficits Psychiatric: Orientation: oriented x 3 and cooperative Speech: normal rate/rhythm/volume of speech Lymphatic: no lymphedema Results & Data Results & Data ([facility]) Vital Signs (Past 12 Hours) Vital Signs Temp Pulse Resp BP Pulse Ox 12/13/20 11:32 64 24 98 12/13/20 09:57 74 101/65 12/13/20 07:54 63 18 98 12/13/20 07:28 36.9 C 59 L 16 112/72 98 12/13/20 00:07 37.0 C 71 16 117/74 99 Laboratory Results 12/13/20 12/13/20 12/13/20 Range/Units 11:53 11:52 08:11 WBC (4.8-10.8) K/uL RBC (4.2-5.4) M/uL Hgb (12.0-16.0) g/dL Hct (37-47) % MCV (80-100) fL MCH (25-34) pg MCHC (32-36) g/dL RDW Std Deviation (36.4-46.3) fL RDW Coeff of Aniyah (11.5-14.5) % Plt Count (130-400) K/uL MPV (7.4-10.4) fL Sodium (136-145) mmol/L Potassium (3.5-5.1) mmol/L Chloride (98-107) mmol/L Carbon Dioxide (21-32) mmol/L Anion Gap (3-11) BUN (7-18) mg/dl Creatinine (0.6-1.2) mg/dl Est Cr Clr Drug Dosing ml/min Est GFR ( Amer) ml/min Est GFR (Non-Af Amer) ml/min BUN/Creatinine Ratio (10-20) Glucose (70-99) mg/dl POC Glucose 36 L* 38 L* 70 (70-99) mg/dl Calcium (8.5-10.1) mg/dl Magnesium (1.8-2.4) mg/dl 12/13/20 12/13/20 12/13/20 Range/Units 06:26 06:26 03:15 WBC 14.64 H (4.8-10.8) K/uL RBC 3.93 L (4.2-5.4) M/uL Hgb 11.9 L (12.0-16.0) g/dL Hct 37.5 (37-47) % MCV 95.4 (80-100) fL MCH 30.3 (25-34) pg MCHC 31.7 L (32-36) g/dL RDW Std Deviation 49.3 H (36.4-46.3) fL RDW Coeff of Aniyah 14.1 (11.5-14.5) % Plt Count 283 (130-400) K/uL MPV 9.8 (7.4-10.4) fL Sodium 141 (136-145) mmol/L Potassium 3.6 (3.5-5.1) mmol/L Chloride 103 (98-107) mmol/L Carbon Dioxide 34 H (21-32) mmol/L Anion Gap 4.0 (3-11) BUN 29 H (7-18) mg/dl Creatinine 0.91 (0.6-1.2) mg/dl Est Cr Clr Drug Dosing 60.0 ml/min Est GFR ( Amer) 75.1 ml/min Est GFR (Non-Af Amer) 64.8 ml/min BUN/Creatinine Ratio 31.6 H (10-20) Glucose 70 (70-99) mg/dl POC Glucose 80 (70-99) mg/dl Calcium 8.6 (8.5-10.1) mg/dl Magnesium 2.3 (1.8-2.4) mg/dl 12/13/20 12/12/20 12/12/20 Range/Units 00:05 20:35 16:39 WBC (4.8-10.8) K/uL RBC (4.2-5.4) M/uL Hgb (12.0-16.0) g/dL Hct (37-47) % MCV (80-100) fL MCH (25-34) pg MCHC (32-36) g/dL RDW Std Deviation (36.4-46.3) fL RDW Coeff of Aniyah (11.5-14.5) % Plt Count (130-400) K/uL MPV (7.4-10.4) fL Sodium (136-145) mmol/L Potassium (3.5-5.1) mmol/L Chloride (98-107) mmol/L Carbon Dioxide (21-32) mmol/L Anion Gap (3-11) BUN (7-18) mg/dl Creatinine (0.6-1.2) mg/dl Est Cr Clr Drug Dosing ml/min Est GFR ( Amer) ml/min Est GFR (Non-Af Amer) ml/min BUN/Creatinine Ratio (10-20) Glucose (70-99) mg/dl POC Glucose 105 H 88 162 H (70-99) mg/dl Calcium (8.5-10.1) mg/dl Magnesium (1.8-2.4) mg/dl 12/12/20 Range/Units 14:00 WBC (4.8-10.8) K/uL RBC (4.2-5.4) M/uL Hgb (12.0-16.0) g/dL Hct (37-47) % MCV (80-100) fL MCH (25-34) pg MCHC (32-36) g/dL RDW Std Deviation (36.4-46.3) fL RDW Coeff of Aniyah (11.5-14.5) % Plt Count (130-400) K/uL MPV (7.4-10.4) fL Sodium (136-145) mmol/L Potassium (3.5-5.1) mmol/L Chloride (98-107) mmol/L Carbon Dioxide (21-32) mmol/L Anion Gap (3-11) BUN (7-18) mg/dl Creatinine (0.6-1.2) mg/dl Est Cr Clr Drug Dosing ml/min Est GFR ( Amer) ml/min Est GFR (Non-Af Amer) ml/min BUN/Creatinine Ratio (10-20) Glucose (70-99) mg/dl POC Glucose 348 H* (70-99) mg/dl Calcium (8.5-10.1) mg/dl Magnesium (1.8-2.4) mg/dl PG Care Time/CCT Total # of Minutes Spent Total Time Spent with Patient: Total time spent is greater than 50% in coordination of care (as documented) at patient's floor/unit and/or counseling patient: Coding Level of Care Code 17101 Subseq Hosp Care Lvl 3 Diagnoses Acute exacerbation of chronic obstructive pulmonary disease (COPD) J44.1 Elevated troponin R77.8 Chronic respiratory failure with hypoxia, on home O2 therapy J96.11; Z99.81 Hypertension I10 Hypertension type: essential hypertension Hyperlipidemia E78.5 DM w/o complication type II, uncontrolled E11.65 Glycemic state: with hyperglycemia Hypokalemia E87.6 DVT prophylaxis Z29.9 Discharge planning issues Z02.9 (1) Hypertension Hypertension type: essential hypertension Qualified Code(s): I10 - Essential (primary) hypertension (2) DM w/o complication type II, uncontrolled Glycemic state: with hyperglycemia Qualified Code(s): E11.65 - Type 2 diabetes mellitus with hyperglycemia
[2020-12-13] MEDS: MONTELUKAST SODIUM 10 MG TABLET PO SCH (20:51)
[2020-12-14] MEDS: INSULIN ASPART 100 UNITS/ML 3 ML PEN SC SCH ×4 (00:32→12:50)
[2020-12-14 07:34] LABS: BUN Creatinine Ratio 26.4 (10-20); Calcium 8.7 mg/dl (8.5-10.1); Creatinine Clr Calc Pharmacy 59.3 ml/min; Est GFR (African American) 74.2 ml/min; Potassium 3.9 mmol/L (3.5-5.1)
[2020-12-14] MEDS: ALBUT/IPRATROP 3MG/0.5MG NEB 3 ML VIAL NEB SCH (07:36)
[2020-12-14] MEDS: guaiFENesin 600 MG TABCR PO SCH (08:49)
[2020-12-14] MEDS: FLUTICASONE/VILANTEROL 200/25MCG 14 PUFFS/INHALER INH SCH (08:49)
[2020-12-14] MEDS: METOPROLOL TARTRATE 25 MG TAB PO SCH (08:49)
[2020-12-14] MEDS: UMECLIDINIUM BROMIDE 62.5MCG/BLISTER 7 PUFFS/INHALER INH SCH (08:49)
[2020-12-14] MEDS: FLUoxetine HCL 20 MG CAP PO SCH (08:50)
[2020-12-14] MEDS: predniSONE 20 MG TAB PO SCH (08:50)
[2020-12-14] MEDS: ATORVASTATIN 40 MG TAB PO SCH (08:50)
[2020-12-14] MEDS: ENOXAPARIN INJ 40 MG/0.4 ML SYR SQ SCH (08:51)
[2020-12-14] MEDS: BENZONATATE 100 MG CAPSULE PO SCH ×2 (08:57→12:50)
[2020-12-14] MEDS: ASPIRIN 81 MG CHEW PO SCH (08:57)
[2020-12-14] MEDS ORDERED: LOSARTAN POTASSIUM 25 MG TAB PO SCH (09:00)
--- NOTE | 2020-12-14 11:30 | Pharmacy Report ---
Pharmacy Glycemic Short Note 2 - Date of Service December 14, 2020 - Glycemic Short BSG Results (Last 24 hours): 12/13/20 12/13/20 12/13/20 11:52 11:53 12:14 Glucose POC Glucose 38 L* 36 L* 166 H 12/13/20 12/13/20 12/13/20 16:31 17:10 20:46 Glucose POC Glucose 164 H 165 H 178 H 12/13/20 12/14/20 12/14/20 23:59 03:50 06:57 Glucose 166 H POC Glucose 141 H 123 H 12/14/20 08:24 Glucose POC Glucose 134 H OUTPATIENT ANTIDIABETIC REGIMEN: * Metformin 1g PO BIDM * Glimepiride 2mg PO QAM * A1c = 6.6% on 10/13/20 ASSESSMENT: 12/14 * Pt with multiple lows with NPH to cover steroid induced hyperglycemia. NO further NPH per patient and provider. Will titrate CF/CR on NovoLog to maintain BSGs < 180 mg/dl. No Lantus likely needed based on A1c of 6.6% 12/13: * BSGs yesterday: 74,48,348,168,88,105 mg/dL * Received 50 units of insulin (30 basal, 29 bolus) * Labile BSG's yesterday likely due to IV solumedrol cut (see below for more info) and correction of low/lack of novolog coverage at lunch * Although hypoglycemia yesterday was thought to be due in part to higher Lantus dose after IV steroid d/c, symptomatic hypoglycemia occurred again today even with a NPH dose reduction of ~35% this morning and loosening of novolog. Patient's BSGs appear to be affected much less by oral prednisone when compared to IV solumedrol. Will plan on withholding NPH tomorrow and re- evaluating basal needs at that time. * Blood sugar corrected to 166 mg/dL after 2 juices and an amp of dextrose. The patient then ate lunch. Discussed with RN to cover carbs only. * Patient remains on prednisone 40mg daily and is tolerating a diet. 12/12 * BSGs yesterday of 152, 219, 136, and 220 mg/dL * Received 96 units of insulin (60 units of basal and 36 units of prandial/correctional bolus) * Solu-medrol was discontinued after noon dose - glycemic pharmacist not notified and HS Lantus dose not adjusted * Borderline low BSG fasting BSG this morning at 74 mg/dL * Steroids changed to prednisone 40 mg PO daily to start this morning * Will utilize NPH at ~0.4 unit/kg to cover steroid * Unfortunately, patient experienced a symptomatically hypoglycemic episode at lunchtime (experiencing diaphoresis and lightheadedness for BSG of 48 mg/dL). Treated with 45 g of glucose gel and apple juice. Lunch was not covered with insulin and 1400 BSG check was 348 mg/dL. * Will cover lunch carbs late 12/11 * BSGs yesterday of 235, 325, 62, and 113 mg/dL * trend continues of elevated lunchtime and subsequent dinnertime low * Received 101+ units of insulin yesterday (60 units of basal and 41+ units of bolus) * Continues on Solu-medrol 40 mg IV q6h * Give BSG trend throughout the day - will tighten AM Novolog and loosen at lunchtime 12/10 * Pt has received 94 units of insulin over the past 24hrs * 54 units of basal with Lantus * 40 units of bolus with NovoLog * BSGs [phone] mg/dl * Pt continues on RTC steroids with Solumedrol 40mg IV Q6hrs. Most BSGs above goal range; will increase basal and tighten CR/CR * Insulin regimen will need tapered when steroids tapered 12/09 * 70 yo T2DM female with excellent outpatient control on oral antidiabetic agents * Oral agents are not recommended for inpatient use d/t drug interactions, changing PO intake, and difficulty titrating for acute hyper/hypoglycemia. ADA recommends re-initiating outpatient oral agents 1-2 days prior to discharge if/when appropriate if they were held on admission. * Will hold oral agents for admission and utilize SQ basal bolus insulin regimen which is the recommended regimen for inpatient glycemic control. * Will initiate weight based insulin dosing for insulin genny patient and titrate based on BSG trends. * Pt initiated on high dose RTC steroids - will start with weight based, high stress insulin dosing and titrate based on BSG trends PLAN FOR INPATIENT GLYCEMIC CONTROL: * Hold outpatient oral diabetes medications * Basal insulin * DC- no NPH/Lantus * Bolus insulin * NovoLog per scale ACHS or Q6hrs while NPO * Goal Range: Low 110 mg/dL - High 140 mg/dL * Correction Factor: 25 mg/dL/unit * Nutritional / Prandial insulin per carb ratio of 1 unit per 8 grams CHO consumed PLAN FOR DISCHARGE: * A1c = 6.6% on 10/13/20 * Goal A1c < 7% * No changes needed to outpatient regimen
--- NOTE | 2020-12-14 15:22 | Discharge Summary ---
Date of Service December 14, 2020 Admission HPI Per Admitting Provider Sharri Conklin is here with shortness of breath and cough over the last week that got worse today. She was on BiPAP when I saw here and she was not able to speak much at one time. She has no increased sputum production, just some slight clear sputum. She has no sick contacts. She feels improved after starting BiPAP, Cefepime and steroids in the ER. She is normally on 3L oxygen at home. She was hospitalized last for COPD exacerbation on 06/01/19. She has been taking her medication as prescribed. She has been lying in bed more. She has no history of blood clot or OK. Principal Diagnosis COPD exacerbation Discharge Exam Constitutional WD/WN, vitals as above Eyes + anicteric sclerae Neck trachea midline, no thyromegaly Respiratory normal respiratory effort, lungs clear to auscultation Cardiovascular RRR, no murmur, no edema Chest (Breasts) Chest: normal inspection of chest Gastrointestinal (Abdomen) normal bowel sounds, soft, nontender, no hepatosplenomegaly Musculoskeletal Extremities: extremities normal to inspection; no cyanosis and no clubbing Skin no rashes, warm and dry Neurologic moves all extremities and awake; no focal motor deficits Psychiatric A+Ox3, euthymic affect Lymphatic no lymphedema Discharge Data Allergies Allergy/AdvReac Type Severity Reaction Status Date / Time acetaminophen [From Vicodin] Allergy Verified 12/21/20 09:20 hydrocodone AdvReac Mild NAUSEA Verified 12/21/20 09:20 prednisone AdvReac Mild NAUSEA Verified 12/21/20 09:20 Consultations 12/09/20 06:11 ED Decision to Admit Stat 12/09/20 11:26 Consult Cardiology Routine 12/11/20 11:01 Consult Pulmonology Routine Ordered Studies 12/09/20 05:25 CT angio chest PE protocol Urgent Chest X-Ray 12/09/20 03:06 XR chest 1V portable CLINICAL HISTORY: sob COMPARISON STUDY: Chest radiograph September 28, 2020. FINDINGS: Lung volumes are normal. Lungs are clear. There is no pneumothorax or pleural effusion. Cardiac size is normal. Mediastinal contours are normal. There is slight interstitial prominence. IMPRESSION: 1. Slight interstitial thickening, a nonspecific finding. 2. No consolidation. ACT 112: Negative or not required by law. Electronically signed by: Glen Humphrey M.D. 12/09/2020 7:23 AM Chest CTA 12/09/20 05:25 CT ANGIOGRAPHY OF THE CHEST, PULMONARY EMBOLUS PROTOCOL CLINICAL HISTORY: Shortness of breath. Evaluate for pulmonary embolus. COMPARISON STUDY: Chest CT March 03, 2016. Chest radiograph December 09, 2020. TECHNIQUE: Following IV administration of 118 mL of Optiray, helical axial images of the chest were obtained utilizing the pulmonary embolus protocol. Maximal intensity projections and sagittal and coronal reformats were viewed on an independent 3D workstation. IV contrast was administered without complication. Automated exposure control was utilized for the study. A dose lowering technique was utilized adhering to the principles of ALARA. CT DOSE: 905.01 mGy.cm FINDINGS: This exam is mildly compromised by respiratory motion artifact. No pulmonary emboli are identified. There is no thoracic aortic dissection. Size the heart is normal. There is no pericardial effusion. No enlarged axillary, mediastinal or hilar lymph nodes are present. Mild diffuse bronchial wall thickening is noted. There is no consolidation. No pneumothorax or pleural effusion is noted. No acute fractures are identified within visualized portions of the bony thorax. IMPRESSION: 1. Exam mildly compromised by motion artifact. No pulmonary emboli identified. 2. No consolidation. Mild diffuse bronchial wall thickening. ACT 112: Negative or not required by law. Electronically signed by: Glen Humphrey M.D. 12/09/2020 7:54 AM Hospital Course (1) Acute exacerbation of chronic obstructive pulmonary disease (COPD): Much improved from admission, cough improved CXR and CTA CHest clear, no PNA, no PE peripheral abs Eosinophils high on admission PULM thinks may have component of eosinophilic asthma Now much improved No PFTs in recent past and does not follow with PULM Would be a good candidate for PULM rehab -can be referred as outpt through PULM -initially was on IV SOlu Medrol and then weaned down to po prednisone 40mg daily-finish out taper after discharge -completed Zithromax x 5 day course -continue inhalers, supportive care -continue flutter valve -continue chronic O2 -PULM changed lisinopril to losartan in case of ACEi-associated cough -added SIngulair Stable for dc to home (2) Elevated troponin: Most likely myocardial demand ischemia from her COPD exacerbation and hypoxia - fortunately troponin peaked at 1.5 -was on heparin gtt for 48 hrs Appreciate Cardiology consult -cardiology reading of ECHO--> question of wall motion abnormalities that was raised by the emg technician more because it was a very difficult study. EF preserved, pro BNP normal on admission ECGs with nonspecific TW abnormalities in inferior and anterolat leads Treat the COPD exacerbation, and then once she is back to her baseline, would be quite reasonable to proceed with a stress test (probably nuclear medicine study given the difficulty getting good echo views) to rule out any clinically significant reversible ischemia. WOuld do as an outpt continue home ASA, atorvastatin increased to 40mg, and added on low dose metoprolol (3) Chronic respiratory failure with hypoxia, on home O2 therapy: Acute respiratory failure, POA, resolved In setting of chronic resp failure with hypoxia on 3LNC at home (4) Hypertension: Blood pressure acceptable -continue losartan 25mg daily dcd HCTZ as BPs were low normal after starting metoprolol for heart as above -started low dose metoprolol as above for elevated trop, suspected underlying CAD (5) Hyperlipidemia: While managing her demand ischemia, have escalated her atorvastatin to 40 mg (6) DM w/o complication type II, uncontrolled: had 2 mornings in a row of severe, symptomatic hypoglycemia after receiving extra insulin for high dose steroids Corrected and long acting insulin discontinued, now much improved restart home po meds after discharge (7) Hypokalemia: resolved with replacement dcd HCTZ as low normal BPs as above after adding metoprolol (8) DVT prophylaxis: Lovenox (9) Discharge planning issues: Dispo-dc to home Total Time Total Time Spent Total Time Spent (In Minutes): 35 min Total Time Includes: Examination of the Patient, Discharge Planning and Medication Reconciliation Discharge Plan Discharge Items Patient Disposition: Home - Self-Care Reason For Visit: COPD EXACERBATION Discharge Diagnosis: COPD Exacerbation, hypoglycemia, ELevated troponin Condition on Discharge: Good Activity: Resume your previous activity Non-emergency contact: Primary Care Provider, [employer] P[employer] Operator and [employer] Call non-emergency contact if: you have any medication questions, your symptoms worsen, you have a fever and your temperature is above 101 Follow-up/Referrals: Franklin Boucher MD [Physician] - 01/03/21 11:15 am (Follow up within 1-2 weeks and need to have outpatient stress test arranged) Shira Lopez MD [Primary Care Provider] - 12/21/20 9:30 am (Follow up within 1- 2 weeks) Calvin Penaloza MD [Physician] - 12/27/20 9:30 am (Follow up within 2-3 weeks for COPD ) Diet: Carb Consistent or DM2 and Heart Healthy Addtl Attending Provider Instructions: Please finish out the course of prednisone as prescribed for your COPD. You were started on Singulair to help with your asthma/COPD. Your Trelegy inhaler dose was increased to 200mcg daily. Follow up with the Metal Pattern Maker. You were also showing some signs of strain on your heart, but did not have a heart attack. Please follow up with Cardiology to arrange a cardiac stress test as an outpatient. You were started on metoprolol to help your heart. Your HCTZ was stopped. Your lisinopril was stopped in case this was worsening your cough. This was replaced with losartan for your blood pressure. You had 2 seriously low blood glucose events from overcorrection with insulin in the setting of taking steroids. Please keep a close eye on your blood glucose at home. Follow up with your PCP within 1-2 weeks. Pending Studies at Discharge: No Stand-Alone Forms: My [facility] [employer], Smoking Cessation Medications and DC Order Prescriptions: New atorvastatin 40 mg Tablet 40 mg PO QAM Qty: 30 RF: 0 losartan 25 mg Tablet 25 mg PO DAILY Qty: 30 RF: 0 metoprolol tartrate 25 mg Tablet 12.5 mg PO BID Qty: 30 RF: 0 benzonatate [Tessalon Perles] 100 mg Capsule 100 mg PO TID PRN (Reason: cough) Qty: 10 RF: 0 montelukast [Singulair] 10 mg Tablet 10 mg PO HS Qty: 30 RF: 0 Trelegy Ellipta 200-62.5-25 mcg blister with device 1 inh inhalation DAILY Qty: 60 RF: 0 Continued (DME) lancets [OneTouch Delica Lancets] 33 gauge misc See Dose Instructions .ROUTE .MEDSUPPLY Qty: 100 RF: 5 ipratropium-albuterol 0.5 mg-3 mg(2.5 mg base)/3 mL solution for nebulization See Rx Instructions .ROUTE .COMPLEX Qty: 90 RF: 5 (DME) OneTouch Ultra Blue Test Strip Strip See Dose Instructions .ROUTE .MEDSUPPLY Qty: 100 RF: 5 fluoxetine 40 mg capsule 40 mg PO QAM Qty: 30 RF: 11 glimepiride 2 mg tablet 2 mg PO QAM Qty: 30 RF: 5 meclizine 25 mg tablet 25 mg PO TID PRN (Reason: dizziness) Qty: 12 RF: 0 metformin 500 mg tablet 1,000 mg PO BID Qty: 360 RF: 1 aspirin 81 mg Tablet,Chewable 81 mg PO QAM RF: 0 acetaminophen [Tylenol Extra Strength] 500 mg Tablet 1,000 mg PO Q6H PRN (Reason: Pain) RF: 0 Discontinued atorvastatin 20 mg tablet 20 mg PO QAM Qty: 30 RF: 11 hydrochlorothiazide 25 mg tablet 25 mg PO QAM Qty: 90 RF: 3 lisinopril 10 mg tablet 10 mg PO QAM Qty: 90 RF: 3 Trelegy Ellipta 100-62.5-25 mcg blister with device 1 inh INH QAM RF: 0 Discharge Orders: Discharge Order (Routine); Ordered 12/14/20 Ordered By: Arleen Rivera/Other Patient Handouts: COPD: Using Inhalers Admission Data Admit Date/Time: 12/09/20 05:29 Attending Provider: Arleen Espinoza Admit Provider: Jean Paul King Primary Care Provider: Shira Lopez Other Providers: Franklin Boucher ; Calvin Penaloza Other Interventions: Discharge Summary Assessment (RN) Last Done: 12/14/20 15:29 Coding Level of Care Code D/C Day Management >30 mins Diagnoses Acute exacerbation of chronic obstructive pulmonary disease (COPD) J44.1 Elevated troponin R77.8 Chronic respiratory failure with hypoxia, on home O2 therapy J96.11; Z99.81 Hypertension I10 Hypertension type: essential hypertension Hyperlipidemia E78.5 DM w/o complication type II, uncontrolled E11.65 Glycemic state: with hyperglycemia Hypokalemia E87.6 DVT prophylaxis Z29.9 Discharge planning issues Z02.9
== END 2020-12-14 17:02 | disposition home or self-care (01) | DRG 190 ==
LOC: ED 02:59 → SUATTDRO 05:29 → 2S 05:29 → 3N 12-12 16:30
DX: Y92.239 Unspecified place in hospital as the place of occurrence of the external cause; Z87.891 Personal history of nicotine dependence; F32.9 Major depressive disorder, single episode, unspecified; I10 Essential (primary) hypertension; J96.21 Acute and chronic respiratory failure with hypoxia; Z99.81 Dependence on supplemental oxygen; E11.9 Type 2 diabetes mellitus without complications; T38.0X5A Adverse effect of glucocorticoids and synthetic analogues, initial encounter; E11.65 Type 2 diabetes mellitus with hyperglycemia; Z88.8 Allergy status to other drugs, medicaments and biological substances; R07.9 Chest pain, unspecified; Z79.84 Long term (current) use of oral hypoglycemic drugs; I24.8 Other forms of acute ischemic heart disease; Z88.6 Allergy status to analgesic agent; Z86.79 Personal history of other diseases of the circulatory system; H81.10 Benign paroxysmal vertigo, unspecified ear; E11.649 Type 2 diabetes mellitus with hypoglycemia without coma; E87.6 Hypokalemia; E78.00 Pure hypercholesterolemia, unspecified; Z88.5 Allergy status to narcotic agent; E78.5 Hyperlipidemia, unspecified; J82.83 Eosinophilic asthma; Z79.899 Other long term (current) drug therapy; Z82.49 Family history of ischemic heart disease and other diseases of the circulatory system; I25.10 Atherosclerotic heart disease of native coronary artery without angina pectoris; J44.1 Chronic obstructive pulmonary disease with (acute) exacerbation; Z79.82 Long term (current) use of aspirin

== ENCOUNTER 2021-04-18 09:52 | Inpatient (IN) ==
[2021-04-18] MEDS ORDERED: ALBUTEROL 0.083% NEBU SOLN 3 ML VIAL NEB STA (10:41)
[2021-04-18] MEDS ORDERED: methylPREDNISolone 125 MG/2 ML VIAL IV STA (10:41)
--- NOTE | 2021-04-18 10:41 | Emergency Department Note ---
Impression & Plan Chronic obstructive pulmonary disease, Cough, Chronic respiratory failure with hypoxia, on home O2 therapy ED Provider Note NAME: ELIE VILLARREAL AGE: 70 SEX: F : 1950 ARRIVES VIA: Ambulance INFORMANT: Patient ED PROVIDER(S): Chucky Sibley DO CHIEF COMPLAINT: Shortness of breath HPI: Patient is a 70-year-old female who presents the for shortness of breath. Patient has been short of breath for the past 2 weeks. She notes it has gotten worse over the past 2 days. She does cough with white productive sputum. This has not really changed that much. She notes new wheezing. History of asthma and COPD per her report. Denies any belly pain, nausea, vomiting, or diarrhea. No dysuria, urgency, or frequency. No chest pain. No other exacerbating or remitting factors. She is not vaccinated against Covid. She notes she is supposed to wear oxygen 24/7 but generally does not. ROS: See above HPI for pertinent positives & negatives. A total of 10 systems reviewed and were otherwise negative. PAST MEDICAL HISTORY:See Below PAST SURGICAL HISTORY:See Below FAMILY HISTORY:See Below SOCIAL HISTORY:See Below HOME MEDICATIONS:See Below ALLERGIES:See Below VITALS:See Below PHYSICAL EXAMINATION: GENERAL: Sitting up in bed, alert, well appearing, well nourished, no distress, non-toxic EYE EXAM: normal conjunctiva. PERRL and EOM's grossly intact. OROPHARYNX: no exudate, no erythema, lips, buccal mucosa, and tongue normal and mucous membranes are moist NECK: supple, no nuchal rigidity, no adenopathy, non-tender LUNGS: Clear to auscultation. Normal chest wall mechanics HEART: no murmurs, S1 normal and S2 normal ABDOMEN: abdomen soft, non-tender, normo-active bowel sounds, no masses, no rebound or guarding. UPPER EXTREMITIES: upper extremities are grossly normal. LOWER EXTREMITIES: No pitting edema. Calves are equal bilateral NEURO EXAM: Normal sensorium, cranial nerves II-XII grossly intact, normal speech, no gross weakness of arms, no gross weakness of legs. MEDICAL DECISION MAKING: Patient is a 70-year-old female who presents ER for shortness of breath which is been getting worse over the past 2 weeks. Significantly worse over the past 3 days. She admits to wheezing as well. She normally wears nasal cannula only at night but now is wearing 24/7. IV was established blood work was obtained. Her only relief at home is when she uses her inhaler/nebulizers. Labs show mild leukocytosis of 13,000. No anemia. BMP along with LFTs bilirubin and lipase is unremarkable. UA was clean. Covid was negative. Chest x-ray was unremarkable. Patient was given hour-long neb treatment. Received steroids prior to arrival 125 Solu-Medrol. After neb treatment she was feeling better. Small 10 foot walk to the bathroom and she became significantly dyspneic. She was placed back in bed. Discussed with hospitalist for further evaluation Triage Nursing notes reviewed. Limited review of prior medical records performed Vital Signs: reviewed and remarkable for HTN and hypoxic Differential diagnosis: Differential diagnoses includes but is not limited to pneumonia, bronchitis, COPD/Asthma exacerbation, pneumothorax, pulmonary embolism, congestive heart failure, acute coronary syndrome ER treatment provided: See below Diagnostics interpreted by me: ECG: Sinus rhythm rate [address] depressions in the inferior leads T wave inversions in the septal leads QTC 460 No significant change from August of this year Cardiac Monitoring: An order was placed for continuous cardiac monitoring. The monitor shows a rate of 78 with sinus rhythm. Laboratory studies: As stated above and show below. Imaging studies: Portable AP upright 1 view of the chest shows no focal infiltrate or pneumonia Consultation(s): Discussed with the hospitalist for further evaluation Procedures: none Critical Care: None Past Med/Surg History Medical History Asthma-COPD overlap syndrome Chronic obstructive pulmonary disease Depression Excessive daytime sleepiness History of nicotine dependence Hyperlipidemia Hypertension Insomnia Moderate persistent asthma Nocturnal hypoxemia Peripheral eosinophilia Surgical History H/O oophorectomy H/O: hysterectomy Family History Father Diabetes CHF (congestive heart failure) Grandfather (Paternal) Diabetes Mother Deep vein thrombosis NHL (non-Hodgkin's lymphoma) Grandfather (Maternal) Acute leukemia Grandmother (Maternal) Deep vein thrombosis Aunt Deep vein thrombosis Other No pertinent family history Denies family history of Ovarian cancer Prostate cancer Myocardial infarction Breast cancer Colorectal cancer Social History Smoking Status: Former smoker Tobacco Type: Cigarettes Second Hand Exposure: No; Do You Dip or Chew Tobacco: No; Tobacco Cessation Education Requested by Patient: No Hx Alcohol Use: No Hx Substance Use: No Preferred Language: Upper Sorbian Communication Ability: Effective Visual Impairment: No Limitations Hearing Ability: Normal Domestic Violence Advocate Required: No Beliefs That Will Affect Care: None Current Living Situation: Alone current occupational status: retired Other Information That Helps Us Care for You: No Feels Safe at Home: Yes Safety Concerns: Feels Safe At This Time Dental Care, Regularly: No Seatbelt Use: always Sunscreen Use: Yes Assistive Devices: Oxygen - Continuous Allergies Allergies Allergy/AdvReac Type Severity Reaction Status Date / Time acetaminophen [From Vicodin] Allergy Verified 04/18/21 11:19 hydrocodone AdvReac Mild NAUSEA Verified 04/18/21 08:46 prednisone AdvReac Mild NAUSEA Verified 04/18/21 08:46 Home Meds Home Medications Medication Instructions Recorded Confirmed aspirin 81 mg chewable tablet 81 mg PO QAM 04/10/18 04/18/21 [id number]-acetaminophen 7.5 30 ml PO QID PRN 04/18/21 04/18/21 mg-60 [id number] oral liqd ipratropium 0.5 mg-albuterol 3 mg 3 ml INHALATION QID 04/18/21 04/18/21 (2.5 mg base)/3 mL nebulization soln losartan 25 mg tablet 25 mg PO QAM 04/18/21 04/18/21 Previous Rx's Medication Instructions Recorded lancets 33 gauge (OneTouch Delica #100 ea 03/02/20 Lancets) blood sugar diagnostic (OneTouch #100 ea 10/13/20 Ultra Blue Test Strip) fluoxetine 40 mg capsule 40 mg PO QAM #30 cap 10/13/20 glimepiride 2 mg tablet 2 mg PO QAM #30 tab 10/13/20 metformin 500 mg tablet 1,000 mg PO BID #360 tab 10/13/20 benzonatate 100 mg capsule 100 mg PO TID PRN #10 cap 12/14/20 (Lila Hope) atorvastatin 40 mg tablet 40 mg PO QAM #30 tab 01/09/21 metoprolol tartrate 25 mg tablet 12.5 mg PO BID #60 tab 01/09/21 montelukast 10 mg tablet 10 mg PO HS #30 tab 01/09/21 (Singulair) Results & Data (ED) Vital Signs Vital Signs - 24 hr 04/18/21 09:52 04/18/21 10:04 04/18/21 10:09 Temperature 37.4 C Temperature Source Oral Pulse Rate 77 80 Pulse Rate [Right] Pulse Rate from SpO2 Sensor 79 Respiratory Rate 40 H 30 H Respiratory Effort / Characteristics Labored Respiratory Pattern Tachypnea Blood Pressure 222/132 H 195/104 H Blood Pressure [Right Arm] 195/104 H Blood Pressure Mean 162 134 Blood Pressure Mean [Right Arm] 134 Pulse Oximetry 98 97 Oxygen Delivery Method Room Air Oxygen Flow Rate Sepsis Recent Fever Within 48 Hours No Sepsis New/Unexplained Change in Mental Status No Sepsis Action Taken by Nursing No Action Required 04/18/21 10:15 04/18/21 10:30 04/18/21 10:45 Temperature Temperature Source Pulse Rate 75 75 80 Pulse Rate [Right] Pulse Rate from SpO2 Sensor 76 75 80 Respiratory Rate 28 H 24 32 H Respiratory Effort / Characteristics Respiratory Pattern Blood Pressure Blood Pressure [Right Arm] Blood Pressure Mean Blood Pressure Mean [Right Arm] Pulse Oximetry 96 94 94 Oxygen Delivery Method Oxygen Flow Rate Sepsis Recent Fever Within 48 Hours Sepsis New/Unexplained Change in Mental Status Sepsis Action Taken by Nursing 04/18/21 10:47 04/18/21 11:00 04/18/21 11:02 Temperature Temperature Source Pulse Rate 76 Pulse Rate [Right] 72 Pulse Rate from SpO2 Sensor 75 Respiratory Rate 27 H 20 Respiratory Effort / Characteristics Spontaneous Short of Breath Respiratory Pattern Blood Pressure 176/105 H Blood Pressure [Right Arm] Blood Pressure Mean 128 Blood Pressure Mean [Right Arm] Pulse Oximetry 97 94 96 Oxygen Delivery Method Nasal Cannula Nasal Cannula Oxygen Flow Rate 3 3 Sepsis Recent Fever Within 48 Hours Sepsis New/Unexplained Change in Mental Status Sepsis Action Taken by Nursing 04/18/21 11:15 04/18/21 11:30 04/18/21 11:45 Temperature Temperature Source Pulse Rate 79 80 88 Pulse Rate [Right] Pulse Rate from SpO2 Sensor 75 80 88 Respiratory Rate 25 H 21 21 Respiratory Effort / Characteristics Respiratory Pattern Blood Pressure Blood Pressure [Right Arm] Blood Pressure Mean Blood Pressure Mean [Right Arm] Pulse Oximetry 100 99 99 Oxygen Delivery Method Oxygen Flow Rate Sepsis Recent Fever Within 48 Hours Sepsis New/Unexplained Change in Mental Status Sepsis Action Taken by Nursing 04/18/21 12:00 04/18/21 12:15 04/18/21 12:35 Temperature Temperature Source Pulse Rate 91 H Pulse Rate [Right] Pulse Rate from SpO2 Sensor 92 H 90 106 H Respiratory Rate 22 Respiratory Effort / Characteristics Respiratory Pattern Blood Pressure 164/98 H Blood Pressure [Right Arm] Blood Pressure Mean 120 Blood Pressure Mean [Right Arm] Pulse Oximetry 99 100 94 Oxygen Delivery Method Oxygen Flow Rate Sepsis Recent Fever Within 48 Hours Sepsis New/Unexplained Change in Mental Status Sepsis Action Taken by Nursing 04/18/21 12:45 04/18/21 13:00 04/18/21 13:15 Temperature Temperature Source Pulse Rate 114 H 111 H Pulse Rate [Right] Pulse Rate from SpO2 Sensor 104 H 113 H Respiratory Rate 20 21 Respiratory Effort / Characteristics Respiratory Pattern Blood Pressure Blood Pressure [Right Arm] Blood Pressure Mean Blood Pressure Mean [Right Arm] Pulse Oximetry 97 96 Oxygen Delivery Method Oxygen Flow Rate Sepsis Recent Fever Within 48 Hours Sepsis New/Unexplained Change in Mental Status Sepsis Action Taken by Nursing Laboratory Data Result diagrams: 04/18/21 10:10 04/18/21 10:10 Lab Results 04/18/21 04/18/21 04/18/21 Range/Units 10:10 10:10 10:10 WBC 13.77 H (4.8-10.8) K/uL RBC 4.49 (4.2-5.4) M/uL Hgb 13.5 (12.0-16.0) g/dL Hct 40.8 (37-47) % MCV 90.9 (80-100) fL MCH 30.1 (25-34) pg MCHC 33.1 (32-36) g/dL RDW Std Deviation 46.0 (36.4-46.3) fL RDW Coeff of Aniyah 14.0 (11.5-14.5) % Plt Count 285 (130-400) K/uL MPV 9.4 (7.4-10.4) fL Immature Gran % (Auto) 0.3 % Neut % (Auto) 56.1 % Lymph % (Auto) 20.2 % [place] % (Auto) 5.0 % Eos % (Auto) 17.9 % Baso % (Auto) 0.5 % Neut # (Auto) 7.73 H (1.4-6.5) K/uL Lymph # (Auto) 2.78 (1.2-3.4) K/uL [place] # (Auto) 0.69 H (0.11-0.59) K/uL Eos # (Auto) 2.46 H (0-0.5) K/uL Baso # (Auto) 0.07 (0-0.2) K/uL Immature Gran # (Auto) 0.04 H (0.00-0.02) K/uL PT 9.9 (9.0-12.0) Seconds INR 1.0 (0.9-1.1) Sodium 139 (136-145) mmol/L Potassium 3.8 (3.5-5.1) mmol/L Chloride 105 (98-107) mmol/L Carbon Dioxide 28 (21-32) mmol/L Anion Gap 6.0 (3-11) BUN 14 (7-18) mg/dl Creatinine 0.89 (0.6-1.2) mg/dl Est Cr Clr Drug Dosing 57.1 ml/min Est GFR ( Amer) 77.2 ml/min Est GFR (Non-Af Amer) 66.6 ml/min BUN/Creatinine Ratio 15.2 (10-20) Glucose 121 H (70-99) mg/dl Calcium 9.4 (8.5-10.1) mg/dl Total Bilirubin 0.5 (0.2-1) mg/dl AST 11 L (15-37) U/L ALT 22 (12-78) U/L Alkaline Phosphatase 86 (45-117) U/L Troponin I < 0.015 (0-0.045) ng/ml Total Protein 8.1 (6.4-8.2) gm/dl Albumin 3.8 (3.4-5.0) gm/dl Globulin 4.3 H (2.5-4.0) gm/dl Albumin/Globulin Ratio 0.9 (0.9-2) Lipase 116 (73-393) U/L Urine Color Urine Appearance (Clear) Urine pH (4.5-7.5) Ur Specific [place] (1.000-1.030) Urine Protein (Negative) Urine Glucose (UA) (Negative) Urine Ketones (Negative) Urine Blood (Negative) Urine Nitrite (Negative) Urine Bilirubin (Negative) Urine Urobilinogen (Negative) Ur Leukocyte Esterase (Negative) Urine WBC (Auto) (0-5) /hpf Urine RBC (Auto) (0-4) /hpf U Hyaline Cast (Auto) (0-5) /lpf U Epithel Cells (Auto) (0-5) /lpf Urine Bacteria (Auto) (Negative) COVID-19 Eval Order SARS-CoV-2 (PCR) (Negative) 04/18/21 04/18/21 04/18/21 Range/Units 10:11 10:11 10:11 WBC (4.8-10.8) K/uL RBC (4.2-5.4) M/uL Hgb (12.0-16.0) g/dL Hct (37-47) % MCV (80-100) fL MCH (25-34) pg MCHC (32-36) g/dL RDW Std Deviation (36.4-46.3) fL RDW Coeff of Aniyah (11.5-14.5) % Plt Count (130-400) K/uL MPV (7.4-10.4) fL Immature Gran % (Auto) % Neut % (Auto) % Lymph % (Auto) % [place] % (Auto) % Eos % (Auto) % Baso % (Auto) % Neut # (Auto) (1.4-6.5) K/uL Lymph # (Auto) (1.2-3.4) K/uL [place] # (Auto) (0.11-0.59) K/uL Eos # (Auto) (0-0.5) K/uL Baso # (Auto) (0-0.2) K/uL Immature Gran # (Auto) (0.00-0.02) K/uL PT (9.0-12.0) Seconds INR (0.9-1.1) Sodium (136-145) mmol/L Potassium (3.5-5.1) mmol/L Chloride (98-107) mmol/L Carbon Dioxide (21-32) mmol/L Anion Gap (3-11) BUN (7-18) mg/dl Creatinine (0.6-1.2) mg/dl Est Cr Clr Drug Dosing ml/min Est GFR ( Amer) ml/min Est GFR (Non-Af Amer) ml/min BUN/Creatinine Ratio (10-20) Glucose (70-99) mg/dl Calcium (8.5-10.1) mg/dl Total Bilirubin (0.2-1) mg/dl AST (15-37) U/L ALT (12-78) U/L Alkaline Phosphatase (45-117) U/L Troponin I (0-0.045) ng/ml Total Protein (6.4-8.2) gm/dl Albumin (3.4-5.0) gm/dl Globulin (2.5-4.0) gm/dl Albumin/Globulin Ratio (0.9-2) Lipase (73-393) U/L Urine Color Yellow Urine Appearance Clear (Clear) Urine pH 6.5 (4.5-7.5) Ur Specific [place] 1.010 (1.000-1.030) Urine Protein Negative (Negative) Urine Glucose (UA) Negative (Negative) Urine Ketones Negative (Negative) Urine Blood Trace H (Negative) Urine Nitrite Negative (Negative) Urine Bilirubin Negative (Negative) Urine Urobilinogen Negative (Negative) Ur Leukocyte Esterase Trace H (Negative) Urine WBC (Auto) 1-5 (0-5) /hpf Urine RBC (Auto) 0-4 (0-4) /hpf U Hyaline Cast (Auto) 1-5 (0-5) /lpf U Epithel Cells (Auto) >30 H (0-5) /lpf Urine Bacteria (Auto) Negative (Negative) COVID-19 Eval Order Covid19 at [facility] SARS-CoV-2 (PCR) NEGATIVE (Negative) Administered Medications Albuterol (Albut/Ipratrop 3mg/0.5mg Neb 3 Ml Vial) 3 ml INH QIDR OVI Stop: 04/25/21 11:01 Last Admin: 04/18/21 15:03 Dose: 3 ml Documented by: [id number] Discontinued Medications Albuterol (Albuterol 0.083% Nebu Soln 3 Ml Vial) 5 mg NEB NOW STA Stop: 04/18/21 10:42 Last Admin: 04/18/21 11:00 Dose: 5 mg Documented by: [id number] Azithromycin (Azithromycin 250 Mg Tab) 500 mg PO NOW ONE Stop: 04/18/21 13:34 Last Admin: 04/18/21 14:16 Dose: 500 mg Documented by: [id number] Methylprednisolone (Methylprednisolone 125 Mg/2 Ml Vial) 60 mg IV NOW STA Stop: 04/18/21 10:42 Last Admin: 04/18/21 10:49 Dose: Not Given Documented by: [id number] Pantoprazole Sodium (Pantoprazole 40 Mg Tab) 40 mg PO DAILY STA Stop: 04/18/21 13:19 Last Admin: 04/18/21 13:24 Dose: 40 mg Documented by: [id number] Imaging Data Radiologist's Impression: Chest X-Ray 04/18/21 10:36 SINGLE VIEW CHEST CLINICAL HISTORY: Atypical chest pain. FINDINGS: An AP, portable, upright chest radiograph is compared to chest x-ray and chest CT dated 12/09/2020. The heart is top normal for projection. The pulmonary vasculature is noncongested. Chronic interstitial thickening is similar to previous. Scarring/atelectasis is noted at the lung bases. No airspace consolidation or large pleural effusion is identified. No pneumothorax is seen. The skeletal structures are osteopenic. The bony thorax is grossly intact. IMPRESSION: No acute cardiopulmonary abnormality. ACT 112: Negative or not required by law. Electronically signed by: Boone Quiroz M.D. 04/18/2021 12:29 PM Discharge Plan Visit Data Chief Complaint: Illness Stated Complaint: SOB Fatigue body aches cough ED Provider: Chucky Sibley Discharge Problem: Chronic obstructive pulmonary disease, Cough, Chronic respiratory failure with hypoxia, on home O2 therapy Patient Disposition: Admitted As Inpatient Discharge Instructions Interventions: ED Discharge Assessment Last Done: 04/18/21 14:25
[2021-04-18 10:42] LABS: Basophils # (auto) 0.07 K/uL (0-0.2); Basophils % (auto) 0.5 %; Eosinophils # (auto) 2.46 K/uL (0-0.5); Eosinophils % (auto) 17.9 %; Hematocrit (blood only) 40.8 % (37-47); Hemoglobin 13.5 g/dL (12.0-16.0); Immature Granulocytes # (auto) 0.04 K/uL (0.00-0.02); Immature Granulocytes % (auto) 0.3 %; Lymphocytes # (auto) 2.78 K/uL (1.2-3.4); Lymphocytes % (auto) 20.2 %; Mean Corpuscular Hemoglobin 30.1 pg (25-34); Mean Corpuscular Hgb Conc 33.1 g/dL (32-36); Mean Corpuscular Volume 90.9 fL (80-100); Mean Platelet Volume 9.4 fL (7.4-10.4); Monocytes # (auto) 0.69 K/uL (0.11-0.59); Neutrophils # (auto) 7.73 K/uL (1.4-6.5); Neutrophils % (auto) 56.1 %; Platelet Count 285 K/uL (130-400); Red Blood Count 4.49 M/uL (4.2-5.4); White Blood Count 13.77 K/uL (4.8-10.8)
[2021-04-18 10:52] LABS: Alanine Aminotransferase 22 U/L (12-78); Albumin Level 3.8 gm/dl (3.4-5.0); Aspartate Aminotransferase 11 U/L (15-37); BUN Creatinine Ratio 15.2 (10-20); Blood Urea Nitrogen 14 mg/dl (7-18); Calcium 9.4 mg/dl (8.5-10.1); Carbon Dioxide 28 mmol/L (21-32); Chloride 105 mmol/L (98-107); Creatinine Clr Calc Pharmacy 57.1 ml/min; Est GFR (African American) 77.2 ml/min; Est GFR (Non-African American) 66.6 ml/min; Glucose 121 mg/dl (70-99); Lipase 116 U/L (73-393); Potassium 3.8 mmol/L (3.5-5.1); Prothrombin Time 9.9 Seconds (9.0-12.0); Sodium 139 mmol/L (136-145)
[2021-04-18 10:56] LABS: Appearance Urine Clear (Clear); Bacteria Urine Automated Negative (Negative); Bilirubin Urine Negative (Negative); Blood Urine Trace (Negative); Color Urine Yellow; Epithelial Cell Urine Auto >30 /lpf (0-5); Glucose Urine UA Negative (Negative); Ketones Urine Negative (Negative); Leukocyte Esterase Urine Trace (Negative); Nitrite Urine Negative (Negative); Protein Urine Negative (Negative); RBC Urine Automated 0-4 /hpf (0-4); Urobilinogen Urine Negative (Negative); pH Urine 6.5 (4.5-7.5)
[2021-04-18 10:57] LABS: Albumin Globulin Ratio 0.9 (0.9-2); Alkaline Phosphatase 86 U/L (45-117); Bilirubin,Total 0.5 mg/dl (0.2-1); Globulin 4.3 gm/dl (2.5-4.0); Total Protein 8.1 gm/dl (6.4-8.2); Troponin I < 0.015 ng/ml (0-0.045)
--- NOTE | 2021-04-18 12:30 | XRay Report ---
SINGLE VIEW CHEST CLINICAL HISTORY: Atypical chest pain. FINDINGS: An AP, portable, upright chest radiograph is compared to chest x-ray and chest CT dated 11/28. The heart is top normal for projection. The pulmonary vasculature is noncongested. Chronic in terstitial thickening is similar to previous. Scarring/atelectasis is noted at the lung bases. No air space consolidation or large pleural effusion is identified. No pneumothorax is seen. The skeletal st ructures are osteopenic. The bony thorax is grossly intact. IMPRESSION: No acute cardiopulmonary abnormality. ACT 112: Negative or not required by law. Electronically signed by: Boone Quiroz M.D. 04/18/2021 12:29 PM
[2021-04-18] MEDS ORDERED: PANTOprazole 40 MG TAB PO STA (13:18)
--- NOTE | 2021-04-18 13:30 | History & Physical Report ---
Date of Service April 18, 2021 Assessment & Plan (1) Asthma-COPD overlap syndrome: Plan: COPD exacerbation - multifactorial ? allergic component with EOS elevation and seasonal change - Continue Albuterol/Combivent inhalers QID with Albuterol nebs q4 PRN in between if needed - continue her Tessalon perals as she thinks they have rj helping - Continue BREO and Icruse - Add Azithromycin with elevated peripheral EOS and smoking history - Methlpred 40mg IV q6- can change dose/frequency in morning likley - Continue Montelukast (2) Cough: Plan: Multifactorial but as this has been occurring more frequently after eating or drinking will start with PPI - Protonix 40m gPO daily- first dose now - ELECTRICAL AND INSTRUMENTATION MANAGER vs. swallow study evaluation may benefit if symptoms not controlled with above ? microaspiration - Consider GI evaluation for UGI evaluation - Continue Tessalon perles - Robitussin sugar free syrup added - Continue Montelukast (3) Chronic respiratory failure with hypoxia, on home O2 therapy: Plan: On night time oxygen therapy- now currently on 2-3LNC - Oxygen therapy to maintain SPO2 ~92% - She is awaiting sleep study (4) LVH (left ventricular hypertrophy): Plan: ECHO done in November - EF 50-55% mild MR with mild LVH - continue BB - Continue ARB- this was changed on previous admission secondary to cough syndrome - Continue Atorvastatin 40mg daily (5) Hypertension: Plan: As above- controlled (6) Hyperlipidemia: Plan: As above (7) DM w/o complication type II, uncontrolled: Plan: Hold metformin and glimepiride - transition to AC/HS glucose checks with Aspart coverage - CF 20; Ratio 1:15 goal <180 (8) Depression: Plan: Continue Fluoxetine 40 mg History of Present Illness Chief Complaint: SOB Primary Care Provider: Shira Lopez MD 70 YOF with past medical history of: COPD/Asthma overlap syndrome, previous smoker - quit ~6 years ago, HTN, HLD, mild MR and mild LVH with preserved EF. Patient was brought to the EMD today via EMS for increase in dyspnea, cough and inability to catch her breath. Patient reports that over the past week she has had an increase in her dyspnea and cough as well as an increase in her use of inhalers. She feels her sputum production remains the same. She denies any fevers or chills. She received 125mg solu-Medrol and nebulizers on the way to the EMD. In the EMD she felt somewhat improved after this therapy but was noted to be quite dyspneic when getting up and functioning. Patient recently had PFTs done in February with Moderate obstruction and significant air trapping with DLCO mildly reduced. Her FEV1/FVC was 66. Patient has a chronic cough, but has also noted over the past 3-4 weeks that any time she eats or drinks about 30 minutes after she starts coughing spells that may last 20-30 minutes. This at times also feels like something is in her lower throat, this is not associated with burning or chest pain and she denies that she has any pain or difficulty with swallowing. She never coughs up any food particles or liquid with this. The patient has never had UGI evaluation. Patient had routine labs done and CXR in the EMD. Routine labs reveal peripheral eos elevation and mildly elevated WBC at 13. CXR shows no acute process. Patient remains on albutero l/ipratropium nebulizers at home, BREO and Incruse Ellipta inhalers at home. She took these this morning. Patient will be admitted to continue symptom control and follow her dyspnea. With her EOS count and history of smoking will add on Azithromycin, start PPI for her cough after eating and further evaluate symptomatology. Patient has not had her COVID vaccine and her COVID test on admission is: NEGATIVE. Allergies Allergy/AdvReac Type Severity Reaction Status Date / Time acetaminophen [From Vicodin] Allergy Verified 04/18/21 11:19 hydrocodone AdvReac Mild NAUSEA Verified 04/18/21 08:46 prednisone AdvReac Mild NAUSEA Verified 04/18/21 08:46 Home Medications Medication Instructions Recorded Confirmed Type aspirin 81 mg chewable tablet 81 mg PO QAM 04/10/18 04/18/21 History lancets 33 gauge ([employer] [place] Delica #100 ea 03/02/20 04/18/21 Rx Lancets) blood sugar diagnostic ([employer] [place] #100 ea 10/13/20 04/18/21 Rx Ultra Blue Test Strip) fluoxetine 40 mg capsule 40 mg PO QAM #30 cap 10/13/20 04/18/21 Rx glimepiride 2 mg tablet 2 mg PO QAM #30 tab 10/13/20 04/18/21 Rx metformin 500 mg tablet 1,000 mg PO BID #360 tab 10/13/20 04/18/21 Rx benzonatate 100 mg capsule 100 mg PO TID PRN #10 cap 12/14/20 04/18/21 Rx (Lila Hope) atorvastatin 40 mg tablet 40 mg PO QAM #30 tab 01/09/21 04/18/21 Rx metoprolol tartrate 25 mg tablet 12.5 mg PO BID #60 tab 01/09/21 04/18/21 Rx montelukast 10 mg tablet 10 mg PO HS #30 tab 01/09/21 04/18/21 Rx (Singulair) gkksytmxs-PLE-TC-acetaminophen 7.5 30 ml PO QID PRN 04/18/21 04/18/21 History mg-60 [id number]/30mL oral liqd ipratropium 0.5 mg-albuterol 3 mg 3 ml INHALATION QID 04/18/21 04/18/21 History (2.5 mg base)/3 mL nebulization soln losartan 25 mg tablet 25 mg PO QAM 04/18/21 04/18/21 History Past Med/Surg History Medical History Asthma-COPD overlap syndrome Chronic obstructive pulmonary disease Depression Excessive daytime sleepiness History of nicotine dependence Hyperlipidemia Hypertension Insomnia Moderate persistent asthma Nocturnal hypoxemia Peripheral eosinophilia Surgical History H/O oophorectomy H/O: hysterectomy Family History Father Diabetes CHF (congestive heart failure) Grandfather (Paternal) Diabetes Mother Deep vein thrombosis NHL (non-Hodgkin's lymphoma) Grandfather (Maternal) Acute leukemia Grandmother (Maternal) Deep vein thrombosis Aunt Deep vein thrombosis Other No pertinent family history Denies family history of Ovarian cancer Prostate cancer Myocardial infarction Breast cancer Colorectal cancer Social History Smoking Status: Former smoker Tobacco Type: Cigarettes Second Hand Exposure: No; Do You Dip or Chew Tobacco: No; Tobacco Cessation Education Requested by Patient: No Hx Alcohol Use: No Hx Substance Use: No Preferred Language: Ethiopian Communication Ability: Effective Visual Impairment: No Limitations Hearing Ability: Normal City Controller Required: No Beliefs That Will Affect Care: None Current Living Situation: Alone current occupational status: retired Other Information That Helps Us Care for You: No Feels Safe at Home: Yes Safety Concerns: Feels Safe At This Time Dental Care, Regularly: No Seatbelt Use: always Sunscreen Use: Yes Assistive Devices: Nebulizer Review of Systems Review of Systems: REVIEW OF SYSTEMS: Constitutional: No fever, sweats or chills Eyes: No diplopia, no worsening or blurred vision ENT: normal hearing, no trouble swallowing Respiratory: (+)cough, sputum, dyspnea at rest or on exertion Cardiovascular: No chest pain, tightness or palpitations Abdomen: No pain, nausea, vomiting, diarrhea or constipation Musculoskeletal: No joint pain, calf pain, swelling Neurologic: No weakness, numbness/tingling, or balance problems Psychiatric: No anxiety or depression Skin: No rash or itch Physical Exam Physical Exam: PHYSICAL EXAM: General: awake, alert, no apparent distress Head: Normocephalic, atraumatic ENT: PERRL, EOMI, no pharyngeal exudate, mucous membranes moist Neuro: AAO x 3, speech clear and appropriate, strength intact bilaterally 5/5, sensation intact and equal all extremities and dermatomes, no pronator drift Chest: equal rise and fall of the chest, pursed lip breathing, expiratory wheeze, with non-productive cough Cardiac: Regular rate and rhythm, telemetry reviewed-NSR, skin warm dry, cap refill <3 seconds, peripheral pulses +2 no JVD, no murmur, no edema GI: NABS x 4 quadrants, soft, nontender to palpation, no rebound, guarding or tenderness : Spontaneously voiding, no pain, no CVA tenderness, Extremities: Normal inspection, no peripheral edema or erythema, calfs nontender to palpation Psych: Normal mood and affect Skin: no rash or erythema Results & Data Results & Data ([facility]) Vital Signs (Past 12 Hours) Vital Signs Temp Pulse Pulse Resp BP BP Pulse Ox 04/18/21 13:00 114 H 20 96 04/18/21 12:45 97 04/18/21 12:35 94 04/18/21 12:15 100 04/18/21 12:00 91 H 22 164/98 H 99 04/18/21 11:45 88 21 99 04/18/21 11:30 80 21 99 04/18/21 11:15 79 25 H 100 04/18/21 11:02 72 20 96 04/18/21 11:00 76 27 H 176/105 H 94 04/18/21 10:47 97 04/18/21 10:45 80 32 H 94 04/18/21 10:30 75 24 94 04/18/21 10:15 75 28 H 96 04/18/21 10:09 195/104 H 04/18/21 10:04 80 30 H 195/104 H 97 04/18/21 09:52 37.4 C 77 40 H 222/132 H 98 Laboratory Results Abnormal lab results 04/18/21 04/18/21 04/18/21 Range/Units 10:10 10:10 10:11 WBC 13.77 H (4.8-10.8) K/uL Neut # (Auto) 7.73 H (1.4-6.5) K/uL [place] # (Auto) 0.69 H (0.11-0.59) K/uL Eos # (Auto) 2.46 H (0-0.5) K/uL Immature Gran # (Auto) 0.04 H (0.00-0.02) K/uL Glucose 121 H (70-99) mg/dl AST 11 L (15-37) U/L Globulin 4.3 H (2.5-4.0) gm/dl Urine Blood Trace H (Negative) Ur Leukocyte Esterase Trace H (Negative) U Epithel Cells (Auto) >30 H (0-5) /lpf Diagnostic Findings Chest X-Ray 04/18/21 10:36 SINGLE VIEW CHEST CLINICAL HISTORY: Atypical chest pain. FINDINGS: An AP, portable, upright chest radiograph is compared to chest x-ray and chest CT dated 12/09/2020. The heart is top normal for projection. The pulmonary vasculature is noncongested. Chronic interstitial thickening is similar to previous. Scarring/atelectasis is noted at the lung bases. No airspace consolidation or large pleural effusion is identified. No pneumothorax is seen. The skeletal structures are osteopenic. The bony thorax is grossly intact. IMPRESSION: No acute cardiopulmonary abnormality. ACT 112: Negative or not required by law. Electronically signed by: Boone Quiroz M.D. 04/18/2021 12:29 PM Medications Administered Home Medications aspirin 81 mg chewable tablet 81 mg PO QAM 04/10/18 [History Confirmed 04/18/21] lancets 33 gauge ([employer] Delica Lancets) #100 ea 03/02/20 [Rx Confirmed 04/18/21] blood sugar diagnostic ([employer] [place] Ultra Blue Test Strip) #100 ea 10/13/20 [Rx Confirmed 04/18/21] fluoxetine 40 mg capsule 40 mg PO QAM #30 cap 10/13/20 [Rx Confirmed 04/18/21] glimepiride 2 mg tablet 2 mg PO QAM #30 tab 10/13/20 [Rx Confirmed 04/18/21] metformin 500 mg tablet 1,000 mg PO BID #360 tab 10/13/20 [Rx Confirmed 04/18/21] benzonatate 100 mg capsule ([place] Jayy) 100 mg PO TID PRN #10 cap 12/14/20 [Rx Confirmed 04/18/21] atorvastatin 40 mg tablet 40 mg PO QAM #30 tab 01/09/21 [Rx Confirmed 04/18/21] metoprolol tartrate 25 mg tablet 12.5 mg PO BID #60 tab 01/09/21 [Rx Confirmed 04/18/21] montelukast 10 mg tablet (Singulair) 10 mg PO HS #30 tab 01/09/21 [Rx Confirmed 04/18/21] wdfoudydf-WIM-RT-acetaminophen 7.5 mg-60 [id number]/30mL oral liqd 30 ml PO QID PRN 04/18/21 [History Confirmed 04/18/21] ipratropium 0.5 mg-albuterol 3 mg (2.5 mg base)/3 mL nebulization soln 3 ml INHALATION QID 04/18/21 [History Confirmed 04/18/21] losartan 25 mg tablet 25 mg PO QAM 04/18/21 [History Confirmed 04/18/21] Active Medications Azithromycin (Azithromycin 250 Mg Tab) 250 mg PO QAM OVI Stop: 04/26/21 08:59 Discontinued Medications Albuterol (Albuterol 0.083% Nebu Soln 3 Ml Vial) 5 mg NEB NOW STA Stop: 04/18/21 10:42 Last Admin: 04/18/21 11:00 Dose: 5 mg Documented by: [id number] Methylprednisolone (Methylprednisolone 125 Mg/2 Ml Vial) 60 mg IV NOW STA Stop: 04/18/21 10:42 Last Admin: 04/18/21 10:49 Dose: Not Given Documented by: [id number] Pantoprazole Sodium (Pantoprazole 40 Mg Tab) 40 mg PO DAILY STA Stop: 04/18/21 13:19 Last Admin: 04/18/21 13:24 Dose: 40 mg Documented by: [id number] ECG Additional Comments: Normal sinus rhythm Nonspecific ST and T wave abnormality Abnormal ECG When compared with ECG of 09-DEC-2020 11:46, Premature ventricular complexes are no longer Present QT has lengthened Code Status & VTE Plan Code Status CODE: FULL VTE: SCDS, Lovenox 40mg sub q daily VTE Prophylaxis Plan VTE Prophylaxis will be ordered: Yes Supervising Physician Co-Signing Physician Notes 70 yo female is seen and examined at bedside. During face to face encounter with patient, obtained a history and physical examination. Discussed case with DAVID Barros and answered all of the patient's questions. I reviewed above note and agree with it. Patient is coming in with likely COPD exacerbation. will admit and place on nebs and antibiotics. will place on antibiotics. PG Care Time/CCT Total # of Minutes Spent Total Time Spent with Patient: Total time spent is greater than 50% in coordination of care (as documented) at patient's floor/unit and/or counseling patient: Coding Level of Care Code 39677 Initial Inpt Care Lvl 3 Diagnoses Asthma-COPD overlap syndrome J44.9 LVH (left ventricular hypertrophy) I51.7 Chronic respiratory failure with hypoxia, on home O2 therapy J96.11; Z99.81 Depression F32.89 Depression Type: other depression Hypertension I10 Hypertension type: essential hypertension Hyperlipidemia E78.5 DM w/o complication type II, uncontrolled E11.65 Glycemic state: with hyperglycemia Cough R05.9 (1) Depression Depression Type: other depression Qualified Code(s): F32.89 - Other specified depressive episodes (2) Hypertension Hypertension type: essential hypertension Qualified Code(s): I10 - Essential (primary) hypertension (3) DM w/o complication type II, uncontrolled Glycemic state: with hyperglycemia Qualified Code(s): E11.65 - Type 2 diabetes mellitus with hyperglycemia
[2021-04-18] MEDS ORDERED: AZITHROMYCIN 250 MG TAB PO ONE (13:33)
[2021-04-18] MEDS ORDERED: GLUCOSE 10 TABS/TUBE PO PRN (14:45)
[2021-04-18] MEDS ORDERED: GLUCOSE 40% GEL 15 GM TUBE PO PRN (14:45)
[2021-04-18] MEDS ORDERED: ALBUTEROL 0.083% NEBU SOLN 3 ML VIAL NEB PRN (14:45)
[2021-04-18] MEDS ORDERED: GLUCAGON FOR INJ 1 MG VIAL SQ PRN (14:45)
[2021-04-18] MEDS ORDERED: ONDANSETRON INJ 2 MG/ML 2 ML VIAL IV PRN (14:45)
[2021-04-18] MEDS ORDERED: CARBOHYDRATES FOR HYPOGLYCEMIA PO PRN (14:45)
[2021-04-18] MEDS ORDERED: DEXTROSE 50% 50 ML SYRINGE IV PRN (14:45)
[2021-04-18] MEDS: ALBUT/IPRATROP 3MG/0.5MG NEB 3 ML VIAL INH SCH ×2 (15:03→19:26)
[2021-04-18] MEDS: BENZONATATE 100 MG CAPSULE PO PRN ×2 (15:49→21:36)
[2021-04-18] MEDS: methylPREDNISolone 40 MG in SYRINGE 0 ML IV SCH ×2 (15:49→21:32)
[2021-04-18] MEDS: ENOXAPARIN INJ 40 MG/0.4 ML SYR SQ SCH (15:49)
[2021-04-18] MEDS: guaiFENesin SUGAR FREE 200 MG/10 ML UDC PO PRN ×2 (18:17→21:34)
[2021-04-18] MEDS: INSULIN ASPART 100 UNITS/ML 3 ML PEN SC SCH ×2 (18:17→20:58)
[2021-04-18] MEDS: METOPROLOL TARTRATE 25 MG TAB PO SCH (20:51)
[2021-04-18] MEDS: MONTELUKAST SODIUM 10 MG TABLET PO SCH (20:51)
[2021-04-19] MEDS: methylPREDNISolone 40 MG in SYRINGE 0 ML IV SCH ×3 (03:54→16:46)
[2021-04-19] MEDS ORDERED: INSULIN ASPART PER SC ONE (05:00)
[2021-04-19] MEDS ORDERED: INSULIN ASPART 100 UNITS/ML 3 ML PEN SC ONE (05:00)
[2021-04-19] MEDS: guaiFENesin SUGAR FREE 200 MG/10 ML UDC PO PRN ×2 (05:24→19:40)
[2021-04-19] MEDS: BENZONATATE 100 MG CAPSULE PO PRN ×2 (05:24→19:40)
[2021-04-19] MEDS: ALBUT/IPRATROP 3MG/0.5MG NEB 3 ML VIAL INH SCH ×4 (07:37→19:17)
[2021-04-19] MEDS: FLUoxetine HCL 20 MG CAP PO SCH (07:56)
[2021-04-19] MEDS: ASPIRIN 81 MG CHEW PO SCH (07:57)
[2021-04-19] MEDS: ATORVASTATIN 40 MG TAB PO SCH (07:58)
[2021-04-19] MEDS: METOPROLOL TARTRATE 25 MG TAB PO SCH ×2 (07:59→21:07)
[2021-04-19] MEDS: FLUTICASONE/VILANTEROL 200/25MCG 14 PUFFS/INHALER INH SCH (08:00)
[2021-04-19] MEDS: LOSARTAN POTASSIUM 25 MG TAB PO SCH (08:00)
[2021-04-19] MEDS: UMECLIDINIUM BROMIDE 62.5MCG/BLISTER 7 PUFFS/INHALER INH SCH (08:00)
[2021-04-19] MEDS ORDERED: AZITHROMYCIN 250 MG TAB PO SCH (09:00)
[2021-04-19] MEDS: INSULIN ASPART 100 UNITS/ML 3 ML PEN SC SCH ×4 (09:09→21:00)
[2021-04-19 09:31] LABS: Basophils # (auto) 0.01 K/uL (0-0.2); Basophils % (auto) 0.1 %; Hematocrit (blood only) 39.3 % (37-47); Hemoglobin 13.1 g/dL (12.0-16.0); Immature Granulocytes # (auto) 0.05 K/uL (0.00-0.02); Immature Granulocytes % (auto) 0.3 %; Lymphocytes # (auto) 1.35 K/uL (1.2-3.4); Lymphocytes % (auto) 7.1 %; Mean Corpuscular Hgb Conc 33.3 g/dL (32-36); Mean Corpuscular Volume 89.9 fL (80-100); Mean Platelet Volume 9.9 fL (7.4-10.4); Monocytes # (auto) 0.79 K/uL (0.11-0.59); Monocytes % (auto) 4.2 %; Neutrophils # (auto) 16.75 K/uL (1.4-6.5); Neutrophils % (auto) 88.3 %; Platelet Count 295 K/uL (130-400); RDW Coefficient of Variation 14.2 % (11.5-14.5); RDW Standard Deviation 46.1 fL (36.4-46.3); Red Blood Count 4.37 M/uL (4.2-5.4); White Blood Count 18.95 K/uL (4.8-10.8)
[2021-04-19 10:05] LABS: BUN Creatinine Ratio 25.3 (10-20); Calcium 9.4 mg/dl (8.5-10.1); Creatinine Clr Calc Pharmacy 61.3 ml/min; Est GFR (African American) 75.1 ml/min; Est GFR (Non-African American) 64.8 ml/min; Magnesium 2.1 mg/dl (1.8-2.4); Potassium 3.3 mmol/L (3.5-5.1)
[2021-04-19] MEDS: INSULIN GLARGINE SOLOSTAR 100 UNITS/ML 3 ML PEN SC SCH ×2 (12:37→21:03)
--- NOTE | 2021-04-19 12:44 | Electrocardiogram Report ---
Test Reason : Blood Pressure : / mmHG Vent. Rate : 078 BPM Atrial Rate : 078 BPM P-R Int : 152 ms QRS Dur : 088 ms QT Int : 404 ms P-R-T Axes : 076 024 068 degrees QTc Int : 460 ms Normal sinus rhythm Nonspecific ST and T wave abnormality Abnormal ECG When compared with ECG of 09-DEC-2020 11:46, Premature ventricular complexes are no longer Present Confirmed by Alexis Rogel ([id number]) on 04/19/2021 12:44:42 PM Referred By: REFERRED SELF Confirmed By:Alexis Rogel
[2021-04-19] MEDS: ENOXAPARIN INJ 40 MG/0.4 ML SYR SQ SCH (18:14)
--- NOTE | 2021-04-19 18:56 | Hospitalist Progress Note ---
Date of Service April 19, 2021 Assessment & Plan (1) Asthma-COPD overlap syndrome: Plan: Asthma/COPD exacerbation - multifactorial ? allergic component with EOS elevation and seasonal change Improved today but continues to report worsening of cough after eating or d rinking - Continue Albuterol/Combivent inhalers QID with Albuterol nebs q4 PRN in between if needed - continue her Tessalon perals as she thinks they have rj helping - Continue BREO and Incruse - continue Azithromycin x 5 day course - Methlpred 40mg IV decrease down to q12h given improvement in symptoms and severe hyperglycemia - Continue Montelukast -CBC with eosinophilia now resolved-follow CBC -consult PULM for further eval/management -continue supplemental O2 to keep POx> 90% (2) Cough: Plan: Multifactorial but as this has been occurring more frequently after eating or drinking will start with PPI - started Protonix 40m gPO daily - TISSUE TECHNOLOGIST consulted and plan for barium swallow and VFSS tomorrow - Consider GI evaluation for UGI evaluation as outpt - Continue Tessalon perles - Robitussin sugar free syrup added - Continue Montelukast (3) Chronic respiratory failure with hypoxia, on home O2 therapy: Plan: Acute on chronic respiratory failure with hypoxia Requiring 3L continuously here but at home only on nocturnal O2 - Oxygen therapy to maintain SPO2 ~92% - She is awaiting sleep study as outpt (4) LVH (left ventricular hypertrophy): Plan: ECHO done in November - EF 50-55% mild MR with mild LVH - continue BB - Continue ARB- this was changed on previous admission secondary to cough syndrome - Continue Atorvastatin 40mg daily (5) Hypertension: Plan: As above- controlled (6) Hyperlipidemia: Plan: As above (7) DM w/o complication type II, uncontrolled: Plan: Hold metformin and glimepiride -with severe hyperglycemia here secondary to steroid use add on Lantus 10 units bid and tighten down Novolog coverage caution as last admission had severe hypoglycemia with aggressive insulin regimen (8) Depression: Plan: Continue Fluoxetine 40 mg Plan: Prophylaxis DVT - Lovenox Dispo-continued stay Admission and Anticipated Discharge Date Admission Date: April 18, 2021 Subjective Pt reports still ongoing severe cough only after eating or drinking. She is anxious to be discharged to home but is willing to do the barium swallow and video swallow tomorrow AM. Review of Systems Review of Systems: All systems reviewed & are unremarkable except as noted in HPI & below Physical Exam Constitutional: WD/WN, vitals as above Neck: trachea midline, no thyromegaly Respiratory: normal respiratory effort, lungs clear to auscultation Cardiovascular: RRR, no murmur, no edema Chest (Breasts): Chest: normal inspection of chest Gastrointestinal (Abdomen): normal bowel sounds, soft, nontender, no hepatosplenomegaly Musculoskeletal: Extremities: extremities normal to inspection; no cyanosis and no clubbing Skin: no rashes, warm and dry Neurologic: moves all extremities and awake; no focal motor deficits Psychiatric: A+Ox3, euthymic affect Lymphatic: no lymphedema Results & Data Results & Data ([facility]) Vital Signs (Past 12 Hours) Vital Signs Temp Pulse Resp BP Pulse Ox 04/19/21 16:32 37.0 C 87 18 134/79 92 04/19/21 15:25 81 18 96 04/19/21 11:12 36.7 C 89 18 135/74 93 04/19/21 10:58 81 18 93 04/19/21 07:33 92 H 18 95 04/19/21 07:26 37.1 C 91 H 18 148/84 H 93 Laboratory Results 04/19/21 04/19/21 04/19/21 Range/Units 20:41 16:44 12:19 WBC (4.8-10.8) K/uL RBC (4.2-5.4) M/uL Hgb (12.0-16.0) g/dL Hct (37-47) % MCV (80-100) fL MCH (25-34) pg MCHC (32-36) g/dL RDW Std Deviation (36.4-46.3) fL RDW Coeff of Aniyah (11.5-14.5) % Plt Count (130-400) K/uL MPV (7.4-10.4) fL Immature Gran % (Auto) % Neut % (Auto) % Lymph % (Auto) % [place] % (Auto) % Eos % (Auto) % Baso % (Auto) % Neut # (Auto) (1.4-6.5) K/uL Lymph # (Auto) (1.2-3.4) K/uL [place] # (Auto) (0.11-0.59) K/uL Eos # (Auto) (0-0.5) K/uL Baso # (Auto) (0-0.2) K/uL Immature Gran # (Auto) (0.00-0.02) K/uL Sodium (136-145) mmol/L Potassium (3.5-5.1) mmol/L Chloride (98-107) mmol/L Carbon Dioxide (21-32) mmol/L Anion Gap (3-11) BUN (7-18) mg/dl Creatinine (0.6-1.2) mg/dl Est Cr Clr Drug Dosing ml/min Est GFR ( Amer) ml/min Est GFR (Non-Af Amer) ml/min BUN/Creatinine Ratio (10-20) Glucose (70-99) mg/dl POC Glucose 241 H 155 H 284 H (70-99) mg/dl Calcium (8.5-10.1) mg/dl Magnesium (1.8-2.4) mg/dl 04/19/21 04/19/21 04/19/21 Range/Units 12:17 08:43 08:43 WBC 18.95 H (4.8-10.8) K/uL RBC 4.37 (4.2-5.4) M/uL Hgb 13.1 (12.0-16.0) g/dL Hct 39.3 (37-47) % MCV 89.9 (80-100) fL MCH 30.0 (25-34) pg MCHC 33.3 (32-36) g/dL RDW Std Deviation 46.1 (36.4-46.3) fL RDW Coeff of Aniyah 14.2 (11.5-14.5) % Plt Count 295 (130-400) K/uL MPV 9.9 (7.4-10.4) fL Immature Gran % (Auto) 0.3 % Neut % (Auto) 88.3 % Lymph % (Auto) 7.1 % [place] % (Auto) 4.2 % Eos % (Auto) 0.0 % Baso % (Auto) 0.1 % Neut # (Auto) 16.75 H (1.4-6.5) K/uL Lymph # (Auto) 1.35 (1.2-3.4) K/uL [place] # (Auto) 0.79 H (0.11-0.59) K/uL Eos # (Auto) 0.00 (0-0.5) K/uL Baso # (Auto) 0.01 (0-0.2) K/uL Immature Gran # (Auto) 0.05 H (0.00-0.02) K/uL Sodium 134 L (136-145) mmol/L Potassium 3.3 L (3.5-5.1) mmol/L Chloride 98 (98-107) mmol/L Carbon Dioxide 29 (21-32) mmol/L Anion Gap 7.0 (3-11) BUN 23 H D (7-18) mg/dl Creatinine 0.91 (0.6-1.2) mg/dl Est Cr Clr Drug Dosing 61.3 ml/min Est GFR ( Amer) 75.1 ml/min Est GFR (Non-Af Amer) 64.8 ml/min BUN/Creatinine Ratio 25.3 H (10-20) Glucose 223 H (70-99) mg/dl POC Glucose 303 H* (70-99) mg/dl Calcium 9.4 (8.5-10.1) mg/dl Magnesium 2.1 (1.8-2.4) mg/dl 04/19/21 04/19/21 Range/Units 08:02 03:59 WBC (4.8-10.8) K/uL RBC (4.2-5.4) M/uL Hgb (12.0-16.0) g/dL Hct (37-47) % MCV (80-100) fL MCH (25-34) pg MCHC (32-36) g/dL RDW Std Deviation (36.4-46.3) fL RDW Coeff of Aniyah (11.5-14.5) % Plt Count (130-400) K/uL MPV (7.4-10.4) fL Immature Gran % (Auto) % Neut % (Auto) % Lymph % (Auto) % [place] % (Auto) % Eos % (Auto) % Baso % (Auto) % Neut # (Auto) (1.4-6.5) K/uL Lymph # (Auto) (1.2-3.4) K/uL [place] # (Auto) (0.11-0.59) K/uL Eos # (Auto) (0-0.5) K/uL Baso # (Auto) (0-0.2) K/uL Immature Gran # (Auto) (0.00-0.02) K/uL Sodium (136-145) mmol/L Potassium (3.5-5.1) mmol/L Chloride (98-107) mmol/L Carbon Dioxide (21-32) mmol/L Anion Gap (3-11) BUN (7-18) mg/dl Creatinine (0.6-1.2) mg/dl Est Cr Clr Drug Dosing ml/min Est GFR ( Amer) ml/min Est GFR (Non-Af Amer) ml/min BUN/Creatinine Ratio (10-20) Glucose (70-99) mg/dl POC Glucose 227 H 242 H (70-99) mg/dl Calcium (8.5-10.1) mg/dl Magnesium (1.8-2.4) mg/dl PG Care Time/CCT Total # of Minutes Spent Total Time Spent with Patient: Total time spent is greater than 50% in coordination of care (as documented) at patient's floor/unit and/or counseling patient: Coding Level of Care Code 87335 Subseq Hosp Care Lvl 2 Diagnoses Asthma-COPD overlap syndrome J44.9 Cough R05.9 Chronic respiratory failure with hypoxia, on home O2 therapy J96.11; Z99.81 LVH (left ventricular hypertrophy) I51.7 Hypertension I10 Hypertension type: essential hypertension Hyperlipidemia E78.5 DM w/o complication type II, uncontrolled E11. Glycemic state: with hyperglycemia Depression F32.89 Depression Type: other depression (1) Depression Depression Type: other depression Qualified Code(s): F32.89 - Other specified depressive episodes (2) Hypertension Hypertension type: essential hypertension Qualified Code(s): I10 - Essential (primary) hypertension (3) DM w/o complication type II, uncontrolled Glycemic state: with hyperglycemia Qualified Code(s): E11.65 - Type 2 diabetes mellitus with hyperglycemia
[2021-04-19] MEDS ORDERED: methylPREDNISolone 40 MG in SYRINGE 0 ML IV SCH (19:00)
[2021-04-19] MEDS: MONTELUKAST SODIUM 10 MG TABLET PO SCH (21:07)
[2021-04-20] MEDS ORDERED: Nursing to Pharmacy Communication SCH (02:30)
[2021-04-20] MEDS: guaiFENesin SUGAR FREE 200 MG/10 ML UDC PO PRN ×2 (04:16→15:02)
[2021-04-20] MEDS: BENZONATATE 100 MG CAPSULE PO PRN ×2 (04:16→12:07)
[2021-04-20] MEDS: INSULIN ASPART 100 UNITS/ML 3 ML PEN SC SCH ×3 (06:36→17:34)
[2021-04-20 06:54] LABS: Est GFR (African American) 60.4 ml/min; Potassium 3.6 mmol/L (3.5-5.1)
[2021-04-20 06:55] LABS: BUN Creatinine Ratio 28.1 (10-20); Creatinine Clr Calc Pharmacy 51.2 ml/min; Est GFR (Non-African American) 52.1 ml/min; Magnesium 2.4 mg/dl (1.8-2.4)
[2021-04-20] MEDS: ALBUT/IPRATROP 3MG/0.5MG NEB 3 ML VIAL INH SCH (07:36)
[2021-04-20] MEDS ORDERED: ALBUT/IPRATROP 3MG/0.5MG NEB 3 ML VIAL INH PRN (08:56)
--- NOTE | 2021-04-20 08:56 | Pulmonary Consultation ---
Date of Consultation April 20, 2021 Assessment & Plan (1) Asthma-COPD overlap syndrome: (2) Peripheral eosinophilia: (3) Acute exacerbation of chronic obstructive pulmonary disease (COPD): (4) Cough: Impression: 70-year-old female with asthma/COPD overlap syndrome admitted with exacerbation. She is responding favorably to therapy. Recommendations: 1. Asthma/COPD overlap with acute exacerbation. She appears to be responding appropriately to therapy. We will change her nebulizers to as needed. I think we can discontinue her azithromycin at this point time. Change Solu-Medrol to prednisone for 5-day burst. 2. Peripheral eosinophilia: Resolved with steroids. Given her elevated eosinophil count, she may benefit from allergy evaluation and consideration of Nucala or Fasenra. This can be conducted as an outpatient. 3. Hypoxemia: Patient uses oxygen at baseline. Recommend two-step evaluation prior to discharge to ensure her oxygen prescription is appropriate. 4. The patient appears significantly improved from presentation. I think she can likely be dismissed from the hospital with outpatient follow-up with her patient registration representative and allergy referral. Thanks for the opportunity participating the care of this patient. Please feel free to contact us if we can be of additional assistance. Pulmonary will sign off at this point time History of Present Illness Attending Physician: Arleen Espinoza MD History of Present Illness Asked by hospitalist to evaluate this patient with COPD asthma overlap syndrome admitted with shortness of breath. History is obtained from review electronic medical record as well as interview the patient. Patient is a 70-year-old female who is followed in the outpatient setting by . She was last seen about a month ago. Her last spirometry was performed 12/27/2020 and showed an FEV1 of 1.61 L or 72% predicted with an FVC of 2.09 L or 71% predicted and a ratio of 77. She has been maintained on Breo and Singulair. She presented to the emergency room 04/18 with complaints of dyspnea cough and inability to catch breath. Her symptoms have been going on for about a week and had not responded to outpatient inhalers. She is not had any upper respiratory infectious symptoms. She does not report any significant chest pain. No palpitations or lower extremity edema. No ill contacts. She denied any heartburn or reflux. She was admitted to the hospitalist with diagnosis of COPD exacerbation and treated with azithromycin and Medrol as well as Singulair Breo and Incruse and as needed inhalers. Of note the patient had an elevated eosinophil count of approximately 17% on presentation which has appropriately resolved with steroids. Pulmonary was consulted based on her eosinophilia and respiratory issues. Patient is currently awake alert and conversant. She is sitting up in bed. She states she feels much better. She is able to walk to the restroom. She has oxygen at home which she uses at night and as needed during the day. She is on a minimal amount of oxygen currently. Allergies Allergy/AdvReac Type Severity Reaction Status Date / Time acetaminophen [From Vicodin] Allergy Verified 04/18/21 11:19 hydrocodone AdvReac Mild NAUSEA Verified 04/18/21 08:46 prednisone AdvReac Mild NAUSEA Verified 04/18/21 08:46 Home Medications Medication Instructions Recorded Confirmed Type aspirin 81 mg chewable tablet 81 mg PO QAM 04/10/18 04/18/21 History lancets 33 gauge (Dhir DiamondsTouch Delica #100 ea 03/02/20 04/18/21 Rx Lancets) blood sugar diagnostic (Dhir DiamondsTouch #100 ea 10/13/20 04/18/21 Rx Ultra Blue Test Strip) fluoxetine 40 mg capsule 40 mg PO QAM #30 cap 10/13/20 04/18/21 Rx glimepiride 2 mg tablet 2 mg PO QAM #30 tab 10/13/20 04/18/21 Rx metformin 500 mg tablet 1,000 mg PO BID #360 tab 10/13/20 04/18/21 Rx benzonatate 100 mg capsule 100 mg PO TID PRN #10 cap 12/14/20 04/18/21 Rx (Tessalon Perles) atorvastatin 40 mg tablet 40 mg PO QAM #30 tab 01/09/21 04/18/21 Rx metoprolol tartrate 25 mg tablet 12.5 mg PO BID #60 tab 01/09/21 04/18/21 Rx montelukast 10 mg tablet 10 mg PO HS #30 tab 01/09/21 04/18/21 Rx (Singulair) [id number]-acetaminophen 7.5 30 ml PO QID PRN 04/18/21 04/18/21 History mg-60 [id number]/30mL oral liqd ipratropium 0.5 mg-albuterol 3 mg 3 ml INHALATION QID 04/18/21 04/18/21 History (2.5 mg base)/3 mL nebulization soln losartan 25 mg tablet 25 mg PO QAM 04/18/21 04/18/21 History Patient History Medical History Asthma-COPD overlap syndrome Chronic obstructive pulmonary disease Depression Excessive daytime sleepiness History of nicotine dependence Hyperlipidemia Hypertension Insomnia Moderate persistent asthma Nocturnal hypoxemia Peripheral eosinophilia Surgical History H/O oophorectomy H/O: hysterectomy Family History Father Diabetes CHF (congestive heart failure) Grandfather (Paternal) Diabetes Mother Deep vein thrombosis NHL (non-Hodgkin's lymphoma) Grandfather (Maternal) Acute leukemia Grandmother (Maternal) Deep vein thrombosis Aunt Deep vein thrombosis Other No pertinent family history Denies family history of Ovarian cancer Prostate cancer Myocardial infarction Breast cancer Colorectal cancer Social History Smoking Status: Former smoker Tobacco Type: Cigarettes Second Hand Exposure: No; Do You Dip or Chew Tobacco: No; Tobacco Cessation Education Requested by Patient: No Hx Alcohol Use: No Hx Substance Use: No Preferred Language: Macedonian Communication Ability: Effective Visual Impairment: No Limitations Hearing Ability: Normal Commercial Subcontractor Required: No Beliefs That Will Affect Care: None Current Living Situation: Alone current occupational status: retired Other Information That Helps Us Care for You: No Feels Safe at Home: Yes Safety Concerns: Feels Safe At This Time Dental Care, Regularly: No Seatbelt Use: always Sunscreen Use: Yes Assistive Devices: Nebulizer Review of Systems Review of Systems: Please refer to admission H&P and progress notes. No additions or deletions Physical Exam Constitutional: WD/WN, vitals as above Neck: trachea midline, no thyromegaly Respiratory: normal respiratory effort; no respiratory distress, no labored breathing and not tachypneic Auscultation: + wheezes Wheezes located in the apices bilaterally Cardiovascular: RRR, no murmur, no edema Gastrointestinal (Abdomen): normal bowel sounds, soft, nontender, no hepatosplenomegaly Musculoskeletal: Extremities: extremities normal to inspection Skin: no rashes, warm and dry Neurologic: Nonfocal exam Lymphatic: no cervical lymphadenopathy Results & Data Results & Data ([facility]) Vital Signs (Past 12 Hours) Vital Signs Temp Pulse Resp BP Pulse Ox 04/20/21 07:39 37.0 C 78 16 153/79 H 99 04/20/21 07:35 83 18 95 04/20/21 04:33 105 H 22 95 04/19/21 22:05 36.7 C 82 18 126/72 97 Laboratory Results 04/19/21 08:43 04/20/21 05:30 Peripheral eosinophilia resolved Diagnostic Findings Images were independently reviewed. Chest x-ray from 04/18/2021 demonstrated mild coarsening of the bronchovascular markings without focal infiltrate or airspace opacity. PG Care Time/CCT Total # of Minutes Spent Total Time Spent with Patient: Total time spent is greater than 50% in coordination of care (as documented) at patient's floor/unit and/or counseling patient: Coding Level of Care Code 99499 Initial Inpt Care Lvl 2 Diagnoses Asthma-COPD overlap syndrome J44.9 Peripheral eosinophilia D72.19 Acute exacerbation of chronic obstructive pulmonary disease (COPD) J44.1 Cough R05.9
[2021-04-20] MEDS: FLUTICASONE/VILANTEROL 200/25MCG 14 PUFFS/INHALER INH SCH (09:01)
[2021-04-20] MEDS: UMECLIDINIUM BROMIDE 62.5MCG/BLISTER 7 PUFFS/INHALER INH SCH (09:02)
[2021-04-20] MEDS: INSULIN GLARGINE SOLOSTAR 100 UNITS/ML 3 ML PEN SC SCH (09:03)
--- NOTE | 2021-04-20 10:55 | Fluoroscopy Report ---
FL barium swallow CLINICAL HISTORY: Assess for esophageal dysfunction. Dysphagia. COMPARISON STUDY: No previous studies for comparison. Fluoroscopy time: 1 minute. Number of fluoroscopic images: 14. FINDINGS: Esophageal motility was normal. No esophageal mass or stricture was identified. 13 mm bariu m tablet passed into the stomach. No hiatal hernia was identified. Several episodes of gastroesophage al reflux were elicited. IMPRESSION: 1. No esophageal mass or stricture identified. 2. Several episodes of gastroesophageal reflux. ACT 112: Negative or not required by law. Electronically signed by: Glen Humphrey M.D. 04/20/2021 10:53 AM
[2021-04-20] MEDS: ATORVASTATIN 40 MG TAB PO SCH (11:49)
[2021-04-20] MEDS: FLUoxetine HCL 20 MG CAP PO SCH (11:50)
[2021-04-20] MEDS: ASPIRIN 81 MG CHEW PO SCH (11:51)
[2021-04-20] MEDS: METOPROLOL TARTRATE 25 MG TAB PO SCH (11:51)
[2021-04-20] MEDS: LOSARTAN POTASSIUM 25 MG TAB PO SCH (11:52)
[2021-04-20] MEDS ORDERED: predniSONE 20 MG TAB PO SCH (12:00)
--- NOTE | 2021-04-20 15:37 | Discharge Summary ---
Date of Service April 20, 2021 Admission HPI Per Admitting Provider 70 YOF with past medical history of: COPD/Asthma overlap syndrome, previous smoker - quit ~6 years ago, HTN, HLD, mild MR and mild LVH with preserved EF. Patient was brought to the EMD today via EMS for increase in dyspnea, cough and inability to catch her breath. Patient reports that over the past week she has had an increase in her dyspnea and cough as well as an increase in her use of inhalers. She feels her sputum production remains the same. She denies any fevers or chills. She received 125mg solu-Medrol and nebulizers on the way to the EMD. In the EMD she felt somewhat improved after this therapy but was noted to be quite dyspneic when getting up and functioning. Patient recently had PFTs done in February with Moderate obstruction and significant air trapping with DLCO mildly reduced. Her FEV1/FVC was 66. Patient has a chronic cough, but has also noted over the past 3-4 weeks that any time she eats or drinks about 30 minutes after she starts coughing spells that may last 20-30 minutes. This at times also feels like something is in her lower throat, this is not associated with burning or chest pain and she denies that she has any pain or difficulty with swallowing. She never coughs up any food particles or liquid with this. The patient has never had UGI evaluation. Patient had routine labs done and CXR in the EMD. Routine labs reveal peripheral eos elevation and mildly elevated WBC at 13. CXR shows no acute process. Patient remains on albuterol/ipratropium nebulizers at home, BREO and Incruse Ellipta inhalers at home. She took these this morning. Patient will be admitted to continue symptom control and follow her dyspnea. With her EOS count and history of smoking will add on Azithromycin, start PPI for her cough after eating and further evaluate symptomatology. Patient has not had her COVID vaccine and her COVID test on admission is: NEGATIVE. Principal Diagnosis Asthma/COPD exacerbation, acute on chronic respiratory failure with hypoxemia, esophageal reflux Discharge Exam Constitutional WD/WN, vitals as above Neck trachea midline, no thyromegaly Respiratory normal respiratory effort; no cough Auscultation: + wheezes ( occasional expiratory anteriorly) Cardiovascular RRR, no murmur, no edema Chest (Breasts) Chest: normal inspection of chest Gastrointestinal (Abdomen) normal bowel sounds, soft, nontender, no hepatosplenomegaly Musculoskeletal Extremities: extremities normal to inspection; no cyanosis and no clubbing Skin no rashes, warm and dry Neurologic moves all extremities and awake; no focal motor deficits Psychiatric A+Ox3, euthymic affect Lymphatic no lymphedema Discharge Data Allergies Allergy/AdvReac Type Severity Reaction Status Date / Time acetaminophen [From Vicodin] Allergy Verified 04/18/21 11:19 hydrocodone AdvReac Mild NAUSEA Verified 04/18/21 08:46 prednisone AdvReac Mild NAUSEA Verified 04/18/21 08:46 Consultations 04/18/21 12:44 ED Decision to Admit Stat 04/19/21 18:54 Consult Pulmonology Routine Ordered Studies 04/20/21 10:30 FL barium swallow Routine Hospital Course (1) Asthma-COPD overlap syndrome: Asthma/COPD exacerbation - multifactorial ? allergic component with EOS elevation and seasonal change Improved but continues to report worsening of cough after eating or drinking Barium swallow show significant esophageal [id number]-[id number] with GI as an outpatient, question if has eosinophilic esophagitis versus esophageal stricture? Upper diet recommended by speech therapy - Continue nebulizers as needed at home, Trelogy inhaler at home - continue her Tessalon perals as she thinks they have rj helping No need for azithromycin as per pulmonology -Initially treated with Methlpred 40mg IV and tapered to prednisone 20 mg daily x5-day course as per pulmonology - Continue Montelukast -CBC with eosinophilia now resolved-follow CBC and follow-up with computer service technician as an outpatient to consider Nucala or Fasenra treatment Appreciate pulmonology [id number]-cypk walk test show she needs 2 L nasal cannula with exertion -continue supplemental O2 to keep POx> 90% but none at rest except nocturnally and she already does at home (2) Cough: Multifactorial but as this has been occurring more frequently after eating or drinking will start with PPI - started Protonix 40m gPO daily - ZIPPER MEASURER consulted and barium swallow with significant esophageal reflux as above - Consider GI evaluation for EGD as an outpatient - Continue Tessalon perles - Continue Montelukast Continue inhalers and nebulizers as above (3) Chronic respiratory failure with hypoxia, on home O2 therapy: Acute on chronic respiratory failure with hypoxia Requiring 3L continuously here initially but at home only on nocturnal O2 Two-step walk test shows she needs 2 L nasal cannula with exertion, but no oxygen at rest, maintain nocturnal O2 (4) LVH (left ventricular hypertrophy): ECHO done in November - EF 50-55% mild MR with mild LVH - continue BB - Continue ARB- this was changed on previous admission secondary to cough syndrome - Continue Atorvastatin 40mg daily (5) Hypertension: As above- controlled (6) Hyperlipidemia: As above (7) DM w/o complication type II, uncontrolled: Was given Lantus and NovoLog here for hyperglycemia secondary to co rticosteroids Improved and now that she is transitioning to prednisone 20 mg daily, will return to Metformin glipizide at home (8) Depression: Continue Fluoxetine 40 mg Prophylaxis DVT - Lovenox Dispo-stable for discharge to home Total Time Total Time Spent Total Time Spent (In Minutes): 35 minutes Discharge Plan Discharge Items Patient Disposition: Home - Self-Care Reason For Visit: COPD EXACERBATION Discharge Diagnosis: Asthma exacerbation, esophageal reflux, peripheral eosinophilia Condition on Discharge: Fair Activity: As commented below Lifting: Gradually increase as tolerated Bathing: No limitations Exercise/Sports: Gradually increase as tolerated Non-emergency contact: Primary Care Provider and Medical Library Assistant Call non-emergency contact if: you have any medication questions and your symptoms worsen Follow-up/Referrals: Shira Lopez MD [Primary Care Provider] - (Follow-up within 1 to 2 weeks) Zulema Cardenas DO [Physician] - (Please follow-up within 1 month for your esophageal reflux.) Lori Renteria MD [Physician] - (Please follow-up within 1 month for your allergy issues.) Diet: Carb Consistent or DM2 and Heart Healthy Diet Comment: Slippery diet Addtl Attending Provider Instructions: You were admitted with an exacerbation of your asthma/COPD and treated with pr ednisone. Please finish out 4 more days of prednisone. You also found on a barium swallow to have significant esophageal reflux. Please take the new acid reflux pill called Protonix and follow-up with your paid search specialist to consider an EGD (a test to look down your esophagus and see if there is a problem that can be fixed). We will get you an appointment with the computer service technician for treatment of your allergies. Follow-up with your metal or wood blocker as routinely scheduled. Please also follow-up with your PCP within 1 to 2 weeks. Pending Studies at Discharge: No Stand-Alone Forms: My [facility] Medications and DC Order Prescriptions: New prednisone 20 mg Tablet 20 mg PO DAILY Qty: 4 RF: 0 Trelegy Ellipta 200-62.5-25 mcg blister with device 1 inh inhalation DAILY Qty: 60 RF: 0 pantoprazole [Protonix] 40 mg tablet,delayed release (DR/EC) 40 mg PO DAILY Qty: 30 RF: 0 Continued (DME) lancets [OneTouch Delica Lancets] 33 gauge misc See Dose Instructions .ROUTE .MEDSUPPLY Qty: 100 RF: 5 atorvastatin 40 mg tablet 40 mg PO QAM Qty: 30 RF: 5 metoprolol tartrate 25 mg tablet 12.5 mg PO BID Qty: 60 RF: 5 montelukast [Singulair] 10 mg tablet 10 mg PO HS Qty: 30 RF: 5 (DME) OneTouch Ultra Blue Test Strip Strip See Dose Instructions .ROUTE .MEDSUPPLY Qty: 100 RF: 5 fluoxetine 40 mg capsule 40 mg PO QAM Qty: 30 RF: 11 glimepiride 2 mg tablet 2 mg PO QAM Qty: 30 RF: 5 metformin 500 mg tablet 1,000 mg PO BID Qty: 360 RF: 1 aspirin 81 mg Tablet,Chewable 81 mg PO QAM RF: 0 benzonatate [Tessalon Perles] 100 mg Capsule 100 mg PO TID PRN (Reason: cough) Qty: 10 RF: 0 NyQuil 7.5-60-30-1,000 mg/30 mL Liquid 30 ml PO QID PRN (Reason: Cold Symptoms) RF: 0 ipratropium-albuterol 0.5 mg-3 mg(2.5 mg base)/3 mL solution for nebulization 3 ml inhalation QID RF: 0 losartan 25 mg tablet 25 mg PO QAM RF: 0 Discharge Orders: Discharge Order (Routine); Ordered 04/20/21 Ordered By: Arleen Espinoza Admission Data Admit Date/Time: 04/18/21 13:23 Attending Provider: Arleen Espinoza Admit Provider: Michael Velasco Primary Care Provider: Shira Lopez Other Providers: Michael Velasco ; Clyde Dugan Coding Level of Care Code D/C DAY MANAGEMENT >30 MINS Diagnoses Asthma-COPD overlap syndrome J44.9 Cough R05.9 Chronic respiratory failure with hypoxia, on home O2 therapy J96.11; Z99.81 LVH (left ventricular hypertrophy) I51.7 Hypertension I10 Hypertension type: essential hypertension Hyperlipidemia E78.5 DM w/o complication type II, uncontrolled E11.65 Glycemic state: with hyperglycemia Depression F32.89 Depression Type: other depression
[2021-04-20] MEDS: ENOXAPARIN INJ 40 MG/0.4 ML SYR SQ SCH (17:32)
== END 2021-04-20 18:00 | disposition home or self-care (01) | DRG 190 ==
LOC: ED 09:52 → SUATTDRO 13:23 → 3N 13:23

== ENCOUNTER 2021-07-27 09:16 | Inpatient (IN) ==
[2021-07-27] MEDS ORDERED: ALBUT/IPRATROP 3MG/0.5MG NEB 3 ML VIAL INH STA (09:21)
[2021-07-27] MEDS ORDERED: methylPREDNISolone 125 MG/2 ML VIAL IV STA (09:21)
--- NOTE | 2021-07-27 09:25 | Emergency Department Note ---
Impression & Plan Chronic obstructive pulmonary disease, Hypoxia ADMIT ED Provider Note HPI: The patient is a 71-year-old female with history of COPD, on 2 L nasal cannula oxygen at night, who presents emergency department chief complaint of shortness of breath. Patient states that her symptoms have been worsening over the past 2 days despite her use of inhalers at home. She states that she felt progressively short of breath. She has had a cough. She is not vaccinated against COVID-19. Patient contacted EMS for transport this morning as she was feeling more short of breath. Per EMS report, she was saturating 90% on room air on their arrival with some mild increased work of breathing, she was placed on nasal cannula oxygen of 4 L with good improvement. Patient states she does have some chest "pressure". States this does seem to worsen with coughing. She denies any abdominal pain, denies any nausea or vomiting. On arrival here to the ED the patient is now hemodynamically stable on 4 L nasal cannula oxygen saturating 97%. 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 On arrival here to the ED the patient does exhibit some mild increased work of breathing, she is on 4 L nasal cannula oxygen, she admits to some chest "pressure" that has been relatively constant. In the ED IV was established, patient was given a DuoNeb breathing treatment and IV Solu-Medrol for her symptoms. COVID-19 testing was obtained and is negative. CT angiography of the chest does not show any evidence of pulmonary embolism or infiltrate. Patient's lab work does show evidence of a leukocytosis that at this point would be considered nonspecific, possibly viral in nature. She has no evidence of pneumonia, urinalysis does not show evidence of infection. Troponin is negative x1, EKG does not show any acute ischemic changes. On my reassessment the patient states that she feels improved, she still does have some wheezing bilaterally and therefore was ordered another DuoNeb breathing treatment. She is stable on 2 L nasal cannula oxygen. Patient was ambulated in the ED and had oxygen desaturations despite being on supplemental oxygen down to the mid 80s. I discussed admission with the patient and she is in agreement at this time which I think is appropriate given her increased oxygen demand and the fact that she is still symptomatic. Case was discussed with the on-call midlevel provider for [facility], patient will be admitted to the [facility] for further care. * CRITICAL CARE TIME: ( 33 ) minutes -Stabilization of hypoxia with oxygen saturations less than 90% on ambulation despite supplemental oxygen, treatment of COPD exacerbation requiring nebulized breathing treatments and IV steroids, time spent at the bedside, arrangement of admission Diagnosis: 1. COPD exacerbation with hypoxia 2. Leukocytosis 3. Nonspecific chest pressure Disposition: Admission Joe Wood DO Emergency Medicine Past Med/Surg History Medical History Asthma-COPD overlap syndrome Chronic obstructive pulmonary disease Depression Excessive daytime sleepiness History of nicotine dependence Hyperlipidemia Hypertension Insomnia Moderate persistent asthma Nocturnal hypoxemia Peripheral eosinophilia Surgical History H/O oophorectomy H/O: hysterectomy Family History Father Diabetes CHF (congestive heart failure) Grandfather (Paternal) Diabetes Mother Deep vein thrombosis NHL (non-Hodgkin's lymphoma) Grandfather (Maternal) Acute leukemia Grandmother (Maternal) Deep vein thrombosis Aunt Deep vein thrombosis Other No pertinent family history Denies family history of Ovarian cancer Prostate cancer Myocardial infarction Breast cancer Colorectal cancer Social History Smoking Status: Never smoker Tobacco Type: Cigarettes Second Hand Exposure: No; Hx Alcohol Use: No Hx Substance Use: No Preferred Language: Hungarian Communication Ability: Effective Visual Impairment: No Limitations Hearing Ability: Normal Build 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 Beliefs That Will Affect Care: None marital status: 1 Current Living Situation: Alone current occupational status: retired Feels Safe at Home: Yes Dental Care, Regularly: No Seatbelt Use: always Sunscreen Use: Yes Assistive Devices: Nebulizer Allergies Allergies Allergy/AdvReac Type Severity Reaction Status Date / Time acetaminophen [From Vicodin] Allergy Verified 07/27/21 09:51 hydrocodone AdvReac Mild NAUSEA Verified 07/27/21 09:51 prednisone AdvReac Mild NAUSEA Verified 07/27/21 09:51 Home Meds Home Medications Medication Instructions Recorded Confirmed aspirin 81 mg chewable tablet 81 mg PO QAM 04/10/18 07/27/21 ipratropium 0.5 mg-albuterol 3 mg 3 ml INHALATION QID 04/18/21 07/27/21 (2.5 mg base)/3 mL nebulization soln benzonatate 100 mg capsule 100 mg PO BID 07/27/21 07/27/21 Previous Rx's Medication Instructions Recorded lancets 33 gauge (OneTouch Delica #100 ea 03/02/20 Lancets) blood sugar diagnostic (OneTouch #100 ea 10/13/20 Ultra Blue Test Strip) fluoxetine 40 mg capsule 40 mg PO QAM #30 cap 10/13/20 metoprolol tartrate 25 mg tablet 12.5 mg PO BID #60 tab 01/09/21 montelukast 10 mg tablet 10 mg PO HS #30 tab 01/09/21 (Singulair) fluticasone fur. 200 mcg-umeclid 1 inh INHALATION DAILY #60 ea 04/20/21 62.5 mcg-vilant 25 mcg inhalat.powder (Trelegy Ellipta) pantoprazole 40 mg tablet,delayed 40 mg PO DAILY #30 tab 04/25/21 release (Protonix) glimepiride 2 mg tablet 2 mg PO QAM #30 tab 06/04/21 metformin 500 mg tablet 1,000 mg PO BID #360 tab 06/04/21 atorvastatin 40 mg tablet 40 mg PO QAM #30 tab 07/05/21 losartan 50 mg tablet 25 mg PO QAM 90 Days #45 tab 07/07/21 albuterol sulfate 90 mcg/actuation 1 - 2 puff INHALATION Q4H PRN #18 07/10/21 aerosol inhaler (ProAir HFA) gm Results & Data (ED) Vital Signs Vital Signs - 24 hr 07/27/21 09:33 07/27/21 10:42 07/27/21 11:00 Temperature 36.7 C Temperature Source Oral Pulse Rate 87 79 79 Pulse Rate from SpO2 Sensor 78 80 Pulse Rhythm Regular Pulse Strength Normal Respiratory Rate 26 H 23 22 Respiratory Effort / Characteristics Labored Short of Breath Blood Pressure 177/104 H 166/101 H 161/103 H Blood Pressure Mean 128 122 122 Blood Pressure Position Sitting Pulse Oximetry 96 95 94 Oxygen Delivery Method Nasal Cannula Nasal Cannula Nasal Cannula Oxygen Flow Rate 4 2 2 Sepsis Recent Fever Within 48 Hours No Sepsis New/Unexplained Change in Mental Status No Sepsis Action Taken by Nursing No Action Required 07/27/21 11:30 Temperature Temperature Source Pulse Rate 88 Pulse Rate from SpO2 Sensor 87 Pulse Rhythm Pulse Strength Respiratory Rate 19 Respiratory Effort / Characteristics Blood Pressure 146/91 H Blood Pressure Mean 109 Blood Pressure Position Pulse Oximetry 93 Oxygen Delivery Method Nasal Cannula Oxygen Flow Rate 2 Sepsis Recent Fever Within 48 Hours Sepsis New/Unexplained Change in Mental Status Sepsis Action Taken by Nursing Laboratory Data Result diagrams: 07/27/21 09:25 07/27/21 10:24 Lab Results 07/27/21 07/27/21 07/27/21 Range/Units 09:25 09:25 09:25 WBC 14.05 H (4.8-10.8) K/uL RBC 4.41 (4.2-5.4) M/uL Hgb 13.6 (12.0-16.0) g/dL Hct 40.9 (37-47) % MCV 92.7 (80-100) fL MCH 30.8 (25-34) pg MCHC 33.3 (32-36) g/dL RDW Std Deviation 47.2 H (36.4-46.3) fL RDW Coeff of Aniyah 13.8 (11.5-14.5) % Plt Count 331 (130-400) K/uL MPV 9.9 (7.4-10.4) fL Immature Gran % (Auto) 0.3 % Neut % (Auto) 60.6 % Lymph % (Auto) 17.9 % Kleberg % (Auto) 8.2 % Eos % (Auto) 12.5 % Baso % (Auto) 0.5 % Neut # (Auto) 8.51 H (1.4-6.5) K/uL Lymph # (Auto) 2.52 (1.2-3.4) K/uL Kleberg # (Auto) 1.15 H (0.11-0.59) K/uL Eos # (Auto) 1.76 H (0-0.5) K/uL Baso # (Auto) 0.07 (0-0.2) K/uL Immature Gran # (Auto) 0.04 H (0.00-0.02) K/uL PT 10.3 (9.0-12.0) Seconds INR 1.0 (0.9-1.1) APTT 23.5 (21.0-31.0) Seconds PTT Ratio 0.9 VBG pH (7.36-7.41) VBG pCO2 (38-50) mmHg VBG pO2 mmHg VBG HCO3 mmol/L VBG O2 Saturation % VBG Base Excess mEq/L Barometric Pressure mm/Hg Sodium 140 (136-145) mmol/L Potassium (3.5-5.1) mmol/L Chloride 102 (98-107) mmol/L Carbon Dioxide 30 (21-32) mmol/L Anion Gap 8 (3-11) BUN 14 (6-23) mg/dl Creatinine 0.83 (0.6-1.2) mg/dl Est Cr Clr Drug Dosing 68.8 ml/min Est GFR ( Amer) 83.4 ml/min Est GFR (Non-Af Amer) 71.9 ml/min BUN/Creatinine Ratio 16.9 (10-20) Glucose 112 H (70-99(Fasting)) mg/dl Calcium 9.8 (8.5-10.1) mg/dl Total Bilirubin 0.6 (0.2-1.0) mg/dl AST (13-39) U/L ALT 11 (7-52) U/L Alkaline Phosphatase 68 (34-104) U/L Troponin I < 0.03 (0-0.04) ng/ml Total Protein 7.6 (6.0-8.3) gm/dl Albumin 4.2 (3.4-5.0) gm/dl Globulin 3.4 (2.5-4.0) gm/dl Albumin/Globulin Ratio 1.2 (0.9-2) Urine Color Urine Appearance (Clear) Urine pH (4.5-7.5) Ur Specific [place] (1.000-1.030) Urine Protein (Negative) Urine Glucose (UA) (Negative) Urine Ketones (Negative) Urine Blood (Negative) Urine Nitrite (Negative) Urine Bilirubin (Negative) Urine Urobilinogen (Negative) Ur Leukocyte Esterase (Negative) Urine WBC (Auto) (0-5) /hpf Urine RBC (Auto) (0-4) /hpf U Hyaline Cast (Auto) (0-5) /lpf U Epithel Cells (Auto) (0-5) /lpf Urine Bacteria (Auto) (Negative) SARS-CoV-2 (PCR) (Negative) Influenza Type A (PCR) (Neg) Influenza Type B (PCR) (Neg) RSV (RT-PCR) (Neg) 07/27/21 07/27/21 07/27/21 Range/Units 09:27 09:56 10:24 WBC (4.8-10.8) K/uL RBC (4.2-5.4) M/uL Hgb (12.0-16.0) g/dL Hct (37-47) % MCV (80-100) fL MCH (25-34) pg MCHC (32-36) g/dL RDW Std Deviation (36.4-46.3) fL RDW Coeff of Aniyah (11.5-14.5) % Plt Count (130-400) K/uL MPV (7.4-10.4) fL Immature Gran % (Auto) % Neut % (Auto) % Lymph % (Auto) % Kleberg % (Auto) % Eos % (Auto) % Baso % (Auto) % Neut # (Auto) (1.4-6.5) K/uL Lymph # (Auto) (1.2-3.4) K/uL Kleberg # (Auto) (0.11-0.59) K/uL Eos # (Auto) (0-0.5) K/uL Baso # (Auto) (0-0.2) K/uL Immature Gran # (Auto) (0.00-0.02) K/uL PT (9.0-12.0) Seconds INR (0.9-1.1) APTT (21.0-31.0) Seconds PTT Ratio VBG pH 7.45 H (7.36-7.41) VBG pCO2 50 (38-50) mmHg VBG pO2 43 mmHg VBG HCO3 34 mmol/L VBG O2 Saturation 78.0 % VBG Base Excess 8.3 mEq/L Barometric Pressure 732.6 mm/Hg Sodium (136-145) mmol/L Potassium 3.5 (3.5-5.1) mmol/L Chloride (98-107) mmol/L Carbon Dioxide (21-32) mmol/L Anion Gap (3-11) BUN (6-23) mg/dl Creatinine (0.6-1.2) mg/dl Est Cr Clr Drug Dosing ml/min Est GFR ( Amer) ml/min Est GFR (Non-Af Amer) ml/min BUN/Creatinine Ratio (10-20) Glucose (70-99(Fasting)) mg/dl Calcium (8.5-10.1) mg/dl Total Bilirubin (0.2-1.0) mg/dl AST 10 L (13-39) U/L ALT (7-52) U/L Alkaline Phosphatase (34-104) U/L Troponin I (0-0.04) ng/ml Total Protein (6.0-8.3) gm/dl Albumin (3.4-5.0) gm/dl Globulin (2.5-4.0) gm/dl Albumin/Globulin Ratio (0.9-2) Urine Color Urine Appearance (Clear) Urine pH (4.5-7.5) Ur Specific [place] (1.000-1.030) Urine Protein (Negative) Urine Glucose (UA) (Negative) Urine Ketones (Negative) Urine Blood (Negative) Urine Nitrite (Negative) Urine Bilirubin (Negative) Urine Urobilinogen (Negative) Ur Leukocyte Esterase (Negative) Urine WBC (Auto) (0-5) /hpf Urine RBC (Auto) (0-4) /hpf U Hyaline Cast (Auto) (0-5) /lpf U Epithel Cells (Auto) (0-5) /lpf Urine Bacteria (Auto) (Negative) SARS-CoV-2 (PCR) NEGATIVE (Negative) Influenza Type A (PCR) Negative (Neg) Influenza Type B (PCR) Negative (Neg) RSV (RT-PCR) Negative (Neg) 07/27/21 Range/Units 11:07 WBC (4.8-10.8) K/uL RBC (4.2-5.4) M/uL Hgb (12.0-16.0) g/dL Hct (37-47) % MCV (80-100) fL MCH (25-34) pg MCHC (32-36) g/dL RDW Std Deviation (36.4-46.3) fL RDW Coeff of Aniyah (11.5-14.5) % Plt Count (130-400) K/uL MPV (7.4-10.4) fL Immature Gran % (Auto) % Neut % (Auto) % Lymph % (Auto) % Kleberg % (Auto) % Eos % (Auto) % Baso % (Auto) % Neut # (Auto) (1.4-6.5) K/uL Lymph # (Auto) (1.2-3.4) K/uL Kleberg # (Auto) (0.11-0.59) K/uL Eos # (Auto) (0-0.5) K/uL Baso # (Auto) (0-0.2) K/uL Immature Gran # (Auto) (0.00-0.02) K/uL PT (9.0-12.0) Seconds INR (0.9-1.1) APTT (21.0-31.0) Seconds PTT Ratio VBG pH (7.36-7.41) VBG pCO2 (38-50) mmHg VBG pO2 mmHg VBG HCO3 mmol/L VBG O2 Saturation % VBG Base Excess mEq/L Barometric Pressure mm/Hg Sodium (136-145) mmol/L Potassium (3.5-5.1) mmol/L Chloride (98-107) mmol/L Carbon Dioxide (21-32) mmol/L Anion Gap (3-11) BUN (6-23) mg/dl Creatinine (0.6-1.2) mg/dl Est Cr Clr Drug Dosing ml/min Est GFR ( Amer) ml/min Est GFR (Non-Af Amer) ml/min BUN/Creatinine Ratio (10-20) Glucose (70-99(Fasting)) mg/dl Calcium (8.5-10.1) mg/dl Total Bilirubin (0.2-1.0) mg/dl AST (13-39) U/L ALT (7-52) U/L Alkaline Phosphatase (34-104) U/L Troponin I (0-0.04) ng/ml Total Protein (6.0-8.3) gm/dl Albumin (3.4-5.0) gm/dl Globulin (2.5-4.0) gm/dl Albumin/Globulin Ratio (0.9-2) Urine Color Yellow Urine Appearance Clear (Clear) Urine pH 5.5 (4.5-7.5) Ur Specific [place] > 1.045 H (1.000-1.030) Urine Protein Negative (Negative) Urine Glucose (UA) Negative (Negative) Urine Ketones Negative (Negative) Urine Blood Trace H (Negative) Urine Nitrite Negative (Negative) Urine Bilirubin Negative (Negative) Urine Urobilinogen Negative (Negative) Ur Leukocyte Esterase Negative (Negative) Urine WBC (Auto) 1-5 (0-5) /hpf Urine RBC (Auto) 0-4 (0-4) /hpf U Hyaline Cast (Auto) 0 (0-5) /lpf U Epithel Cells (Auto) >30 H (0-5) /lpf Urine Bacteria (Auto) Negative (Negative) SARS-CoV-2 (PCR) (Negative) Influenza Type A (PCR) (Neg) Influenza Type B (PCR) (Neg) RSV (RT-PCR) (Neg) Administered Medications Discontinued Medications Albuterol (Albut/Ipratrop 3mg/0.5mg Neb 3 Ml Vial) 3 ml INH NOW STA Stop: 07/27/21 09:22 Last Admin: 07/27/21 09:31 Dose: 3 ml Documented by: [id number] Albuterol (Albut/Ipratrop 3mg/0.5mg Neb 3 Ml Vial) 3 ml NEB NOW STA; Protocol Stop: 07/27/21 11:32 Last Admin: 07/27/21 11:40 Dose: 3 ml Documented by: [id number] Ioversol (Optiray 320 125ml) 120 ml IV ONCE ONE Stop: 07/27/21 11:01 Last Admin: 07/27/21 10:49 Dose: 120 ml Documented by: [id number] Methylprednisolone (Methylprednisolone 125 Mg/2 Ml Vial) 125 mg IV NOW STA Stop: 07/27/21 09:22 Last Admin: 07/27/21 09:31 Dose: 125 mg Documented by: [id number] Imaging Data Radiologist's Impression: Chest X-Ray 07/27/21 09:21 SINGLE VIEW CHEST CLINICAL HISTORY: Dyspnea FINDINGS: 2 AP, portable, upright chest radiographs are compared to chest x-ray dated 04/18/2021 and correlated with chest CT dated 12/09/2020. The heart is top normal for projection. The pulmonary vasculature is noncongested. Chronic interstitial thickening is similar to previous. Scarring/atelectasis is noted at the lung bases. No airspace consolidation or large pleural effusion is identified. No pneumothorax is seen. The skeletal structures are osteopenic. The bony thorax is grossly intact. Cholecystectomy clips are noted in the right upper quadrant. IMPRESSION: No acute cardiopulmonary abnormality. ACT 112: Negative or not required by law. Electronically signed by: Boone Quiroz M.D. 07/27/2021 9:45 AM Chest CTA 07/27/21 09:54 CT ANGIOGRAM OF THE CHEST CLINICAL HISTORY: Dyspnea. Atypical chest pain COMPARISON STUDY: Chest x-ray dated 07/27/2021. Chest CT dated 12/09/2020 and 03/03/2016. TECHNIQUE: Following the IV administration of 120 cc of Optiray 320, CT angiogram of the chest was performed from the upper abdomen to the thoracic inlet utilizing the pulmonary embolus protocol. Images are reviewed in the axial, sagittal, and coronal planes. 3-D MIPS images are created and assessed. IV contrast was administered without complication. A dose lowering technique was utilized adhering to the principles of ALARA. CT DOSE: 470.56 mGy.cm FINDINGS: Thyroid: Normal in size and heterogeneous in attenuation. Thoracic aorta: There is mild atherosclerotic calcification of the thoracic aorta, which is normal in caliber and demonstrates standard 3-vessel arch anatomy. No dissection is seen. Pulmonary vasculature: The pulmonary trunk is normal in caliber. There are no filling defects identified in main, lobar, or segmental pulmonary branches to suggest pulmonary embolus. Heart: The heart is time normal in size and without pericardial effusion. The coronary arteries are densely calcified. Lungs and pleural spaces: Evaluation of the lung parenchyma is modestly degraded by motion artifact. No airspace consolidation or pleural effusion is identified. There are bilateral fat-containing Bochdalek hernias. The trachea and central ai rways are clear. Diffuse peribronchial thickening is observed. There are scattered calcified granulomas. There is a 7 mm subsolid nodule in the left lower lobe seen on image #86. Mediastinum: There is no mediastinal lymphadenopathy. Silvia: Clear. Axillae: There is no axillary lymphadenopathy. Upper abdomen: Partially visualized upper abdominal viscera is within normal limits. Skeletal structures: The skeletal structures are osteopenic. Degenerative change and hyperkyphosis is noted in the thoracic spine. No lytic or blastic bony lesions are seen. IMPRESSION: 1. There is no evidence of pulmonary embolus in the main, lobar, or segmental pulmonary arteries. 2. There is no airspace consolidation or pleural effusion. 3. Diffuse peribronchial thickening suggests bronchitis/reactive air disease. Clinical correlation will be required. 4. There is a 7 mm subsolid nodule in the left lower lobe. This was not well visualized on 12/09/2020 due to motion artifact. Follow-up is recommended as per the Fleischner criteria. Please refer to below summary of Fleischner criteria recommendations for follow- up of incidental CT nodules (Sarbjit Chaves, Guidelines for management of small pulmonary nodules detected on CT scans: A statement from the Fleischner Society, Radiology 237: [phone].) SOLID NODULES Solitary nodule size: <6 mm * low risk patients: no follow-up needed * high risk patients: optional CT at 12 months Solitary nodule size: 6-8 mm * low risk patients: follow-up at 6-12 months, then consider further follow-up at 18-24 months * high risk patients: initial follow-up CT at 6-12 months and then at 18-24 months if no change Solitary nodule size: >8 mm * either low or high risk patients - consider follow-up CT at 3 months, and/or CT-PET, and/or biopsy Multiple nodules size: <6 mm * low risk patients: no routine follow-up * high risk patients: optional CT at 12 months Multiple nodules size: 6-8 mm * low risk patients: follow-up at 3-6 months, then consider further follow-up at 18-24 months * high risk patients: follow-up at 3-6 months, then at 18-24 months if no change Multiple nodules size: >8 mm * low risk patients: follow-up at 3-6 months, then consider further follow-up at 18-24 months * high risk patients: follow-up at 3-6 months, then at 18-24 months if no change Note: newly detected indeterminate nodule in persons 35 years of age or older. * low risk patients: minimal or absent history of smoking and/or other known risk factors * high risk patients: history of smoking or of other known risk factors (e.g. first degree relative with lung cancer, or exposure to asbestos, radon, uranium) * if a nodule up to 8 mm is partly solid or is ground glass further follow-up is required after 24 months to exclude possible slow growing adenocarcinoma (RAY) SUBSOLID NODULES Solitary pure ground-glass nodule * nodule size <6 mm - no CT follow-up required * nodule size >=6 mm - follow-up CT at 6-12 months, then every 2 years until 5 years Solitary part-solid nodule * nodule size <6 mm - no CT follow-up required * nodule size >=6 mm - follow-up CT at 3-6 months. If unchanged, and solid component remains <6 mm, then annual follow-up for 5 years Multiple subsolid nodules * nodule size <6 mm - follow-up CT at 3-6 months, consider further follow-up at 2 and 4 years if stable * nodule size >=6 mm - follow-up CT at 3-6 months, subsequent management based on the most suspicious nodule(s) ACT 112: Negative or not required by law. Electronically signed by: Boone Quiroz M.D. 07/27/2021 11:04 AM Discharge Plan Visit Data Chief Complaint: Shortness of Breath/Dyspnea ED Provider: Joe Wood Discharge Problem: Chronic obstructive pulmonary disease, Hypoxia Forms Stand Alone Forms: [facility] Prescriptions Prescriptions: No Action (DME) lancets [OneTouch Delica Lancets] 33 gauge misc See Dose Instructions .ROUTE .MEDSUPPLY Qty: 100 RF: 5 metoprolol tartrate 25 mg tablet 12.5 mg PO BID Qty: 60 RF: 5 montelukast [Singulair] 10 mg tablet 10 mg PO HS Qty: 30 RF: 5 metformin 500 mg tablet 1,000 mg PO BID Qty: 360 RF: 1 glimepiride 2 mg tablet 2 mg PO QAM Qty: 30 RF: 5 atorvastatin 40 mg tablet 40 mg PO QAM Qty: 30 RF: 5 losartan 50 mg tablet 25 mg PO QAM 90 Days Qty: 45 RF: 1 albuterol sulfate [ProAir HFA] 90 mcg/actuation HFA aerosol inhaler 1 - 2 puff INHALATION Q4H PRN (Reason: SOB) Qty: 18 RF: 2 pantoprazole [Protonix] 40 mg tablet,delayed release (DR/EC) 40 mg PO DAILY Qty: 30 RF: 11 (DME) [employer] Ultra Blue Test Strip Strip See Dose Instructions .ROUTE .MEDSUPPLY Qty: 100 RF: 5 fluoxetine 40 mg capsule 40 mg PO QAM Qty: 30 RF: 11 aspirin 81 mg Tablet,Chewable 81 mg PO QAM RF: 0 benzonatate 100 mg Capsule 100 mg PO BID RF: 0 ipratropium-albuterol 0.5 mg-3 mg(2.5 mg base)/3 mL solution for nebulization 3 ml inhalation QID RF: 0 Trelegy Ellipta 200-62.5-25 mcg blister with device 1 inh inhalation DAILY Qty: 60 RF: 0 Referrals Referrals: Shira Lopez MD [Primary Care Provider] - Discharge Problem: Chronic obstructive pulmonary disease Qualifiers: COPD type: unspecified COPD Qualified Code(s): J44.9 - Chronic obstructive pulmonary disease, unspecified
[2021-07-27 09:44] LABS: Basophils # (auto) 0.07 K/uL (0-0.2); Basophils % (auto) 0.5 %; Eosinophils # (auto) 1.76 K/uL (0-0.5); Eosinophils % (auto) 12.5 %; Hematocrit (blood only) 40.9 % (37-47); Hemoglobin 13.6 g/dL (12.0-16.0); Immature Granulocytes # (auto) 0.04 K/uL (0.00-0.02); Immature Granulocytes % (auto) 0.3 %; Lymphocytes # (auto) 2.52 K/uL (1.2-3.4); Lymphocytes % (auto) 17.9 %; Mean Corpuscular Hemoglobin 30.8 pg (25-34); Mean Corpuscular Hgb Conc 33.3 g/dL (32-36); Mean Corpuscular Volume 92.7 fL (80-100); Mean Platelet Volume 9.9 fL (7.4-10.4); Monocytes # (auto) 1.15 K/uL (0.11-0.59); Monocytes % (auto) 8.2 %; Neutrophils # (auto) 8.51 K/uL (1.4-6.5); Neutrophils % (auto) 60.6 %; Platelet Count 331 K/uL (130-400); RDW Coefficient of Variation 13.8 % (11.5-14.5); RDW Standard Deviation 47.2 fL (36.4-46.3); Red Blood Count 4.41 M/uL (4.2-5.4); White Blood Count 14.05 K/uL (4.8-10.8)
--- NOTE | 2021-07-27 09:46 | XRay Report ---
SINGLE VIEW CHEST CLINICAL HISTORY: Dyspnea FINDINGS: 2 AP, portable, upright chest radiographs are compared to chest x-ray dated 04/18/2021 and correlated with chest CT dated 12/09/2020. The heart is top normal for projection. The pulmonary vascu lature is noncongested. Chronic interstitial thickening is similar to previous. Scarring/atelectasis is noted at the lung bases. No airspace consolidation or large pleural effusion is identified. No pne umothorax is seen. The skeletal structures are osteopenic. The bony thorax is grossly intact. Cholecy stectomy clips are noted in the right upper quadrant. IMPRESSION: No acute cardiopulmonary abnormality. ACT 112: Negative or not required by law. Electronically signed by: Boone Quiroz M.D. 07/27/2021 9:45 AM
[2021-07-27 10:02] LABS: Partial Thromboplastin Ratio 0.9; Partial Thromboplastin Time 23.5 Seconds (21.0-31.0); Prothrombin Time 10.3 Seconds (9.0-12.0)
[2021-07-27 10:05] LABS: Troponin I < 0.03 ng/ml (0-0.04)
[2021-07-27 10:11] LABS: Base Excess VBG 8.3 mEq/L; pH VBG 7.45 (7.36-7.41)
[2021-07-27 10:17] LABS: Alanine Aminotransferase 11 U/L (7-52); Albumin Globulin Ratio 1.2 (0.9-2); Albumin Level 4.2 gm/dl (3.4-5.0); Alkaline Phosphatase 68 U/L (34-104); Anion Gap 8 (3-11); BUN Creatinine Ratio 16.9 (10-20); Bilirubin,Total 0.6 mg/dl (0.2-1.0); Blood Urea Nitrogen 14 mg/dl (6-23); Calcium 9.8 mg/dl (8.5-10.1); Carbon Dioxide 30 mmol/L (21-32); Chloride 102 mmol/L (98-107); Creatinine Clr Calc Pharmacy 68.8 ml/min; Est GFR (African American) 83.4 ml/min; Est GFR (Non-African American) 71.9 ml/min; Globulin 3.4 gm/dl (2.5-4.0); Glucose 112 mg/dl (70-99(Fasting)); Sodium 140 mmol/L (136-145); Total Protein 7.6 gm/dl (6.0-8.3)
[2021-07-27 10:26] LABS: Influenza A virus by PCR Negative (Neg); Influenza B virus by PCR Negative (Neg); RSV by PCR Negative (Neg); SARS CoV2 RNA(COVID-19) InHosp NEGATIVE (Negative)
[2021-07-27] MEDS ORDERED: OPTIRAY 320 125ml IV ONE (11:00)
[2021-07-27 11:04] LABS: Potassium 3.5 mmol/L (3.5-5.1)
--- NOTE | 2021-07-27 11:05 | CT Scan Report ---
CT ANGIOGRAM OF THE CHEST CLINICAL HISTORY: Dyspnea. Atypical chest pain COMPARISON STUDY: Chest x-ray dated 07/27/2021. Chest CT dated 12/09/2020 and 03/03/2016. TECHNIQUE: Following the IV administration of 120 cc of Optiray 320, CT angiogram of the chest was pe rformed from the upper abdomen to the thoracic inlet utilizing the pulmonary embolus protocol. Images are reviewed in the axial, sagittal, and coronal planes. 3-D MIPS images are created and assessed. I V contrast was administered without complication. A dose lowering technique was utilized adhering to the principles of ALARA. CT DOSE: 470.56 mGy.cm FINDINGS: Thyroid: Normal in size and heterogeneous in attenuation. Thoracic aorta: There is mild atherosclerotic calcification of the thoracic aorta, which is normal in caliber and demonstrates standard 3-vessel arch anatomy. No dissection is seen. Pulmonary vasculature: The pulmonary trunk is normal in caliber. There are no filling defects identif ied in main, lobar, or segmental pulmonary branches to suggest pulmonary embolus. Heart: The heart is time normal in size and without pericardial effusion. The coronary arteries are d ensely calcified. Lungs and pleural spaces: Evaluation of the lung parenchyma is modestly degraded by motion artifact. No airspace consolidation or pleural effusion is identified. There are bilateral fat-containing Bochd rene hernias. The trachea and central airways are clear. Diffuse peribronchial thickening is observed . There are scattered calcified granulomas. There is a 7 mm subsolid nodule in the left lower lobe se en on image #86. Mediastinum: There is no mediastinal lymphadenopathy. Silvia: Clear. Axillae: There is no axillary lymphadenopathy. Upper abdomen: Partially visualized upper abdominal viscera is within normal limits. Skeletal structures: The skeletal structures are osteopenic. Degenerative change and hyperkyphosis is noted in the thoracic spine. No lytic or blastic bony lesions are seen. IMPRESSION: 1. There is no evidence of pulmonary embolus in the main, lobar, or segmental pulmonary arteries. 2. There is no airspace consolidation or pleural effusion. 3. Diffuse peribronchial thickening suggests bronchitis/reactive air disease. Clinical correlation wi ll be required. 4. There is a 7 mm subsolid nodule in the left lower lobe. This was not well visualized on 12/09/2020 due to motion artifact. Follow-up is recommended as per the Fleischner criteria. Please refer to below summary of Fleischner criteria recommendations for follow-up of incidental CT n odules (Sarbjit Chaves, Guidelines for management of small pulmonary nodules detected on CT scans: A jorge weber from the Fleischner [employer], Radiology 237: [id number].) SOLID NODULES Solitary nodule size: <6 mm * low risk patients: no follow-up needed * high risk patients: optional CT at 12 months Solitary nodule size: 6-8 mm * low risk patients: follow-up at 6-12 months, then consider further follow-up at 18-24 months * high risk patients: initial follow-up CT at 6-12 months and then at 18-24 months if no change Solitary nodule size: >8 mm * either low or high risk patients - consider follow-up CT at 3 months, and/or CT-PET, and/or biopsy Multiple nodules size: <6 mm * low risk patients: no routine follow-up * high risk patients: optional CT at 12 months Multiple nodules size: 6-8 mm * low risk patients: follow-up at 3-6 months, then consider further follow-up at 18-24 months * high risk patients: follow-up at 3-6 months, then at 18-24 months if no change Multiple nodules size: >8 mm * low risk patients: follow-up at 3-6 months, then consider further follow-up at 18-24 months * high risk patients: follow-up at 3-6 months, then at 18-24 months if no change Note: newly detected indeterminate nodule in persons 35 years of age or older. * low risk patients: minimal or absent history of smoking and/or other known risk factors * high risk patients: history of smoking or of other known risk factors (e.g. first degree relative with lung cancer, or exposure to asbestos, radon, uranium) * if a nodule up to 8 mm is partly solid or is ground glass further follow-up is required after 24 m onths to exclude possible slow growing adenocarcinoma (RAY) SUBSOLID NODULES Solitary pure ground-glass nodule * nodule size <6 mm - no CT follow-up required * nodule size >=6 mm - follow-up CT at 6-12 months, then every 2 years until 5 years Solitary part-solid nodule * nodule size <6 mm - no CT follow-up required * nodule size >=6 mm - follow-up CT at 3-6 months. If unchanged, and solid component remains <6 mm, then annual follow-up for 5 years Multiple subsolid nodules * nodule size <6 mm - follow-up CT at 3-6 months, consider further follow-up at 2 and 4 years if sta ble * nodule size >=6 mm - follow-up CT at 3-6 months, subsequent management based on the most suspiciou s nodule(s) ACT 112: Negative or not required by law. Electronically signed by: Boone Quiroz M.D. 07/27/2021 11:04 AM
[2021-07-27] MEDS ORDERED: ALBUT/IPRATROP 3MG/0.5MG NEB 3 ML VIAL NEB STA (11:31)
[2021-07-27 11:37] LABS: Appearance Urine Clear (Clear); Bacteria Urine Automated Negative (Negative); Bilirubin Urine Negative (Negative); Blood Urine Trace (Negative); Cast Urine Automated 0 /lpf (0-5); Color Urine Yellow; Epithelial Cell Urine Auto >30 /lpf (0-5); Glucose Urine UA Negative (Negative); Ketones Urine Negative (Negative); Leukocyte Esterase Urine Negative (Negative); Nitrite Urine Negative (Negative); Protein Urine Negative (Negative); RBC Urine Automated 0-4 /hpf (0-4); Specific Gravity Urine > 1.045 (1.000-1.030); Urobilinogen Urine Negative (Negative); pH Urine 5.5 (4.5-7.5)
--- NOTE | 2021-07-27 12:05 | History & Physical Report ---
Date of Service July 27, 2021 Assessment & Plan (1) Acute exacerbation of chronic obstructive pulmonary disease (COPD): Plan: Acute on chronic COPD exacerbation with elevated peripheral EOS - Albuterol/Atrovent Nebs scheduled q6 hours with albuterol nebulizer PRN in between if needed - Continue \\Trelegy or equivalent - Add Azithromycin with elevated peripheral EOS and smoking history - Methlpred 40mg IV q6- can change dose/frequency in morning if desired - Continue Montelukast (2) Chest pain on exertion: Plan: Atypical chest pain vs. angina - As per HPI multifactorial - Control her dyspnea and coughing first and further evaluate her symptoms - will obtain ECHO to eval her MR as well as her wall motion - Troponin in repeat in 6 hours then AM - ECH in morning - Continue BB, ASA, Statin, ARB (3) Asthma-COPD overlap syndrome: Plan: As above Patient recently had PFTs done in February with Moderate obstruction and si gnificant air trapping with DLCO mildly reduced. Her FEV1/FVC was 66. (4) LVH (left ventricular hypertrophy): Plan: As above - EF 50-55% mild MR with mild LVH (5) Hyperlipidemia: Plan: Lipids in the morning - continue statin at curren dose pending labs (6) Hypertension: Plan: Appears well controlled - As aboe, continue BB, ARB (7) DM w/o complication type II, uncontrolled: Plan: Sliding scale aspart coverage while in house - Aspart CF 20, Carb ration 1:15, goal <180 (8) Depression: Plan: Continue fluoxetine - no acute needs History of Present Illness Primary Care Provider: Shira Lopez MD 70 YOF with past medical history of: COPD/Asthma overlap syndrome, previous smoker - quit ~6 years ago, HTN, HLD, mild MR and mild LVH with preserved EF. Patient comes to the EMD today for 2 day history of increased cough, sputum production, and dyspnea that is not relieved with her home nebulizers. The patient follows with Pulmonary for her Asthma/COPD overlap syndrome. She was previously admitted in April 19 with COPD exacerbation as well as increase in her peripheral EOS. Her inhalers were adjusted at that time to Trelegy, which she reports has been working well for her up until a few days ago. Patient reports that she went to grocery store on Fri and then on her way home "the bottom fell out" with increased dyspnea and cough. She has also been noting that she has been experiencing chest tightness, that "feels like an elephant" in the center of her chest. This is associated with activity and this also has been precluding her dyspnea. However she also notes that this comes on with increase in coughing. She has also noted that it will go to her left arm and is associated with numbness that has been increasing over the past week. In the EMD the patient had routine labs drawn to include Troponin I, ECG, CXR and CTA of the chest to rule out PE. These were all negative for acute process and her Troponin I is <0.015. She was given 125 mg IV solumedrol and nebulizers, which has improved her symptoms. With her peripheral EOS being elevated, will continue with her steroids, will add azithromycin on as well. For her chest tightness, this is reproducible but her symptoms do occur and worsen with activity, which does make her have to stop and catch her breath. She has had a stress ECHO in the past in 03/23 it was negative at that time where she achieved 94% of her Maximum Predicted Heart Rate and her last ECHO was in November. Will obtain ECG in morning follow one more set of Troponin and obtain ECHO. She may benefit for further risk stratification. Will admit patient to medical telemetry, continue treatment as above. Patient is vaccinated and her COVID evelyn and Flu A/B on admission is: NEGATIVE Allergies Allergy/AdvReac Type Severity Reaction Status Date / Time hydrocodone AdvReac Mild NAUSEA Verified 07/27/21 09:51 prednisone AdvReac Mild NAUSEA Verified 07/27/21 09:51 Home Medications Medication Instructions Recorded Confirmed Type aspirin 81 mg chewable tablet 81 mg PO QAM 04/10/18 07/27/21 History lancets 33 gauge ([employer] Delica #100 ea 03/02/20 07/26/21 Rx Lancets) blood sugar diagnostic ([employer]uch #100 ea 10/13/20 07/26/21 Rx Ultra Blue Test Strip) fluoxetine 40 mg capsule 40 mg PO QAM #30 cap 10/13/20 07/27/21 Rx metoprolol tartrate 25 mg tablet 12.5 mg PO BID #60 tab 01/09/21 07/27/21 Rx montelukast 10 mg tablet 10 mg PO HS #30 tab 01/09/21 07/27/21 Rx (Singulair) ipratropium 0.5 mg-albuterol 3 mg 3 ml INHALATION QID 04/18/21 07/27/21 History (2.5 mg base)/3 mL nebulization soln fluticasone fur. 200 mcg-umeclid 1 inh INHALATION DAILY #60 ea 04/20/21 07/27/21 Rx 62.5 mcg-vilant 25 mcg inhalat.powder (Trelegy Ellipta) pantoprazole 40 mg tablet,delayed 40 mg PO DAILY #30 tab 04/25/21 07/27/21 Rx release (Protonix) glimepiride 2 mg tablet 2 mg PO QAM #30 tab 06/04/21 07/27/21 Rx metformin 500 mg tablet 1,000 mg PO BID #360 tab 06/04/21 07/27/21 Rx atorvastatin 40 mg tablet 40 mg PO QAM #30 tab 07/05/21 07/27/21 Rx losartan 50 mg tablet 25 mg PO QAM 90 Days #45 tab 07/07/21 07/27/21 Rx albuterol sulfate 90 mcg/actuation 1 - 2 puff INHALATION Q4H PRN #18 07/10/21 07/27/21 Rx aerosol inhaler (ProAir HFA) gm benzonatate 100 mg capsule 100 mg PO BID 07/27/21 07/27/21 History Past Med/Surg History Medical History Asthma-COPD overlap syndrome Chronic obstructive pulmonary disease Depression Excessive daytime sleepiness History of nicotine dependence Hyperlipidemia Hypertension Insomnia Moderate persistent asthma Nocturnal hypoxemia Peripheral eosinophilia Surgical History H/O oophorectomy H/O: hysterectomy Family History Father Diabetes CHF (congestive heart failure) Grandfather (Paternal) Diabetes Mother Deep vein thrombosis NHL (non-Hodgkin's lymphoma) Grandfather (Maternal) Acute leukemia Grandmother (Maternal) Deep vein thrombosis Aunt Deep vein thrombosis Other No pertinent family history Denies family history of Ovarian cancer Prostate cancer Myocardial infarction Breast cancer Colorectal cancer Social History (Reviewed 07/27/21 @ 12:39 by PIA Merino Smoking Status: Former smoker Tobacco Type: Cigarettes Second Hand Exposure: No; Do You Dip or Chew Tobacco: No; Hx Alcohol Use: No Hx Substance Use: No Preferred Language: Ukrainian Communication Ability: Effective Visual Impairment: No Limitations Hearing Ability: Normal Senior Vice President Required: No Beliefs That Will Affect Care: None marital status: 1 Current Living Situation: Alone current occupational status: retired Other Information That Helps Us Care for You: No Feels Safe at Home: Yes Safety Concerns: Feels Safe At This Time Dental Care, Regularly: No Seatbelt Use: always Sunscreen Use: Yes Assistive Devices: Oxygen - Continuous Review of Systems Review of Systems: REVIEW OF SYSTEMS: Constitutional: No fever, sweats or chills Eyes: No diplopia, no worsening or blurred vision ENT: normal hearing, no trouble swallowing Respiratory: (+) cough, sputum, dyspnea at rest or on exertion Cardiovascular: (+) chest pain, tightness , NO palpitations Abdomen: No pain, nausea, vomiting, diarrhea or constipation Musculoskeletal: No joint pain, calf pain, swelling Neurologic: No weakness, numbness/tingling, or balance problems Psychiatric: No anxiety or depression Skin: No rash or itch Physical Exam Physical Exam: PHYSICAL EXAM: General: awake, alert, no apparent distress Head: Normocephalic, atraumatic ENT: PERRL, EOMI, no pharyngeal exudate, mucous membranes moist Neuro: AAO x 3, speech clear and appropriate, strength intact bilaterally 5/5, sensation intact and equal all extremities and dermatomes, no pronator drift Chest: equal rise and fall of the chest, no accessory muscle use, inspiratory and expiratory wheeze increased anterior, good air movement posterior, on 2LNC Cardiac: Regular rate and rhythm, telemetry reviewed, skin warm dry, cap refill <3 seconds, peripheral pusles +2 no JVD, no murmur, no JVD, no edema GI: NABS x 4 quadrants, soft, nontender to palpation, no rebound, guarding or tenderness : Spontaneously voiding, no pain, no CVA tenderness, Extremities: Normal inspection, no peripheral edema or erythema, calfs nontender to palpation Psych: Normal mood and affect cits Skin: no rash or erythema Results & Data Results & Data ([facility]) Vital Signs (Past 12 Hours) Vital Signs Temp Pulse Resp BP Pulse Ox 07/27/21 11:30 88 19 146/91 H 93 07/27/21 11:00 79 22 161/103 H 94 07/27/21 10:42 79 23 166/101 H 95 07/27/21 09:33 36.7 C 87 26 H 177/104 H 96 Laboratory Results Abnormal lab results 07/27/21 07/27/21 07/27/21 Range/Units 09:25 09:25 09:56 WBC 14.05 H (4.8-10.8) K/uL RDW Std Deviation 47.2 H (36.4-46.3) fL Neut # (Auto) 8.51 H (1.4-6.5) K/uL Berks # (Auto) 1.15 H (0.11-0.59) K/uL Eos # (Auto) 1.76 H (0-0.5) K/uL Immature Gran # (Auto) 0.04 H (0.00-0.02) K/uL VBG pH 7.45 H (7.36-7.41) Glucose 112 H (70-99(Fasting)) mg/dl AST (13-39) U/L Ur Specific Mcallister (1.000-1.030) Urine Blood (Negative) U Epithel Cells (Auto) (0-5) /lpf 07/27/21 07/27/21 Range/Units 10:24 11:07 WBC (4.8-10.8) K/uL RDW Std Deviation (36.4-46.3) fL Neut # (Auto) (1.4-6.5) K/uL [place] # (Auto) (0.11-0.59) K/uL Eos # (Auto) (0-0.5) K/uL Immature Gran # (Auto) (0.00-0.02) K/uL VBG pH (7.36-7.41) Glucose (70-99(Fasting)) mg/dl AST 10 L (13-39) U/L Ur Specific Mcallister > 1.045 H (1.000-1.030) Urine Blood Trace H (Negative) U Epithel Cells (Auto) >30 H (0-5) /lpf Diagnostic Findings Chest X-Ray 07/27/21 09:21 SINGLE VIEW CHEST CLINICAL HISTORY: Dyspnea FINDINGS: 2 AP, portable, upright chest radiographs are compared to chest x-ray dated 04/18/2021 and correlated with chest CT dated 12/09/2020. The heart is top normal for projection. The pulmonary vasculature is noncongested. Chronic interstitial thickening is similar to previous. Scarring/atelectasis is noted at the lung bases. No airspace consolidation or large pleural effusion is identified. No pneumothorax is seen. The skeletal structures are osteopenic. The bony thorax is grossly intact. Cholecystectomy clips are noted in the right upper quadrant. IMPRESSION: No acute cardiopulmonary abnormality. ACT 112: Negative or not required by law. Electronically signed by: Boone Quiroz M.D. 07/27/2021 9:45 AM Chest CTA 07/27/21 09:54 CT ANGIOGRAM OF THE CHEST CLINICAL HISTORY: Dyspnea. Atypical chest pain COMPARISON STUDY: Chest x-ray dated 07/27/2021. Chest CT dated 12/09/2020 and 03/03/2016. TECHNIQUE: Following the IV administration of 120 cc of Optiray 320, CT angiogram of the chest was performed from the upper abdomen to the thoracic inlet utilizing the pulmonary embolus protocol. Images are reviewed in the axial, sagittal, and coronal planes. 3-D MIPS images are created and assessed. IV contrast was administered without complication. A dose lowering technique was utilized adhering to the principles of ALARA. CT DOSE: 470.56 mGy.cm FINDINGS: Thyroid: Normal in size and heterogeneous in attenuation. Thoracic aorta: There is mild atherosclerotic calcification of the thoracic aorta, which is normal in caliber and demonstrates standard 3-vessel arch anatomy. No dissection is seen. Pulmonary vasculature: The pulmonary trunk is normal in caliber. There are no filling defects identified in main, lobar, or segmental pulmonary branches to suggest pulmonary embolus. Heart: The heart is time normal in size and without pericardial effusion. The coronary arteries are densely calcified. Lungs and pleural spaces: Evaluation of the lung parenchyma is modestly degraded by motion artifact. No airspace consolidation or pleural effusion is identified. There are bilateral fat-containing Bochdalek hernias. The trachea and central airways are clear. Diffuse peribronchial thickening is observed. There are scattered calcified granulomas. There is a 7 mm subsolid nodule in the left lower lobe seen on image #86. Mediastinum: There is no mediastinal lymphadenopathy. Silvia: Clear. Axillae: There is no axillary lymphadenopathy. Upper abdomen: Partially visualized upper abdominal viscera is within normal limits. Skeletal structures: The skeletal structures are osteopenic. Degenerative change and hyperkyphosis is noted in the thoracic spine. No lytic or blastic bony lesions are seen. IMPRESSION: 1. There is no evidence of pulmonary embolus in the main, lobar, or segmental pulmonary arteries. 2. There is no airspace consolidation or pleural effusion. 3. Diffuse peribronchial thickening suggests bronchitis/reactive air disease. Clinical correlation will be required. 4. There is a 7 mm subsolid nodule in the left lower lobe. This was not well visualized on 12/09/2020 due to motion artifact. Follow-up is recommended as per the Fleischner criteria. Please refer to below summary of Fleischner criteria recommendations for follow- up of incidental CT nodules (Sarbjit Chaves, Guidelines for management of small pulmonary nodules detected on CT scans: A statement from the Fleischner Society, Radiology 237: [phone].) SOLID NODULES Solitary nodule size: <6 mm * low risk patients: no follow-up needed * high risk patients: optional CT at 12 months Solitary nodule size: 6-8 mm * low risk patients: follow-up at 6-12 months, then consider further follow-up at 18-24 months * high risk patients: initial follow-up CT at 6-12 months and then at 18-24 mo nths if no change Solitary nodule size: >8 mm * either low or high risk patients - consider follow-up CT at 3 months, and/or CT-PET, and/or biopsy Multiple nodules size: <6 mm * low risk patients: no routine follow-up * high risk patients: optional CT at 12 months Multiple nodules size: 6-8 mm * low risk patients: follow-up at 3-6 months, then consider further follow-up at 18-24 months * high risk patients: follow-up at 3-6 months, then at 18-24 months if no change Multiple nodules size: >8 mm * low risk patients: follow-up at 3-6 months, then consider further follow-up at 18-24 months * high risk patients: follow-up at 3-6 months, then at 18-24 months if no change Note: newly detected indeterminate nodule in persons 35 years of age or older. * low risk patients: minimal or absent history of smoking and/or other known risk factors * high risk patients: history of smoking or of other known risk factors (e.g. first degree relative with lung cancer, or exposure to asbestos, radon, uranium) * if a nodule up to 8 mm is partly solid or is ground glass further follow-up is required after 24 months to exclude possible slow growing adenocarcinoma (RAY) SUBSOLID NODULES Solitary pure ground-glass nodule * nodule size <6 mm - no CT follow-up required * nodule size >=6 mm - follow-up CT at 6-12 months, then every 2 years until 5 years Solitary part-solid nodule * nodule size <6 mm - no CT follow-up required * nodule size >=6 mm - follow-up CT at 3-6 months. If unchanged, and solid component remains <6 mm, then annual follow-up for 5 years Multiple subsolid nodules * nodule size <6 mm - follow-up CT at 3-6 months, consider further follow-up at 2 and 4 years if stable * nodule size >=6 mm - follow-up CT at 3-6 months, subsequent management based on the most suspicious nodule(s) ACT 112: Negative or not required by law. Electronically signed by: Boone Quiroz M.D. 07/27/2021 11:04 AM Medications Administered Home Medications aspirin 81 mg chewable tablet 81 mg PO QAM 04/10/18 [History Confirmed 07/27/21] lancets 33 gauge ([employer] Delica Lancets) #100 ea 03/02/20 [Rx Confirmed 07/26/21] blood sugar diagnostic ([employer] Ultra Blue Test Strip) #100 ea 10/13/20 [Rx Confirmed 07/26/21] fluoxetine 40 mg capsule 40 mg PO QAM #30 cap 10/13/20 [Rx Confirmed 07/27/21] metoprolol tartrate 25 mg tablet 12.5 mg PO BID #60 tab 01/09/21 [Rx Confirmed 07/27/21] montelukast 10 mg tablet (Singulair) 10 mg PO HS #30 tab 01/09/21 [Rx Confirmed 07/27/21] ipratropium 0.5 mg-albuterol 3 mg (2.5 mg base)/3 mL nebulization soln 3 ml INHALATION QID 04/18/21 [History Confirmed 07/27/21] fluticasone fur. 200 mcg-umeclid 62.5 mcg-vilant 25 mcg inhalat.powder (Trelegy Ellipta) 1 inh INHALATION DAILY #60 ea 04/20/21 [Rx Confirmed 07/27/21] pantoprazole 40 mg tablet,delayed release (Protonix) 40 mg PO DAILY #30 tab 04/25/21 [Rx Confirmed 07/27/21] glimepiride 2 mg tablet 2 mg PO QAM #30 tab 06/04/21 [Rx Confirmed 07/27/21] metformin 500 mg tablet 1,000 mg PO BID #360 tab 06/04/21 [Rx Confirmed 07/27/21] atorvastatin 40 mg tablet 40 mg PO QAM #30 tab 07/05/21 [Rx Confirmed 07/27/21] losartan 50 mg tablet 25 mg PO QAM 90 Days #45 tab 07/07/21 [Rx Confirmed 07/27/21] albuterol sulfate 90 mcg/actuation aerosol inhaler (ProAir HFA) 1 - 2 puff INHALATION Q4H PRN #18 gm 07/10/21 [Rx Confirmed 07/27/21] benzonatate 100 mg capsule 100 mg PO BID 07/27/21 [History Confirmed 07/27/21] Active Medications Azithromycin (Azithromycin 250 Mg Tab) 250 mg PO QAM OVI Stop: 08/04/21 08:59 Methylprednisolone (Methylprednisolone 40 Mg/Ml Vial) 40 mg IV Q6 OVI Stop: 08/26/21 17:59 Discontinued Medications Albuterol (Albut/Ipratrop 3mg/0.5mg Neb 3 Ml Vial) 3 ml INH NOW STA Stop: 07/27/21 09:22 Last Admin: 07/27/21 09:31 Dose: 3 ml Documented by: [id number] Albuterol (Albut/Ipratrop 3mg/0.5mg Neb 3 Ml Vial) 3 ml NEB NOW STA; Protocol Stop: 07/27/21 11:32 Last Admin: 07/27/21 11:40 Dose: 3 ml Documented by: [id number] Azithromycin (Azithromycin 250 Mg Tab) 500 mg PO NOW ONE Stop: 07/27/21 12:31 Last Admin: 07/27/21 12:22 Dose: Not Given Documented by: [id number] Azithromycin (Azithromycin 250 Mg Tab) Confirm Administered Dose 500 mg PO .STK- MED ONE Stop: 07/27/21 12:09 Last Admin: 07/27/21 12:12 Dose: 500 mg Documented by: [id number] Ioversol (Optiray 320 125ml) 120 ml IV ONCE ONE Stop: 07/27/21 11:01 Last Admin: 07/27/21 10:49 Dose: 120 ml Documented by: [id number] Methylprednisolone (Methylprednisolone 125 Mg/2 Ml Vial) 125 mg IV NOW STA Stop: 07/27/21 09:22 Last Admin: 07/27/21 09:31 Dose: 125 mg Documented by: [id number] ECG Additional Comments: Normal sinus rhythm Nonspecific ST and T wave abnormality Abnormal ECG When compared with ECG of 18-APR-2021 10:06, No significant change was found Code Status & VTE Plan Code Status CODE: FULL VTE: SCDS, Lovenox 40mg SQ daily Supervising Physician Co-Signing Physician Notes Patient seen and examined at bedside. Obtained a history and physical examination during face to face encounter. Discussed plan of care with DAVID Barros and patient. Reviewed above note and agree with it. Patient admitted with COPD EXACERBATION. Patient will be on azithromycin and continue on nebs PG Care Time/CCT Total # of Minutes Spent Total Time Spent with Patient: Total time spent is greater than 50% in coordination of care (as documented) at patient's floor/unit and/or counseling patient: Coding Level of Care Code 44207 Initial Inpt Care Lvl 3 Diagnoses Asthma-COPD overlap syndrome J44.9 Acute exacerbation of chronic obstructive pulmonary disease (COPD) J44.1 LVH (left ventricular hypertrophy) I51.7 Hyperlipidemia E78.5 Hypertension I10 Hypertension type: essential hypertension DM w/o complication type II, uncontrolled E11.65 Glycemic state: with hyperglycemia Depression F32.89 Depression Type: other depression Chest pain on exertion R07.9 (1) Depression Depression Type: other depression Qualified Code(s): F32.89 - Other specified depressive episodes (2) Hypertension Hypertension type: essential hypertension Qualified Code(s): I10 - Essential (primary) hypertension (3) DM w/o complication type II, uncontrolled Glycemic state: with hyperglycemia Qualified Code(s): E11.65 - Type 2 diabetes mellitus with hyperglycemia
[2021-07-27] MEDS ORDERED: AZITHROMYCIN 250 MG TAB PO ONE ×2 (12:08→12:30)
--- NOTE | 2021-07-27 14:07 | Electrocardiogram Report ---
Test Reason : Blood Pressure : / mmHG Vent. Rate : 083 BPM Atrial Rate : 083 BPM P-R Int : 152 ms QRS Dur : 088 ms QT Int : 412 ms P-R-T Axes : 084 068 109 degrees QTc Int : 484 ms Normal sinus rhythm Nonspecific ST and T wave abnormality Abnormal ECG When compared with ECG of 18-APR-2021 10:06, No significant change was found Confirmed by Derrick Carney ([id number]) on 07/27/2021 2:06:44 PM Referred By: REFERRED SELF Confirmed By:Candido Carney
[2021-07-27] MEDS ORDERED: ALBUTEROL HFA 8 GM INHALER INH PRN (14:49)
[2021-07-27] MEDS ORDERED: GLUCOSE 10 TABS/TUBE PO PRN (14:49)
[2021-07-27] MEDS ORDERED: GLUCOSE 40% GEL 15 GM TUBE PO PRN (14:49)
[2021-07-27] MEDS ORDERED: DEXTROSE 50% 50 ML SYRINGE IV PRN (14:49)
[2021-07-27] MEDS ORDERED: ACETAMINOPHEN 325 MG TAB PO PRN (14:49)
[2021-07-27] MEDS ORDERED: GLUCAGON FOR INJ 1 MG VIAL SQ PRN (14:49)
[2021-07-27] MEDS ORDERED: CARBOHYDRATES FOR HYPOGLYCEMIA PO PRN (14:49)
--- NOTE | 2021-07-27 17:01 | XCELERA ---
[id number]
[2021-07-27] MEDS: INSULIN ASPART PER UNIT SC SCH ×2 (18:12→22:07)
[2021-07-27] MEDS: ENOXAPARIN INJ 40 MG/0.4 ML SYR SQ SCH (18:28)
[2021-07-27] MEDS: ALBUTEROL 0.083% NEBU SOLN 3 ML VIAL NEB PRN (19:46)
[2021-07-27] MEDS: ALBUT/IPRATROP 3MG/0.5MG NEB 3 ML VIAL NEB SCH (19:46)
[2021-07-27] MEDS: METOPROLOL TARTRATE 25 MG TAB PO SCH (22:04)
[2021-07-27] MEDS: MONTELUKAST SODIUM 10 MG TABLET PO SCH (22:04)
[2021-07-27] MEDS: methylPREDNISolone 40 MG in SYRINGE 0 ML IV SCH ×2 (22:05→22:17)
[2021-07-28] MEDS: ALBUT/IPRATROP 3MG/0.5MG NEB 3 ML VIAL NEB SCH ×2 (01:03→08:01)
[2021-07-28] MEDS: methylPREDNISolone 40 MG in SYRINGE 0 ML IV SCH ×3 (04:38→20:53)
[2021-07-28 06:01] LABS: Basophils # (auto) 0.01 K/uL (0-0.2); Basophils % (auto) 0.1 %; Hematocrit (blood only) 40.6 % (37-47); Hemoglobin 13.3 g/dL (12.0-16.0); Immature Granulocytes # (auto) 0.03 K/uL (0.00-0.02); Immature Granulocytes % (auto) 0.2 %; Lymphocytes # (auto) 1.73 K/uL (1.2-3.4); Lymphocytes % (auto) 11.5 %; Mean Corpuscular Hemoglobin 30.2 pg (25-34); Mean Corpuscular Hgb Conc 32.8 g/dL (32-36); Mean Corpuscular Volume 92.3 fL (80-100); Mean Platelet Volume 9.9 fL (7.4-10.4); Monocytes # (auto) 0.38 K/uL (0.11-0.59); Monocytes % (auto) 2.5 %; Neutrophils # (auto) 12.95 K/uL (1.4-6.5); Neutrophils % (auto) 85.7 %; Platelet Count 342 K/uL (130-400); RDW Coefficient of Variation 13.4 % (11.5-14.5); RDW Standard Deviation 45.7 fL (36.4-46.3)
[2021-07-28 06:24] LABS: Troponin I < 0.03 ng/ml (0-0.04)
[2021-07-28 06:39] LABS: Anion Gap 10 (3-11); BUN Creatinine Ratio 26.1 (10-20); Blood Urea Nitrogen 24 mg/dl (6-23); Calcium 9.5 mg/dl (8.5-10.1); Carbon Dioxide 30 mmol/L (21-32); Chloride 98 mmol/L (98-107); Chol HDL Ratio 1.7 (0-5); Cholesterol 86 mg/dl (0-200); Creatinine Clr Calc Pharmacy 62.2 ml/min; Est GFR (African American) 73.6 ml/min; Est GFR (Non-African American) 63.5 ml/min; Glucose 210 mg/dl (70-99(Fasting)); HDL Cholesterol 51 mg/dl; LDL Cholesterol Calculated 18 mg/dl; Magnesium 1.7 mg/dl (1.7-2.4); Potassium 3.4 mmol/L (3.5-5.1); Sodium 138 mmol/L (136-145); Triglycerides 87 mg/dl (0-150); VLDL Cholesterol 17 mg/dl (0-30)
[2021-07-28] MEDS: ALBUTEROL 0.083% NEBU SOLN 3 ML VIAL NEB PRN (07:34)
[2021-07-28] MEDS ORDERED: NON-FORMULARY MEDICATION (Fluticasone-Umeclidin-Vilanter [Trelegy Ellipta] 200-62.5-25 mcg INH SCH (09:00)
[2021-07-28] MEDS: METOPROLOL TARTRATE 25 MG TAB PO SCH ×2 (09:21→20:55)
[2021-07-28] MEDS: FLUoxetine HCL 20 MG CAP PO SCH (09:21)
[2021-07-28] MEDS: ATORVASTATIN 40 MG TAB PO SCH (09:21)
[2021-07-28] MEDS: AZITHROMYCIN 250 MG TAB PO SCH (09:22)
[2021-07-28] MEDS: ASPIRIN 81 MG ECTAB PO SCH (09:22)
[2021-07-28] MEDS: UMECLIDINIUM/VILANTEROL 62.5/25MCG 7 PUFFS/INHALER INH SCH (09:22)
[2021-07-28] MEDS: FLUTICASONE FUROATE 200MCG 14 PUFFS/INHALER INH SCH (09:22)
[2021-07-28] MEDS: PANTOprazole 40 MG TAB PO SCH (09:22)
[2021-07-28] MEDS: LOSARTAN POTASSIUM 25 MG TAB PO SCH (09:22)
[2021-07-28] MEDS: INSULIN ASPART PER UNIT SC SCH ×5 (09:35→23:57)
[2021-07-28] MEDS ORDERED: PHARMACY GLYCEMIC MGMT CONSULT PRN (09:42)
[2021-07-28] MEDS ORDERED: INSULIN GLARGINE SOLOSTAR 100 UNITS/ML 3 ML PEN SC ONE ×2 (10:15→21:00)
--- NOTE | 2021-07-28 11:37 | Electrocardiogram Report ---
Test Reason : Blood Pressure : / mmHG Vent. Rate : 076 BPM Atrial Rate : 076 BPM P-R Int : 162 ms QRS Dur : 090 ms QT Int : 426 ms P-R-T Axes : 070 015 183 degrees QTc Int : 479 ms Normal sinus rhythm Prolonged QT Abnormal ECG When compared with ECG of 27-JUL-2021 09:24, Nonspecific T wave abnormality now evident in Inferior leads T wave inversion now evident in Lateral leads Confirmed by Franklin Boucher ([id number]) on 07/28/2021 11:37:03 AM Referred By: REFERRED SELF Confirmed By:Franklin Boucher
[2021-07-28] MEDS ORDERED: POTASSIUM CHLORIDE CRTAB 20 MEQ TABCR PO ONE (11:45)
[2021-07-28] MEDS: ENOXAPARIN INJ 40 MG/0.4 ML SYR SQ SCH (17:50)
--- NOTE | 2021-07-28 17:51 | Hospitalist Progress Note ---
Date of Service July 28, 2021 Assessment & Plan (1) Acute exacerbation of chronic obstructive pulmonary disease (COPD): Plan: Acute on chronic COPD exacerbation with elevated peripheral EOS - Albuterol/Atrovent Nebs scheduled q6 hours with albuterol nebulizer PRN in between if needed - Continue Umeclidinium/Vilanterol -Continue azithromycin to 50 mg - Methlpred 40mg IV q6 weaned to every 8 hours, decrease to every 12 if progressing well tomorrow - Continue Montelukast (2) Chest pain on exertion: Plan: Atypical chest pain vs. angina - As per HPI multifactorial -Improved this morning, continue dyspnea/cough and treatment as above -TTE: Normal LV thickness, EF 50-55%, normal LV systolic function, grade 1 diastolic dysfunction - Troponin normal - Continue BB, ASA, Statin, ARB (3) Asthma-COPD overlap syndrome: Plan: As above Patient recently had PFTs done in February with Moderate obstruction and significant air trapping with DLCO mildly reduced. Her FEV1/FVC was 66. (4) LVH (left ventricular hypertrophy): Plan: As above - EF 50-55% mild MR with mild LVH (5) Hyperlipidemia: Plan: Lipids in the morning - continue statin (6) Hypertension: Plan: Appears well controlled - As aboe, continue BB, ARB (7) DM w/o complication type II, uncontrolled: Plan: Continue basal with SSI - Aspart CF 20, Carb ration 1:15, goal <180 Glucose checks AC/at bedtime (8) Depression: Plan: Continue fluoxetine - no acute needs Admission and Anticipated Discharge Date Admission Date: July 27, 2021 Subjective Continues to have cough productive for yellow sputum. Still short of breath a little at rest and some with exertion, breathing a little bit better. She feels at about 50% of her normal, about 20% when she came in. No fever, chills, sweats. No chest pain, chest pressure. -N/-V/-D/-C. Has more trouble breathing in the room when it is too warm, otherwise no questions or concerns today. Review of Systems Review of Systems: All systems reviewed & are unremarkable except as noted in Subjective Physical Exam Physical Exam: General: A&Ox3. NAD. Cooperative. HEENT: Atraumatic, normocephalic. Visual acuity and hearing grossly intact. Pulm:, No rales. Diffuse expiratory wheezes, moderate air movement symmetrical chest rise. No increase in work of breathing. No respiratory distress. Cardiac: RRR, -mrg. Radial pulses intact and symmetrical. Abdominal: Nontender, nondistended, soft. BS present. Extremities: Warm, dry. Moving all extremities equally. Results & Data Results & Data ([facility]) Vital Signs (Past 12 Hours) Vital Signs Temp Pulse Pulse Resp BP Pulse Ox 07/28/21 15:00 77 07/28/21 14:55 36.4 C L 79 20 136/80 95 07/28/21 11:25 37.1 C 78 20 107/67 94 07/28/21 08:00 80 07/28/21 07:57 80 18 94 07/28/21 07:49 36.6 C 85 20 155/95 H 94 PG Care Time/CCT Total # of Minutes Spent Total Time Spent with Patient: Total time spent is greater than 50% in coordination of care (as documented) at patient's floor/unit and/or counseling patient: Coding Level of Care Code 67715 Subseq Hosp Care Lvl 3 Diagnoses Acute exacerbation of chronic obstructive pulmonary disease (COPD) J44.1 Chest pain on exertion R07.9 Asthma-COPD overlap syndrome J44.9 LVH (left ventricular hypertrophy) I51.7 Hyperlipidemia E78.5 Hypertension I10 Hypertension type: essential hypertension DM w/o complication type II, uncontrolled E11.65 Glycemic state: with hyperglycemia Depression F32.89 Depression Type: other depression (1) Hypertension Hypertension type: essential hypertension Qualified Code(s): I10 - Essential (primary) hypertension (2) DM w/o complication type II, uncontrolled Glycemic state: with hyperglycemia Qualified Code(s): E11.65 - Type 2 diabetes mellitus with hyperglycemia (3) Depression Depression Type: other depression Qualified Code(s): F32.89 - Other specified depressive episodes
[2021-07-28] MEDS: MONTELUKAST SODIUM 10 MG TABLET PO SCH (20:56)
[2021-07-29] MEDS: methylPREDNISolone 40 MG in SYRINGE 0 ML IV SCH ×2 (03:42→15:54)
[2021-07-29] MEDS: INSULIN ASPART PER UNIT SC SCH ×5 (03:45→20:45)
[2021-07-29 06:25] LABS: Hematocrit (blood only) 38.7 % (37-47); Hemoglobin 12.6 g/dL (12.0-16.0); Immature Granulocytes # (auto) 0.05 K/uL (0.00-0.02); Immature Granulocytes % (auto) 0.3 %; Lymphocytes # (auto) 1.39 K/uL (1.2-3.4); Lymphocytes % (auto) 7.6 %; Mean Corpuscular Hemoglobin 30.4 pg (25-34); Mean Corpuscular Hgb Conc 32.6 g/dL (32-36); Mean Corpuscular Volume 93.5 fL (80-100); Mean Platelet Volume 9.9 fL (7.4-10.4); Monocytes # (auto) 0.73 K/uL (0.11-0.59); Neutrophils # (auto) 16.23 K/uL (1.4-6.5); Neutrophils % (auto) 88.1 %; Platelet Count 310 K/uL (130-400); RDW Coefficient of Variation 13.5 % (11.5-14.5); RDW Standard Deviation 45.9 fL (36.4-46.3); Red Blood Count 4.14 M/uL (4.2-5.4)
[2021-07-29 06:47] LABS: BUN Creatinine Ratio 30.2 (10-20); Calcium 9.4 mg/dl (8.5-10.1); Creatinine Clr Calc Pharmacy 59.9 ml/min; Est GFR (African American) 69.9 ml/min; Est GFR (Non-African American) 60.3 ml/min; Potassium 3.9 mmol/L (3.5-5.1)
[2021-07-29] MEDS: ASPIRIN 81 MG ECTAB PO SCH (07:29)
[2021-07-29] MEDS: LOSARTAN POTASSIUM 25 MG TAB PO SCH (07:29)
[2021-07-29] MEDS: PANTOprazole 40 MG TAB PO SCH (07:30)
[2021-07-29] MEDS: FLUoxetine HCL 20 MG CAP PO SCH (07:30)
[2021-07-29] MEDS: METOPROLOL TARTRATE 25 MG TAB PO SCH ×2 (07:30→20:46)
[2021-07-29] MEDS: AZITHROMYCIN 250 MG TAB PO SCH (07:30)
[2021-07-29] MEDS: ATORVASTATIN 40 MG TAB PO SCH (07:30)
[2021-07-29] MEDS: UMECLIDINIUM/VILANTEROL 62.5/25MCG 7 PUFFS/INHALER INH SCH (07:31)
[2021-07-29] MEDS: FLUTICASONE FUROATE 200MCG 14 PUFFS/INHALER INH SCH (07:31)
[2021-07-29] MEDS ORDERED: INSULIN GLARGINE SOLOSTAR 100 UNITS/ML 3 ML PEN SC SCH (09:00)
--- NOTE | 2021-07-29 10:24 | Pharmacy Report ---
Pharmacy Glycemic Short Note 2 - Date of Service July 29, 2021 - Glycemic Short BSG Results (Last 24 hours): 07/28/21 07/28/21 07/28/21 10:53 10:53 11:20 Glucose POC Glucose 310 H* 346 H* 254 H 07/28/21 07/28/21 07/28/21 16:25 20:11 20:12 Glucose POC Glucose 151 H 321 H* 332 H* 07/28/21 07/29/21 07/29/21 23:51 03:40 05:57 Glucose 189 H POC Glucose 122 H 201 H 07/29/21 07:53 Glucose POC Glucose 173 H OUTPATIENT ANTIDIABETIC REGIMEN: * glimepiride, metformin * A1c 6.9 ASSESSMENT: * 71 year old admitted with COPD exacerbation, started on steroids. Type 2 diabetic managed on orals at home * Patient received 97 units of insulin yesterday, of which 40 units were basal * Fasting BSG 173 mg/dL - steroids changing from TID to BID solumedrol, will g brendon 35 units of basal this AM and have scale for HS if BSGs still elevated * BSGs trending down yesterday, however spiked again at PM - continue same CF/CR for now PLAN FOR INPATIENT GLYCEMIC CONTROL: * Hold outpatient oral diabetes medications * Basal insulin * Lantus 35 units daily * Lantus 0-10 units HS * Bolus insulin * NovoLog per scale ACHS or Q6hrs while NPO * Goal Range: Low 110 mg/dL - High 140 mg/dL * Correction Factor: 15 mg/dL/unit * Nutritional / Prandial insulin per carb ratio of 1 unit per 6 grams CHO consumed PLAN FOR DISCHARGE: * tbd
--- NOTE | 2021-07-29 17:11 | Hospitalist Progress Note ---
Date of Service July 29, 2021 Assessment & Plan (1) Acute exacerbation of chronic obstructive pulmonary disease (COPD): Plan: Acute on chronic COPD exacerbation with elevated peripheral EOS - Albuterol/Atrovent Nebs scheduled q6 hours with albuterol nebulizer PRN in between if needed - Continue Umeclidinium/Vilanterol -Continue azithromycin 250 mg - Methlpred 40mg IV decreased t Q12H. Target narrow to daily tomorrow - Continue Montelukast - Tolerating O2 wean well, hopefully decrease to RA today (2) Chest pain on exertion: Plan: Atypical chest pain vs. angina - As per HPI multifactorial -Improved this morning, continue dyspnea/cough and treatment as above -TTE: Normal LV thickness, EF 50-55%, normal LV systolic function, grade 1 diastolic dysfunction - Troponin normal - Continue BB, ASA, Statin, ARB (3) Asthma-COPD overlap syndrome: Plan: As above Patient recently had PFTs done in February with Moderate obstruction and significant air trapping with DLCO mildly reduced. Her FEV1/FVC was 66. (4) LVH (left ventricular hypertrophy): Plan: As above - EF 50-55% mild MR with mild LVH (5) Hyperlipidemia: Plan: - continue statin (6) Hypertension: Plan: Appears well controlled - As above, continue BB, ARB (7) DM w/o complication type II, uncontrolled: Plan: Continue basal with SSI - Aspart CF 20, Carb ration 1:15, goal <180 Glucose checks AC/at bedtime (8) Depression: Plan: Continue fluoxetine - no acute needs Plan: DVT PPx: Lovenox Dispo: Weaning steroids, weaning o2, doing well. Hopefully to RA and dispo tomorrow Admission and Anticipated Discharge Date Admission Date: July 27, 2021 Subjective Minimal wheezing today. No shortness of breath at rest. Some SoB with exertion. No CP. No CP. No fevers, chills, sweats, nausea, vomiting, diarrhea. Improving on steroids. Worked with PT today, recommended return home when off oxygen. Review of Systems Review of Systems: All systems reviewed & are unremarkable except as noted in Subjective Physical Exam Physical Exam: General: A&Ox3. NAD. Cooperative. HEENT: Atraumatic, normocephalic. Visual acuity and hearing grossly intact. Pulm:, No rales. Trace expiratory wheezes greatly improved, moderate air movement symmetrical chest rise. No increase in work of breathing. No respiratory distress. Cardiac: RRR, -mrg. Radial pulses intact and symmetrical. Abdominal: Nontender, nondistended, soft. BS present. Extremities: Warm, dry. Moving all extremities equally. Results & Data Results & Data ([facility]) Vital Signs (Past 12 Hours) Vital Signs Temp Pulse Pulse Resp BP Pulse Ox 07/29/21 15:22 36.9 C 61 20 132/77 99 07/29/21 14:46 69 07/29/21 14:28 90 07/29/21 11:25 36.9 C 55 L 18 125/73 97 07/29/21 07:00 62 07/29/21 06:38 37 C 63 17 144/83 H 98 PG Care Time/CCT Total # of Minutes Spent Total Time Spent with Patient: Total time spent is greater than 50% in coordination of care (as documented) at patient's floor/unit and/or counseling patient: Coding Level of Care Code 80874 Subseq Hosp Care Lvl 2 Diagnoses Acute exacerbation of chronic obstructive pulmonary disease (COPD) J44.1 Chest pain on exertion R07.9 Asthma-COPD overlap syndrome J44.9 LVH (left ventricular hypertrophy) I51.7 Hyperlipidemia E78.5 Hypertension I10 Hypertension type: essential hypertension DM w/o complication type II, uncontrolled E11.65 Glycemic state: with hyperglycemia Depression F32.89 Depression Type: other depression (1) Hypertension Hypertension type: essential hypertension Qualified Code(s): I10 - Essential (primary) hypertension (2) DM w/o complication type II, uncontrolled Glycemic state: with hyperglycemia Qualified Code(s): E11.65 - Type 2 diabetes mellitus with hyperglycemia (3) Depression Depression Type: other depression Qualified Code(s): F32.89 - Other specified depressive episodes
[2021-07-29] MEDS: ENOXAPARIN INJ 40 MG/0.4 ML SYR SQ SCH (17:33)
[2021-07-29] MEDS: MONTELUKAST SODIUM 10 MG TABLET PO SCH (20:48)
[2021-07-29] MEDS ORDERED: INSULIN GLARGINE SOLOSTAR 100 UNITS/ML 3 ML PEN SC ONE (21:00)
[2021-07-30] MEDS: methylPREDNISolone 40 MG in SYRINGE 0 ML IV SCH (03:40)
[2021-07-30 07:19] LABS: Basophils # (auto) 0.01 K/uL (0-0.2); Basophils % (auto) 0.1 %; Hematocrit (blood only) 38.6 % (37-47); Hemoglobin 12.7 g/dL (12.0-16.0); Immature Granulocytes # (auto) 0.05 K/uL (0.00-0.02); Immature Granulocytes % (auto) 0.3 %; Lymphocytes % (auto) 10.1 %; Mean Corpuscular Hemoglobin 30.8 pg (25-34); Mean Corpuscular Hgb Conc 32.9 g/dL (32-36); Mean Corpuscular Volume 93.5 fL (80-100); Mean Platelet Volume 9.9 fL (7.4-10.4); Monocytes # (auto) 0.61 K/uL (0.11-0.59); Monocytes % (auto) 4.1 %; Neutrophils # (auto) 12.65 K/uL (1.4-6.5); Neutrophils % (auto) 85.4 %; Platelet Count 306 K/uL (130-400); RDW Coefficient of Variation 13.4 % (11.5-14.5); Red Blood Count 4.13 M/uL (4.2-5.4); White Blood Count 14.82 K/uL (4.8-10.8)
[2021-07-30 07:41] LABS: BUN Creatinine Ratio 28.7 (10-20); Calcium 8.9 mg/dl (8.5-10.1); Creatinine Clr Calc Pharmacy 53.3 ml/min; Est GFR (African American) 60.7 ml/min; Est GFR (Non-African American) 52.3 ml/min; Magnesium 2.1 mg/dl (1.7-2.4); Potassium 3.9 mmol/L (3.5-5.1)
[2021-07-30] MEDS: ATORVASTATIN 40 MG TAB PO SCH (08:28)
[2021-07-30] MEDS: METOPROLOL TARTRATE 25 MG TAB PO SCH (08:28)
[2021-07-30] MEDS: FLUoxetine HCL 20 MG CAP PO SCH (08:28)
[2021-07-30] MEDS: AZITHROMYCIN 250 MG TAB PO SCH (08:28)
[2021-07-30] MEDS: ASPIRIN 81 MG ECTAB PO SCH (08:29)
[2021-07-30] MEDS: PANTOprazole 40 MG TAB PO SCH (08:29)
[2021-07-30] MEDS: LOSARTAN POTASSIUM 25 MG TAB PO SCH (08:29)
[2021-07-30] MEDS: UMECLIDINIUM/VILANTEROL 62.5/25MCG 7 PUFFS/INHALER INH SCH (08:29)
[2021-07-30] MEDS: FLUTICASONE FUROATE 200MCG 14 PUFFS/INHALER INH SCH (08:29)
[2021-07-30] MEDS: INSULIN ASPART PER UNIT SC SCH ×2 (08:36→12:32)
[2021-07-30] MEDS ORDERED: predniSONE 20 MG TAB PO SCH (09:00)
[2021-07-30] MEDS ORDERED: INSULIN GLARGINE SOLOSTAR 100 UNITS/ML 3 ML PEN SC SCH (09:00)
--- NOTE | 2021-07-30 17:41 | Discharge Summary ---
Date of Service July 30, 2021 Admission HPI Per Admitting Provider 70 YOF with past medical history of: COPD/Asthma overlap syndrome, previous smoker - quit ~6 years ago, HTN, HLD, mild MR and mild LVH with preserved EF. Patient comes to the EMD today for 2 day history of increased cough, sputum production, and dyspnea that is not relieved with her home nebulizers. The patient follows with Pulmonary for her Asthma/COPD overlap syndrome. She was previously admitted in April 19 with COPD exacerbation as well as increase in her peripheral EOS. Her inhalers were adjusted at that time to Trelegy, which she reports has been working well for her up until a few days ago. Patient reports that she went to grocery store on Fri and then on her way home "the bottom fell out" with increased dyspnea and cough. She has also been noting that she has been experiencing chest tightness, that "feels like an elephant" in the center of her chest. This is associated with activity and this also has been precluding her dyspnea. However she also notes that this comes on with increase in coughing. She has also noted that it will go to her left arm and is associated with numbness that has been increasing over the past week. In the EMD the patient had routine labs drawn to include Troponin I, ECG, CXR and CTA of the chest to rule out PE. These were all negative for acute process and her Troponin I is <0.015. She was given 125 mg IV solumedrol and nebulizers, which has improved her symptoms. With her peripheral EOS being elevated, will continue with her steroids, will add azithromycin on as well. For her chest tightness, this is reproducible but her symptoms do occur and worsen with activity, which does make her have to stop and catch her breath. She has had a stress ECHO in the past in 03/23 it was negative at that time where she achieved 94% of her Maximum Predicted Heart Rate and her last ECHO was in November. Will obtain ECG in morning follow one more set of Troponin and obtain ECHO. She may benefit for further risk stratification. Will admit patient to medical telemetry, continue treatment as above. Patient is vaccinated and her COVID evelyn and Flu A/B on admission is: NEGATIVE Admission Exam Per Admitting Provider PHYSICAL EXAM: General: awake, alert, no apparent distress Head: Normocephalic, atraumatic ENT: PERRL, EOMI, no pharyngeal exudate, mucous membranes moist Neuro: AAO x 3, speech clear and appropriate, strength intact bilaterally 5/5, sensation intact and equal all extremities and dermatomes, no pronator drift Chest: equal rise and fall of the chest, no accessory muscle use, inspiratory and expiratory wheeze increased anterior, good air movement posterior, on 2LNC Cardiac: Regular rate and rhythm, telemetry reviewed, skin warm dry, cap refill <3 seconds, peripheral pusles +2 no JVD, no murmur, no JVD, no edema GI: NABS x 4 quadrants, soft, nontender to palpation, no rebound, guarding or tenderness : Spontaneously voiding, no pain, no CVA tenderness, Extremities: Normal inspection, no peripheral edema or erythema, calfs nontender to palpation Psych: Normal mood and affect cits Skin: no rash or erythema Principal Diagnosis Acute on chronic asthma/COPD overlap syndrome exacerbation Discharge Exam General: A&Ox3. NAD. Cooperative. HEENT: Atraumatic, normocephalic. Visual acuity and hearing grossly intact. Pulm: Clear auscultation bilaterally, trace expiratory wheezes on forced inspiration only, no rales. No increase in work of breathing. No respiratory distress. Cardiac: RRR, -mrg. Radial pulses intact and symmetrical. Abdominal: Nontender, nondistended, soft. BS present. Extremities: Warm, dry. Moving all extremities equally. Discharge Data Allergies Allergy/AdvReac Type Severity Reaction Status Date / Time hydrocodone AdvReac Mild NAUSEA Verified 07/27/21 09:51 prednisone AdvReac Mild NAUSEA Verified 07/27/21 09:51 Consultations 07/27/21 11:50 ED Decision to Admit Stat 07/30/21 09:43 Consult Lung Nodule Program Routine Ordered Studies 07/27/21 09:54 CT angio chest PE protocol Stat Hospital Course (1) Acute exacerbation of chronic obstructive pulmonary disease (COPD): Sharri is a 71-year-old female with a history of COPD/asthma overlap syndrome who presented with hypoxia and shortness of breath consistent with an acute on chronic exacerbation. She was treated with azithromycin, and steroids with improvement in her symptoms. She did present with atypical chest pain, TTE did not show any acute abnormalities and her troponins were normal. Following treatment for asthma/COPD exacerbation she clinically improved. She is initially treated with methylprednisolone every 8 hours which was gradually weaned to daily steroids. She was discharged on a steroid taper as below. She improved to her home oxygen requirements by time of discharge, and was actually maintaining saturations greater than 90% on room air at discharge. To do as outpatient: 1. Routine follow-up with PCP within 1 to 2 weeks 2. Complete prednisone taper, start at 40 mg and decrease by 10 mg every other day 3. Complete 5-day course of azithromycin Acute on chronic COPD exacerbation with elevated peripheral EOS - Albuterol/Atrovent Nebs scheduled q6 hours with albuterol nebulizer PRN in between if needed - Continue Umeclidinium/Vilanterol -Continued on azithromycin to 50 mg to complete a 5-day course -Steroids progressively narrowed from methylprednisolone every 8 hours down to prednisone daily with taper on discharge as above - Continue Montelukast -Tolerated O2 wean back to baseline requirements, o (2) Chest pain on exertion: Atypical chest pain vs. angina - As per HPI multifactorial -Improved this morning, continue dyspnea/cough and treatment as above -TTE: Normal LV thickness, EF 50-55%, normal LV systolic function, grade 1 diastolic dysfunction - Troponin normal - Continue BB, ASA, Statin, ARB (3) Asthma-COPD overlap syndrome: As above Patient recently had PFTs done in February with Moderate obstruction and significant air trapping with DLCO mildly reduced. Her FEV1/FVC was 66. (4) LVH (left ventricular hypertrophy): As above - EF 50-55% mild MR with mild LVH (5) Hyperlipidemia: - continue statin (6) Hypertension: Appears well controlled - As above, continue BB, ARB (7) DM w/o complication type II, uncontrolled: Continue basal with SSI - Aspart CF 20, Carb ration 1:15, goal <180 Glucose checks AC/at bedtime (8) Depression: Continue fluoxetine - no acute needs DVT PPx: Lovenox Dispo: Weaning steroids, weaning o2, doing well. Hopefully to RA and dispo tomorrow Total Time Total Time Spent Total Time Spent (In Minutes): Time spend day of discharge 31 minutes including direct patient care, documentation, review of labs and images, and coordination of care. Discharge Plan Discharge Items Patient Disposition: Home - Home Health Services Reason For Visit: COPD EXCERBATION,CHEST PAIN Discharge Diagnosis: COPD Exacerbation Activity: Per Instructions section Non-emergency contact: Primary Care Provider Call non-emergency contact if: you have any medication questions, your symptoms worsen, your pain is not controlled, your pain is worsening, your pain is unusual for you, your pain is concerning for you and you have a fever Follow-up/Referrals: Shira Lopez MD [Primary Care Provider] - 08/02/21 11:30 am Diet: Regular Addtl Attending Provider Instructions: You were seen in the hospital for an acute COPD exacerbation. You were treated with azithromycin and steroids and clinically improved. You retuned to your home oxygen requirements by time of discharge. You were seen by PT who recommended return home. A CT scan of your lung did not show evidence of blood clots or pneumonia, but a pulmonary nodule was noted which should have repeat imaging performed in ~3-6 months. You have been prescribed a steroid medication, prednisone. Please take prednisone 40mg daily x2 days, then 30mg daily x2 days, then 20mg daily x2 days, then 10mg daily x2 days. You have been prescribed an antibiotic, Azithromycin. Please take azithromycin 250mg daily for 2 days. A followup appointment is being scheduled for you with your PCP. You should be seen seen within 1-2 weeks. You should receive a call to confirm this appointment. If you do not receive a call within 48 hours to confirm this appointment, or need to change this appointment, please call the provider's office at [phone]. If you develop any new or worsening symptoms including fever, chills, sweats, chest pain, chest pressure, difficulty breathing, uncontrolled nausea/vomiting, rash, wheezing, passing out or nearly passing out, bleeding, black/bloody bowel movements, or other new or concerning symptoms please call your primary care physician at [phone], or call [phone] for re-evaluation in the emergency department if you are very concerned. Pending Studies at Discharge: No Stand-Alone Forms: My [employer], Smoking Cessation Medications and DC Order Prescriptions: New azithromycin 250 mg Tablet 250 mg PO QAM 2 Days Qty: 2 RF: 0 prednisone 20 mg tablet 20 mg PO DAILY Qty: 10 RF: 0 Continued (DME) lancets [OneTouch Delica Lancets] 33 gauge misc See Dose Instructions .ROUTE .MEDSUPPLY Qty: 100 RF: 5 metoprolol tartrate 25 mg tablet 12.5 mg PO BID Qty: 60 RF: 5 montelukast [Singulair] 10 mg tablet 10 mg PO HS Qty: 30 RF: 5 metformin 500 mg tablet 1,000 mg PO BID Qty: 360 RF: 1 glimepiride 2 mg tablet 2 mg PO QAM Qty: 30 RF: 5 atorvastatin 40 mg tablet 40 mg PO QAM Qty: 30 RF: 5 losartan 50 mg tablet 25 mg PO QAM 90 Days Qty: 45 RF: 1 albuterol sulfate [ProAir HFA] 90 mcg/actuation HFA aerosol inhaler 1 - 2 puff INHALATION Q4H PRN (Reason: SOB) Qty: 18 RF: 2 pantoprazole [Protonix] 40 mg tablet,delayed release (DR/EC) 40 mg PO DAILY Qty: 30 RF: 11 (DME) Ontelauch Ultra Blue Test Strip Strip See Dose Instructions .ROUTE .MEDSUPPLY Qty: 100 RF: 5 fluoxetine 40 mg capsule 40 mg PO QAM Qty: 30 RF: 11 aspirin 81 mg Tablet,Chewable 81 mg PO QAM RF: 0 benzonatate 100 mg Capsule 100 mg PO BID RF: 0 ipratropium-albuterol 0.5 mg-3 mg(2.5 mg base)/3 mL solution for nebulization 3 ml inhalation QID RF: 0 Trelegy Ellipta 200-62.5-25 mcg blister with device 1 inh inhalation DAILY Qty: 60 RF: 0 Discharge Orders: Discharge Order (Routine); Ordered 07/30/21 Ordered By: John Rivera/Other Patient Handouts: What Is COPD? Admission Data Admit Date/Time: 07/27/21 12:15 Attending Provider: John Norton Admit Provider: Michael Velasco Primary Care Provider: Shira Lopez Other Providers: Michael Velasco Other Interventions: Discharge Summary Assessment (RN) Last Done: 07/30/21 11:40 Coding Level of Care Code D/C DAY MANAGEMENT >30 MINS Diagnoses Acute exacerbation of chronic obstructive pulmonary disease (COPD) J44.1 Chest pain on exertion R07.9 Asthma-COPD overlap syndrome J44.9 LVH (left ventricular hypertrophy) I51.7 Hyperlipidemia E78.5 Hypertension I10 Hypertension type: essential hypertension DM w/o complication type II, uncontrolled E11.65 Glycemic state: with hyperglycemia Depression F32.89 Depression Type: other depression
== END 2021-07-30 14:33 | disposition home health service (06) | DRG 192 ==
LOC: ED 09:16 → EDINP 12:15 → SUATTDRO 12:15 → 2N 14:49
DX: Z99.81 Dependence on supplemental oxygen; Z88.5 Allergy status to narcotic agent; F32.9 Major depressive disorder, single episode, unspecified; Z79.84 Long term (current) use of oral hypoglycemic drugs; Z88.8 Allergy status to other drugs, medicaments and biological substances; Z79.899 Other long term (current) drug therapy; Z79.82 Long term (current) use of aspirin; J45.40 Moderate persistent asthma, uncomplicated; I10 Essential (primary) hypertension; R91.8 Other nonspecific abnormal finding of lung field; E11.65 Type 2 diabetes mellitus with hyperglycemia; Z88.6 Allergy status to analgesic agent; Z87.891 Personal history of nicotine dependence; E78.5 Hyperlipidemia, unspecified; J44.1 Chronic obstructive pulmonary disease with (acute) exacerbation

== ENCOUNTER 2021-10-06 10:53 | Inpatient (IN) ==
[2021-10-06] MEDS ORDERED: ALBUT/IPRATROP 3MG/0.5MG NEB 3 ML VIAL NEB ONE (11:04)
[2021-10-06] MEDS ORDERED: methylPREDNISolone 125 MG/2 ML VIAL IV STA (11:04)
--- NOTE | 2021-10-06 11:08 | Emergency Department Note ---
Impression & Plan COPD (chronic obstructive pulmonary disease), Leukocytosis, Hypoxia, Asthma ED Provider Note NAME: ELIE VILLARREAL AGE: 71 SEX: F : 1950 ARRIVES VIA: Walk-In INFORMANT: Patient ED PROVIDER(S): Chucky Sibley DO CHIEF COMPLAINT: shortness of breath HPI: Patient is a 71-year-old female with a past medical history of asthma, COPD, previous smoker, chronically wearing 2 to 3 L at night only who presents to the ER for severe shortness of breath. She notes her symptoms started over the past week. They have been waxing and waning but worsening recently. This morning she took a neb treatment with little improvement and constantly came in. She notes she cannot talk. Denies any chest pain, belly pain, nausea, vomiting, or diarrhea. No dysuria, urgency, or frequency. She does admit to a cough and runny nose. ROS: See above HPI for pertinent positives & negatives. A total of 10 systems reviewed and were otherwise negative. PAST MEDICAL HISTORY:See Below PAST SURGICAL HISTORY:See Below FAMILY HISTORY:See Below SOCIAL HISTORY:See Below HOME MEDICATIONS:See Below ALLERGIES:See Below VITALS:See Below PHYSICAL EXAMINATION: GENERAL: Sitting up in bed, alert, moderate distress talking one-word answers EYE EXAM: normal conjunctiva. PERRL and EOM's grossly intact. OROPHARYNX: no exudate, no erythema, lips, buccal mucosa, and tongue normal and mucous membranes are moist NECK: supple, no nuchal rigidity, no adenopathy, non-tender LUNGS: Diffuse wheezing bilaterally. Normal chest wall mechanics HEART: no murmurs, S1 normal and S2 normal ABDOMEN: abdomen soft, non-tender, normo-active bowel sounds, no masses, no rebound or guarding. BACK: Back is symmetrical on inspection and there is no deformity, no midline tenderness, no CVA tenderness. SKIN: no rashes and no bruising UPPER EXTREMITIES: upper extremities are grossly normal. LOWER EXTREMITIES: No pitting edema. Calves are equal bilateral NEURO EXAM: Normal sensorium, cranial nerves II-XII grossly intact, normal speech, no gross weakness of arms, no gross weakness of legs. MEDICAL DECISION MAKING: Patient is a 71-year-old female who presents the ER for shortness of breath. IV was established blood work was obtained. Labs show mild leukocytosis 11,000. No significant anemia. INR was unremarkable. BMP along with LFTs bilirubin lipase was unremarkable. Troponin was negative. Covid and influenza and RSV were unremarkable. Chest x-ray was unremarkable. Patient was given hour-long neb treatment as well along with steroids. She was hypoxic on room air normally does not wear oxygen throughout the day. She was placed on 3 to [address] ill 89%. Discussed with hospitalist admitted for further work-up. Her work of breathing improved significantly with neb treatments. Triage Nursing notes reviewed. Limited review of prior medical records performed Vital Signs: reviewed and remarkable for no significant abnormalities Differential diagnosis: Differential diagnoses includes but is not limited to pneumonia, bronchitis, COPD/Asthma exacerbation, pneumothorax, pulmonary embolism, congestive heart failure, acute coronary syndrome ER treatment provided: See below Diagnostics interpreted by me: ECG: Sinus rhythm rate [address] depressions V2 through V6 with T wave inversion QTC 445 No significant change from September 14 Cardiac Monitoring: An order was placed for continuous cardiac monitoring. The monitor shows a rate of 82 with sinus rhythm. Laboratory studies: As stated above and show below. Imaging studies: AP upright 1 view the chest is unremarkable Consultation(s): Discussed with Anibal Hutchison for further evaluation Procedures: none Critical Care: I have personally spent 32 minutes of critical care time in the direct managemen t of this patient. This includes bedside care, interpretation of diagnostic studies, and testing, discussion with consultants, patient, and family members, and other required patient management activities. This 32 minutes is in excess of all separately billable procedures. Past Med/Surg History Medical History Acute exacerbation of chronic obstructive pulmonary disease (COPD) Asthma-COPD overlap syndrome Chronic obstructive pulmonary disease Depression Excessive daytime sleepiness History of nicotine dependence Hyperlipidemia Hypertension Insomnia Moderate persistent asthma Nocturnal hypoxemia Peripheral eosinophilia Surgical History H/O oophorectomy H/O: hysterectomy Family History Father Diabetes CHF (congestive heart failure) Grandfather (Paternal) Diabetes Mother Deep vein thrombosis NHL (non-Hodgkin's lymphoma) Grandfather (Maternal) Acute leukemia Grandmother (Maternal) Deep vein thrombosis Aunt Deep vein thrombosis Other No pertinent family history Denies family history of Ovarian cancer Prostate cancer Myocardial infarction Breast cancer Colorectal cancer Social History Smoking Status: Never smoker Tobacco Type: Cigarettes Second Hand Exposure: No; Hx Alcohol Use: No Hx Substance Use: No Preferred Language: Yakut Communication Ability: Effective Visual Impairment: No Limitations Hearing Ability: Normal Director Of Student Services Required: No Beliefs That Will Affect Care: None marital status: 1 Current Living Situation: Alone current occupational status: retired Feels Safe at Home: Yes Dental Care, Regularly: No Seatbelt Use: always Sunscreen Use: Yes Assistive Devices: Glasses and Oxygen - Continuous Allergies Allergies Allergy/AdvReac Type Severity Reaction Status Date / Time hydrocodone AdvReac Mild NAUSEA Verified 10/06/21 14:56 prednisone AdvReac Mild NAUSEA Verified 10/06/21 14:56 Home Meds Home Medications Medication Instructions Recorded Confirmed aspirin 81 mg chewable tablet 81 mg PO QAM 04/10/18 10/06/21 benzonatate 100 mg capsule 100 mg PO BID 07/27/21 10/06/21 fluticasone fur. 200 mcg-umeclid 1 inh INHALATION QAM 09/14/21 10/06/21 62.5 mcg-vilant 25 mcg inhalat.powder (Trelegy Ellipta) pantoprazole 40 mg tablet,delayed 40 mg PO DAILYBB 09/14/21 10/06/21 release (Protonix) Previous Rx's Medication Instructions Recorded lancets 33 gauge (OneTouch Delica #100 ea 03/02/20 Lancets) blood sugar diagnostic (OneTouch #100 ea 10/13/20 Ultra Blue Test Strip) fluoxetine 40 mg capsule 40 mg PO QAM #30 cap 10/13/20 metoprolol tartrate 25 mg tablet 12.5 mg PO BID #60 tab 01/09/21 glimepiride 2 mg tablet 2 mg PO QAM #30 tab 06/04/21 metformin 500 mg tablet 1,000 mg PO BID #360 tab 06/04/21 atorvastatin 40 mg tablet 40 mg PO QAM #30 tab 07/05/21 losartan 50 mg tablet 25 mg PO QAM 90 Days #45 tab 07/07/21 albuterol sulfate 90 mcg/actuation 1 - 2 puff INHALATION Q4H PRN #18 07/10/21 aerosol inhaler (ProAir HFA) gm montelukast 10 mg tablet 10 mg PO HS #30 tab 08/01/21 (Singulair) ipratropium 0.5 mg-albuterol 3 mg 3 ml INHALATION QID PRN #3 ml 10/02/21 (2.5 mg base)/3 mL nebulization soln nebulizers (MicroAir Mesh #1 ea 10/03/21 Nebulizer) Results & Data (ED) Vital Signs Vital Signs - 24 hr 10/06/21 10:56 10/06/21 11:03 10/06/21 11:20 Temperature 36.5 C Temperature Source Temporal Artery Scan Pulse Rate 74 Pulse Rate [Right Finger] 78 Pulse Rhythm Regular Pulse Rhythm [Right Finger] Pulse Strength Normal Pulse Strength [Right Finger] Respiratory Rate 28 H 16 Respiratory Effort / Characteristics Spontaneous Accessory Muscle Use Labored Short of Breath SOB on Exertion Short of Breath Respiratory Depth Normal Respiratory Pattern Tachypnea Tachypnea Blood Pressure 182/92 H Blood Pressure [Right Arm] Blood Pressure Mean 122 Blood Pressure Mean [Right Arm] Blood Pressure Position Sitting Blood Pressure Position [Right Arm] Pulse Oximetry 92 96 Oxygen Delivery Method Room Air Nasal Cannula Nasal Cannula Oxygen Flow Rate 3 2 Sepsis Recent Fever Within 48 Hours No Sepsis New/Unexplained Change in Mental Status No Sepsis Action Taken by Nursing No Action Required 10/06/21 11:47 10/06/21 12:33 10/06/21 13:41 Temperature Temperature Source Pulse Rate Pulse Rate [Right Finger] 96 H Pulse Rhythm Pulse Rhythm [Right Finger] Regular Pulse Strength Pulse Strength [Right Finger] Normal Respiratory Rate 22 Respiratory Effort / Characteristics Non-Labored Respiratory Depth Normal Respiratory Pattern Blood Pressure Blood Pressure [Right Arm] 154/91 H Blood Pressure Mean Blood Pressure Mean [Right Arm] 112 Blood Pressure Position Blood Pressure Position [Right Arm] Sitting Pulse Oximetry 100 94 92 Oxygen Delivery Method Other Room Air Room Air Oxygen Flow Rate Sepsis Recent Fever Within 48 Hours Sepsis New/Unexplained Change in Mental Status Sepsis Action Taken by Nursing Laboratory Data Result diagrams: 10/06/21 11:20 10/06/21 11:20 Lab Results 10/06/21 10/06/21 10/06/21 Range/Units 11:20 11:20 11:20 WBC 11.87 H (4.8-10.8) K/uL RBC 4.17 L (4.2-5.4) M/uL Hgb 12.9 (12.0-16.0) g/dL Hct 38.1 (37-47) % MCV 91.4 (80-100) fL MCH 30.9 (25-34) pg MCHC 33.9 (32-36) g/dL RDW Std Deviation 45.9 (36.4-46.3) fL RDW Coeff of Aniyah 13.8 (11.5-14.5) % Plt Count 302 (130-400) K/uL MPV 9.6 (7.4-10.4) fL Immature Gran % (Auto) 0.2 % Neut % (Auto) 47.2 % Lymph % (Auto) 28.8 % [place] % (Auto) 9.3 % Eos % (Auto) 14.1 % Baso % (Auto) 0.4 % Neut # (Auto) 5.61 (1.4-6.5) K/uL Lymph # (Auto) 3.42 H (1.2-3.4) K/uL [place] # (Auto) 1.10 H (0.11-0.59) K/uL Eos # (Auto) 1.67 H (0-0.5) K/uL Baso # (Auto) 0.05 (0-0.2) K/uL Immature Gran # (Auto) 0.02 (0.00-0.02) K/uL PT 10.4 (9.0-12.0) Seconds INR 1.0 (0.9-1.1) Sodium 140 (136-145) mmol/L Potassium 3.7 (3.5-5.1) mmol/L Chloride 105 (98-107) mmol/L Carbon Dioxide 26 (21-32) mmol/L Anion Gap 9 (3-11) BUN 10 (6-23) mg/dl Creatinine 0.69 (0.6-1.2) mg/dl Est Cr Clr Drug Dosing 80.6 ml/min Est GFR ( Amer) 102.9 ml/min Est GFR (Non-Af Amer) 88.8 ml/min BUN/Creatinine Ratio 14.5 (10-20) Glucose 79 (70-99(Fasting)) mg/dl Calcium 9.2 (8.5-10.1) mg/dl Total Bilirubin 0.7 (0.2-1.0) mg/dl AST 15 (13-39) U/L ALT 13 (7-52) U/L Alkaline Phosphatase 75 (34-104) U/L Troponin I < 0.03 (0-0.04) ng/ml Total Protein 7.2 (6.0-8.3) gm/dl Albumin 4.1 (3.4-5.0) gm/dl Globulin 3.1 (2.5-4.0) gm/dl Albumin/Globulin Ratio 1.3 (0.9-2) Lipase 25 (11-82) U/L SARS-CoV-2 (PCR) (Negative) Influenza Type A (PCR) (Neg) Influenza Type B (PCR) (Neg) RSV (RT-PCR) (Neg) 10/06/21 Range/Units 11:35 WBC (4.8-10.8) K/uL RBC (4.2-5.4) M/uL Hgb (12.0-16.0) g/dL Hct (37-47) % MCV (80-100) fL MCH (25-34) pg MCHC (32-36) g/dL RDW Std Deviation (36.4-46.3) fL RDW Coeff of Aniyah (11.5-14.5) % Plt Count (130-400) K/uL MPV (7.4-10.4) fL Immature Gran % (Auto) % Neut % (Auto) % Lymph % (Auto) % [place] % (Auto) % Eos % (Auto) % Baso % (Auto) % Neut # (Auto) (1.4-6.5) K/uL Lymph # (Auto) (1.2-3.4) K/uL [place] # (Auto) (0.11-0.59) K/uL Eos # (Auto) (0-0.5) K/uL Baso # (Auto) (0-0.2) K/uL Immature Gran # (Auto) (0.00-0.02) K/uL PT (9.0-12.0) Seconds INR (0.9-1.1) Sodium (136-145) mmol/L Potassium (3.5-5.1) mmol/L Chloride (98-107) mmol/L Carbon Dioxide (21-32) mmol/L Anion Gap (3-11) BUN (6-23) mg/dl Creatinine (0.6-1.2) mg/dl Est Cr Clr Drug Dosing ml/min Est GFR ( Amer) ml/min Est GFR (Non-Af Amer) ml/min BUN/Creatinine Ratio (10-20) Glucose (70-99(Fasting)) mg/dl Calcium (8.5-10.1) mg/dl Total Bilirubin (0.2-1.0) mg/dl AST (13-39) U/L ALT (7-52) U/L Alkaline Phosphatase (34-104) U/L Troponin I (0-0.04) ng/ml Total Protein (6.0-8.3) gm/dl Albumin (3.4-5.0) gm/dl Globulin (2.5-4.0) gm/dl Albumin/Globulin Ratio (0.9-2) Lipase (11-82) U/L SARS-CoV-2 (PCR) NEGATIVE (Negative) Influenza Type A (PCR) Negative (Neg) Influenza Type B (PCR) Negative (Neg) RSV (RT-PCR) Negative (Neg) Administered Medications Discontinued Medications Albuterol (Albut/Ipratrop 3mg/0.5mg Neb 3 Ml Vial) 12 ml NEB ONE ONE; Protocol Stop: 10/06/21 11:05 Last Admin: 10/06/21 11:20 Dose: 12 ml Documented by: [id number] Menthol (Cough Drop (Sugar Free) Emir 24 Emir/1 Box) 1 emir BUCCAL NOW STA Stop: 10/06/21 13:55 Last Admin: 10/06/21 14:10 Dose: 1 emir Documented by: [id number] Methylprednisolone (Methylprednisolone 125 Mg/2 Ml Vial) 60 mg IV NOW STA Stop: 10/06/21 11:05 Last Admin: 10/06/21 11:30 Dose: 60 mg Documented by: [id number] Imaging Data Radiologist's Impression: Chest X-Ray 10/06/21 11:04 XR chest 1V portable HISTORY: Atypical Chest Pain COMPARISON: Chest 09/14/2021. FINDINGS: The lungs are clear. Cardiac silhouette is normal in size. No pleural effusions. No pneumothorax. IMPRESSION: No acute process. ACT 112: Negative or not required by law. Electronically signed by: Tono Dial M.D. 10/06/2021 11:27 AM Discharge Plan Visit Data Chief Complaint: Shortness of Breath/Dyspnea Stated Complaint: SOB ED Provider: Chucky Sibley Discharge Problem: COPD (chronic obstructive pulmonary disease), Leukocytosis, Hypoxia, Asthma Patient Disposition: Admitted As Inpatient Discharge Instructions Interventions: ED Discharge Assessment Last Done: 10/06/21 14:59 Discharge Problem: COPD (chronic obstructive pulmonary disease) Qualifiers: COPD type: unspecified COPD Qualified Code(s): J44.9 - Chronic obstructive pulmonary disease, unspecified Leukocytosis Qualifiers: Leukocytosis type: unspecified Qualified Code(s): D72.829 - Elevated white b lood cell count, unspecified Asthma Qualifiers: Asthma severity: mild Asthma persistence: unspecified Asthma complication type: unspecified Qualified Code(s): J45.909 - Unspecified asthma, uncomplicated
--- NOTE | 2021-10-06 11:28 | XRay Report ---
XR chest 1V portable HISTORY: Atypical Chest Pain COMPARISON: Chest 09/14/2021. FINDINGS: The lungs are clear. Cardiac silhouette is normal in size. No pleural effusions. No pneumot horax. IMPRESSION: No acute process. ACT 112: Negative or not required by law. Electronically signed by: Tono Dial M.D. 10/06/2021 11:27 AM
[2021-10-06 11:50] LABS: Basophils # (auto) 0.05 K/uL (0-0.2); Basophils % (auto) 0.4 %; Eosinophils # (auto) 1.67 K/uL (0-0.5); Eosinophils % (auto) 14.1 %; Hematocrit (blood only) 38.1 % (37-47); Hemoglobin 12.9 g/dL (12.0-16.0); Immature Granulocytes # (auto) 0.02 K/uL (0.00-0.02); Immature Granulocytes % (auto) 0.2 %; Lymphocytes # (auto) 3.42 K/uL (1.2-3.4); Lymphocytes % (auto) 28.8 %; Mean Corpuscular Hemoglobin 30.9 pg (25-34); Mean Corpuscular Hgb Conc 33.9 g/dL (32-36); Mean Corpuscular Volume 91.4 fL (80-100); Mean Platelet Volume 9.6 fL (7.4-10.4); Monocytes % (auto) 9.3 %; Neutrophils # (auto) 5.61 K/uL (1.4-6.5); Neutrophils % (auto) 47.2 %; Platelet Count 302 K/uL (130-400); RDW Coefficient of Variation 13.8 % (11.5-14.5); RDW Standard Deviation 45.9 fL (36.4-46.3); Red Blood Count 4.17 M/uL (4.2-5.4); White Blood Count 11.87 K/uL (4.8-10.8)
[2021-10-06 11:58] LABS: Prothrombin Time 10.4 Seconds (9.0-12.0)
[2021-10-06 12:12] LABS: Alanine Aminotransferase 13 U/L (7-52); Albumin Globulin Ratio 1.3 (0.9-2); Albumin Level 4.1 gm/dl (3.4-5.0); Alkaline Phosphatase 75 U/L (34-104); Anion Gap 9 (3-11); Aspartate Aminotransferase 15 U/L (13-39); BUN Creatinine Ratio 14.5 (10-20); Bilirubin,Total 0.7 mg/dl (0.2-1.0); Blood Urea Nitrogen 10 mg/dl (6-23); Calcium 9.2 mg/dl (8.5-10.1); Carbon Dioxide 26 mmol/L (21-32); Chloride 105 mmol/L (98-107); Creatinine Clr Calc Pharmacy 80.6 ml/min; Est GFR (African American) 102.9 ml/min; Est GFR (Non-African American) 88.8 ml/min; Globulin 3.1 gm/dl (2.5-4.0); Glucose 79 mg/dl (70-99(Fasting)); Lipase 25 U/L (11-82); Potassium 3.7 mmol/L (3.5-5.1); Sodium 140 mmol/L (136-145); Total Protein 7.2 gm/dl (6.0-8.3)
[2021-10-06 12:14] LABS: Troponin I < 0.03 ng/ml (0-0.04)
[2021-10-06 13:02] LABS: Influenza A virus by PCR Negative (Neg); Influenza B virus by PCR Negative (Neg); RSV by PCR Negative (Neg); SARS CoV2 RNA(COVID-19) InHosp NEGATIVE (Negative)
[2021-10-06] MEDS ORDERED: COUGH DROP (SUGAR FREE) LOZ 24 LOZ/1 BOX BUCCAL STA (13:54)
--- NOTE | 2021-10-06 14:04 | History & Physical Report ---
Date of Service October 06, 2021 Assessment & Plan (1) Asthma-COPD overlap syndrome: Plan: Recurrent COPD exacerbations with the weather being the only known inciting factor. - Steroids - DuoNebs standing and PRN - Azithromycin 500 mg PO daily x 3 doses - Defer sputum cx as she is not making more or different (2) Acute on chronic respiratory failure with hypoxia: Plan: Now on 3L NC to keep SpO2 > 90%. Previously has only used O2 overnight. - Titrate to SpO2 > 90% (3) Abnormal EKG: Plan: ST depressions and TWIs in precordial leads are long-standing. No chest pain reported for me today. Normal troponin. - Repeat one troponin and EKG in the AM (4) DM w/o complication type II, uncontrolled: Plan: Last A1c was 6.9% last year. - Hold home metformin & glimepiride - Sliding scale insulin - Repeat A1c - If blood sugars are hard to control on steroids, consider NPH insulin or glycemic consult (5) Hypertension: Plan: BP in the ER was 155/90. - Continue home beta-bailey and ARB (6) Hyperlipidemia: Plan: - Continue statin - Continue ASA for heart health (7) Depression: Plan: - Continue fluoxetine (8) DVT prophylaxis: Plan: Lovenox 40 mg SQ daily History of Present Illness Primary Care Provider: Shira Lopez MD Allergies Allergy/AdvReac Type Severity Reaction Status Date / Time hydrocodone AdvReac Mild NAUSEA Verified 09/14/21 14:39 prednisone AdvReac Mild NAUSEA Verified 09/14/21 14:39 Home Medications Medication Instructions Recorded Confirmed Type aspirin 81 mg chewable tablet 81 mg PO QAM 04/10/18 09/14/21 History lancets 33 gauge (OneTouch Delica #100 ea 03/02/20 08/06/21 Rx Lancets) blood sugar diagnostic (OneTouch #100 ea 10/13/20 08/06/21 Rx Ultra Blue Test Strip) fluoxetine 40 mg capsule 40 mg PO QAM #30 cap 10/13/20 09/14/21 Rx metoprolol tartrate 25 mg tablet 12.5 mg PO BID #60 tab 01/09/21 09/14/21 Rx glimepiride 2 mg tablet 2 mg PO QAM #30 tab 06/04/21 09/14/21 Rx metformin 500 mg tablet 1,000 mg PO BID #360 tab 06/04/21 09/14/21 Rx atorvastatin 40 mg tablet 40 mg PO QAM #30 tab 07/05/21 09/14/21 Rx losartan 50 mg tablet 25 mg PO QAM 90 Days #45 tab 07/07/21 09/14/21 Rx albuterol sulfate 90 mcg/actuation 1 - 2 puff INHALATION Q4H PRN #18 07/10/21 09/14/21 Rx aerosol inhaler (ProAir HFA) gm benzonatate 100 mg capsule 100 mg PO BID 07/27/21 09/14/21 History montelukast 10 mg tablet 10 mg PO HS #30 tab 08/01/21 09/14/21 Rx (Singulair) fluticasone fur. 200 mcg-umeclid 1 inh INHALATION QAM 09/14/21 09/14/21 History 62.5 mcg-vilant 25 mcg inhalat.powder (Trelegy Ellipta) pantoprazole 40 mg tablet,delayed 40 mg PO DAILYBB 09/14/21 09/14/21 History release (Protonix) ipratropium 0.5 mg-albuterol 3 mg 3 ml INHALATION QID PRN #3 ml 10/02/21 Rx (2.5 mg base)/3 mL nebulization soln nebulizers (MicroAir Mesh #1 ea 10/03/21 Rx Nebulizer) Past Med/Surg History Medical History Acute exacerbation of chronic obstructive pulmonary disease (COPD) Asthma-COPD overlap syndrome Chronic obstructive pulmonary disease Depression Excessive daytime sleepiness History of nicotine dependence Hyperlipidemia Hypertension Insomnia Moderate persistent asthma Nocturnal hypoxemia Peripheral eosinophilia Surgical History H/O oophorectomy H/O: hysterectomy Family History Father Diabetes CHF (congestive heart failure) Grandfather (Paternal) Diabetes Mother Deep vein thrombosis NHL (non-Hodgkin's lymphoma) Grandfather (Maternal) Acute leukemia Grandmother (Maternal) Deep vein thrombosis Aunt Deep vein thrombosis Other No pertinent family history Denies family history of Ovarian cancer Prostate cancer Myocardial infarction Breast cancer Colorectal cancer Social History Smoking Status: Never smoker Tobacco Type: Cigarettes Second Hand Exposure: No; Hx Alcohol Use: No Hx Substance Use: No Preferred Language: Slovenian Communication Ability: Effective Visual Impairment: No Limitations Hearing Ability: Normal Certified Hyperbaric Technician Required: No Beliefs That Will Affect Care: None marital status: 1 Current Living Situation: Alone current occupational status: retired Feels Safe at Home: Yes Dental Care, Regularly: No Seatbelt Use: always Sunscreen Use: Yes Assistive Devices: Glasses and Oxygen - Continuous Review of Systems Review of Systems: All systems reviewed & are unremarkable except as noted in HPI & below Physical Exam Constitutional: WD/WN, vitals as above Eyes: EOM intact bilaterally; no conjunctival abnormality ENMT: external ear and nose normal, oropharynx normal Neck: trachea midline, no thyromegaly normal visual inspection Respiratory: + labored breathing, + cough and + prolonged expiratory phase Auscultation: + diminished lung sounds and + wheezes (Diffuse on inspiration and expiration) Cardiovascular: RRR, no murmur, no edema Gastrointestinal (Abdomen): Inspection/Auscultation: abdomen normal to inspection; abdomen not distended Musculoskeletal: no cyanosis or clubbing, extremities motor strength 5/5 Skin: no rashes, warm and dry Neurologic: moves all extremities and awake Psychiatric: Orientation: alert, oriented to person and cooperative Results & Data Results & Data ([facility]) Vital Signs (Past 12 Hours) Vital Signs Temp Pulse Pulse Resp BP BP Pulse Ox 10/06/21 13:41 96 H 22 154/91 H 92 10/06/21 12:33 94 10/06/21 11:47 100 10/06/21 11:20 78 16 96 10/06/21 10:56 36.5 C 74 28 H 182/92 H 92 Code Status & VTE Plan VTE Prophylaxis Plan VTE Prophylaxis will be ordered: Yes PG Care Time/CCT Total # of Minutes Spent Total Time Spent with Patient: Total time spent is greater than 50% in coordination of care (as documented) at patient's floor/unit and/or counseling patient: Coding Level of Care Code INT OBSERVATION CARE 72M LVL 3 Diagnoses Asthma-COPD overlap syndrome J44.9 Acute on chronic respiratory failure with hypoxia J96.21 Abnormal EKG R94.31 Hypertension I10 Hypertension type: essential hypertension Hyperlipidemia E78.5 DM w/o complication type II, uncontrolled E11.65 Glycemic state: with hyperglycemia DVT prophylaxis Z29.9 Depression F32.89 Depression Type: other depression (1) Hypertension Hypertension type: essential hypertension Qualified Code(s): I10 - Essential (primary) hypertension (2) DM w/o complication type II, uncontrolled Glycemic state: with hyperglycemia Qualified Code(s): E11.65 - Type 2 diabetes mellitus with hyperglycemia (3) Depression Depression Type: other depression Qualified Code(s): F32.89 - Other specified depressive episodes
[2021-10-06] MEDS ORDERED: DEXTROSE 50% 50 ML SYRINGE IV PRN (15:18)
[2021-10-06] MEDS ORDERED: GLUCOSE 40% GEL 15 GM TUBE PO PRN (15:18)
[2021-10-06] MEDS ORDERED: ACETAMINOPHEN 325 MG TAB PO PRN (15:18)
[2021-10-06] MEDS ORDERED: CARBOHYDRATES FOR HYPOGLYCEMIA PO PRN (15:18)
[2021-10-06] MEDS ORDERED: ONDANSETRON INJ 2 MG/ML 2 ML VIAL IV PRN (15:18)
[2021-10-06] MEDS ORDERED: GLUCAGON FOR INJ 1 MG VIAL SQ PRN (15:18)
[2021-10-06] MEDS ORDERED: GLUCOSE 10 TABS/TUBE PO PRN (15:18)
[2021-10-06] MEDS ORDERED: ALBUT/IPRATROP 3MG/0.5MG NEB 3 ML VIAL NEB PRN (15:25)
[2021-10-06] MEDS: ALBUT/IPRATROP 3MG/0.5MG NEB 3 ML VIAL NEB SCH ×3 (15:30→22:51)
[2021-10-06] MEDS: AZITHROMYCIN 250 MG TAB PO SCH (16:13)
[2021-10-06] MEDS: INSULIN ASPART PER UNIT SC SCH ×2 (17:21→20:53)
[2021-10-06] MEDS ORDERED: COUGH DROP (SUGAR FREE) LOZ 24 LOZ/1 BOX BUCCAL PRN (18:56)
[2021-10-06] MEDS: MONTELUKAST SODIUM 10 MG TABLET PO SCH (20:45)
[2021-10-06] MEDS: METOPROLOL TARTRATE 25 MG TAB PO SCH (20:46)
[2021-10-07] MEDS: ALBUT/IPRATROP 3MG/0.5MG NEB 3 ML VIAL NEB SCH ×6 (03:37→22:25)
[2021-10-07 06:08] LABS: Hematocrit (blood only) 37.9 % (37-47); Hemoglobin 12.6 g/dL (12.0-16.0); Mean Corpuscular Hemoglobin 30.5 pg (25-34); Mean Corpuscular Hgb Conc 33.2 g/dL (32-36); Mean Corpuscular Volume 91.8 fL (80-100); Mean Platelet Volume 9.9 fL (7.4-10.4); Platelet Count 307 K/uL (130-400); RDW Coefficient of Variation 13.7 % (11.5-14.5); RDW Standard Deviation 45.7 fL (36.4-46.3); Red Blood Count 4.13 M/uL (4.2-5.4); White Blood Count 14.72 K/uL (4.8-10.8)
[2021-10-07 06:33] LABS: Calcium 9.4 mg/dl (8.5-10.1); Creatinine Clr Calc Pharmacy 67.8 ml/min; Est GFR (African American) 84.6 ml/min; Magnesium 1.8 mg/dl (1.7-2.4)
[2021-10-07] MEDS: PANTOprazole 40 MG TAB PO SCH (06:43)
[2021-10-07] MEDS: METOPROLOL TARTRATE 25 MG TAB PO SCH ×2 (07:22→20:38)
[2021-10-07] MEDS: AZITHROMYCIN 250 MG TAB PO SCH (07:23)
[2021-10-07] MEDS: FLUoxetine HCL 20 MG CAP PO SCH (07:23)
[2021-10-07] MEDS: ASPIRIN 81 MG ECTAB PO SCH (07:23)
[2021-10-07] MEDS: ATORVASTATIN 40 MG TAB PO SCH (07:23)
[2021-10-07] MEDS: LOSARTAN POTASSIUM 25 MG TAB PO SCH (07:23)
[2021-10-07] MEDS: UMECLIDINIUM/VILANTEROL 62.5/25MCG 7 PUFFS/INHALER INH SCH (07:24)
[2021-10-07] MEDS: FLUTICASONE FUROATE 100MCG 14 PUFFS/INHALER INH SCH (07:24)
[2021-10-07] MEDS: ENOXAPARIN INJ 40 MG/0.4 ML SYR SQ SCH (07:24)
[2021-10-07] MEDS ORDERED: BENZONATATE 100 MG CAPSULE PO PRN (08:17)
[2021-10-07] MEDS: INSULIN ASPART PER UNIT SC SCH ×4 (08:38→20:37)
[2021-10-07] MEDS ORDERED: NON-FORMULARY MEDICATION (Fluticasone-Umeclidin-Vilanter [Trelegy Ellipta] 200-62.5-25 mcg INH SCH (09:00)
[2021-10-07] MEDS ORDERED: guaiFENesin 600 MG TABCR PO SCH (09:00)
--- NOTE | 2021-10-07 10:39 | Electrocardiogram Report ---
Test Reason : Blood Pressure : / mmHG Vent. Rate : 069 BPM Atrial Rate : 069 BPM P-R Int : 152 ms QRS Dur : 088 ms QT Int : 416 ms P-R-T Axes : 069 024 -57 degrees QTc Int : 445 ms Normal sinus rhythm Abnormal ECG When compared with ECG of 14-SEP-2021 13:32, No significant change Confirmed by Alexis Rogel ([id number]) on 10/07/2021 10:38:49 AM Referred By: REFERRED SELF Confirmed By:Alexis Rogel
--- NOTE | 2021-10-07 11:27 | Electrocardiogram Report ---
Test Reason : Blood Pressure : / mmHG Vent. Rate : 091 BPM Atrial Rate : 091 BPM P-R Int : 160 ms QRS Dur : 088 ms QT Int : 378 ms P-R-T Axes : 083 063 146 degrees QTc Int : 464 ms Normal sinus rhythm Abnormal ECG When compared with ECG of 06-OCT-2021 11:21, (unconfirmed) No significant change was found Confirmed by Alexis Rogel ([id number]) on 10/07/2021 11:26:50 AM Referred By: REFERRED SELF Confirmed By:Alexis Rogel
[2021-10-07] MEDS: INSULIN GLARGINE SOLOSTAR 100 UNITS/ML 3 ML PEN SC SCH (12:32)
--- NOTE | 2021-10-07 15:47 | Hospitalist Progress Note ---
Date of Service October 07, 2021 Assessment & Plan (1) Asthma-COPD overlap syndrome: Plan: Recurrent COPD exacerbations with the weather being the only known inciting factor. - Steroids will cut back to daily -ordered cough syrup -ordered flutter valve to help decrease cough - DuoNebs standing and PRN - Azithromycin 500 mg PO daily x 3 doses - Defer sputum cx as she is not making more or different (2) Acute on chronic respiratory failure with hypoxia: Plan: Now on 3L NC to keep SpO2 > 90%. Previously has only used O2 overnight. - Titrate to SpO2 > 90% (3) Abnormal EKG: Plan: ST depressions and TWIs in precordial leads are long-standing. No chest pain reported for me today. Normal troponin. - trop negative. (4) DM w/o complication type II, uncontrolled: Plan: Last A1c was 6.9% last year. - Hold home metformin & glimepiride - Sliding scale insulin - Repeat A1c - If blood sugars are hard to control on steroids, consider NPH insulin or glycemic consult (5) Hypertension: Plan: BP in the ER was 155/90. - Continue home beta-bailey and ARB (6) Hyperlipidemia: Plan: - Continue statin - Continue ASA for heart health (7) Depression: Plan: - Continue fluoxetine (8) DVT prophylaxis: Plan: Lovenox 40 mg SQ daily Admission and Anticipated Discharge Date Admission Date: October 06, 2021 Subjective 71 yo female reports no significant improvement. She continues to have a cough, she states she is having difficulty bringing up sputum Review of Systems Review of Systems: All systems reviewed & are unremarkable except as noted in HPI & below Physical Exam Physical Exam: Constitutional: WD/WN, vitals as above Eyes: EOM intact bilaterally; no conjunctival abnormality ENMT: external ear and nose normal, oropharynx normal Neck: trachea midline, no thyromegaly normal visual inspection Respiratory: Auscultation: + diminished lung sounds and + wheezes (Diffuse on inspiration and expiration) Cardiovascular: RRR, no murmur, no edema Gastrointestinal (Abdomen): Inspection/Auscultation: abdomen normal to inspection; abdomen not distended Musculoskeletal: no cyanosis or clubbing, extremities motor strength 5/5 Skin: no rashes, warm and dry Neurologic: moves all extremities and awake Psychiatric: Orientation: alert, oriented to person and cooperative Results & Data Results & Data ([facility]) Vital Signs (Past 12 Hours) Vital Signs Temp Pulse Resp BP Pulse Ox 10/07/21 12:00 37.2 C 90 22 135/78 91 10/07/21 10:22 90 20 95 10/07/21 07:30 37 C 94 H 16 150/89 H 94 10/07/21 06:52 18 95 PG Care Time/CCT Total # of Minutes Spent Total Time Spent with Patient: Total time spent is greater than 50% in coordination of care (as documented) at patient's floor/unit and/or counseling patient: Coding Level of Care Code 90293 Subseq Hosp Care Lvl 2 Diagnoses Asthma-COPD overlap syndrome J44.9 Acute on chronic respiratory failure with hypoxia J96.21 Abnormal EKG R94.31 DM w/o complication type II, uncontrolled E11.65 Glycemic state: with hyperglycemia Hypertension I10 Hypertension type: essential hypertension Hyperlipidemia E78.5 Depression F32.89 Depression Type: other depression DVT prophylaxis Z29.9 Time Spent (min) 25 (1) DM w/o complication type II, uncontrolled Glycemic state: with hyperglycemia Qualified Code(s): E11.65 - Type 2 diabetes mellitus with hyperglycemia (2) Hypertension Hypertension type: essential hypertension Qualified Code(s): I10 - Essential (primary) hypertension (3) Depression Depression Type: other depression Qualified Code(s): F32.89 - Other specified depressive episodes
[2021-10-07] MEDS: MONTELUKAST SODIUM 10 MG TABLET PO SCH (20:39)
[2021-10-08] MEDS: ALBUT/IPRATROP 3MG/0.5MG NEB 3 ML VIAL NEB SCH ×6 (03:42→23:19)
[2021-10-08 06:15] LABS: Hematocrit (blood only) 38.2 % (37-47); Mean Corpuscular Hemoglobin 31.6 pg (25-34); Mean Corpuscular Volume 92.7 fL (80-100); Mean Platelet Volume 9.6 fL (7.4-10.4); Platelet Count 309 K/uL (130-400); RDW Coefficient of Variation 14.3 % (11.5-14.5); Red Blood Count 4.12 M/uL (4.2-5.4); White Blood Count 18.42 K/uL (4.8-10.8)
[2021-10-08] MEDS: PANTOprazole 40 MG TAB PO SCH (06:18)
[2021-10-08] MEDS: ENOXAPARIN INJ 40 MG/0.4 ML SYR SQ SCH (06:18)
[2021-10-08 06:33] LABS: Troponin I < 0.03 ng/ml (0-0.04)
[2021-10-08 06:38] LABS: Anion Gap 6 (3-11); BUN Creatinine Ratio 27.5 (10-20); Blood Urea Nitrogen 28 mg/dl (6-23); Calcium 9.2 mg/dl (8.5-10.1); Carbon Dioxide 28 mmol/L (21-32); Chloride 104 mmol/L (98-107); Creatinine Clr Calc Pharmacy 54.5 ml/min; Est GFR (Non-African American) 56.1 ml/min; Glucose 220 mg/dl (70-99(Fasting)); Potassium 3.9 mmol/L (3.5-5.1); Sodium 138 mmol/L (136-145)
[2021-10-08 07:21] LABS: Estimated Average Glucose 154 mg/dl
[2021-10-08] MEDS: INSULIN ASPART PER UNIT SC SCH ×4 (08:46→21:07)
[2021-10-08] MEDS: UMECLIDINIUM/VILANTEROL 62.5/25MCG 7 PUFFS/INHALER INH SCH (08:47)
[2021-10-08] MEDS: FLUTICASONE FUROATE 100MCG 14 PUFFS/INHALER INH SCH (08:47)
[2021-10-08] MEDS: ASPIRIN 81 MG ECTAB PO SCH (08:48)
[2021-10-08] MEDS: LOSARTAN POTASSIUM 25 MG TAB PO SCH (08:48)
[2021-10-08] MEDS: METOPROLOL TARTRATE 25 MG TAB PO SCH ×2 (08:48→21:08)
[2021-10-08] MEDS: FLUoxetine HCL 20 MG CAP PO SCH (08:48)
[2021-10-08] MEDS: AZITHROMYCIN 250 MG TAB PO SCH (08:48)
[2021-10-08] MEDS: ATORVASTATIN 40 MG TAB PO SCH (08:49)
[2021-10-08] MEDS: INSULIN GLARGINE SOLOSTAR 100 UNITS/ML 3 ML PEN SC SCH (08:50)
--- NOTE | 2021-10-08 10:35 | Hospitalist Progress Note ---
Date of Service October 08, 2021 Assessment & Plan (1) Asthma-COPD overlap syndrome: Plan: Recurrent COPD exacerbations with the weather being the only known inciting factor. - Steroids will cut back to daily -ordered cough syrup -ordered flutter valve to help decrease cough - DuoNebs standing and PRN - Azithromycin 500 mg PO daily x 3 doses -Added ceftriaxone -will moitor for another day. -likely discharge in AM - Defer sputum cx as she is not making more or different (2) Acute on chronic respiratory failure with hypoxia: Plan: Now on 3L NC to keep SpO2 > 90%. Previously has only used O2 overnight. - Titrate to SpO2 > 90% (3) Abnormal EKG: Plan: ST depressions and TWIs in precordial leads are long-standing. No chest pain reported for me today. Normal troponin. - trop negative. (4) DM w/o complication type II, uncontrolled: Plan: Last A1c was 6.9% last year. - Hold home metformin & glimepiride - Sliding scale insulin - Repeat A1c - If blood sugars are hard to control on steroids, consider NPH insulin or glycemic consult (5) Hypertension: Plan: BP in the ER was 155/90. - Continue home beta-bailey and ARB (6) Hyperlipidemia: Plan: - Continue statin - Continue ASA for heart health (7) Depression: Plan: - Continue fluoxetine (8) DVT prophylaxis: Plan: Lovenox 40 mg SQ daily Admission and Anticipated Discharge Date Admission Date: October 06, 2021 Subjective Patient reports mild immprovement. Still coughing. Does not use oxygen supplementation at home. Review of Systems Review of Systems: All systems reviewed & are unremarkable except as noted in HPI & below Physical Exam Physical Exam: Constitutional: WD/WN, vitals as above Eyes: EOM intact bilaterally; no conjunctival abnormality ENMT: external ear and nose normal, oropharynx normal Neck: trachea midline, no thyromegaly normal visual inspection Respiratory: Auscultation: + diminished lung sounds and + wheezes (Diffuse on inspiration and expiration) Cardiovascular: RRR, no murmur, no edema Gastrointestinal (Abdomen): Inspection/Auscultation: abdomen normal to inspection; abdomen not distended Musculoskeletal: no cyanosis or clubbing, extremities motor strength 5/5 Skin: no rashes, warm and dry Neurologic: moves all extremities and awake Psychiatric: Orientation: alert, oriented to person and cooperative Results & Data Results & Data ([facility]) Vital Signs (Past 12 Hours) Vital Signs Temp Pulse Pulse Pulse Resp BP Pulse Ox 10/08/21 07:31 73 10/08/21 07:00 78 18 97 10/08/21 06:29 36.8 C 73 18 149/81 H 98 10/08/21 04:18 36.6 C 70 16 139/81 98 10/08/21 03:42 76 18 95 10/07/21 23:36 36.5 C 79 18 136/83 99 PG Care Time/CCT Total # of Minutes Spent Total Time Spent with Patient: Total time spent is greater than 50% in coordination of care (as documented) at patient's floor/unit and/or counseling patient: Coding Level of Care Code 63605 Subseq Hosp Care Lvl 2 Diagnoses Asthma-COPD overlap syndrome J44.9 Acute on chronic respiratory failure with hypoxia J96.21 Abnormal EKG R94.31 DM w/o complication type II, uncontrolled E11.65 Glycemic state: with hyperglycemia Hypertension I10 Hypertension type: essential hypertension Hyperlipidemia E78.5 Depression F32.89 Depression Type: other depression DVT prophylaxis Z29.9 Time Spent (min) 25 (1) Depression Depression Type: other depression Qualified Code(s): F32.89 - Other specified depressive episodes (2) Hypertension Hypertension type: essential hypertension Qualified Code(s): I10 - Essential (primary) hypertension (3) DM w/o complication type II, uncontrolled Glycemic state: with hyperglycemia Qualified Code(s): E11.65 - Type 2 diabetes mellitus with hyperglycemia
[2021-10-08] MEDS: cefTRIAXone SODIUM 2,000 MG in DEXTROSE 5% 50 ML IV SCH (12:29)
[2021-10-08] MEDS: MONTELUKAST SODIUM 10 MG TABLET PO SCH (21:09)
[2021-10-09] MEDS: ALBUT/IPRATROP 3MG/0.5MG NEB 3 ML VIAL NEB SCH ×3 (03:33→10:43)
[2021-10-09] MEDS: PANTOprazole 40 MG TAB PO SCH (06:22)
[2021-10-09] MEDS: ENOXAPARIN INJ 40 MG/0.4 ML SYR SQ SCH (06:23)
[2021-10-09] MEDS: METOPROLOL TARTRATE 25 MG TAB PO SCH ×2 (07:49→19:50)
[2021-10-09] MEDS: FLUoxetine HCL 20 MG CAP PO SCH (07:49)
[2021-10-09] MEDS: LOSARTAN POTASSIUM 25 MG TAB PO SCH (07:49)
[2021-10-09] MEDS: ASPIRIN 81 MG ECTAB PO SCH (07:50)
[2021-10-09] MEDS: ATORVASTATIN 40 MG TAB PO SCH (07:50)
[2021-10-09] MEDS: UMECLIDINIUM/VILANTEROL 62.5/25MCG 7 PUFFS/INHALER INH SCH (07:51)
[2021-10-09] MEDS: FLUTICASONE FUROATE 100MCG 14 PUFFS/INHALER INH SCH (07:51)
[2021-10-09] MEDS: INSULIN GLARGINE SOLOSTAR 100 UNITS/ML 3 ML PEN SC SCH (07:54)
[2021-10-09] MEDS: INSULIN ASPART PER UNIT SC SCH ×4 (07:54→20:53)
[2021-10-09] MEDS: cefTRIAXone SODIUM 2,000 MG in DEXTROSE 5% 50 ML IV SCH (12:10)
[2021-10-09] MEDS: guaiFENesin/DEXTROM SYRUP 200MG/20MG 10ML UDC PO PRN (15:17)
[2021-10-09] MEDS ORDERED: BENZONATATE 100 MG CAPSULE PO ONE (15:57)
--- NOTE | 2021-10-09 17:00 | CT Scan Report ---
CT chest diagnostic wo con CT DOSE: 437.07 mGy.cm CLINICAL HISTORY: 71 years-old Female with hypoxia/ cough. Acute shortness of breath with hypoxia TECHNIQUE: Multiaxial CT images of the chest were performed without contrast. A dose lowering techni que was utilized adhering to the principles of ALARA. COMPARISON: CTA chest 07/27/2021, 03/07/2014. FINDINGS: Heterogeneous thyroid with hypodense bilateral thyroid nodules measuring up to 10 mm on the left. No pathologically enlarged lymph nodes are identified. The heart is normal in size. Moderate coronary ar jeovany calcifications. Atherosclerosis of the thoracic aorta without aneurysm. There is no pneumothorax, pleural effusion, overt pulmonary edema or lobar airspace consolidation. Mi ld bilateral bronchial wall thickening with bibasilar predominant mucous plugging. Tracheobronchial s ecretions. 5 mm subsolid nodular density within the nasal left lower lobe on image 190 series 4 which previously measured at 7 mm. Cholecystectomy. No acute process of the imaged upper abdomen. Hepatic steatosis. Unremarkable soft t issues. The bones appear intact. No destructive bone lesions identified. IMPRESSION: 1. Bronchial wall thickening suggests bronchitis versus reactive airway disease. Multifocal associate d mucous plugging. 2. 5 mm subsolid nodule of the left lower lobe appears stable to slightly decreased in size from the 07/27/2021 study. 3. No lymphadenopathy. 4. Moderate coronary artery calcifications. Please refer to below summary of Fleischner criteria recommendations for follow-up of incidental CT n odules (Sarbjit Chaves, Guidelines for management of small pulmonary nodules detected on CT scans: A sta tement from the Fleischner Society, Radiology 237: [phone].) Note: newly detected indeterminate nodule in persons 35 years of age or older. * Low risk patients: minimal or absent history of smoking and/or other known risk factors * high risk patients: history of smoking or of other known risk factors (e.g. first degree relative with lung cancer, or exposure to asbestos, radon, uranium) * if a nodule up to 8 mm is partly solid or is ground glass further follow-up is required after 24 m onths to exclude possible slow growing adenocarcinoma (RAY) SUBSOLID NODULES Solitary pure ground-glass nodule * nodule size <6 mm - no CT follow-up required * nodule size >=6 mm - follow-up CT at 6-12 months, then every 2 years until 5 years ACT 112: Negative or not required by law. Electronically signed by: Jose Manuel Hdez M.D. 10/09/2021 4:58 PM
[2021-10-09] MEDS: MONTELUKAST SODIUM 10 MG TABLET PO SCH (19:50)
--- NOTE | 2021-10-09 21:10 | Hospitalist Progress Note ---
Date of Service October 09, 2021 Assessment & Plan (1) Asthma-COPD overlap syndrome: Plan: Recurrent COPD exacerbations with the weather being the only known inciting factor. - Steroids will continue daily -ordered cough syrup -ordered flutter valve to help decrease cough - DuoNebs standing and PRN - Azithromycin 500 mg PO daily x 3 doses -Added ceftriaxone -due to worsening constant cough, patient is not ready for discharge, also requires oxygen, will obtain ct chest. -likely discharge in AM - Defer sputum cx as she is not making more or different (2) Acute on chronic respiratory failure with hypoxia: Plan: Now on 3L NC to keep SpO2 > 90%. Previously has only used O2 overnight. - Titrate to SpO2 > 90% (3) Abnormal EKG: Plan: ST depressions and TWIs in precordial leads are long-standing. No chest pain reported for me today. Normal troponin. - trop negative. (4) DM w/o complication type II, uncontrolled: Plan: Last A1c was 6.9% last year. - Hold home metformin & glimepiride - Sliding scale insulin - Repeat A1c - If blood sugars are hard to control on steroids, consider NPH insulin or glycemic consult (5) Hypertension: Plan: BP in the ER was 155/90. - Continue home beta-bailey and ARB (6) Hyperlipidemia: Plan: - Continue statin - Continue ASA for heart health (7) Depression: Plan: - Continue fluoxetine (8) DVT prophylaxis: Plan: Lovenox 40 mg SQ daily Admission and Anticipated Discharge Date Admission Date: October 06, 2021 Subjective 71 yo female reports feeling better, but continues to have a dry cough. Review of Systems Review of Systems: All systems reviewed & are unremarkable except as noted in HPI & below Physical Exam Physical Exam: Constitutional: WD/WN, vitals as above Eyes: EOM intact bilaterally; no conjunctival abnormality ENMT: external ear and nose normal, oropharynx normal Neck: trachea midline, no thyromegaly normal visual inspection Respiratory: Auscultation: + diminished lung sounds and + wheezes (Diffuse on inspiration and expiration) Cardiovascular: RRR, no murmur, no edema Gastrointestinal (Abdomen): Inspection/Auscultation: abdomen normal to inspection; abdomen not distended Musculoskeletal: no cyanosis or clubbing, extremities motor strength 5/5 Skin: no rashes, warm and dry Neurologic: moves all extremities and awake Psychiatric: Orientation: alert, oriented to person and cooperative Results & Data Results & Data ([facility]) Vital Signs (Past 12 Hours) Vital Signs Temp Pulse Pulse Pulse Pulse Resp Resp 10/09/21 18:25 36.9 C 75 16 10/09/21 15:21 36.8 C 82 18 10/09/21 14:19 85 79 78 22 10/09/21 11:12 37.0 C 66 18 10/09/21 10:44 78 16 10/09/21 09:41 Resp Resp BP Pulse Ox Pulse Ox Pulse Ox Pulse Ox 10/09/21 18:25 125/73 94 10/09/21 15:21 135/83 90 10/09/21 14:19 20 18 90 92 91 10/09/21 11:12 149/90 H 91 10/09/21 10:44 92 10/09/21 09:41 92 PG Care Time/CCT Total # of Minutes Spent Total Time Spent with Patient: Total time spent is greater than 50% in coordination of care (as documented) at patient's floor/unit and/or counseling patient: Coding Level of Care Code 25238 Subseq Hosp Care Lvl 3 Diagnoses Asthma-COPD overlap syndrome J44.9 Acute on chronic respiratory failure with hypoxia J96.21 Abnormal EKG R94.31 DM w/o complication type II, uncontrolled E11.65 Glycemic state: with hyperglycemia Hypertension I10 Hypertension type: essential hypertension Hyperlipidemia E78.5 Depression F32.89 Depression Type: other depression DVT prophylaxis Z29.9 Time Spent (min) 35 (1) Depression Depression Type: other depression Qualified Code(s): F32.89 - Other specified depressive episodes (2) Hypertension Hypertension type: essential hypertension Qualified Code(s): I10 - Essential (primary) hypertension (3) DM w/o complication type II, uncontrolled Glycemic state: with hyperglycemia Qualified Code(s): E11.65 - Type 2 diabetes mellitus with hyperglycemia
--- NOTE | 2021-10-09 21:31 | Electrocardiogram Report ---
Test Reason : Blood Pressure : / mmHG Vent. Rate : 075 BPM Atrial Rate : 075 BPM P-R Int : 150 ms QRS Dur : 090 ms QT Int : 412 ms P-R-T Axes : 075 025 099 degrees QTc Int : 460 ms Normal sinus rhythm Nonspecific ST and T wave abnormality Abnormal ECG When compared with ECG of 07-OCT-2021 06:47, T wave inversion less evident in Anterior leads Confirmed by Kam Marcos ([id number]) on 10/09/2021 9:30:37 PM Referred By: REFERRED SELF Confirmed By:Kam Marcos
[2021-10-10] MEDS: guaiFENesin/DEXTROM SYRUP 200MG/20MG 10ML UDC PO PRN (05:30)
[2021-10-10] MEDS: ENOXAPARIN INJ 40 MG/0.4 ML SYR SQ SCH (05:31)
[2021-10-10] MEDS: PANTOprazole 40 MG TAB PO SCH (05:31)
[2021-10-10 06:29] LABS: Hematocrit (blood only) 39.5 % (37-47); Hemoglobin 13.2 g/dL (12.0-16.0); Mean Corpuscular Hemoglobin 31.2 pg (25-34); Mean Corpuscular Hgb Conc 33.4 g/dL (32-36); Mean Corpuscular Volume 93.4 fL (80-100); Mean Platelet Volume 9.6 fL (7.4-10.4); Platelet Count 308 K/uL (130-400); RDW Coefficient of Variation 13.6 % (11.5-14.5); RDW Standard Deviation 46.3 fL (36.4-46.3); Red Blood Count 4.23 M/uL (4.2-5.4); White Blood Count 14.19 K/uL (4.8-10.8)
[2021-10-10 06:58] LABS: BUN Creatinine Ratio 29.5 (10-20); Calcium 8.9 mg/dl (8.5-10.1); Creatinine Clr Calc Pharmacy 58.2 ml/min; Est GFR (African American) 70.8 ml/min; Est GFR (Non-African American) 61.1 ml/min; Potassium 3.7 mmol/L (3.5-5.1)
[2021-10-10] MEDS: ATORVASTATIN 40 MG TAB PO SCH (07:46)
[2021-10-10] MEDS: ASPIRIN 81 MG ECTAB PO SCH (07:46)
[2021-10-10] MEDS: LOSARTAN POTASSIUM 25 MG TAB PO SCH (07:48)
[2021-10-10] MEDS: METOPROLOL TARTRATE 25 MG TAB PO SCH ×2 (07:49→20:50)
[2021-10-10] MEDS: FLUoxetine HCL 20 MG CAP PO SCH (07:49)
[2021-10-10] MEDS: FLUTICASONE FUROATE 100MCG 14 PUFFS/INHALER INH SCH (07:50)
[2021-10-10] MEDS: UMECLIDINIUM/VILANTEROL 62.5/25MCG 7 PUFFS/INHALER INH SCH (07:51)
[2021-10-10] MEDS: INSULIN GLARGINE SOLOSTAR 100 UNITS/ML 3 ML PEN SC SCH (07:52)
[2021-10-10] MEDS: INSULIN ASPART PER UNIT SC SCH ×4 (08:15→20:53)
[2021-10-10] MEDS: cefTRIAXone SODIUM 2,000 MG in DEXTROSE 5% 50 ML IV SCH (11:06)
[2021-10-10] MEDS: MONTELUKAST SODIUM 10 MG TABLET PO SCH (20:50)
[2021-10-11] MEDS: ENOXAPARIN INJ 40 MG/0.4 ML SYR SQ SCH (05:25)
[2021-10-11] MEDS: PANTOprazole 40 MG TAB PO SCH (05:25)
--- NOTE | 2021-10-11 06:25 | Hospitalist Progress Note ---
Date of Service October 10, 2021 Assessment & Plan (1) Asthma-COPD overlap syndrome: Plan: Recurrent COPD exacerbations with the weather being the only known inciting factor. - Steroids will continue daily -ordered cough syrup -ordered flutter valve to help decrease cough - DuoNebs standing and PRN - Azithromycin 500 mg PO daily x 3 doses -Added ceftriaxone -due to worsening constant cough, patient is not ready for discharge, also requires oxygen, will obtain ct chest. -Patient is showing mucous plugs on CT chest. -Ordered vibration vest today as fluter valve has not been enough to clear those. -Anticipate discharge on 10/11 (2) Acute on chronic respiratory failure with hypoxia: Plan: Now on 3L NC to keep SpO2 > 90%. Previously has only used O2 overnight. - Titrate to SpO2 > 90% (3) Abnormal EKG: Plan: ST depressions and TWIs in precordial leads are long-standing. No chest pain reported for me today. Normal troponin. - trop negative. (4) DM w/o complication type II, uncontrolled: Plan: Last A1c was 6.9% last year. - Hold home metformin & glimepiride - Sliding scale insulin - Repeat A1c:7.0 (5) Hypertension: Plan: BP in the ER was 155/90. - Continue home beta-bailey and ARB (6) Hyperlipidemia: Plan: - Continue statin - Continue ASA for heart health (7) Depression: Plan: - Continue fluoxetine (8) DVT prophylaxis: Plan: Lovenox 40 mg SQ daily Admission and Anticipated Discharge Date Admission Date: October 06, 2021 Subjective Patient reports still having a signifcant cough. Review of Systems Review of Systems: All systems reviewed & are unremarkable except as noted in HPI & below Physical Exam Physical Exam: Constitutional: WD/WN, vitals as above Eyes: EOM intact bilaterally; no conjunctival abnormality ENMT: external ear and nose normal, oropharynx normal Neck: trachea midline, no thyromegaly normal visual inspection Respiratory: Auscultation: + diminished lung sounds and + wheezes (Diffuse on inspiration and expiration) Cardiovascular: RRR, no murmur, no edema Gastrointestinal (Abdomen): Inspection/Auscultation: abdomen normal to inspection; abdomen not distended Musculoskeletal: no cyanosis or clubbing, extremities motor strength 5/5 Skin: no rashes, warm and dry Neurologic: moves all extremities and awake Psychiatric: Orientation: alert, oriented to person and cooperative Results & Data Results & Data ([facility]) Vital Signs (Past 12 Hours) Vital Signs Temp Pulse Pulse Resp BP Pulse Ox Pulse Ox 10/11/21 03:00 36.4 C L 55 L 20 168/85 H 94 10/11/21 00:19 53 L 10/10/21 22:41 36.9 C 54 L 20 153/77 H 95 10/10/21 20:45 95 10/10/21 20:00 36.8 C 61 18 118/71 96 PG Care Time/CCT Total # of Minutes Spent Total Time Spent with Patient: Total time spent is greater than 50% in coordination of care (as documented) at patient's floor/unit and/or counseling patient: Coding Level of Care Code 25207 Subseq Hosp Care Lvl 2 Diagnoses Asthma-COPD overlap syndrome J44.9 Acute on chronic respiratory failure with hypoxia J96.21 Abnormal EKG R94.31 DM w/o complication type II, uncontrolled E11.65 Glycemic state: with hyperglycemia Hypertension I10 Hypertension type: essential hypertension Hyperlipidemia E78.5 Depression F32.89 Depression Type: other depression DVT prophylaxis Z29.9 Time Spent (min) 25 (1) DM w/o complication type II, uncontrolled Glycemic state: with hyperglycemia Qualified Code(s): E11.65 - Type 2 diabetes mellitus with hyperglycemia (2) Hypertension Hypertension type: essential hypertension Qualified Code(s): I10 - Essential (primary) hypertension (3) Depression Depression Type: other depression Qualified Code(s): F32.89 - Other specified depressive episodes
[2021-10-11] MEDS: ATORVASTATIN 40 MG TAB PO SCH (09:14)
[2021-10-11] MEDS: METOPROLOL TARTRATE 25 MG TAB PO SCH (09:15)
[2021-10-11] MEDS: ASPIRIN 81 MG ECTAB PO SCH (09:15)
[2021-10-11] MEDS: LOSARTAN POTASSIUM 25 MG TAB PO SCH (09:16)
[2021-10-11] MEDS: FLUTICASONE FUROATE 100MCG 14 PUFFS/INHALER INH SCH (09:16)
[2021-10-11] MEDS: FLUoxetine HCL 20 MG CAP PO SCH (09:16)
[2021-10-11] MEDS: UMECLIDINIUM/VILANTEROL 62.5/25MCG 7 PUFFS/INHALER INH SCH (09:17)
[2021-10-11] MEDS: INSULIN GLARGINE SOLOSTAR 100 UNITS/ML 3 ML PEN SC SCH (09:17)
[2021-10-11] MEDS: INSULIN ASPART PER UNIT SC SCH ×2 (09:24→12:30)
[2021-10-11] MEDS: cefTRIAXone SODIUM 2,000 MG in DEXTROSE 5% 50 ML IV SCH (11:12)
--- NOTE | 2021-10-11 11:13 | Discharge Summary ---
Date of Service October 11, 2021 Principal Diagnosis COPD Exacerbation Discharge Exam The patient is awake, alert and oriented 3, well developed and well nourished, normocephalic and atraumatic, lying in bed and in no acute distress. HEENT--PERRL, EOMI, mucous membranes and oropharynx mildly dry Neck--supple. No JVD. No bruits. Thyroid normal, trachea midline, no adenopathy. Heart--normal S1 and S2. No murmurs, rubs or gallops. Lungs--clear bilaterally, no respiratory distress, no accessory muscle use. Abdomen--normal bowel sounds and soft. Mild epigastric and left sided abdominal pain Extremities--no cyanosis or clubbing. No edema. Dermatologic--normal skin turgor, normal color, no abnormal lymph nodes, no rash. Neurologic--cranial nerves II through XII grossly intact. Rheumatologic--normal range of motion. Psychiatric--normal affect. Discharge Data Allergies Allergy/AdvReac Type Severity Reaction Status Date / Time hydrocodone AdvReac Mild NAUSEA Verified 10/06/21 14:56 prednisone AdvReac Mild NAUSEA Verified 10/06/21 14:56 Consultations 10/06/21 13:25 ED Decision to Admit Stat Ordered Studies 10/09/21 15:58 CT chest diagnostic wo con Routine Hospital Course (1) Asthma-COPD overlap syndrome: Recurrent COPD exacerbations with the weather being the only known inciting factor. - Steroids will continue daily -ordered cough syrup -ordered flutter valve to help decrease cough - DuoNebs standing and PRN - cmpleted a course of antibiotics -Her breathing continued to improve, although CT chest showed evidence of some mucus plugs -She was back to 95 % on room -Will discharge today (2) Acute on chronic respiratory failure with hypoxia: resolved back to baseline (3) Abnormal EKG: ST depressions and TWIs in precordial leads are long-standing. No chest pain reported for me today. Normal troponin. - trop negative. (4) DM w/o complication type II, uncontrolled: Last A1c was 6.9% last year. - Hold home metformin & glimepiride - Sliding scale insulin - Repeat A1c:7.0 (5) Hypertension: now under better control (6) Hyperlipidemia: - Continue statin - Continue ASA for heart health (7) Depression: - Continue fluoxetine (8) DVT prophylaxis: Lovenox 40 mg SQ daily Total Time Total Time Spent Total Time Spent (In Minutes): 35 Discharge Plan Discharge Items Patient Disposition: Home - Self-Care Reason For Visit: COPD EXACERBATION Discharge Diagnosis: COPD exacerbation Condition on Discharge: Good Activity: Resume your previous activity Non-emergency contact: Primary Care Provider Call non-emergency contact if: you have any medication questions Follow-up/Referrals: Shira Lopez MD [Primary Care Provider] - 10/15/21 11:30 am Diet: Carb Consistent or DM2 and Heart Healthy Addtl Attending Provider Instructions: It appears you have a asthma flair up. You were treated with antibiotics and steroids. You are improving and are no longer on oxygen. I anticipate you will continue to improve as you continue with the treatment plan. You will be discharged on a steroid taper and antibiotics. Next dose for both is tomorrow morning. Pending Studies at Discharge: No Stand-Alone Forms: My [employer] [employer], Smoking Cessation Medications and DC Order Prescriptions: New Anoro Ellipta 62.5-25 mcg/actuation Blister With Device 1 ea inhalation DAILY Qty: 60 RF: 0 prednisone 5 mg tablet See Rx Instructions .ROUTE .COMPLEX Qty: 36 RF: 0 cefdinir 300 mg capsule 300 mg PO BID 5 Days Qty: 10 RF: 0 Continued metoprolol tartrate 25 mg tablet 12.5 mg PO BID Qty: 60 RF: 5 metformin 500 mg tablet 1,000 mg PO BID Qty: 360 RF: 1 glimepiride 2 mg tablet 2 mg PO QAM Qty: 30 RF: 5 atorvastatin 40 mg tablet 40 mg PO QAM Qty: 30 RF: 5 losartan 50 mg tablet 25 mg PO QAM 90 Days Qty: 45 RF: 1 albuterol sulfate [ProAir HFA] 90 mcg/actuation HFA aerosol inhaler 1 - 2 puff INHALATION Q4H PRN (Reason: SOB) Qty: 18 RF: 2 montelukast [Singulair] 10 mg tablet 10 mg PO HS Qty: 30 RF: 5 ipratropium-albuterol 0.5 mg-3 mg(2.5 mg base)/3 mL solution for nebulization 3 ml inhalation QID PRN (Reason: Shortness Of Breath) Qty: 3 RF: 5 fluoxetine 40 mg capsule 40 mg PO QAM Qty: 30 RF: 11 aspirin 81 mg Tablet,Chewable 81 mg PO QAM RF: 0 benzonatate 100 mg Capsule 100 mg PO BID RF: 0 pantoprazole [Protonix] 40 mg tablet,delayed release (DR/EC) 40 mg PO DAILYBB RF: 0 Trelegy Ellipta 200-62.5-25 mcg blister with device 1 inh inhalation QAM RF: 0 No Action (DME) lancets [OneTouch Delica Lancets] 33 gauge misc See Dose Instructions .ROUTE .MEDSUPPLY Qty: 100 RF: 5 (DME) MicroAir Mesh Nebulizer Misc See Rx Instructions .Route Qty: 1 RF: 0 (DME) OneTouch Ultra Blue Test Strip Strip See Dose Instructions .ROUTE .MEDSUPPLY Qty: 100 RF: 5 Discharge Orders: Discharge Order (Routine); Ordered 10/11/21 Ordered By: Denzel Rivera/Other Patient Handouts: Managing Type 2 Diabetes, Special Foot Care for Diabetes Admission Data Admit Date/Time: 10/06/21 13:51 Attending Provider: Denzel Peter Admit Provider: Anibal Hutchison Primary Care Provider: Shira Lopez Other Providers: Anibal Hutchison Other Interventions: Discharge Summary Assessment (RN) Last Done: 10/11/21 10:50 Coding Level of Care Code D/C DAY MANAGEMENT >30 MINS Diagnoses Asthma-COPD overlap syndrome J44.9 Acute on chronic respiratory failure with hypoxia J96.21 Abnormal EKG R94.31 DM w/o complication type II, uncontrolled E11.65 Glycemic state: with hyperglycemia Hypertension I10 Hypertension type: essential hypertension Hyperlipidemia E78.5 Depression F32.89 Depression Type: other depression DVT prophylaxis Z29.9 Time Spent (min) 35
--- NOTE | 2021-10-17 13:59 | Coding Query ---
CODING QUERY FOR UNCONTROLLED DIABETES To promote full compliance with coding requirements relating to patient care, provider participation is requested in all cases of streaming media specialist uncertainty. Please assist us with the question(s) below: Coding Question: The term uncontrolled Diabetes was used throughout the record. To be able to code this diagnosis properly, could you please clarify the diagnosis below: ( ) Uncontrolled Diabetes meaning hypoglycemia ( x ) Uncontrolled Diabetes meaning hyperglycemia ( ) Other (please specify) Principal Diagnosis: "that condition established after study, to be chiefly responsible for occasioning the admission of the patient to the hospital for care." Co-Existing Principal Diagnosis: "when two or more diagnoses equally meet the criteria for principal diagnosis as determined by the circumstances of admission, diagnostic work up, and/or therapy provided, and the Alphabetic Index, Tabular List, or another coding guideline does not provide sequencing direction, any one of the diagnoses may be sequenced first." "When the physician has documented what appears to be a current diagnosis in the body of the record, but has not included the diagnosis in the final diagnostic statement, the physician should be asked whether the diagnosis should be added." (Source [facility] 2 QTR90. p3-4) [place]
== END 2021-10-11 13:40 | disposition home or self-care (01) | DRG 190 ==
LOC: ED 10:53 → SUATTDRO 13:51 → 2N 13:51

== ENCOUNTER 2021-12-10 09:52 | Inpatient (IN) ==
[2021-12-10] MEDS ORDERED: ALBUT/IPRATROP 3MG/0.5MG NEB 3 ML VIAL NEB ONE (10:05)
--- NOTE | 2021-12-10 10:07 | Emergency Department Note ---
Impression & Plan Chronic obstructive pulmonary disease, Breath shortness, Bilateral wheezing ED Provider Note NAME: ELIE VILLARREAL AGE: 71 SEX: F : 1950 ARRIVES VIA: Walk-In INFORMANT: Patient ED PROVIDER(S): Chucky Sibley DO CHIEF COMPLAINT: shortness of breath HPI: Patient is a 71-year-old female with past medical history of COPD, asthma, LVH, chronic respiratory failure, who presents to the ER for shortness of breath. Her shortness of breath started about 2 weeks ago. She admits to a cough and a runny nose. She denies any fevers. Admits to chest heaviness for the past 2 weeks. This is typical for her COPD/asthma exacerbations. She notes is unchanged. No belly pain nausea vomiting or diarrhea. She has been using her neb treatments as well as inhalers with improvement up until today. ROS: See above HPI for pertinent positives & negatives. A total of 10 systems reviewed and were otherwise negative. PAST MEDICAL HISTORY:See Below PAST SURGICAL HISTORY:See Below FAMILY HISTORY:See Below SOCIAL HISTORY:See Below HOME MEDICATIONS:See Below ALLERGIES:See Below VITALS:See Below PHYSICAL EXAMINATION: GENERAL: Sitting up in bed, alert, ill-appearing, dyspneic with conversation, speaking in one-word answers EYE EXAM: normal conjunctiva. OROPHARYNX:mucous membranes are dry NECK: supple, no nuchal rigidity, no adenopathy, non-tender LUNGS: Diffuse wheezing bilaterally with poor air movement. Normal chest wall mechanics HEART: no murmurs, S1 normal and S2 normal ABDOMEN: abdomen soft, non-tender, normo-active bowel sounds, no masses, no rebound or guarding. UPPER EXTREMITIES: upper extremities are grossly normal. LOWER EXTREMITIES: No pitting edema. Calves are equal bilateral NEURO EXAM: Normal sensorium, cranial nerves II-XII grossly intact, normal speech, no gross weakness of arms, no gross weakness of legs. MEDICAL DECISION MAKING: Patient is a 71-year-old female who presents ER for shortness of breath. IV was established blood work was obtained. By presentation she was only able to speak in one-word answers. She given hour-long DuoNeb as well as steroids and IV fluids. Labs show no significant leukocytosis or anemia. ABG with pH 7.43. BMP with LFTs bilirubin lipase is unremarkable. Troponin was negative. COVID was negative. EKG was unchanged from previous. Chest x-ray was clean. On ree valuation she was given another 2 nebulizer treatments of albuterol. She was discussed with the hospitalist. She had improved significantly but was still moving a poor amount of air and had diffuse wheezing. She felt uncomfortable going home and consequently was discussed with hospitalist for further evaluation. Triage Nursing notes reviewed. Limited review of prior medical records performed Vital Signs: reviewed and remarkable for HTN and tachypneic Differential diagnosis: Differential diagnoses includes but is not limited to pneumonia, bronchitis, COPD/Asthma exacerbation, pneumothorax, pulmonary embolism, congestive heart failure, acute coronary syndrome ER treatment provided: See below Diagnostics interpreted by me: ECG: This rhythm rate of 72 Normal axis Poor baseline T wave version V2 and V3 Nonspecific ST wave changes in the inferior leads No change from previous on October 08, 2021 Cardiac Monitoring: An order was placed for continuous cardiac monitoring. The monitor shows a rate of 80 with sinus rhythm. Laboratory studies: As stated above and show below. Imaging studies: Portable AP upright 1 view of the chest is unremarkable [facility] None Past Med/Surg History Medical History Acute exacerbation of chronic obstructive pulmonary disease (COPD) Asthma-COPD overlap syndrome Chronic obstructive pulmonary disease Depression Excessive daytime sleepiness History of nicotine dependence Hyperlipidemia Hypertension Insomnia Moderate persistent asthma Nocturnal hypoxemia Peripheral eosinophilia Surgical History H/O oophorectomy H/O: hysterectomy Family History Father Diabetes CHF (congestive heart failure) Grandfather (Paternal) Diabetes Mother Deep vein thrombosis NHL (non-Hodgkin's lymphoma) Grandfather (Maternal) Acute leukemia Grandmother (Maternal) Deep vein thrombosis Aunt Deep vein thrombosis Other No pertinent family history Denies family history of Ovarian cancer Prostate cancer Myocardial infarction Breast cancer Colorectal cancer Social History Smoking Status: Former smoker Tobacco Type: Cigarettes Second Hand Exposure: No; Hx Alcohol Use: No Hx Substance Use: No Preferred Language: Macedonian Communication Ability: Effective Visual Impairment: No Limitations Hearing Ability: Normal 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 Required: No Beliefs That Will Affect Care: None marital status: / Current Living Situation: Alone current occupational status: retired Feels Safe at Home: Yes Dental Care, Regularly: No Seatbelt Use: always Sunscreen Use: Yes Assistive Devices: Nebulizer and Oxygen - at Night Allergies Allergies Allergy/AdvReac Type Severity Reaction Status Date / Time hydrocodone AdvReac Mild NAUSEA Verified 12/10/21 12:57 prednisone AdvReac Mild NAUSEA Verified 12/10/21 12:57 Home Meds Home Medications Medication Instructions Recorded Confirmed aspirin 81 mg chewable tablet 81 mg PO QAM 04/10/18 12/10/21 benzonatate 100 mg capsule 100 mg PO BID 07/27/21 12/10/21 fluticasone fur. 200 mcg-umeclid 1 inh INHALATION QAM 09/14/21 12/10/21 62.5 mcg-vilant 25 mcg inhalat.powder (Trelegy Ellipta) pantoprazole 40 mg tablet,delayed 40 mg PO DAILYBB 09/14/21 12/10/21 release (Protonix) acetaminophen 500 mg tablet 500 mg PO Q6H PRN 12/10/21 12/10/21 (Tylenol Extra Strength) glimepiride 2 mg tablet 2 mg PO DAILYBB 12/10/21 12/10/21 Previous Rx's Medication Instructions Recorded lancets 33 gauge (OneTouch Delica #100 ea 03/02/20 Lancets) metoprolol tartrate 25 mg tablet 12.5 mg PO BID #60 tab 01/09/21 metformin 500 mg tablet 1,000 mg PO BID #360 tab 06/04/21 atorvastatin 40 mg tablet 40 mg PO QAM #30 tab 07/05/21 losartan 50 mg tablet 25 mg PO QAM 90 Days #45 tab 07/07/21 montelukast 10 mg tablet 10 mg PO HS #30 tab 08/01/21 (Singulair) ipratropium 0.5 mg-albuterol 3 mg 3 ml INHALATION QID PRN #3 ml 10/02/21 (2.5 mg base)/3 mL nebulization soln nebulizers (MicroAir Mesh #1 ea 10/03/21 Nebulizer) fluoxetine 40 mg capsule 40 mg PO QAM #30 cap 11/05/21 blood sugar diagnostic #100 ea 12/03/21 Results & Data (ED) Vital Signs Vital Signs - 24 hr 12/10/21 09:52 12/10/21 09:55 12/10/21 10:33 Temperature 36.4 C L Temperature Source Temporal Artery Scan Pulse Rate 77 Pulse Rate [Apical] 71 70 Respiratory Rate 18 26 H 22 Respiratory Effort / Characteristics Non-Labored Spontaneous Blood Pressure 176/102 H Blood Pressure [Left Arm] 177/117 H Blood Pressure Mean 126 Blood Pressure Mean [Left Arm] 137 Pulse Oximetry 94 91 95 Oxygen Delivery Method Room Air Room Air Room Air Sepsis Recent Fever Within 48 Hours No Sepsis New/Unexplained Change in Mental Status No Sepsis Action Taken by Nursing No Action Required 12/10/21 12:02 Temperature Temperature Source Pulse Rate Pulse Rate [Apical] 85 Respiratory Rate 18 Respiratory Effort / Characteristics Blood Pressure Blood Pressure [Left Arm] 162/112 H Blood Pressure Mean Blood Pressure Mean [Left Arm] 128 Pulse Oximetry 100 Oxygen Delivery Method Sepsis Recent Fever Within 48 Hours Sepsis New/Unexplained Change in Mental Status Sepsis Action Taken by Nursing Laboratory Data Result diagrams: 12/10/21 10:10 12/10/21 10:10 Lab Results 12/10/21 12/10/21 12/10/21 Range/Units 10:10 10:10 10:28 WBC 10.18 (4.8-10.8) K/uL RBC 4.31 (4.2-5.4) M/uL Hgb 12.9 (12.0-16.0) g/dL Hct 39.1 (37-47) % MCV 90.7 (80-100) fL MCH 29.9 (25-34) pg MCHC 33.0 (32-36) g/dL RDW Std Deviation 45.0 (36.4-46.3) fL RDW Coeff of Aniyah 13.6 (11.5-14.5) % Plt Count 295 (130-400) K/uL MPV 9.8 (7.4-10.4) fL Immature Gran % (Auto) 0.2 % Neut % (Auto) 47.3 % Lymph % (Auto) 27.1 % [place] % (Auto) 7.6 % Eos % (Auto) 17.2 % Baso % (Auto) 0.6 % Neut # (Auto) 4.82 (1.4-6.5) K/uL Lymph # (Auto) 2.76 (1.2-3.4) K/uL [place] # (Auto) 0.77 H (0.11-0.59) K/uL Eos # (Auto) 1.75 H (0-0.5) K/uL Baso # (Auto) 0.06 (0-0.2) K/uL Immature Gran # (Auto) 0.02 (0.00-0.02) K/uL VBG pH 7.43 H (7.36-7.41) VBG pCO2 43 (38-50) mmHg VBG pO2 43 mmHg VBG HCO3 28 mmol/L VBG O2 Saturation 77.5 % VBG Base Excess 2.8 mEq/L Barometric Pressure 731.6 mm/Hg Sodium 140 (136-145) mmol/L Potassium 3.7 (3.5-5.1) mmol/L Chloride 104 (98-107) mmol/L Carbon Dioxide 27 (21-32) mmol/L Anion Gap 9 (3-11) BUN 9 (6-23) mg/dl Creatinine 0.79 (0.6-1.2) mg/dl Est Cr Clr Drug Dosing 71.3 ml/min Est GFR ( Amer) 88.5 ml/min Est GFR (Non-Af Amer) 76.4 ml/min BUN/Creatinine Ratio 11.4 (10-20) Glucose 126 H (70-99(Fasting)) mg/dl Calcium 9.4 (8.5-10.1) mg/dl Total Bilirubin 0.7 (0.2-1.0) mg/dl AST 11 L (13-39) U/L ALT 11 (7-52) U/L Alkaline Phosphatase 81 (34-104) U/L Troponin I High Sens 5.5 (0-14) pg/ml Total Protein 7.1 (6.0-8.3) gm/dl Albumin 4.2 (3.4-5.0) gm/dl Globulin 2.9 (2.5-4.0) gm/dl Albumin/Globulin Ratio 1.4 (0.9-2) Lipase 23 (11-82) U/L SARS-CoV-2, RNA, NAAT (NEGATIVE) 12/10/21 Range/Units 11:51 WBC (4.8-10.8) K/uL RBC (4.2-5.4) M/uL Hgb (12.0-16.0) g/dL Hct (37-47) % MCV (80-100) fL MCH (25-34) pg MCHC (32-36) g/dL RDW Std Deviation (36.4-46.3) fL RDW Coeff of Aniyah (11.5-14.5) % Plt Count (130-400) K/uL MPV (7.4-10.4) fL Immature Gran % (Auto) % Neut % (Auto) % Lymph % (Auto) % [place] % (Auto) % Eos % (Auto) % Baso % (Auto) % Neut # (Auto) (1.4-6.5) K/uL Lymph # (Auto) (1.2-3.4) K/uL [place] # (Auto) (0.11-0.59) K/uL Eos # (Auto) (0-0.5) K/uL Baso # (Auto) (0-0.2) K/uL Immature Gran # (Auto) (0.00-0.02) K/uL VBG pH (7.36-7.41) VBG pCO2 (38-50) mmHg VBG pO2 mmHg VBG HCO3 mmol/L VBG O2 Saturation % VBG Base Excess mEq/L Barometric Pressure mm/Hg Sodium (136-145) mmol/L Potassium (3.5-5.1) mmol/L Chloride (98-107) mmol/L Carbon Dioxide (21-32) mmol/L Anion Gap (3-11) BUN (6-23) mg/dl Creatinine (0.6-1.2) mg/dl Est Cr Clr Drug Dosing ml/min Est GFR ( Amer) ml/min Est GFR (Non-Af Amer) ml/min BUN/Creatinine Ratio (10-20) Glucose (70-99(Fasting)) mg/dl Calcium (8.5-10.1) mg/dl Total Bilirubin (0.2-1.0) mg/dl AST (13-39) U/L ALT (7-52) U/L Alkaline Phosphatase (34-104) U/L Troponin I High Sens (0-14) pg/ml Total Protein (6.0-8.3) gm/dl Albumin (3.4-5.0) gm/dl Globulin (2.5-4.0) gm/dl Albumin/Globulin Ratio (0.9-2) Lipase (11-82) U/L SARS-CoV-2, RNA, NAAT NEGATIVE (NEGATIVE) Administered Medications Discontinued Medications Albuterol (Albut/Ipratrop 3mg/0.5mg Neb 3 Ml Vial) 12 ml NEB ONE ONE; Protocol Stop: 12/10/21 10:06 Last Admin: 12/10/21 10:30 Dose: 12 ml Documented by: [id number] Albuterol (Albuterol 0.5% Neb Soln 2.5 Mg/0.5 Ml Vial) 5 mg NEB NOW STA; Protocol Stop: 12/10/21 11:50 Last Admin: 12/10/21 12:00 Dose: 5 mg Documented by: [id number] Guaifenesin (Guaifenesin Sugar Free 100 Mg/5 Ml Udc) 100 mg PO NOW STA Stop: 12/10/21 12:52 Last Admin: 12/10/21 13:04 Dose: 100 mg Documented by: [id number] Methylprednisolone (Methylprednisolone 40 Mg/Ml Vial) 40 mg IV NOW STA Stop: 12/10/21 10:06 Last Admin: 12/10/21 10:18 Dose: 40 mg Documented by: [id number] Imaging Data Radiologist's Impression: Chest X-Ray 12/10/21 10:04 XR chest 1V portable CLINICAL HISTORY: Atypical chest pain. COMPARISON STUDY: Chest radiograph October 06, 2021. Chest CT October 09, 2021. FINDINGS: Lung volumes are normal. Lungs are clear. There is no pneumothorax or pleural effusion. Cardiac size is normal. Mediastinal contours are normal. There is no evidence for pulmonary edema. IMPRESSION: No acute cardiopulmonary findings. ACT 112: Negative or not required by law. Electronically signed by: Glen Humphrey M.D. 12/10/2021 10:38 AM Discharge Plan Visit Data Chief Complaint: Shortness of Breath/Dyspnea Stated Complaint: SHORTNESS OF BREATH ED Provider: Chucky Sibley Discharge Problem: Chronic obstructive pulmonary disease, Breath shortness, Bilateral wheezing Forms Stand Alone Forms: My [facility] Prescriptions Prescriptions: No Action (DME) lancets [OneTouch Delica Lancets] 33 gauge misc See Dose Instructions .ROUTE .MEDSUPPLY Qty: 100 RF: 5 metoprolol tartrate 25 mg tablet 12.5 mg PO BID Qty: 60 RF: 5 metformin 500 mg tablet 1,000 mg PO BID Qty: 360 RF: 1 atorvastatin 40 mg tablet 40 mg PO QAM Qty: 30 RF: 5 losartan 50 mg tablet 25 mg PO QAM 90 Days Qty: 45 RF: 1 montelukast [Singulair] 10 mg tablet 10 mg PO HS Qty: 30 RF: 5 ipratropium-albuterol 0.5 mg-3 mg(2.5 mg base)/3 mL solution for nebulization 3 ml inhalation QID PRN (Reason: Shortness Of Breath) Qty: 3 RF: 5 (DME) MicroAir Mesh Nebulizer Misc See Rx Instructions .Route Qty: 1 RF: 0 fluoxetine 40 mg capsule 40 mg PO QAM Qty: 30 RF: 11 (DME) OneTouch Ultra Blue Test Strip Strip See Dose Instructions .ROUTE .MEDSUPPLY Qty: 100 RF: 5 aspirin 81 mg Tablet,Chewable 81 mg PO QAM RF: 0 benzonatate 100 mg Capsule 100 mg PO BID RF: 0 acetaminophen [Tylenol Extra Strength] 500 mg Tablet 500 mg PO Q6H PRN (Reason: Pain) RF: 0 glimepiride 2 mg tablet 2 mg PO DAILYBB RF: 0 pantoprazole [Protonix] 40 mg tablet,delayed release (DR/EC) 40 mg PO DAILYBB RF: 0 Trelegy Ellipta 200-62.5-25 mcg blister with device 1 inh inhalation QAM RF: 0 Referrals Referrals: Shira Lopez MD [Primary Care Provider] - Discharge Problem: Chronic obstructive pulmonary disease Qualifiers: COPD type: unspecified COPD Qualified Code(s): J44.9 - Chronic obstructive pulmonary disease, unspecified
[2021-12-10 10:36] LABS: Basophils # (auto) 0.06 K/uL (0-0.2); Basophils % (auto) 0.6 %; Eosinophils # (auto) 1.75 K/uL (0-0.5); Eosinophils % (auto) 17.2 %; Hematocrit (blood only) 39.1 % (37-47); Hemoglobin 12.9 g/dL (12.0-16.0); Immature Granulocytes # (auto) 0.02 K/uL (0.00-0.02); Immature Granulocytes % (auto) 0.2 %; Lymphocytes # (auto) 2.76 K/uL (1.2-3.4); Lymphocytes % (auto) 27.1 %; Mean Corpuscular Hemoglobin 29.9 pg (25-34); Mean Corpuscular Volume 90.7 fL (80-100); Mean Platelet Volume 9.8 fL (7.4-10.4); Monocytes # (auto) 0.77 K/uL (0.11-0.59); Monocytes % (auto) 7.6 %; Neutrophils # (auto) 4.82 K/uL (1.4-6.5); Neutrophils % (auto) 47.3 %; Platelet Count 295 K/uL (130-400); RDW Coefficient of Variation 13.6 % (11.5-14.5); Red Blood Count 4.31 M/uL (4.2-5.4); White Blood Count 10.18 K/uL (4.8-10.8)
--- NOTE | 2021-12-10 10:39 | XRay Report ---
XR chest 1V portable CLINICAL HISTORY: Atypical chest pain. COMPARISON STUDY: Chest radiograph October 06, 2021. Chest CT October 09, 2021. FINDINGS: Lung volumes are normal. Lungs are clear. There is no pneumothorax or pleural effusion. Car diac size is normal. Mediastinal contours are normal. There is no evidence for pulmonary edema. IMPRESSION: No acute cardiopulmonary findings. ACT 112: Negative or not required by law. Electronically signed by: Glen Humphrey M.D. 12/10/2021 10:38 AM
[2021-12-10 10:43] LABS: Base Excess VBG 2.8 mEq/L; Oxygen Saturation VBG 77.5 %; pH VBG 7.43 (7.36-7.41)
[2021-12-10 10:59] LABS: Troponin I High Sensitivity 5.5 pg/ml (0-14)
[2021-12-10 11:01] LABS: Albumin Globulin Ratio 1.4 (0.9-2); Albumin Level 4.2 gm/dl (3.4-5.0); BUN Creatinine Ratio 11.4 (10-20); Bilirubin,Total 0.7 mg/dl (0.2-1.0); Calcium 9.4 mg/dl (8.5-10.1); Creatinine Clr Calc Pharmacy 71.3 ml/min; Est GFR (African American) 88.5 ml/min; Est GFR (Non-African American) 76.4 ml/min; Globulin 2.9 gm/dl (2.5-4.0); Potassium 3.7 mmol/L (3.5-5.1); Total Protein 7.1 gm/dl (6.0-8.3)
--- NOTE | 2021-12-10 11:47 | Electrocardiogram Report ---
Test Reason : Blood Pressure : / mmHG Vent. Rate : 072 BPM Atrial Rate : 072 BPM P-R Int : 144 ms QRS Dur : 082 ms QT Int : 414 ms P-R-T Axes : 045 004 105 degrees QTc Int : 453 ms Poor data quality, interpretation may be adversely affected Normal sinus rhythm Nonspecific ST and T wave abnormality Abnormal ECG When compared with ECG of 08-OCT-2021 09:01, No significant change was found Confirmed by Derrick Carney ([id number]) on 12/10/2021 11:46:57 AM Referred By: SELF Confirmed By:Candido Carney
[2021-12-10] MEDS ORDERED: ALBUTEROL 0.5% NEB SOLN 2.5 MG/0.5 ML VIAL NEB STA (11:49)
[2021-12-10] MEDS ORDERED: guaiFENesin SUGAR FREE 100 MG/5 ML UDC PO STA (12:51)
--- NOTE | 2021-12-10 12:56 | History & Physical Report ---
Date of Service December 10, 2021 Assessment & Plan (1) Asthma-COPD overlap syndrome: Plan: Acute exacerbation of asthma/COPD - Patient with increase in peripheral EOS, wheeze, and cough, with increase in sputum - responded well to steroid and nebulizer treatment in EMD - Will continue solumederol 40mg IV q6 hours - Scheduled albuterol/Atrovent nebs - PRN KIMBERLYN - Continue Trelegy inhaler or equivalent - Azithromycin with peripheral EOS and smoking hx- 500mg PO now and then 250mg po daily - Continue with montelukast - Continue with cough suppressant- Robitussin now then scheduled - last exacerbation was in Jun 2021 and previous to that was Apr 19 (2) Peripheral eosinophilia: Plan: As above- follow with above treatment - these usually respond well with steroid administration - could consider allergy follow up in conjunction with pulmonary - she follows with pulmonary in February (3) Hypertension: Plan: Continue with ARB and BB (4) Hyperlipidemia: Plan: Continue with atorvastatin 40mg po daily (5) DM w/o complication type II, uncontrolled: Plan: Glucose checks AC/HS add aspart coverage with CF 20 and ration 1:15- adjust with steroids as needed for glucose <180mg/dl - Hold metformin while inpatient - Hold glimepiride while inpatient - uncontrolled with hyperglycemia (6) Depression: Plan: Continue fluoxetine 40mg daily History of Present Illness Primary Care Provider: Shira Lopez MD 70 YOF with past medical history of: COPD/Asthma overlap syndrome, previous smoker - quit ~6 years ago, HTN, HLD, mild MR and mild LVH with preserved EF. Patient comes to the [facility] today for complaints of dyspnea and fatigue. This has been ongoing for the past 2 weeks and she has been trying to manage her symptoms at home, but felt overly fatigued the past 3-4 days and decided it was time to come in. Patient did not call her pulomonologist when she started to feel ill. Over the past 2 weeks she has had increase in her cough, more so after eating, but remians with cough throughout the day, increase in dyspnea and use of her KIMBERLYN nebulizers at home. The patient voices that she remains consistent with her inhalers and that the humidity and outside got to her. She has been trying to stay inside and manage as above. In the EMD the patient had routine labs performed, CXR, and ECG done. She was given 40mg of Solumederol IV, given standard nebulizer without relief in symptom so she was given hour long nebul izer, which has relieved the patient's dyspnea and wheezing. The patient remains with coughing as well as conversational dyspneic, but symptoms are improved from ER presentation with good air movement and decrease in wheezing. Patient will be observed on the medical surgical floor, continue with her steroids, add Azithromycin and zyrtec to her regimen. COVID test on admission is: NEGATIVE will add influenza Allergies Allergy/AdvReac Type Severity Reaction Status Date / Time hydrocodone AdvReac Mild NAUSEA Verified 12/10/21 12:57 prednisone AdvReac Mild NAUSEA Verified 12/10/21 12:57 Home Medications Medication Instructions Recorded Confirmed Type aspirin 81 mg chewable tablet 81 mg PO QAM 04/10/18 12/10/21 History lancets 33 gauge (OneTouch Delica #100 ea 03/02/20 11/15/21 Rx Lancets) metoprolol tartrate 25 mg tablet 12.5 mg PO BID #60 tab 01/09/21 12/10/21 Rx metformin 500 mg tablet 1,000 mg PO BID #360 tab 06/04/21 12/10/21 Rx atorvastatin 40 mg tablet 40 mg PO QAM #30 tab 07/05/21 12/10/21 Rx losartan 50 mg tablet 25 mg PO QAM 90 Days #45 tab 07/07/21 12/10/21 Rx benzonatate 100 mg capsule 100 mg PO BID 07/27/21 12/10/21 History montelukast 10 mg tablet 10 mg PO HS #30 tab 08/01/21 12/10/21 Rx (Singulair) fluticasone fur. 200 mcg-umeclid 1 inh INHALATION QAM 09/14/21 12/10/21 History 62.5 mcg-vilant 25 mcg inhalat.powder (Trelegy Ellipta) pantoprazole 40 mg tablet,delayed 40 mg PO DAILYBB 09/14/21 12/10/21 History release (Protonix) ipratropium 0.5 mg-albuterol 3 mg 3 ml INHALATION QID PRN #3 ml 10/02/21 12/10/21 Rx (2.5 mg base)/3 mL nebulization soln nebulizers (MicroAir Mesh #1 ea 10/03/21 11/15/21 Rx Nebulizer) fluoxetine 40 mg capsule 40 mg PO QAM #30 cap 11/05/21 12/10/21 Rx blood sugar diagnostic #100 ea 12/03/21 Rx acetaminophen 500 mg tablet 500 mg PO Q6H PRN 12/10/21 12/10/21 History (Tylenol Extra Strength) glimepiride 2 mg tablet 2 mg PO DAILYBB 12/10/21 12/10/21 History Past Med/Surg History Medical History Acute exacerbation of chronic obstructive pulmonary disease (COPD) Asthma-COPD overlap syndrome Chronic obstructive pulmonary disease Depression Excessive daytime sleepiness History of nicotine dependence Hyperlipidemia Hypertension Insomnia Moderate persistent asthma Nocturnal hypoxemia Peripheral eosinophilia Surgical History H/O oophorectomy H/O: hysterectomy Family History Father Diabetes CHF (congestive heart failure) Grandfather (Paternal) Diabetes Mother Deep vein thrombosis NHL (non-Hodgkin's lymphoma) Grandfather (Maternal) Acute leukemia Grandmother (Maternal) Deep vein thrombosis Aunt Deep vein thrombosis Other No pertinent family history Denies family history of Ovarian cancer Prostate cancer Myocardial infarction Breast cancer Colorectal cancer Social History Smoking Status: Former smoker Tobacco Type: Cigarettes Second Hand Exposure: No; Hx Alcohol Use: Yes Hx Substance Use: No Preferred Language: Syriac Communication Ability: Effective Visual Impairment: No Limitations Hearing Ability: Normal Facility Mechanic Required: Yes Beliefs That Will Affect Care: None marital status: / Current Living Situation: Alone current occupational status: retired Feels Safe at Home: Yes Safety Concerns: Feels Safe At This Time Dental Care, Regularly: No Seatbelt Use: always Sunscreen Use: Yes Assistive Devices: Denture - Upper, Glasses and Oxygen - at Night Review of Systems Review of Systems: REVIEW OF SYSTEMS: Constitutional: No fever, sweats or chills Eyes: No diplopia, no worsening or blurred vision ENT: normal hearing, no trouble swallowing Respiratory: (+) cough, sputum, dyspnea at rest or on exertion Cardiovascular: (+) chest tightness with breathing and coughing, No chest pain, tightness or palpitations with exertion Abdomen: No pain, nausea, vomiting, diarrhea or constipation Neurologic: No weakness, numbness/tingling, or balance problems Psychiatric: No anxiety or depression Skin: No rash or itch Physical Exam Physical Exam: PHYSICAL EXAM: General: awake, alert, no apparent distress Head: Normocephalic, atraumatic ENT: PERRL, EOMI, no pharyngeal exudate, mucous membranes moist Neuro: AAO x 3, speech clear and appropriate, strength intact bilaterally 5/5, sensation intact and equal all extremities and dermatomes, no pronator drift Chest: equal rise and fall of the chest, no accessory muscle use, inspiratory and expiratory wheeze posterior, good air movement on room air Cardiac: Regular rate and rhythm, telemetry reviewed- NSR with occasional PVC, skin warm dry, cap refill <3 seconds, peripheral pulses +2 no JVD, no murmur, no JVD, no edema GI: NABS x 4 quadrants, soft, nontender to palpation, no rebound, guarding or tenderness : Spontaneously voiding, no pain, no CVA tenderness, Extremities: Normal inspection, no peripheral edema or erythema, calfs nontender to palpation Psych: Normal mood and affect Skin: no rash or erythema Results & Data Results & Data ([facility]) Vital Signs (Past 12 Hours) Vital Signs Temp Pulse Pulse Resp BP BP Pulse Ox 12/10/21 12:02 85 18 162/112 H 100 12/10/21 10:33 70 22 95 12/10/21 09:55 36.4 C L 77 26 H 176/102 H 91 12/10/21 09:52 71 18 177/117 H 94 Laboratory Results Abnormal lab results 12/10/21 12/10/21 12/10/21 Range/Units 10:10 10:10 10:28 [place] # (Auto) 0.77 H (0.11-0.59) K/uL Eos # (Auto) 1.75 H (0-0.5) K/uL VBG pH 7.43 H (7.36-7.41) Glucose 126 H (70-99(Fasting)) mg/dl AST 11 L (13-39) U/L Diagnostic Findings Chest X-Ray 12/10/21 10:04 XR chest 1V portable CLINICAL HISTORY: Atypical chest pain. COMPARISON STUDY: Chest radiograph October 06, 2021. Chest CT October 09, 2021. FINDINGS: Lung volumes are normal. Lungs are clear. There is no pneumothorax or pleural effusion. Cardiac size is normal. Mediastinal contours are normal. There is no evidence for pulmonary edema. IMPRESSION: No acute cardiopulmonary findings. ACT 112: Negative or not required by law. Electronically signed by: Glen Humphrey M.D. 12/10/2021 10:38 AM Medications Administered Discontinued Medications Albuterol (Albut/Ipratrop 3mg/0.5mg Neb 3 Ml Vial) 12 ml NEB ONE ONE; Protocol Stop: 12/10/21 10:06 Last Admin: 12/10/21 10:30 Dose: 12 ml Documented by: [id number] Albuterol (Albuterol 0.5% Neb Soln 2.5 Mg/0.5 Ml Vial) 5 mg NEB NOW STA; Protocol Stop: 12/10/21 11:50 Last Admin: 12/10/21 12:00 Dose: 5 mg Documented by: [id number] Methylprednisolone (Methylprednisolone 40 Mg/Ml Vial) 40 mg IV NOW STA Stop: 12/10/21 10:06 Last Admin: 12/10/21 10:18 Dose: 40 mg Documented by: [id number] ECG Additional Comments: Normal sinus rhythm Nonspecific ST and T wave abnormality Abnormal ECG When compared with ECG of 08-OCT-2021 09:01, No significant change was found Code Status & VTE Plan Code Status CODE: FULL VTE: SCDS, Lovenox 40mg SQ daily VTE Prophylaxis Plan VTE Prophylaxis will be ordered: Yes Supervising Physician Co-Signing Physician Notes I personally saw and examined the patient. I verified all arnett points and agree with TRACIE Garcia with the following exceptions and/or additions: 71 year old female admission for shortness of breath. Already significantly improved with steroids and nebulizers when seen on the sims. Seasonal nature of exacebrations. Did not have any outpatient prednisone. Taking Trelegy Ellipta and has nebulizers at home. O/E Awake and alert, Chest: poor inspiratory effort to bases, no wheezing or crackles, HS1+2, no murmurs, Abdo SNT A/P COPD/asthma overlap acute exacerbation - IV solu-medrol, duonebs, azithromycin. Advisede patient to call her outpatient physicians earlier in course of illness in future to avoid hospital admissions PG Care Time/CCT Total # of Minutes Spent Total Time Spent with Patient: Total time spent is greater than 50% in coordination of care (as documented) at patient's floor/unit and/or counseling patient: Coding Level of Care Code INT OBSERVATION CARE 70M LVL 3 Diagnoses Asthma-COPD overlap syndrome J44.9 Peripheral eosinophilia D72.19 Hypertension I10 Hypertension type: essential hypertension Hyperlipidemia E78.5 DM w/o complication type II, uncontrolled E11.65 Glycemic state: with hyperglycemia Depression F32.89 Depression Type: other depression (1) Depression Depression Type: other depression Qualified Code(s): F32.89 - Other specified depressive episodes (2) Hypertension Hypertension type: essential hypertension Qualified Code(s): I10 - Essential (primary) hypertension (3) DM w/o complication type II, uncontrolled Glycemic state: with hyperglycemia Qualified Code(s): E11.65 - Type 2 diabetes mellitus with hyperglycemia
[2021-12-10] MEDS ORDERED: CARBOHYDRATES FOR HYPOGLYCEMIA PO PRN (16:23)
[2021-12-10] MEDS ORDERED: ALBUT/IPRATROP 3MG/0.5MG NEB 3 ML VIAL NEB PRN (16:23)
[2021-12-10] MEDS ORDERED: DEXTROSE 50% 50 ML SYRINGE IV PRN (16:23)
[2021-12-10] MEDS ORDERED: GLUCAGON FOR INJ 1 MG VIAL SQ PRN (16:23)
[2021-12-10] MEDS ORDERED: AZITHROMYCIN 250 MG TAB PO ONE (16:23)
[2021-12-10] MEDS ORDERED: GLUCOSE 40% GEL 15 GM TUBE PO PRN (16:23)
[2021-12-10] MEDS ORDERED: ACETAMINOPHEN 325 MG TAB PO PRN (16:23)
[2021-12-10] MEDS ORDERED: GLUCOSE 10 TABS/TUBE PO PRN (16:23)
[2021-12-10] MEDS ORDERED: ALBUTEROL 0.083% NEBU SOLN 3 ML VIAL NEB PRN (17:00)
[2021-12-10] MEDS ORDERED: PHARMACY GLYCEMIC MGMT CONSULT PRN (17:33)
[2021-12-10 17:44] LABS: Influenza A virus by PCR Negative (Negative); Influenza B virus by PCR Negative (Negative)
[2021-12-10] MEDS ORDERED: ALBUT/IPRATROP 3MG/0.5MG NEB 3 ML VIAL NEB SCH (18:00)
[2021-12-10] MEDS: INSULIN ASPART PER UNIT SC SCH ×2 (18:10→21:23)
[2021-12-10] MEDS: methylPREDNISolone 40 MG in SYRINGE 0 ML IV SCH ×2 (18:10→23:31)
[2021-12-10] MEDS ORDERED: INSULIN GLARGINE SOLOSTAR 100 UNITS/ML 3 ML PEN SC STA (18:37)
[2021-12-10] MEDS: ALBUT/IPRATROP 3MG/0.5MG NEB 3 ML VIAL NEB SCH (19:37)
[2021-12-10] MEDS: BENZONATATE 100 MG CAPSULE PO SCH (20:27)
[2021-12-10] MEDS: METOPROLOL TARTRATE 25 MG TAB PO SCH (20:32)
[2021-12-10] MEDS ORDERED: MONTELUKAST SODIUM 10 MG TABLET PO SCH (21:00)
[2021-12-11] MEDS: INSULIN ASPART PER UNIT SC SCH ×4 (00:03→12:50)
[2021-12-11] MEDS: ALBUT/IPRATROP 3MG/0.5MG NEB 3 ML VIAL NEB SCH ×3 (00:14→12:36)
[2021-12-11] MEDS: methylPREDNISolone 40 MG in SYRINGE 0 ML IV SCH ×2 (06:06→10:28)
[2021-12-11] MEDS ORDERED: PANTOprazole 40 MG TAB PO SCH (06:30)
[2021-12-11] MEDS: METOPROLOL TARTRATE 25 MG TAB PO SCH (07:58)
[2021-12-11] MEDS: BENZONATATE 100 MG CAPSULE PO SCH (07:58)
[2021-12-11 08:08] LABS: Basophils # (auto) 0.01 K/uL (0-0.2); Hematocrit (blood only) 39.7 % (37-47); Hemoglobin 13.5 g/dL (12.0-16.0); Immature Granulocytes # (auto) 0.07 K/uL (0.00-0.02); Immature Granulocytes % (auto) 0.3 %; Lymphocytes # (auto) 2.08 K/uL (1.2-3.4); Lymphocytes % (auto) 10.4 %; Mean Corpuscular Volume 91.1 fL (80-100); Monocytes # (auto) 0.73 K/uL (0.11-0.59); Monocytes % (auto) 3.6 %; Neutrophils # (auto) 17.15 K/uL (1.4-6.5); Neutrophils % (auto) 85.7 %; Platelet Count 313 K/uL (130-400); RDW Coefficient of Variation 13.6 % (11.5-14.5); RDW Standard Deviation 44.9 fL (36.4-46.3); Red Blood Count 4.36 M/uL (4.2-5.4); White Blood Count 20.04 K/uL (4.8-10.8)
[2021-12-11] MEDS ORDERED: INSULIN GLARGINE SOLOSTAR 100 UNITS/ML 3 ML PEN SC ONE (08:30)
[2021-12-11 08:32] LABS: BUN Creatinine Ratio 22.5 (10-20); Calcium 9.7 mg/dl (8.5-10.1); Creatinine Clr Calc Pharmacy 70.4 ml/min; Est GFR (African American) 87.2 ml/min; Est GFR (Non-African American) 75.2 ml/min; Magnesium 1.8 mg/dl (1.7-2.4); Potassium 4.1 mmol/L (3.5-5.1)
--- NOTE | 2021-12-11 08:45 | Hospitalist Progress Note ---
Date of Service December 11, 2021 Assessment & Plan Admission and Anticipated Discharge Date Admission Date: December 10, 2021 Results & Data Results & Data ([facility]) Vital Signs (Past 12 Hours) Vital Signs Temp Pulse Resp BP Pulse Ox 12/11/21 07:27 36.6 C 86 18 170/83 H 91 12/11/21 07:13 78 18 95 12/11/21 00:14 85 18 94 12/10/21 23:31 36.9 C 71 18 145/87 H 93 Laboratory Results 12/11/21 12/11/21 12/11/21 Range/Units 08:19 07:23 07:23 WBC 20.04 H (4.8-10.8) K/uL RBC 4.36 (4.2-5.4) M/uL Hgb 13.5 (12.0-16.0) g/dL Hct 39.7 (37-47) % MCV 91.1 (80-100) fL MCH 31.0 (25-34) pg MCHC 34.0 (32-36) g/dL RDW Std Deviation 44.9 (36.4-46.3) fL RDW Coeff of Aniyah 13.6 (11.5-14.5) % Plt Count 313 (130-400) K/uL MPV 10.0 (7.4-10.4) fL Immature Gran % (Auto) 0.3 % Neut % (Auto) 85.7 % Lymph % (Auto) 10.4 % [place] % (Auto) 3.6 % Eos % (Auto) 0.0 % Baso % (Auto) 0.0 % Neut # (Auto) 17.15 H (1.4-6.5) K/uL Lymph # (Auto) 2.08 (1.2-3.4) K/uL [place] # (Auto) 0.73 H (0.11-0.59) K/uL Eos # (Auto) 0.00 (0-0.5) K/uL Baso # (Auto) 0.01 (0-0.2) K/uL Immature Gran # (Auto) 0.07 H (0.00-0.02) K/uL VBG pH (7.36-7.41) VBG pCO2 (38-50) mmHg VBG pO2 mmHg VBG HCO3 mmol/L VBG O2 Saturation % VBG Base Excess mEq/L Barometric Pressure mm/Hg Sodium 136 (136-145) mmol/L Potassium 4.1 (3.5-5.1) mmol/L Chloride 101 (98-107) mmol/L Carbon Dioxide 25 (21-32) mmol/L Anion Gap 10 (3-11) BUN 18 (6-23) mg/dl Creatinine 0.80 (0.6-1.2) mg/dl Est Cr Clr Drug Dosing 70.4 ml/min Est GFR ( Amer) 87.2 ml/min Est GFR (Non-Af Amer) 75.2 ml/min BUN/Creatinine Ratio 22.5 H (10-20) Glucose 229 H (70-99(Fasting)) mg/dl POC Glucose 232 H (70-99) mg/dl Calcium 9.7 (8.5-10.1) mg/dl Magnesium 1.8 (1.7-2.4) mg/dl Total Bilirubin (0.2-1.0) mg/dl AST (13-39) U/L ALT (7-52) U/L Alkaline Phosphatase (34-104) U/L Troponin I High Sens (0-14) pg/ml Total Protein (6.0-8.3) gm/dl Albumin (3.4-5.0) gm/dl Globulin (2.5-4.0) gm/dl Albumin/Globulin Ratio (0.9-2) Lipase (11-82) U/L Influ A Molecular Assay (Negative) Influ B Molecular Assay (Negative) SARS-CoV-2, RNA, NAAT (NEGATIVE) 12/11/21 12/10/21 12/10/21 Range/Units 03:46 23:59 20:44 WBC (4.8-10.8) K/uL RBC (4.2-5.4) M/uL Hgb (12.0-16.0) g/dL Hct (37-47) % MCV (80-100) fL MCH (25-34) pg MCHC (32-36) g/dL RDW Std Deviation (36.4-46.3) fL RDW Coeff of Aniyah (11.5-14.5) % Plt Count (130-400) K/uL MPV (7.4-10.4) fL Immature Gran % (Auto) % Neut % (Auto) % Lymph % (Auto) % [place] % (Auto) % Eos % (Auto) % Baso % (Auto) % Neut # (Auto) (1.4-6.5) K/uL Lymph # (Auto) (1.2-3.4) K/uL [place] # (Auto) (0.11-0.59) K/uL Eos # (Auto) (0-0.5) K/uL Baso # (Auto) (0-0.2) K/uL Immature Gran # (Auto) (0.00-0.02) K/uL VBG pH (7.36-7.41) VBG pCO2 (38-50) mmHg VBG pO2 mmHg VBG HCO3 mmol/L VBG O2 Saturation % VBG Base Excess mEq/L Barometric Pressure mm/Hg Sodium (136-145) mmol/L Potassium (3.5-5.1) mmol/L Chloride (98-107) mmol/L Carbon Dioxide (21-32) mmol/L Anion Gap (3-11) BUN (6-23) mg/dl Creatinine (0.6-1.2) mg/dl Est Cr Clr Drug Dosing ml/min Est GFR ( Amer) ml/min Est GFR (Non-Af Amer) ml/min BUN/Creatinine Ratio (10-20) Glucose (70-99(Fasting)) mg/dl POC Glucose 219 H 155 H 271 H (70-99) mg/dl Calcium (8.5-10.1) mg/dl Magnesium (1.7-2.4) mg/dl Total Bilirubin (0.2-1.0) mg/dl AST (13-39) U/L ALT (7-52) U/L Alkaline Phosphatase (34-104) U/L Troponin I High Sens (0-14) pg/ml Total Protein (6.0-8.3) gm/dl Albumin (3.4-5.0) gm/dl Globulin (2.5-4.0) gm/dl Albumin/Globulin Ratio (0.9-2) Lipase (11-82) U/L Influ A Molecular Assay (Negative) Influ B Molecular Assay (Negative) SARS-CoV-2, RNA, NAAT (NEGATIVE) 12/10/21 12/10/21 12/10/21 Range/Units 17:16 17:14 17:10 WBC (4.8-10.8) K/uL RBC (4.2-5.4) M/uL Hgb (12.0-16.0) g/dL Hct (37-47) % MCV (80-100) fL MCH (25-34) pg MCHC (32-36) g/dL RDW Std Deviation (36.4-46.3) fL RDW Coeff of Aniyah (11.5-14.5) % Plt Count (130-400) K/uL MPV (7.4-10.4) fL Immature Gran % (Auto) % Neut % (Auto) % Lymph % (Auto) % [place] % (Auto) % Eos % (Auto) % Baso % (Auto) % Neut # (Auto) (1.4-6.5) K/uL Lymph # (Auto) (1.2-3.4) K/uL [place] # (Auto) (0.11-0.59) K/uL Eos # (Auto) (0-0.5) K/uL Baso # (Auto) (0-0.2) K/uL Immature Gran # (Auto) (0.00-0.02) K/uL VBG pH (7.36-7.41) VBG pCO2 (38-50) mmHg VBG pO2 mmHg VBG HCO3 mmol/L VBG O2 Saturation % VBG Base Excess mEq/L Barometric Pressure mm/Hg Sodium (136-145) mmol/L Potassium (3.5-5.1) mmol/L Chloride (98-107) mmol/L Carbon Dioxide (21-32) mmol/L Anion Gap (3-11) BUN (6-23) mg/dl Creatinine (0.6-1.2) mg/dl Est Cr Clr Drug Dosing ml/min Est GFR ( Amer) ml/min Est GFR (Non-Af Amer) ml/min BUN/Creatinine Ratio (10-20) Glucose (70-99(Fasting)) mg/dl POC Glucose 343 H* 341 H* (70-99) mg/dl Calcium (8.5-10.1) mg/dl Magnesium (1.7-2.4) mg/dl Total Bilirubin (0.2-1.0) mg/dl AST (13-39) U/L ALT (7-52) U/L Alkaline Phosphatase (34-104) U/L Troponin I High Sens (0-14) pg/ml Total Protein (6.0-8.3) gm/dl Albumin (3.4-5.0) gm/dl Globulin (2.5-4.0) gm/dl Albumin/Globulin Ratio (0.9-2) Lipase (11-82) U/L Influ A Molecular Assay Negative (Negative) Influ B Molecular Assay Negative (Negative) SARS-CoV-2, RNA, NAAT (NEGATIVE) 12/10/21 12/10/21 12/10/21 Range/Units 11:51 10:28 10:10 WBC (4.8-10.8) K/uL RBC (4.2-5.4) M/uL Hgb (12.0-16.0) g/dL Hct (37-47) % MCV (80-100) fL MCH (25-34) pg MCHC (32-36) g/dL RDW Std Deviation (36.4-46.3) fL RDW Coeff of Aniyah (11.5-14.5) % Plt Count (130-400) K/uL MPV (7.4-10.4) fL Immature Gran % (Auto) % Neut % (Auto) % Lymph % (Auto) % [place] % (Auto) % Eos % (Auto) % Baso % (Auto) % Neut # (Auto) (1.4-6.5) K/uL Lymph # (Auto) (1.2-3.4) K/uL [place] # (Auto) (0.11-0.59) K/uL Eos # (Auto) (0-0.5) K/uL Baso # (Auto) (0-0.2) K/uL Immature Gran # (Auto) (0.00-0.02) K/uL VBG pH 7.43 H (7.36-7.41) VBG pCO2 43 (38-50) mmHg VBG pO2 43 mmHg VBG HCO3 28 mmol/L VBG O2 Saturation 77.5 % VBG Base Excess 2.8 mEq/L Barometric Pressure 731.6 mm/Hg Sodium 140 (136-145) mmol/L Potassium 3.7 (3.5-5.1) mmol/L Chloride 104 (98-107) mmol/L Carbon Dioxide 27 (21-32) mmol/L Anion Gap 9 (3-11) BUN 9 (6-23) mg/dl Creatinine 0.79 (0.6-1.2) mg/dl Est Cr Clr Drug Dosing 71.3 ml/min Est GFR ( Amer) 88.5 ml/min Est GFR (Non-Af Amer) 76.4 ml/min BUN/Creatinine Ratio 11.4 (10-20) Glucose 126 H (70-99(Fasting)) mg/dl POC Glucose (70-99) mg/dl Calcium 9.4 (8.5-10.1) mg/dl Magnesium (1.7-2.4) mg/dl Total Bilirubin 0.7 (0.2-1.0) mg/dl AST 11 L (13-39) U/L ALT 11 (7-52) U/L Alkaline Phosphatase 81 (34-104) U/L Troponin I High Sens 5.5 (0-14) pg/ml Total Protein 7.1 (6.0-8.3) gm/dl Albumin 4.2 (3.4-5.0) gm/dl Globulin 2.9 (2.5-4.0) gm/dl Albumin/Globulin Ratio 1.4 (0.9-2) Lipase 23 (11-82) U/L Influ A Molecular Assay (Negative) Influ B Molecular Assay (Negative) SARS-CoV-2, RNA, NAAT NEGATIVE (NEGATIVE) 12/10/21 Range/Units 10:10 WBC 10.18 (4.8-10.8) K/uL RBC 4.31 (4.2-5.4) M/uL Hgb 12.9 (12.0-16.0) g/dL Hct 39.1 (37-47) % MCV 90.7 (80-100) fL MCH 29.9 (25-34) pg MCHC 33.0 (32-36) g/dL RDW Std Deviation 45.0 (36.4-46.3) fL RDW Coeff of Aniyah 13.6 (11.5-14.5) % Plt Count 295 (130-400) K/uL MPV 9.8 (7.4-10.4) fL Immature Gran % (Auto) 0.2 % Neut % (Auto) 47.3 % Lymph % (Auto) 27.1 % [place] % (Auto) 7.6 % Eos % (Auto) 17.2 % Baso % (Auto) 0.6 % Neut # (Auto) 4.82 (1.4-6.5) K/uL Lymph # (Auto) 2.76 (1.2-3.4) K/uL [place] # (Auto) 0.77 H (0.11-0.59) K/uL Eos # (Auto) 1.75 H (0-0.5) K/uL Baso # (Auto) 0.06 (0-0.2) K/uL Immature Gran # (Auto) 0.02 (0.00-0.02) K/uL VBG pH (7.36-7.41) VBG pCO2 (38-50) mmHg VBG pO2 mmHg VBG HCO3 mmol/L VBG O2 Saturation % VBG Base Excess mEq/L Barometric Pressure mm/Hg Sodium (136-145) mmol/L Potassium (3.5-5.1) mmol/L Chloride (98-107) mmol/L Carbon Dioxide (21-32) mmol/L Anion Gap (3-11) BUN (6-23) mg/dl Creatinine (0.6-1.2) mg/dl Est Cr Clr Drug Dosing ml/min Est GFR ( Amer) ml/min Est GFR (Non-Af Amer) ml/min BUN/Creatinine Ratio (10-20) Glucose (70-99(Fasting)) mg/dl POC Glucose (70-99) mg/dl Calcium (8.5-10.1) mg/dl Magnesium (1.7-2.4) mg/dl Total Bilirubin (0.2-1.0) mg/dl AST (13-39) U/L ALT (7-52) U/L Alkaline Phosphatase (34-104) U/L Troponin I High Sens (0-14) pg/ml Total Protein (6.0-8.3) gm/dl Albumin (3.4-5.0) gm/dl Globulin (2.5-4.0) gm/dl Albumin/Globulin Ratio (0.9-2) Lipase (11-82) U/L Influ A Molecular Assay (Negative) Influ B Molecular Assay (Negative) SARS-CoV-2, RNA, NAAT (NEGATIVE) Diagnostic Findings Chest X-Ray 12/10/21 10:04 XR chest 1V portable CLINICAL HISTORY: Atypical chest pain. COMPARISON STUDY: Chest radiograph October 06, 2021. Chest CT October 09, 2021. FINDINGS: Lung volumes are normal. Lungs are clear. There is no pneumothorax or pleural effusion. Cardiac size is normal. Mediastinal contours are normal. There is no evidence for pulmonary edema. IMPRESSION: No acute cardiopulmonary findings. ACT 112: Negative or not required by law. Electronically signed by: Glen Humphrey M.D. 12/10/2021 10:38 AM PG Care Time/CCT Total # of Minutes Spent Total Time Spent with Patient: Total time spent is greater than 50% in coordination of care (as documented) at patient's floor/unit and/or counseling patient: Coding
[2021-12-11] MEDS ORDERED: guaiFENesin SUGAR FREE 100 MG/5 ML UDC PO PRN (08:46)
[2021-12-11] MEDS ORDERED: ENOXAPARIN INJ 40 MG/0.4 ML SYR SQ SCH (09:00)
[2021-12-11] MEDS ORDERED: FLUTICASONE FUROATE 200MCG 14 PUFFS/INHALER INH SCH (09:00)
[2021-12-11] MEDS ORDERED: FLUoxetine HCL 20 MG CAP PO SCH (09:00)
[2021-12-11] MEDS ORDERED: ASPIRIN 81 MG CHEW PO SCH (09:00)
[2021-12-11] MEDS ORDERED: LOSARTAN POTASSIUM 25 MG TAB PO SCH (09:00)
[2021-12-11] MEDS ORDERED: ATORVASTATIN 40 MG TAB PO SCH (09:00)
[2021-12-11] MEDS ORDERED: UMECLIDINIUM/VILANTEROL 62.5/25MCG 7 PUFFS/INHALER INH SCH (09:00)
[2021-12-11] MEDS ORDERED: AZITHROMYCIN 250 MG TAB PO SCH (09:00)
--- NOTE | 2021-12-11 09:02 | Pharmacy Report ---
Pharmacy Glycemic Short Note 2 - Date of Service December 11, 2021 - Glycemic Short BSG Results (Last 24 hours): 12/10/21 12/10/21 12/10/21 10:10 17:14 17:16 Glucose 126 H POC Glucose 341 H* 343 H* 12/10/21 12/10/21 12/11/21 20:44 23:59 03:46 Glucose POC Glucose 271 H 155 H 219 H 12/11/21 12/11/21 07:23 08:19 Glucose 229 H POC Glucose 232 H OUTPATIENT ANTIDIABETIC REGIMEN: * Metformin 1000 mg PO BIDM * Glimepiride 2 mg PO before breakfast * HbA1c: 7.6% (11/15/21) ASSESSMENT: * SS is a 71 year old female admitted yesterday with COPD exacerbation * Started on IV steroids (i.e. Solu-medrol 40 mg IV q6h) * BSGs elevated following steroid administration, 343, 271, 155, 219, and 232 mg/dL * Given ongoing steroids, will give ~full weight-based stress of 3 Lantus and tighten Novolog parameters PLAN FOR INPATIENT GLYCEMIC CONTROL: * Hold outpatient oral diabetes medications * Basal insulin * Lantus 40 units SC daily * Bolus insulin * NovoLog per scale ACHS or Q6hrs while NPO * Goal Range: Low 110 mg/dL - High 140 mg/dL * Correction Factor: 15 mg/dL/unit * Nutritional / Prandial insulin per carb ratio of 1 unit per 5 grams CHO consumed
--- NOTE | 2021-12-11 12:27 | Discharge Summary ---
Date of Service December 11, 2021 Admission HPI Per Admitting Provider 70 YOF with past medical history of: COPD/Asthma overlap syndrome, previous smoker - quit ~6 years ago, HTN, HLD, mild MR and mild LVH with preserved EF. Patient comes to the EMD today for complaints of dyspnea and fatigue. This has been ongoing for the past 2 weeks and she has been trying to manage her symptoms at home, but felt overly fatigued the past 3-4 days and decided it was time to come in. Patient did not call her pulomonologist when she started to feel ill. Over the past 2 weeks she has had increase in her cough, more so after eating, but remians with cough throughout the day, increase in dyspnea and use of her KIMBERLYN nebulizers at home. The patient voices that she remains consistent with her inhalers and that the humidity and outside got to her. She has been trying to stay inside and manage as above. In the EMD the patient had routine labs performed, CXR, and ECG done. She was given 40mg of Solumederol IV, given standard nebulizer without relief in symptom so she was given hour long nebul izer, which has relieved the patient's dyspnea and wheezing. The patient remains with coughing as well as conversational dyspneic, but symptoms are improved from ER presentation with good air movement and decrease in wheezing. Patient will be observed on the medical surgical floor, continue with her steroids, add Azithromycin and zyrtec to her regimen. COVID test on admission is: NEGATIVE will add influenza Admission Exam Per Admitting Provider PHYSICAL EXAM: General: awake, alert, no apparent distress Head: Normocephalic, atraumatic ENT: PERRL, EOMI, no pharyngeal exudate, mucous membranes moist Neuro: AAO x 3, speech clear and appropriate, strength intact bilaterally 5/5, sensation intact and equal all extremities and dermatomes, no pronator drift Chest: equal rise and fall of the chest, no accessory muscle use, inspiratory and expiratory wheeze posterior, good air movement on room air Cardiac: Regular rate and rhythm, telemetry reviewed- NSR with occasional PVC, skin warm dry, cap refill <3 seconds, peripheral pulses +2 no JVD, no murmur, no JVD, no edema GI: NABS x 4 quadrants, soft, nontender to palpation, no rebound, guarding or tenderness : Spontaneously voiding, no pain, no CVA tenderness, Extremities: Normal inspection, no peripheral edema or erythema, calfs nontender to palpation Psych: Normal mood and affect Skin: no rash or erythema Principal Diagnosis COPD/ASthma Exacerbation Discharge Exam General: WN/WD female sitting up in bed (witnessed to having 5 minute phone call earlier without need to stop when talking), NAD HEENT: mmm, trachea midline, no deviation, pupils equal and reactive Resp: diminished in the bases, NO WHEEZING/CRACKLES, on room air CV: RRR (occasional extra beat), no m/r/g, no edema/calf tenderness GI: +BS, soft, nontender, no guarding/rigidity : no valerio MSK/Neuro: moves all extremities, CN intact grossly, no focal deficit Psych: AOx3, pleasant and cooperative Skin: warm, dry, no rashes observed Discharge Data Allergies Allergy/AdvReac Type Severity Reaction Status Date / Time hydrocodone AdvReac Mild NAUSEA Verified 12/10/21 12:57 prednisone AdvReac Mild NAUSEA Verified 12/10/21 12:57 Consultations 12/10/21 12:01 ED Decision to Admit Stat Ordered Studies Chest X-Ray 12/10/21 10:04 XR chest 1V portable CLINICAL HISTORY: Atypical chest pain. COMPARISON STUDY: Chest radiograph October 06, 2021. Chest CT October 09, 2021. FINDINGS: Lung volumes are normal. Lungs are clear. There is no pneumothorax or pleural effusion. Cardiac size is normal. Mediastinal contours are normal. There is no evidence for pulmonary edema. IMPRESSION: No acute cardiopulmonary findings. ACT 112: Negative or not required by law. Electronically signed by: Glen Humphrey M.D. 12/10/2021 10:38 AM Hospital Course (1) Asthma-COPD overlap syndrome: Acute exacerbation of asthma/COPD Acute and chronic hypoxic respiratory failure in patient with prior smoking history, increased wheezing/sob and only able to talk in 1-word sentences on initial presentation, vastly improved with IV steroids and scheduled nebulizers Prior exacerbation earlier this year Continued on methylprednisolone while inpatient --> prednisone PO 40mg daily for total 5 day treatment (including inpatient) Azithromycin -- 500mg x 1, 250mg given while inpatient, 3 more days to complete duonebs, trelegy (or equivalent while inpatient) Continued montelukast, Robitussin (prn following) Given incentive spirometer and flutter valve -- able to expectorate sputum -- reports initially was yellow, now clearer Sent zyrtec daily given underlying asthma/COPD and recommendation to discuss f/u with allergy/immunology (hx peripheral eosinophilia, no rashes) in future with PCP. Also recommend discussing calling ahead in future to get rx sent in/avoid need for inpatient hospitalization if possible in future. No further wheezing, remains stable on room air and wanting to be discharged AM 12/11 (2) Peripheral eosinophilia: resolved after tx w/ above continued Prednisone/Zyrtec at discharge to f/u with PCP and recommend discussion for referral to allergy/immunology outpatient Has f/u pulmonary in February (3) Hypertension: Continued with ARB and BB (4) Hyperlipidemia: Continued with atorvastatin 40mg po daily (5) DM w/o complication type II, uncontrolled: Glucose checks AC/HS add aspart coverage with CF 20 and ration 1:15- adjust with steroids as needed for glucose <180mg/dl BSGs initially high on admit (given methylprednisolone 125mg IV in ER), improved and low 200s this afternoon Short course prednisone at d/c, 40mg daily Resumed home medications at discharge (6) Depression: Continued fluoxetine 40mg daily discharged home Total Time Total Time Spent Total Time Spent (In Minutes): 40 Discharge Plan Discharge Items Patient Disposition: Home - Self-Care Reason For Visit: COPD EXACERBATION Discharge Diagnosis: COPD Exacerbation Goals: You have been hospitalized for an acute medical problem. During your stay at [facility], we have made an effort to correct the problem that brought you to the hospital while keeping you as comfortable as possible. Medications were used to bring your condition under control and your discharge instructions will include directions for any medications you should take after leaving the hospital. Please make sure you see your Primary Care Provider as part of your follow up plan. Activity: Resume your previous activity Non-emergency contact: Primary Care Provider Call non-emergency contact if: you have any medication questions, your symptoms worsen and you have a fever Follow-up/Referrals: Shira Lopez MD [Primary Care Provider] - 12/13/21 12:30 pm Diet: Carb Consistent or DM2, Heart Healthy and Low Sodium (2gm) Addtl Attending Provider Instructions: You have been hospitalized for a COPD/Asthma exacerbation. You were treated with IV steroids and azithromycin and have made significant improvement and stable for discharge. You are being sent on additional 4 days of prednisone 40mg daily as felt this would be better than longer slower taper. You also have azithroymcin for antibiotic for an additional 3 days as discussed. You have had Zyrtec added daily for allergy symptoms and given weather changes/asthma we are continuing this. This also can help given eosinophils elevated on labs (chronic finding) and you could have a component of allergies. It may not be a bad idea to discuss with your PCP about referral to allergy/immunology in the future as an outpatient. Please continue your incentive spirometer and flutter valve to help thin secretions. You can also consider Mucinex outpatient to help with cough in the future/thin secretions. Please follow up with your PCP in the next week. It may be a good idea to discuss plan in follow up regarding having access/rescue pack in case exacerbation occurs again. Please return to the ER with any fever/chills, chest pain, increased shortness of breath or for any other symptoms concerning for you. Pending Studies at Discharge: No Stand-Alone Forms: My [facility] Medications and DC Order Prescriptions: New azithromycin 250 mg Tablet 250 mg PO QAM Qty: 3 RF: 0 prednisone 20 mg tablet 40 mg PO DAILY 4 Days Qty: 8 RF: 0 Zyrtec 10 mg capsule 10 mg PO DAILY Qty: 10 RF: 0 Continued (DME) lancets [OneTouch Delica Lancets] 33 gauge misc See Dose Instructions .ROUTE .MEDSUPPLY Qty: 100 RF: 5 metoprolol tartrate 25 mg tablet 12.5 mg PO BID Qty: 60 RF: 5 metformin 500 mg tablet 1,000 mg PO BID Qty: 360 RF: 1 atorvastatin 40 mg tablet 40 mg PO QAM Qty: 30 RF: 5 losartan 50 mg tablet 25 mg PO QAM 90 Days Qty: 45 RF: 1 montelukast [Singulair] 10 mg tablet 10 mg PO HS Qty: 30 RF: 5 ipratropium-albuterol 0.5 mg-3 mg(2.5 mg base)/3 mL solution for nebulization 3 ml inhalation QID PRN (Reason: Shortness Of Breath) Qty: 3 RF: 5 (DME) MicroAir Mesh Nebulizer Misc See Rx Instructions .Route Qty: 1 RF: 0 fluoxetine 40 mg capsule 40 mg PO QAM Qty: 30 RF: 11 (DME) blood sugar diagnostic Strip See Dose Instructions .ROUTE .MEDSUPPLY Qty: 100 RF: 5 aspirin 81 mg Tablet,Chewable 81 mg PO QAM RF: 0 benzonatate 100 mg Capsule 100 mg PO BID RF: 0 acetaminophen [Tylenol Extra Strength] 500 mg Tablet 500 mg PO Q6H PRN (Reason: Pain) RF: 0 glimepiride 2 mg tablet 2 mg PO DAILYBB RF: 0 pantoprazole [Protonix] 40 mg tablet,delayed release (DR/EC) 40 mg PO DAILYBB RF: 0 Trelegy Ellipta 200-62.5-25 mcg blister with device 1 inh inhalation QAM RF: 0 Discharge Orders: Discharge Order (Routine); Ordered 12/11/21 Ordered By: Deanne Rivera/Other Patient Handouts: Asthma and COPD Admission Data Admit Date/Time: 12/10/21 12:45 Attending Provider: Anibal Hutchison Admit Provider: Aj Luz Primary Care Provider: Shira Lopez Other Providers: Anibal Hutchison Other Interventions: Discharge Summary Assessment (RN) Last Done: 12/11/21 14:28 Supervising Physician Co-Signing Physician Notes I supervised Deanne Lewis PA-C on this discharge. I discussed the plan of care with her. I did not see the patient as he had been seen within 24 hours by an attending prior to discharge. The plan is as written in the note except for any following changes/exceptions: None Already doing well after 24 hours. Will discharge with prednisone script and continued DuoNebs at home. Coding Level of Care Code 76745 OBS Care - Discharge Diagnoses Asthma-COPD overlap syndrome J44.9 Peripheral eosinophilia D72.19 Hypertension I10 Hypertension type: essential hypertension Hyperlipidemia E78.5 DM w/o complication type II, uncontrolled E11.65 Glycemic state: with hyperglycemia Depression F32.89 Depression Type: other depression
== END 2021-12-11 15:17 | disposition home or self-care (01) | DRG 190 ==
LOC: ED 09:52 → INTOOBSV 12:45 → EDINP 12:45 → SUATTDRO 12:45 → OBSVTOIN 12:45 → 3W 15:56

== ENCOUNTER 2022-02-07 08:46 | Inpatient (IN) ==
[2022-02-07] MEDS ORDERED: ALBUT/IPRATROP 3MG/0.5MG NEB 3 ML VIAL NEB STA ×2 (09:36→12:56)
--- NOTE | 2022-02-07 09:41 | Emergency Department Note ---
History of Present Illness General Chief complaint: Shortness of Breath/Dyspnea Stated complaint: SOB Time Seen by Provider: 02/07/22 09:27 Source: patient, RN notes reviewed and old records reviewed Mode of arrival: ambulatory Limitations: no limitations History of Present Illness This patient is a 71-year-old female history of COPD, comes in been short of breath for the last week and a half she had a cough with clear phlegm. No fever no chest pain. No lower extremity pain or swelling no injuries or falls no blood or melena stool no nausea vomiting or diarrhea no back pain or headache. She says this feels like her COPD typically does she called her doctor as she wanted to be started on some steroids but they recommend she come to the ER to get checked out for possible pneumonia. she said her oxygen was running a little low at home at 91%. Home Medications Medication Instructions Recorded Confirmed Type aspirin 81 mg chewable tablet 81 mg PO QAM 04/10/18 02/07/22 History lancets 33 gauge (OneTouch Delica #100 ea 03/02/20 11/15/21 Rx Lancets) fluticasone fur. 200 mcg-umeclid 1 inh inhalation QAM 09/14/21 02/07/22 History 62.5 mcg-vilant 25 mcg inhalat.powder (Trelegy Ellipta) pantoprazole 40 mg tablet,delayed 40 mg PO DAILYBB 09/14/21 02/07/22 History release (Protonix) ipratropium 0.5 mg-albuterol 3 mg 3 ml inhalation QID PRN Shortness 10/02/21 02/07/22 Rx (2.5 mg base)/3 mL nebulization Of Breath #3 mL soln nebulizers (MicroAir Mesh #1 ea 10/03/21 11/15/21 Rx Nebulizer misc) fluoxetine 40 mg capsule 40 mg PO QAM #30 caps 11/05/21 02/07/22 Rx blood sugar diagnostic #100 ea 12/03/21 Rx acetaminophen 500 mg tablet 500 mg PO Q6H PRN Pain 12/10/21 02/07/22 History (Tylenol Extra Strength) glimepiride 2 mg tablet 2 mg PO DAILYBB 12/10/21 02/07/22 History cetirizine 10 mg capsule (Zyrtec) 10 mg PO DAILY #10 caps 12/11/21 02/07/22 Rx atorvastatin 40 mg tablet 40 mg PO QAM #30 tabs 12/25/21 02/07/22 Rx losartan 50 mg tablet 25 mg PO QAM 90 days #45 tabs 12/25/21 02/07/22 Rx metformin 500 mg tablet 1,000 mg PO BID #360 tabs 12/25/21 02/07/22 Rx metoprolol tartrate 25 mg tablet 12.5 mg PO BID #60 tabs 12/25/21 02/07/22 Rx montelukast 10 mg tablet 10 mg PO HS #30 tabs 01/24/22 02/07/22 Rx (Singulair) albuterol sulfate 90 mcg/actuation 1 - 2 puff inhalation Q4H PRN SOB 01/25/22 02/07/22 Rx aerosol inhaler (ProAir HFA) #18 grams Allergies Allergy/AdvReac Type Severity Reaction Status Date / Time hydrocodone AdvReac Mild NAUSEA Verified 02/07/22 14:58 prednisone AdvReac Mild NAUSEA Verified 02/07/22 14:58 Past Med/Surg History Medical History Acute exacerbation of chronic obstructive pulmonary disease (COPD) Asthma-COPD overlap syndrome Breath shortness Chronic obstructive pulmonary disease Depression Excessive daytime sleepiness History of nicotine dependence Hyperlipidemia Hypertension Insomnia Moderate persistent asthma Nocturnal hypoxemia Peripheral eosinophilia Surgical History H/O oophorectomy H/O: hysterectomy Family History Father Diabetes CHF (congestive heart failure) Grandfather (Paternal) Diabetes Mother Deep vein thrombosis NHL (non-Hodgkin's lymphoma) Grandfather (Maternal) Acute leukemia Grandmother (Maternal) Deep vein thrombosis Aunt Deep vein thrombosis Other No pertinent family history Denies family history of Ovarian cancer Prostate cancer Myocardial infarction Breast cancer Colorectal cancer Social History Smoking Status: Never smoker Tobacco Type: Cigarettes Second Hand Exposure: No; Hx Alcohol Use: No Hx Substance Use: No Preferred Language: Sinhala Communication Ability: Effective Visual Impairment: No Limitations Hearing Ability: Normal 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 Required: No Beliefs That Will Affect Care: None marital status: / Current Living Situation: Alone current occupational status: retired Other Information That Helps Us Care for You: No Feels Safe at Home: Yes Safety Concerns: Feels Safe At This Time Dental Care, Regularly: No Seatbelt Use: always Sunscreen Use: Yes Assistive Devices: Bedside Commode, Nebulizer and Oxygen - at Night Review of Systems A total of 10 systems reviewed and were otherwise negative Physical Exam Vital Signs Vital Signs - 24 hr 02/07/22 08:55 02/07/22 08:46 02/07/22 08:46 Temperature 36.4 C L Temperature Source Temporal Artery Scan Pulse Rate 85 Pulse Rate [Apical] Pulse Rate from SpO2 Sensor Respiratory Rate 20 Respiratory Effort / Characteristics Non-Labored Respiratory Depth Normal Respiratory Pattern Regular Blood Pressure 156/95 H Blood Pressure [Right Arm] Blood Pressure Mean 115 Blood Pressure Mean [Right Arm] Blood Pressure Position [Right Arm] Pulse Oximetry 92 Oxygen Delivery Method Room Air Room Air Oxygen Flow Rate 95 Sepsis Recent Fever Within 48 Hours No Sepsis New/Unexplained Change in Mental Status No Sepsis Action Taken by Nursing No Action Required 02/07/22 09:36 02/07/22 09:40 02/07/22 09:50 Temperature Temperature Source Pulse Rate 88 84 82 Pulse Rate [Apical] Pulse Rate from SpO2 Sensor 84 84 80 Respiratory Rate 21 24 17 Respiratory Effort / Characteristics Respiratory Depth Respiratory Pattern Blood Pressure Blood Pressure [Right Arm] Blood Pressure Mean Blood Pressure Mean [Right Arm] Blood Pressure Position [Right Arm] Pulse Oximetry 90 92 93 Oxygen Delivery Method Oxygen Flow Rate Sepsis Recent Fever Within 48 Hours Sepsis New/Unexplained Change in Mental Status Sepsis Action Taken by Nursing 02/07/22 10:00 02/07/22 10:01 02/07/22 10:01 Temperature Temperature Source Pulse Rate 73 77 Pulse Rate [Apical] Pulse Rate from SpO2 Sensor 74 64 Respiratory Rate 20 20 Respiratory Effort / Characteristics Respiratory Depth Respiratory Pattern Blood Pressure 150/101 H Blood Pressure [Right Arm] Blood Pressure Mean 117 Blood Pressure Mean [Right Arm] Blood Pressure Position [Right Arm] Pulse Oximetry 92 94 Oxygen Delivery Method Oxygen Flow Rate Sepsis Recent Fever Within 48 Hours Sepsis New/Unexplained Change in Mental Status Sepsis Action Taken by Nursing 02/07/22 10:10 02/07/22 10:20 02/07/22 11:43 Temperature Temperature Source Pulse Rate 77 77 Pulse Rate [Apical] 79 Pulse Rate from SpO2 Sensor 77 76 Respiratory Rate 26 H 21 22 Respiratory Effort / Characteristics Respiratory Depth Respiratory Pattern Blood Pressure Blood Pressure [Right Arm] 149/95 H Blood Pressure Mean Blood Pressure Mean [Right Arm] 113 Blood Pressure Position [Right Arm] Sitting Pulse Oximetry 93 94 93 Oxygen Delivery Method Room Air Oxygen Flow Rate Sepsis Recent Fever Within 48 Hours Sepsis New/Unexplained Change in Mental Status Sepsis Action Taken by Nursing 02/07/22 10:30 02/07/22 10:30 02/07/22 10:40 Temperature Temperature Source Pulse Rate 75 76 Pulse Rate [Apical] Pulse Rate from SpO2 Sensor 75 Respiratory Rate 19 23 Respiratory Effort / Characteristics Respiratory Depth Respiratory Pattern Blood Pressure 126/83 Blood Pressure [Right Arm] Blood Pressure Mean 97 Blood Pressure Mean [Right Arm] Blood Pressure Position [Right Arm] Pulse Oximetry 94 Oxygen Delivery Method Oxygen Flow Rate Sepsis Recent Fever Within 48 Hours Sepsis New/Unexplained Change in Mental Status Sepsis Action Taken by Nursing 02/07/22 10:50 02/07/22 11:00 02/07/22 11:00 Temperature Temperature Source Pulse Rate 74 74 Pulse Rate [Apical] Pulse Rate from SpO2 Sensor 74 75 Respiratory Rate 21 17 Respiratory Effort / Characteristics Respiratory Depth Respiratory Pattern Blood Pressure 150/92 H Blood Pressure [Right Arm] Blood Pressure Mean 111 Blood Pressure Mean [Right Arm] Blood Pressure Position [Right Arm] Pulse Oximetry 94 92 Oxygen Delivery Method Oxygen Flow Rate Sepsis Recent Fever Within 48 Hours Sepsis New/Unexplained Change in Mental Status Sepsis Action Taken by Nursing 02/07/22 11:10 02/07/22 11:20 02/07/22 11:30 Temperature Temperature Source Pulse Rate 76 77 Pulse Rate [Apical] Pulse Rate from SpO2 Sensor 71 65 Respiratory Rate 25 H 20 Respiratory Effort / Characteristics Respiratory Depth Respiratory Pattern Blood Pressure 149/95 H Blood Pressure [Right Arm] Blood Pressure Mean 113 Blood Pressure Mean [Right Arm] Blood Pressure Position [Right Arm] Pulse Oximetry 93 93 Oxygen Delivery Method Oxygen Flow Rate Sepsis Recent Fever Within 48 Hours Sepsis New/Unexplained Change in Mental Status Sepsis Action Taken by Nursing 02/07/22 11:30 02/07/22 11:40 02/07/22 11:50 Temperature Temperature Source Pulse Rate 77 79 78 Pulse Rate [Apical] Pulse Rate from SpO2 Sensor 76 64 Respiratory Rate 21 27 H 19 Respiratory Effort / Characteristics Respiratory Depth Respiratory Pattern Blood Pressure Blood Pressure [Right Arm] Blood Pressure Mean Blood Pressure Mean [Right Arm] Blood Pressure Position [Right Arm] Pulse Oximetry 93 94 Oxygen Delivery Method Oxygen Flow Rate Sepsis Recent Fever Within 48 Hours Sepsis New/Unexplained Change in Mental Status Sepsis Action Taken by Nursing 02/07/22 12:00 02/07/22 12:00 02/07/22 12:10 Temperature Temperature Source Pulse Rate 79 80 Pulse Rate [Apical] Pulse Rate from SpO2 Sensor 82 76 Respiratory Rate 18 23 Respiratory Effort / Characteristics Respiratory Depth Respiratory Pattern Blood Pressure 168/96 H Blood Pressure [Right Arm] Blood Pressure Mean 120 Blood Pressure Mean [Right Arm] Blood Pressure Position [Right Arm] Pulse Oximetry 90 93 Oxygen Delivery Method Oxygen Flow Rate Sepsis Recent Fever Within 48 Hours Sepsis New/Unexplained Change in Mental Status Sepsis Action Taken by Nursing 02/07/22 12:20 02/07/22 12:32 02/07/22 12:40 Temperature Temperature Source Pulse Rate 82 Pulse Rate [Apical] Pulse Rate from SpO2 Sensor 82 88 88 Respiratory Rate 32 H Respiratory Effort / Characteristics Respiratory Depth Respiratory Pattern Blood Pressure Blood Pressure [Right Arm] Blood Pressure Mean Blood Pressure Mean [Right Arm] Blood Pressure Position [Right Arm] Pulse Oximetry 94 93 91 Oxygen Delivery Method Oxygen Flow Rate Sepsis Recent Fever Within 48 Hours Sepsis New/Unexplained Change in Mental Status Sepsis Action Taken by Nursing 02/07/22 12:50 02/07/22 13:00 02/07/22 13:03 Temperature Temperature Source Pulse Rate Pulse Rate [Apical] Pulse Rate from SpO2 Sensor 88 90 Respiratory Rate 39 H Respiratory Effort / Characteristics Respiratory Depth Respiratory Pattern Blood Pressure 169/114 H Blood Pressure [Right Arm] Blood Pressure Mean 132 Blood Pressure Mean [Right Arm] Blood Pressure Position [Right Arm] Pulse Oximetry 93 91 Oxygen Delivery Method Oxygen Flow Rate Sepsis Recent Fever Within 48 Hours Sepsis New/Unexplained Change in Mental Status Sepsis Action Taken by Nursing 02/07/22 13:03 02/07/22 13:10 02/07/22 13:20 Temperature Temperature Source Pulse Rate 90 87 90 Pulse Rate [Apical] Pulse Rate from SpO2 Sensor 87 87 83 Respiratory Rate 26 H 24 19 Respiratory Effort / Characteristics Respiratory Depth Respiratory Pattern Blood Pressure Blood Pressure [Right Arm] Blood Pressure Mean Blood Pressure Mean [Right Arm] Blood Pressure Position [Right Arm] Pulse Oximetry 93 94 93 Oxygen Delivery Method Oxygen Flow Rate Sepsis Recent Fever Within 48 Hours Sepsis New/Unexplained Change in Mental Status Sepsis Action Taken by Nursing 02/07/22 13:30 02/07/22 13:31 02/07/22 13:31 Temperature Temperature Source Pulse Rate 86 88 Pulse Rate [Apical] Pulse Rate from SpO2 Sensor 87 88 Respiratory Rate 20 20 Respiratory Effort / Characteristics Respiratory Depth Respiratory Pattern Blood Pressure 167/113 H Blood Pressure [Right Arm] Blood Pressure Mean 131 Blood Pressure Mean [Right Arm] Blood Pressure Position [Right Arm] Pulse Oximetry 91 92 Oxygen Delivery Method Oxygen Flow Rate Sepsis Recent Fever Within 48 Hours Sepsis New/Unexplained Change in Mental Status Sepsis Action Taken by Nursing 02/07/22 13:40 02/07/22 13:50 02/07/22 14:00 Temperature Temperature Source Pulse Rate 89 93 H 92 H Pulse Rate [Apical] Pulse Rate from SpO2 Sensor 89 94 H 88 Respiratory Rate 26 H 20 33 H Respiratory Effort / Characteristics Respiratory Depth Respiratory Pattern Blood Pressure Blood Pressure [Right Arm] Blood Pressure Mean Blood Pressure Mean [Right Arm] Blood Pressure Position [Right Arm] Pulse Oximetry 91 94 81 L Oxygen Delivery Method Oxygen Flow Rate Sepsis Recent Fever Within 48 Hours Sepsis New/Unexplained Change in Mental Status Sepsis Action Taken by Nursing 02/07/22 14:10 02/07/22 14:20 02/07/22 14:30 Temperature Temperature Source Pulse Rate 92 H 94 H 101 H Pulse Rate [Apical] Pulse Rate from SpO2 Sensor 88 86 92 H Respiratory Rate 19 21 33 H Respiratory Effort / Characteristics Respiratory Depth Respiratory Pattern Blood Pressure Blood Pressure [Right Arm] Blood Pressure Mean Blood Pressure Mean [Right Arm] Blood Pressure Position [Right Arm] Pulse Oximetry 93 91 90 Oxygen Delivery Method Oxygen Flow Rate Sepsis Recent Fever Within 48 Hours Sepsis New/Unexplained Change in Mental Status Sepsis Action Taken by Nursing 02/07/22 14:40 02/07/22 14:50 Temperature Temperature Source Pulse Rate 97 H 109 H Pulse Rate [Apical] Pulse Rate from SpO2 Sensor 79 104 H Respiratory Rate 21 16 Respiratory Effort / Characteristics Respiratory Depth Respiratory Pattern Blood Pressure Blood Pressure [Right Arm] Blood Pressure Mean Blood Pressure Mean [Right Arm] Blood Pressure Position [Right Arm] Pulse Oximetry 92 86 L Oxygen Delivery Method Oxygen Flow Rate Sepsis Recent Fever Within 48 Hours Sepsis New/Unexplained Change in Mental Status Sepsis Action Taken by Nursing General: Well developed well nourished older female who appears in no acute distress, breathing comfortably on room air. Normal speech HEENT: Normal cephalic atraumatic. Pupils are equal round and reactive to light. Extraocular movements are intact. Oropharynx is pink with moist mucous membranes. No swelling of the mouth lips or tongue. Neck: Supple with a midline trachea. No meningeal signs or stiffness, no JVD or bruits. No Stridor. Chest: Wheezes to auscultation bilaterally left greater than right. No increased work of breathing. Heart: Regular rate and rhythm without murmurs or gallops. Abdomen: Soft nontender, nondistended without rebound guarding or rigidity. Extremities: No cyanosis clubbing or edema. No calf tenderness or assymetry Spine/Back. Non tender to palpation. No CVA tenderness Skin: Good turgor without rashes. Neurologic exam: Cranial nerves two through 12 are intact. Motor and sensation are intact and symmetrical throughout. Procedures Free Text Procedures Start Time 935 02/07/22 Reason: Patient with PMHx of COPD/diabete underwent ED Observation for shortness of breath/cardiac disease/arrhythmia. Fam Hx: CAD SocHx: See Below Summary: This patient comes in with worsening of her COPD. While she was here it was noted that she had T wave inversions which seems slightly more prominent than before in light of this I did observe her in the ED and also observed from a respiratory standpoint and her lactic acid did come back elevated so she was further hydrated and observed. EKG #2 shows no change compared to EKG #1 2. Troponin was negative x2 without significant change lactic acid came down with hydration. Despite this she got hypoxemic when getting up out of bed and I do think needs to be admitted/observed Disposition: 02/07/22 1422. Total Time: 4 hours and 47 minutes Course Administered Medications Magnesium Sulfate/Dextrose (Magnesium Sulfate / D5w) 1 gm in 100 mls @ 50 mls/hr IV Q2H OVI Stop: 02/08/22 01:59 Last Admin: 02/07/22 18:02 Dose: 50 mls/hr Documented By: LYN Insulin Aspart (Insulin Aspart Per Unit) 0 units SC ACHS OVI Stop: 03/09/22 17:07 Last Admin: 02/07/22 18:01 Dose: 8 units Documented By: LYN Co-signed By: MO Discontinued Medications Albuterol (Albut/Ipratrop 3mg/0.5mg Neb 3 Ml Vial) 3 ml NEB NOW STA; Protocol Stop: 02/07/22 09:37 Last Admin: 02/07/22 10:08 Dose: 3 ml Documented By: AB Albuterol (Albut/Ipratrop 3mg/0.5mg Neb 3 Ml Vial) 3 ml NEB NOW STA; Protocol Stop: 02/07/22 12:57 Last Admin: 02/07/22 13:03 Dose: 3 ml Documented By: AB Magnesium Sulfate/Dextrose (Magnesium Sulfate / D5w) 1 gm in 100 mls @ 100 mls/hr IV NOW STA Stop: 02/07/22 11:45 Last Infusion: 02/07/22 13:22 Dose: 0 mls/hr Documented By: Admin: 02/07/22 10:58 Dose: 100 mls/hr Documented By: AB Sodium Chloride (Nss 1000ml) 1,000 mls @ 999 mls/hr IV .Q1H1M ONE Stop: 02/07/22 12:07 Last Infusion: 02/07/22 13:23 Dose: 0 mls/hr Documented By: Admin: 02/07/22 11:18 Dose: 999 mls/hr Documented By: AB Methylprednisolone (Methylprednisolone 125 Mg/2 Ml Vial) 125 mg IV NOW STA Stop: 02/07/22 11:09 Last Admin: 02/07/22 11:19 Dose: 125 mg Documented By: AB Medical Decision Making Differential Diagnosis COPD exacerbation, bronchitis, pneumonia, sepsis, acute coronary syndrome, CHF, arrhythmia, COVID, PE Medical Records Attestation: I reviewed the patient's medical records. Home Medications Current Medication List: was personally reviewed by me Laboratory Data Attestation: I reviewed the patient's lab results. Result diagrams: 02/07/22 09:55 02/07/22 09:55 Lab Results 02/07/22 02/07/22 02/07/22 Range/Units 09:55 09:55 09:55 WBC 9.12 (4.8-10.8) K/ul RBC 4.35 (3.93-5.22) M/uL Hgb 13.0 (12.0-16.0) g/dl Hct 38.9 (34.1-44.9) % MCV 89.4 (80.0-100.0) fL MCH 29.9 (25.0-34.0) pg MCHC 33.4 (32.0-36.0) g/dL RDW Std Deviation 44.5 (36.4-46.3) fL RDW Coeff of Aniyah 13.8 (11.5-14.5) % Plt Count 279 (130-400) K/uL MPV 9.7 (9.4-12.3) fL Immature Gran % (Auto) 0.4 % Neut % (Auto) 49.1 % Lymph % (Auto) 28.0 % [place] % (Auto) 8.1 % Eos % (Auto) 13.3 % Baso % (Auto) 1.1 % Neut # (Auto) 4.48 (1.4-6.5) K/uL Lymph # (Auto) 2.55 (1.2-3.4) K/uL [place] # (Auto) 0.74 (0.24-0.82) K/uL Eos # (Auto) 1.21 H (0-0.50) K/uL Baso # (Auto) 0.10 (0-0.2) K/uL Immature Gran # (Auto) 0.04 H (0.00-0.02) K/uL PT 10.9 (9.0-12.0) Seconds INR 1.0 (0.9-1.1) APTT 23.9 (21.0-31.0) Seconds PTT Ratio 0.9 Sodium 139 (136-145) mmol/L Potassium 3.5 (3.5-5.1) mmol/L Chloride 106 (98-107) mmol/L Carbon Dioxide 23 (21-32) mmol/L Anion Gap 10 (3-11) BUN 8 (6-23) mg/dl Creatinine 0.74 (0.6-1.2) mg/dl Est Cr Clr Drug Dosing 74.7 ml/min Est GFR ( Amer) 95.8 ml/min Est GFR (Non-Af Amer) 82.7 ml/min BUN/Creatinine Ratio 10.8 (10-20) Glucose 177 H (70-99(Fasting)) mg/dl Lactate (0.4-2.0) mmol/L Calcium 9.1 (8.5-10.1) mg/dl Magnesium 1.2 L (1.7-2.4) mg/dl Total Bilirubin 0.9 (0.2-1.0) mg/dl AST 16 (13-39) U/L ALT 23 (7-52) U/L Alkaline Phosphatase 67 (34-104) U/L Troponin I High Sens 8.6 (0-14) pg/ml B-Natriuretic Peptide (0-100) pg/ml Total Protein 7.1 (6.0-8.3) gm/dl Albumin 4.1 (3.4-5.0) gm/dl Globulin 3.0 (2.5-4.0) gm/dl Albumin/Globulin Ratio 1.4 (0.9-2) Procalcitonin (0-0.5) ng/ml SARS-CoV-2 (PCR) (Negative) 02/07/22 02/07/22 02/07/22 Range/Units 09:55 10:14 10:14 WBC (4.8-10.8) K/ul RBC (3.93-5.22) M/uL Hgb (12.0-16.0) g/dl Hct (34.1-44.9) % MCV (80.0-100.0) fL MCH (25.0-34.0) pg MCHC (32.0-36.0) g/dL RDW Std Deviation (36.4-46.3) fL RDW Coeff of Aniyah (11.5-14.5) % Plt Count (130-400) K/uL MPV (9.4-12.3) fL Immature Gran % (Auto) % Neut % (Auto) % Lymph % (Auto) % [place] % (Auto) % Eos % (Auto) % Baso % (Auto) % Neut # (Auto) (1.4-6.5) K/uL Lymph # (Auto) (1.2-3.4) K/uL [place] # (Auto) (0.24-0.82) K/uL Eos # (Auto) (0-0.50) K/uL Baso # (Auto) (0-0.2) K/uL Immature Gran # (Auto) (0.00-0.02) K/uL PT (9.0-12.0) Seconds INR (0.9-1.1) APTT (21.0-31.0) Seconds PTT Ratio Sodium (136-145) mmol/L Potassium (3.5-5.1) mmol/L Chloride (98-107) mmol/L Carbon Dioxide (21-32) mmol/L Anion Gap (3-11) BUN (6-23) mg/dl Creatinine (0.6-1.2) mg/dl Est Cr Clr Drug Dosing ml/min Est GFR ( Amer) ml/min Est GFR (Non-Af Amer) ml/min BUN/Creatinine Ratio (10-20) Glucose (70-99(Fasting)) mg/dl Lactate (0.4-2.0) mmol/L Calcium (8.5-10.1) mg/dl Magnesium (1.7-2.4) mg/dl Total Bilirubin (0.2-1.0) mg/dl AST (13-39) U/L ALT (7-52) U/L Alkaline Phosphatase (34-104) U/L Troponin I High Sens (0-14) pg/ml B-Natriuretic Peptide 67 (0-100) pg/ml Total Protein (6.0-8.3) gm/dl Albumin (3.4-5.0) gm/dl Globulin (2.5-4.0) gm/dl Albumin/Globulin Ratio (0.9-2) Procalcitonin < 0.05 (0-0.5) ng/ml SARS-CoV-2 (PCR) NEGATIVE (Negative) 02/07/22 02/07/22 02/07/22 Range/Units 10:14 12:19 12:19 WBC (4.8-10.8) K/ul RBC (3.93-5.22) M/uL Hgb (12.0-16.0) g/dl Hct (34.1-44.9) % MCV (80.0-100.0) fL MCH (25.0-34.0) pg MCHC (32.0-36.0) g/dL RDW Std Deviation (36.4-46.3) fL RDW Coeff of Aniyah (11.5-14.5) % Plt Count (130-400) K/uL MPV (9.4-12.3) fL Immature Gran % (Auto) % Neut % (Auto) % Lymph % (Auto) % [place] % (Auto) % Eos % (Auto) % Baso % (Auto) % Neut # (Auto) (1.4-6.5) K/uL Lymph # (Auto) (1.2-3.4) K/uL [place] # (Auto) (0.24-0.82) K/uL Eos # (Auto) (0-0.50) K/uL Baso # (Auto) (0-0.2) K/uL Immature Gran # (Auto) (0.00-0.02) K/uL PT (9.0-12.0) Seconds INR (0.9-1.1) APTT (21.0-31.0) Seconds PTT Ratio Sodium (136-145) mmol/L Potassium (3.5-5.1) mmol/L Chloride (98-107) mmol/L Carbon Dioxide (21-32) mmol/L Anion Gap (3-11) BUN (6-23) mg/dl Creatinine (0.6-1.2) mg/dl Est Cr Clr Drug Dosing ml/min Est GFR ( Amer) ml/min Est GFR (Non-Af Amer) ml/min BUN/Creatinine Ratio (10-20) Glucose (70-99(Fasting)) mg/dl Lactate 2.5 H* 1.8 (0.4-2.0) mmol/L Calcium (8.5-10.1) mg/dl Magnesium (1.7-2.4) mg/dl Total Bilirubin (0.2-1.0) mg/dl AST (13-39) U/L ALT (7-52) U/L Alkaline Phosphatase (34-104) U/L Troponin I High Sens 7.9 (0-14) pg/ml B-Natriuretic Peptide (0-100) pg/ml Total Protein (6.0-8.3) gm/dl Albumin (3.4-5.0) gm/dl Globulin (2.5-4.0) gm/dl Albumin/Globulin Ratio (0.9-2) Procalcitonin (0-0.5) ng/ml SARS-CoV-2 (PCR) (Negative) Imaging Data Attestation: I personally reviewed and interpreted this imaging study as follows: My Impression: X-rayno acute infiltrate, failure, pneumothorax seen on the chest x-ray by myself Radiologist's Impression: Chest X-Ray 02/07/22 09:36 XR chest 1V portable CLINICAL HISTORY: SEPSIS COMPARISON STUDY: Chest CT October 09, 2021. Chest radiograph December 10, 2021. FINDINGS: Lung volumes are normal. Lungs are clear. There is no pneumothorax or pleural effusion. Cardiac size is normal. Mediastinal contours are normal. There is no evidence for pulmonary edema. IMPRESSION: No acute cardiopulmonary findings. ACT 112: Negative or not required by law. Electronically signed by: Glen Humphrey M.D. 02/07/2022 10:17 AM ECG Data Attestation: I personally reviewed and interpreted this ECG as follows: Indication: + SOB/dyspnea Rate (beats per minute): 82 Rhythm: + normal sinus ECG Intervals/blocks: + Normal QRS, + Normal QT and + Normal TN ECG [place]: + Normal ECG ST segments: + Nonspecific ST abnormalities ECG Findings: + PVCs and + Other (T wave abnormalities anteriorly) Comparison ECG Date: from (12/10/21) Change: the following changes noted (The T wave abnormalities seem more pronounced however looking back through her old EKGs they are present on several of the old ones as well and similar looking) Additional Comments: EKG #2: Normal sinus rhythm with a rate of 79. PVCs. [place] ST and T wave abnormalities anteriorly. Mildly prolonged QTC. Compared to EKG #1 no acute change. MDM Narrative This patient is a 71-year-old female who comes in complaining of shortness of breath for the last week and a half she is feels like it is similar to her COPD exacerbation. Her O2 sat is 92% here. she does not appear to be in any distress she does have some scattered wheezing more so on the left. She was ordered albuterol neb. Blood work was obtained including blood cultures. IV access was established. EKG, chest x-ray was obtained, COVID testing was obtained she was reassessed frequently. Chest x-ray does not show congestive heart failure pneumonia or pneumothorax. EKG has no definite acute ischemic changes or some T wave inversions which have been present on previous EKGs. She has no white count or fever discussed infection or pneumonia or sepsis. She was observed in the ER as her lactic acid was initially elevated her EKG has some nonspecific changes compared to old. Both troponins and need to have come back normal second EKG is unchanged and she has no chest pain. She was hydrated and this brought down her lactic acid however her oxygen dropped when she would walk she be in the mid to high 80s and gets very symptomatic with this I do think needs to be admitted for her COPD exacerbation. I have consulted the [facility] hospitalist to see her for these measures. Continuous cardiac monitoring: An order was placed in the EMR for continuous cardiac monitoring. Upon my interpretation patient had to be normal sinus rhythm rate of 85. Impression & Plan Chronic obstructive pulmonary disease, SOB (shortness of breath), Lactate blood increased, Acute electrocardiogram changes, Lab test negative for COVID-19 virus Discharge Plan Visit Data Chief Complaint: Shortness of Breath/Dyspnea Stated Complaint: SOB ED Provider: Jose Del Toro Discharge Problem: Chronic obstructive pulmonary disease, SOB (shortness of breath), Lactate blood increased, Acute electrocardiogram changes, Lab test negative for COVID-19 virus Patient Disposition: Admitted As Inpatient Discharge Instructions Interventions: ED Discharge Assessment Last Done: 02/07/22 16:52
[2022-02-07 10:15] LABS: Basophils % (auto) 1.1 %; Eosinophils # (auto) 1.21 K/uL (0-0.50); Eosinophils % (auto) 13.3 %; Hematocrit (blood only) 38.9 % (34.1-44.9); Immature Granulocytes # (auto) 0.04 K/uL (0.00-0.02); Immature Granulocytes % (auto) 0.4 %; Lymphocytes # (auto) 2.55 K/uL (1.2-3.4); Mean Corpuscular Hemoglobin 29.9 pg (25.0-34.0); Mean Corpuscular Hgb Conc 33.4 g/dL (32.0-36.0); Mean Corpuscular Volume 89.4 fL (80.0-100.0); Mean Platelet Volume 9.7 fL (9.4-12.3); Monocytes # (auto) 0.74 K/uL (0.24-0.82); Monocytes % (auto) 8.1 %; Neutrophils # (auto) 4.48 K/uL (1.4-6.5); Neutrophils % (auto) 49.1 %; Platelet Count 279 K/uL (130-400); RDW Coefficient of Variation 13.8 % (11.5-14.5); RDW Standard Deviation 44.5 fL (36.4-46.3); Red Blood Count 4.35 M/uL (3.93-5.22); White Blood Count 9.12 K/ul (4.8-10.8)
--- NOTE | 2022-02-07 10:18 | XRay Report ---
XR chest 1V portable CLINICAL HISTORY: SEPSIS COMPARISON STUDY: Chest CT October 09, 2021. Chest radiograph December 10, 2021. FINDINGS: Lung volumes are normal. Lungs are clear. There is no pneumothorax or pleural effusion. Car diac size is normal. Mediastinal contours are normal. There is no evidence for pulmonary edema. IMPRESSION: No acute cardiopulmonary findings. ACT 112: Negative or not required by law. Electronically signed by: Glen Humphrey M.D. 02/07/2022 10:17 AM
[2022-02-07 10:28] LABS: Partial Thromboplastin Ratio 0.9; Partial Thromboplastin Time 23.9 Seconds (21.0-31.0); Prothrombin Time 10.9 Seconds (9.0-12.0)
[2022-02-07 10:42] LABS: Albumin Globulin Ratio 1.4 (0.9-2); Albumin Level 4.1 gm/dl (3.4-5.0); BUN Creatinine Ratio 10.8 (10-20); Bilirubin,Total 0.9 mg/dl (0.2-1.0); Calcium 9.1 mg/dl (8.5-10.1); Creatinine Clr Calc Pharmacy 74.7 ml/min; Est GFR (African American) 95.8 ml/min; Est GFR (Non-African American) 82.7 ml/min; Magnesium 1.2 mg/dl (1.7-2.4); Potassium 3.5 mmol/L (3.5-5.1); Total Protein 7.1 gm/dl (6.0-8.3)
[2022-02-07 10:43] LABS: Troponin I High Sensitivity 8.6 pg/ml (0-14)
[2022-02-07] MEDS ORDERED: MAGNESIUM SULFATE / D5W 1 GM/100 ML BAG IV STA (10:46)
[2022-02-07] MEDS ORDERED: SODIUM CHLORIDE 0.9% 1000ML 1,000 ML IV ONE (11:07)
[2022-02-07] MEDS ORDERED: methylPREDNISolone 125 MG/2 ML VIAL IV STA (11:08)
--- NOTE | 2022-02-07 14:16 | History & Physical Report ---
Date of Service February 07, 2022 Assessment & Plan (1) Acute on chronic respiratory failure with hypoxia: Plan: Sharri is sick 11-year-old female with a history of severe COPD/asthma overlap and a nighttime oxygen requirement of 2 L who presents with worsening breathing for 7 to 10 days, no fever/chills or signs of superimposed pneumonia and is COVID-negative. She was admitted for acute on chronic COPD treatment and hypomagnesemia. Acute on chronic COPD/asthma overlap syndrome PFTs 03/27/2021: FVC 73%, FEV1 62%, FEV1/FVC 84%. Moderate obstruction, significant air trapping, DLCO mildly reduced. Minimal bronchodilator change. - Desats to mid 80's on exertion Increase shortness of breath, cough, clear sputum -CXR: No acute findings Procalcitonin is negative On admission no leukocytosis, hemoglobin normal 13.0, creatinine is 0.74, sodium 139, potassium 3.5. Lactate mildly elevated on admission to 2.5, normalized to 1.8 on recheck after 1 L IVF in ER. Received methylprednisolone 125 mg IV load in ER Solu-Medrol 40 mg IV BID, increase to TID if needed Nebs OVI, Incentive [place], Flutter Valve Continue Trelegy/formulary equivalent Doxy 100mg BID x5, Azithro deferred due to borderling QTp Montelukast Guaifenesin EKG: Patient has a history of intermittent T wave inversions with stress, no acute ST segment changes appreciated. High sensitive troponin 8.6 with 2-hour repeat 7.9 on admission, BNP 67. COVID-negative Hypomagnesemia 1.2 on admission Received 1 g IV in ER Supplementation ordered Trend daily Hypertension Continue aspirin 81 mg daily Continue losartan daily Continue metoprolol Hyperlipidemia Continue atorvastatin 40 mg daily DM2 Glucose checks AC/at bedtime Goal BSG 1001 40 - Weight based basal/bolus Moderate stress. 15u BID lantus, CF 25, Ratio 10. Pharmacy consulted for assistance with glycemic management while on steroids Metformin/glimepiride held Depression Continue fluoxetine DVT prophylaxis: SCD/Lovenox Diet: Diabetic Disposition: Medical/surgical CODE STATUS: DNR/DNI, confirmed with pt. Surrogate DM would be daughter preferentially, and granddaughter Maria A Dozier if unavailable (2) Asthma-COPD overlap syndrome: (3) Chronic obstructive pulmonary disease: (4) Bilateral wheezing: (5) DM w/o complication type II, uncontrolled: (6) Depression: (7) Hyperlipidemia: (8) Hypertension: (9) IgG monoclonal gammopathy: (10) Moderate persistent asthma: (11) Prolonged QT interval: History of Present Illness Primary Care Provider: Shira Lopez MD Sharri is a 68-year-old female with a past medical history of COPD/asthma overlap, tobacco abuse in remission for 6 years, hyperlipidemia, hypertension, type 2 diabetes mellitus, IgG monoclonal gammopathy, preserved EF who presents for 1 and half week of shortness of breath with cough lately productive for clear mucus. She has been afebrile, and feels her symptoms are similar to her prior COPD exacerbations. ~7-10 days of increased dyspnea and shortess of breath similar to prior COPD exacerbations. Called PCP but sounded winded so was recommended to go to ER. 1x hot flash, otherwise denies no fevers, chills, sweats. No chest pain, chest pressure. Has had some loose bowels. No abdominal pain, nause/vomiting, or constipation. Some decreased appetite. +cough. productive for aubrey sized amounts of clear sputum increased after meals. No dysphagia. Sx worse with exertion, better with rest. OK sitting still. Inhalers: - Albuterol PRN - Trelogy - Nebs. Using TID, helps for a short period of time - 2L O2 qHS, no CPAP?BiPAP Medical History: Reviewed Medications: Reviewed Surgical History: Reviewed Allergies: Reviewed Social History: No tobacco use in the last 7 years, former smoker. Code Status: DNR/DNI. Daughter Jaja Kolb would be surrogate DM in an emergency. Allergies Allergy/AdvReac Type Severity Reaction Status Date / Time hydrocodone AdvReac Mild NAUSEA Verified 12/10/21 12:57 prednisone AdvReac Mild NAUSEA Verified 12/10/21 12:57 Home Medications Medication Instructions Recorded Confirmed Type aspirin 81 mg chewable tablet 81 mg PO QAM 04/10/18 12/10/21 History lancets 33 gauge (LucindaTouch Delica #100 ea 03/02/20 11/15/21 Rx Lancets) benzonatate 100 mg capsule 100 mg PO BID 07/27/21 12/10/21 History fluticasone fur. 200 mcg-umeclid 1 inh inhalation QAM 09/14/21 12/10/21 History 62.5 mcg-vilant 25 mcg inhalat.powder (Trelegy Ellipta) pantoprazole 40 mg tablet,delayed 40 mg PO DAILYBB 09/14/21 12/10/21 History release (Protonix) ipratropium 0.5 mg-albuterol 3 mg 3 ml inhalation QID PRN Shortness 10/02/21 12/10/21 Rx (2.5 mg base)/3 mL nebulization Of Breath #3 mL soln nebulizers (MicroAir Mesh #1 ea 10/03/21 11/15/21 Rx Nebulizer misc) fluoxetine 40 mg capsule 40 mg PO QAM #30 caps 11/05/21 12/10/21 Rx blood sugar diagnostic #100 ea 12/03/21 Rx acetaminophen 500 mg tablet 500 mg PO Q6H PRN Pain 12/10/21 12/10/21 History (Tylenol Extra Strength) glimepiride 2 mg tablet 2 mg PO DAILYBB 12/10/21 12/10/21 History cetirizine 10 mg capsule (Zyrtec) 10 mg PO DAILY #10 caps 12/11/21 Rx atorvastatin 40 mg tablet 40 mg PO QAM #30 tabs 12/25/21 Rx losartan 50 mg tablet 25 mg PO QAM 90 days #45 tabs 12/25/21 Rx metformin 500 mg tablet 1,000 mg PO BID #360 tabs 12/25/21 Rx metoprolol tartrate 25 mg tablet 12.5 mg PO BID #60 tabs 12/25/21 Rx azithromycin 250 mg tablet See Rx Instructions PO .COMPLEX #6 01/03/22 Rx tabs prednisone 20 mg tablet See Rx Instructions PO .COMPLEX 01/03/22 Rx #30 tabs montelukast 10 mg tablet 10 mg PO HS #30 tabs 01/24/22 Rx (Singulair) albuterol sulfate 90 mcg/actuation 1 - 2 puff inhalation Q4H PRN SOB 01/25/22 Rx aerosol inhaler (ProAir HFA) #18 grams Past Med/Surg History Medical History Acute exacerbation of chronic obstructive pulmonary disease (COPD) Asthma-COPD overlap syndrome Breath shortness Chronic obstructive pulmonary disease Depression Excessive daytime sleepiness History of nicotine dependence Hyperlipidemia Hypertension Insomnia Moderate persistent asthma Nocturnal hypoxemia Peripheral eosinophilia Surgical History H/O oophorectomy H/O: hysterectomy Family History Father Diabetes CHF (congestive heart failure) Grandfather (Paternal) Diabetes Mother Deep vein thrombosis NHL (non-Hodgkin's lymphoma) Grandfather (Maternal) Acute leukemia Grandmother (Maternal) Deep vein thrombosis Aunt Deep vein thrombosis Other No pertinent family history Denies family history of Ovarian cancer Prostate cancer Myocardial infarction Breast cancer Colorectal cancer Social History Smoking Status: Never smoker Tobacco Type: Cigarettes Second Hand Exposure: No; Hx Alcohol Use: Yes Hx Substance Use: No Preferred Language: German Communication Ability: Effective Visual Impairment: No Limitations Hearing Ability: Normal 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 NAD. Cooperative. HEENT: Atraumatic, normocephalic. SUKUMAR. EoM intact. Vision/hearing Pulm: Restricted/poor air movement. +bilateral upper>lower inspiratory wheezes. No crackles/rales. Symmetrical chest rise. No respiratory distress. Cardiac: RRR, -mrg. Radial pulses intact and symmetrical. Abdominal: Nontender, nondistended, soft. BS present. Ext: Warm, dry. No edema. 5/5 breastfeeding peer counselor, ankle dorsi/plantarflexion. Results & Data Results & Data ([facility]) Vital Signs (Past 12 Hours) Vital Signs Temp Pulse Pulse Resp BP BP Pulse Ox 02/07/22 13:03 90 26 H 93 02/07/22 13:03 169/114 H 02/07/22 13:00 39 H 91 02/07/22 12:50 93 02/07/22 12:40 91 02/07/22 12:32 93 02/07/22 12:20 82 32 H 94 02/07/22 12:10 80 23 93 02/07/22 12:00 79 18 90 02/07/22 12:00 168/96 H 02/07/22 11:50 78 19 94 02/07/22 11:40 79 27 H 93 02/07/22 11:30 77 21 02/07/22 11:30 149/95 H 02/07/22 11:20 77 20 93 02/07/22 11:10 76 25 H 93 02/07/22 11:00 74 17 92 02/07/22 11:00 150/92 H 02/07/22 10:50 74 21 94 02/07/22 10:40 76 23 94 02/07/22 10:30 75 19 02/07/22 10:30 126/83 02/07/22 11:43 79 22 149/95 H 93 02/07/22 10:20 77 21 94 02/07/22 10:10 77 26 H 93 02/07/22 10:01 150/101 H 02/07/22 10:01 77 20 94 02/07/22 10:00 73 20 92 02/07/22 09:50 82 17 93 02/07/22 09:40 84 24 92 02/07/22 09:36 88 21 90 02/07/22 08:46 02/07/22 08:55 36.4 C L 85 20 156/95 H 92 O2 Del Method O2 Flow Rate 02/07/22 13:03 02/07/22 13:03 02/07/22 13:00 02/07/22 12:50 02/07/22 12:40 02/07/22 12:32 02/07/22 12:20 02/07/22 12:10 02/07/22 12:00 02/07/22 12:00 02/07/22 11:50 02/07/22 11:40 02/07/22 11:30 02/07/22 11:30 02/07/22 11:20 02/07/22 11:10 02/07/22 11:00 02/07/22 11:00 02/07/22 10:50 02/07/22 10:40 02/07/22 10:30 02/07/22 10:30 02/07/22 11:43 Room Air 02/07/22 10:20 02/07/22 10:10 02/07/22 10:01 02/07/22 10:01 02/07/22 10:00 02/07/22 09:50 02/07/22 09:40 02/07/22 09:36 02/07/22 08:46 Room Air 95 02/07/22 08:55 Room Air PG Care Time/CCT Total # of Minutes Spent Total Time Spent with Patient: Total time spent is greater than 50% in coordination of care (as documented) at patient's floor/unit and/or counseling patient: Coding Level of Care Code 92064 Initial Inpt Care Lvl 2 Diagnoses Acute on chronic respiratory failure with hypoxia J96.21 Asthma-COPD overlap syndrome J44.9 Chronic obstructive pulmonary disease J44.9 COPD type: unspecified COPD Bilateral wheezing R06.2 DM w/o complication type II, uncontrolled E11.65 Glycemic state: with hyperglycemia Depression F32.89 Depression Type: other depression Hyperlipidemia E78.5 Hypertension I10 Hypertension type: essential hypertension IgG monoclonal gammopathy D47.2 Moderate persistent asthma J45.40 Asthma complication type: uncomplicated Prolonged QT interval R94.31 (1) Depression Depression Type: other depression Qualified Code(s): F32.89 - Other specified depressive episodes (2) Moderate persistent asthma Asthma complication type: uncomplicated Qualified Code(s): J45.40 - Moderate persistent asthma, uncomplicated (3) Chronic obstructive pulmonary disease COPD type: unspecified COPD Qualified Code(s): J44.9 - Chronic obstructive pulmonary disease, unspecified (4) Hypertension Hypertension type: essential hypertension Qualified Code(s): I10 - Essential (primary) hypertension (5) DM w/o complication type II, uncontrolled Glycemic state: with hyperglycemia Qualified Code(s): E11.65 - Type 2 diabetes mellitus with hyperglycemia
[2022-02-07] MEDS ORDERED: PHARMACY GLYCEMIC MGMT CONSULT PRN (17:08)
[2022-02-07] MEDS ORDERED: POLYETHYLENE (MIRALAX) 17 GM PACK PO PRN (17:08)
[2022-02-07] MEDS ORDERED: GLUCOSE 10 TAB/TUBE PO PRN (17:08)
[2022-02-07] MEDS ORDERED: GLUCAGON FOR INJ 1 MG VIAL SQ PRN (17:08)
[2022-02-07] MEDS ORDERED: ACETAMINOPHEN 325 MG TAB PO PRN (17:08)
[2022-02-07] MEDS ORDERED: DEXTROSE 50% 50 ML SYRINGE IV PRN (17:08)
[2022-02-07] MEDS ORDERED: CARBOHYDRATES FOR HYPOGLYCEMIA PO PRN (17:08)
[2022-02-07] MEDS ORDERED: GLUCOSE 40% GEL 15 GM TUBE PO PRN (17:08)
[2022-02-07] MEDS ORDERED: hydrALAZINE HCL 20 MG/ML VIAL IV PRN (17:51)
[2022-02-07] MEDS: INSULIN ASPART PER UNIT SC SCH ×3 (18:01→22:00)
[2022-02-07] MEDS: MAGNESIUM SULFATE / D5W 1 GM/100 ML BAG IV SCH ×3 (18:02→22:39)
[2022-02-07] MEDS ORDERED: LANTUS PER UNIT CHARGE SQ ONE (18:15)
[2022-02-07] MEDS ORDERED: ALBUT/IPRATROP 3MG/0.5MG NEB 3 ML VIAL INH SCH (19:00)
[2022-02-07] MEDS: ALBUT/IPRATROP 3MG/0.5MG NEB 3 ML VIAL INH SCH ×2 (19:26→22:56)
[2022-02-07] MEDS: DOXYCYCLINE HYCLATE 100 MG CAP PO SCH (20:15)
[2022-02-07] MEDS: guaiFENesin 600 MG TABCR PO SCH (20:16)
[2022-02-07] MEDS: METOPROLOL TARTRATE 25 MG TAB PO SCH (20:16)
[2022-02-07] MEDS ORDERED: MONTELUKAST SODIUM 10 MG TABLET PO SCH (21:00)
[2022-02-07] MEDS ORDERED: ENOXAPARIN INJ 40 MG/0.4 ML SYR SQ SCH (21:00)
[2022-02-07] MEDS ORDERED: LANTUS PER UNIT CHARGE SQ SCH (21:00)
[2022-02-08] MEDS: MAGNESIUM OXIDE 400 MG TAB PO SCH ×2 (00:13→13:04)
[2022-02-08] MEDS: INSULIN ASPART PER UNIT SC SCH ×5 (00:16→18:38)
[2022-02-08] MEDS: MAGNESIUM SULFATE / D5W 1 GM/100 ML BAG IV SCH (00:31)
[2022-02-08] MEDS: ALBUT/IPRATROP 3MG/0.5MG NEB 3 ML VIAL INH SCH ×4 (03:40→14:18)
[2022-02-08] MEDS ORDERED: PANTOprazole 40 MG TAB PO SCH (06:30)
[2022-02-08] MEDS: METOPROLOL TARTRATE 25 MG TAB PO SCH (07:50)
[2022-02-08] MEDS: guaiFENesin 600 MG TABCR PO SCH (07:50)
[2022-02-08] MEDS: DOXYCYCLINE HYCLATE 100 MG CAP PO SCH (07:50)
[2022-02-08 08:10] LABS: Basophils # (auto) 0.03 K/uL (0-0.2); Basophils % (auto) 0.2 %; Eosinophils # (auto) 0.01 K/uL (0-0.50); Eosinophils % (auto) 0.1 %; Hematocrit (blood only) 36.1 % (34.1-44.9); Hemoglobin 12.6 g/dl (12.0-16.0); Immature Granulocytes # (auto) 0.07 K/uL (0.00-0.02); Immature Granulocytes % (auto) 0.5 %; Lymphocytes # (auto) 2.51 K/uL (1.2-3.4); Lymphocytes % (auto) 18.4 %; Mean Corpuscular Hemoglobin 30.7 pg (25.0-34.0); Mean Corpuscular Hgb Conc 34.9 g/dL (32.0-36.0); Mean Platelet Volume 9.9 fL (9.4-12.3); Monocytes # (auto) 1.22 K/uL (0.24-0.82); Monocytes % (auto) 8.9 %; Neutrophils # (auto) 9.81 K/uL (1.4-6.5); Neutrophils % (auto) 71.9 %; Platelet Count 291 K/uL (130-400); RDW Coefficient of Variation 13.8 % (11.5-14.5); White Blood Count 13.65 K/ul (4.8-10.8)
[2022-02-08 08:33] LABS: BUN Creatinine Ratio 14.5 (10-20); Calcium 8.8 mg/dl (8.5-10.1); Creatinine Clr Calc Pharmacy 66.1 ml/min; Est GFR (African American) 83.4 ml/min; Est GFR (Non-African American) 71.9 ml/min; Potassium 2.9 mmol/L (3.5-5.1)
[2022-02-08] MEDS ORDERED: LANTUS PER UNIT CHARGE SQ ONE (08:45)
[2022-02-08] MEDS ORDERED: LOSARTAN POTASSIUM 25 MG TAB PO SCH (09:00)
[2022-02-08] MEDS ORDERED: methylPREDNISolone 40 MG in SYRINGE 0 ML IV SCH (09:00)
[2022-02-08] MEDS ORDERED: UMECLIDINIUM/VILANTEROL 62.5/25MCG 7 PUFFS/INHALER INH SCH (09:00)
[2022-02-08] MEDS ORDERED: ATORVASTATIN 40 MG TAB PO SCH (09:00)
[2022-02-08] MEDS ORDERED: ASPIRIN 81 MG ECTAB PO SCH (09:00)
[2022-02-08] MEDS ORDERED: FLUTICASONE FUROATE 100MCG 14 PUFFS/INHALER INH SCH (09:00)
[2022-02-08] MEDS ORDERED: FLUoxetine HCL 20 MG CAP PO SCH (09:00)
[2022-02-08] MEDS ORDERED: MAGNESIUM SULFATE / D5W 1 GM/100 ML BAG IV ONE (10:25)
[2022-02-08] MEDS ORDERED: POTASSIUM CHLORIDE CRTAB 20 MEQ TABCR PO STA (10:25)
--- NOTE | 2022-02-08 14:04 | Pharmacy Report ---
Pharmacy Glycemic Short Note 2 - Date of Service February 08, 2022 - Glycemic Short BSG Results (Last 24 hours): 02/07/22 02/07/22 02/07/22 17:51 17:53 21:38 Glucose POC Glucose 331 H* 328 H* 255 H 02/08/22 02/08/22 02/08/22 00:10 03:52 07:37 Glucose 193 H POC Glucose 252 H 188 H 02/08/22 02/08/22 08:11 12:15 Glucose POC Glucose 207 H 215 H OUTPATIENT ANTIDIABETIC REGIMEN: * Amaryl 2 mg PO BID * Metformin 1000 mg PO BID ASSESSMENT: * 71 y/o F admitted for COPD exacerbation. Patient with history of Type 2 diabetes managed on oral anti-diabetic meds only at home. * Patient was started on IV Solu Medrol 125 mg x1 yesterday AM which caused blood sugars to rise to 331 mg/dl. * Pharmacy consulted and patient was started on basal + bolus insulin. IV Solu medrol continues at 40 mg Q12h. * Patient received 30 units of basal yesterday around dinner and Novolog started at that time based on wt and stress between 2 and 3. * BSGs trended down to 255 mg/dl by HS. * Fasting BSG today was 193 mg/dl. Lantus 20 units given this AM and Novolog CF tightened to stress of 3. * Pre-lunch BSG today was 215 mg/dl, expect this trend down. * HS Lantus scale between 20-30 units ordered based on BSG. PLAN FOR INPATIENT GLYCEMIC CONTROL: * Hold outpatient oral diabetes medications * Basal insulin * Lantus 20 units SQ x1 this AM (re-assess tomorrow) * Lantus 20-30 units scale SQ at HS based on BSG * Bolus insulin * NovoLog per scale ACHS or Q6hrs while NPO * Goal Range: Low 110 mg/dL - High 140 mg/dL * Correction Factor: 20 mg/dL/unit * Nutritional / Prandial insulin per carb ratio of 1 unit per 6 grams CHO consumed
--- NOTE | 2022-02-08 18:21 | Discharge Summary ---
Date of Service February 08, 2022 Admission HPI Per Admitting Provider Sharri is a 68-year-old female with a past medical history of COPD/asthma overlap, tobacco abuse in remission for 6 years, hyperlipidemia, hypertension, type 2 diabetes mellitus, IgG monoclonal gammopathy, preserved EF who presents for 1 and half week of shortness of breath with cough lately productive for clear mucus. She has been afebrile, and feels her symptoms are similar to her prior COPD exacerbations. ~7-10 days of increased dyspnea and shortess of breath similar to prior COPD exacerbations. Called PCP but sounded winded so was recommended to go to ER. 1x hot flash, otherwise denies no fevers, chills, sweats. No chest pain, chest pressure. Has had some loose bowels. No abdominal pain, nause/vomiting, or constipation. Some decreased appetite. +cough. productive for aubrey sized amounts of clear sputum increased after meals. No dysphagia. Sx worse with exertion, better with rest. OK sitting still. Inhalers: - Albuterol PRN - Trelogy - Nebs. Using TID, helps for a short period of time - 2L O2 qHS, no CPAP?BiPAP Medical History: Reviewed Medications: Reviewed Surgical History: Reviewed Allergies: Reviewed Social History: No tobacco use in the last 7 years, former smoker. Code Status: DNR/DNI. Daughter Jaja Kolb would be surrogate DM in an emergency. Principal Diagnosis COPD/Asthma exacerbation Discharge Exam Vitals reviewed Gen: [AAOx3, NAD] HEENT: [anicteric sclerae, EOMI] CV: [RRR no mgr nl S1S2] Pulm: [CTAB no wcr] Abd: [+BS soft NT ND no masses or hernias] Ext: [no edema] Skin: [no rashes, warm/dry] Neuro: [full strength throughout] Discharge Data Allergies Allergy/AdvReac Type Severity Reaction Status Date / Time hydrocodone AdvReac Mild NAUSEA Verified 02/07/22 14:58 prednisone AdvReac Mild NAUSEA Verified 02/07/22 14:58 Hospital Course (1) Acute on chronic respiratory failure with hypoxia: This pt is a 71 yo female with a history of severe COPD/asthma overlap and a nighttime oxygen requirement of 2 L who presents with worsening breathing for 7 to 10 days, no fever/chills or signs of superimposed pneumonia and is COVID- negative. She was admitted for acute on chronic COPD treatment and hypomagnesemia, hypokalemia Acute on chronic COPD/asthma overlap syndrome PFTs 03/27/2021: FVC 73%, FEV1 62%, FEV1/FVC 84%. Moderate obstruction, significant air trapping, DLCO mildly reduced. Minimal bronchodilator change. - Desats to mid 80's on exertion on arrival and now much improved after IV steroids, doxycycline, nebs Increase shortness of breath, cough, clear sputum -CXR: No acute findings Procalcitonin is negative On admission no leukocytosis, hemoglobin normal 13.0, creatinine is 0.74, sodium 139, potassium 3.5. Lactate mildly elevated on admission to 2.5, normalized to 1.8 on recheck after 1 L IVF in ER. Doxy 100mg BID x5, Azithro deferred due to borderling QTp EKG: Patient has a history of intermittent T wave inversions with stress, no acute ST segment changes appreciated. High sensitive troponin 8.6 with 2-hour repeat 7.9 on admission, BNP 67. COVID-negative -stable for dc to home on prednisone burst and taper, finish out 7 days of doxy Hypomagnesemia 1.2 on admission repleted and normalized Hypokalemia- K+ low on day of discharge-given po replacement follow BMP, Mag in 1 week as outpt with PCP Hypertension-BPs controlled Continue aspirin 81 mg daily Continue losartan daily Continue metoprolol Hyperlipidemia Continue atorvastatin 40 mg daily DM2 Metformin/glimepiride held but restart on discharge Depression Continue fluoxetine DVT prophylaxis: SCD/Lovenox Disposition: stable for dc to home, ambulated without O2 in halls without desats CODE STATUS: DNR/DNI (2) Asthma-COPD overlap syndrome: (3) Chronic obstructive pulmonary disease: (4) Bilateral wheezing: (5) DM w/o complication type II, uncontrolled: (6) Depression: (7) Hyperlipidemia: (8) Hypertension: (9) IgG monoclonal gammopathy: (10) Moderate persistent asthma: (11) Prolonged QT interval: Total Time Total Time Spent Total Time Spent (In Minutes): 35 min Discharge Plan Discharge Items Patient Disposition: Home - Self-Care Reason For Visit: AOC COPD/ASTHMA Discharge Diagnosis: COPD/asthma exacerbation, hypokalemia Condition on Discharge: Good Activity: Resume your previous activity Non-emergency contact: Primary Care Provider Call non-emergency contact if: you have any medication questions and your symptoms worsen Follow-up/Referrals: Shira Lopez MD [Primary Care Provider] - (Follow up within 1 week.) Diet: Carb Consistent or DM2 Addtl Attending Provider Instructions: Plese finish out a course of prednisone over the next week or so. Also, please finish out 6 more days of the antibiotic called doxycycline, twice a day. Continue your home breathing treatments as needed for wheezing or cough. Please have your PCP check your potassium levels in 1 week at your follow up visit to make sure they are normal. Pending Studies at Discharge: No Stand-Alone Forms: My [facility], Smoking Cessation Medications and DC Order Prescriptions: New doxycycline hyclate 100 mg Capsule 100 mg PO BID Qty: 12 0RF prednisone 10 mg tablet See Rx Instructions .ROUTE .COMPLEX Qty: 36 0RF Rx Instructions: prednisone 5 mg: take 8 tablets (40 mg) on Day 1; 7 tablets (35 mg) on Day 2; then decrease by 1 tablet every day until finished Continued (DME) lancets [OneTouch Delica Lancets] 33 gauge [facility] [place] See Dose Instructions .ROUTE .MEDSUPPLY Qty: 100 5RF Rx Instructions: TEST 3 TIMES DAILY; DX CODE- E11.65 ipratropium-albuterol 0.5 mg-3 mg(2.5 mg base)/3 mL solution for nebulization 3 ml inhalation QID PRN (Reason: Shortness Of Breath) Qty: 3 5RF Rx Instructions: USE 1 VIAL IN NEBULIZER 4 TIMES A DAY FOR 7 DAYS. (DME) MicroAir Mesh Nebulizer [facility] [place] Rx Instructions .Route Qty: 1 0RF Rx Instructions: As directed QID for Flare Ups J44.96 fluoxetine 40 mg capsule 40 mg PO QAM Qty: 30 11RF (DME) blood sugar diagnostic Strip See Dose Instructions .ROUTE .MEDSUPPLY Qty: 100 5RF Rx Instructions: TEST 3 TIMES DAILY; DX CODE- E11.65 metoprolol tartrate 25 mg tablet 12.5 mg PO BID Qty: 60 5RF metformin 500 mg tablet 1,000 mg PO BID Qty: 360 1RF losartan 50 mg tablet 25 mg PO QAM 90 Days Qty: 45 1RF atorvastatin 40 mg tablet 40 mg PO QAM Qty: 30 5RF montelukast [Singulair] 10 mg tablet 10 mg PO HS Qty: 30 5RF albuterol sulfate [ProAir HFA] 90 mcg/actuation HFA aerosol inhaler 1 - 2 puff INHALATION Q4H PRN (Reason: SOB) Qty: 18 2RF aspirin 81 mg Tablet,Chewable 81 mg PO QAM acetaminophen [Tylenol Extra Strength] 500 mg Tablet 500 mg PO Q6H PRN (Reason: Pain) glimepiride 2 mg tablet 2 mg PO DAILYBB Zyrtec 10 mg capsule 10 mg PO DAILY Qty: 10 0RF pantoprazole [Protonix] 40 mg tablet,delayed release (DR/EC) 40 mg PO DAILYBB Trelegy Ellipta 200-62.5-25 mcg blister with device 1 inh inhalation QAM Discharge Orders: Discharge Order (Routine); Ordered 02/08/22 Ordered By: Arleen Espinoza Admission Data Admit Date/Time: 02/07/22 14:57 Attending Provider: Arleen Espinoza Admit Provider: John Norton Primary Care Provider: Shira Lopez Coding Level of Care Code D/C DAY MANAGEMENT >30 MINS Diagnoses Acute on chronic respiratory failure with hypoxia J96.21 Asthma-COPD overlap syndrome J44.9 Chronic obstructive pulmonary disease J44.9 COPD type: unspecified COPD Bilateral wheezing R06.2 DM w/o complication type II, uncontrolled E11.65 Glycemic state: with hyperglycemia Depression F32.89 Depression Type: other depression Hyperlipidemia E78.5 Hypertension I10 Hypertension type: essential hypertension IgG monoclonal gammopathy D47.2 Moderate persistent asthma J45.40 Asthma complication type: uncomplicated Prolonged QT interval R94.31
[2022-02-08] MEDS ORDERED: LANTUS PER UNIT CHARGE SQ SCH (21:00)
--- NOTE | 2022-02-08 22:28 | Electrocardiogram Report ---
Test Reason : Blood Pressure : / mmHG Vent. Rate : 082 BPM Atrial Rate : 082 BPM P-R Int : 146 ms QRS Dur : 088 ms QT Int : 394 ms P-R-T Axes : 072 014 198 degrees QTc Int : 460 ms Sinus rhythm with frequent Premature ventricular complexes Abnormal ECG When compared with ECG of 10-DEC-2021 10:10, Premature ventricular complexes are now Present T wave inversion more evident in Anterior leads Confirmed by Kam Marcos ([id number]) on 02/08/2022 10:27:28 PM Referred By: Confirmed By:Kam Marcos
--- NOTE | 2022-02-09 05:37 | Electrocardiogram Report ---
Test Reason : Blood Pressure : / mmHG Vent. Rate : 079 BPM Atrial Rate : 079 BPM P-R Int : 152 ms QRS Dur : 088 ms QT Int : 412 ms P-R-T Axes : 070 017 116 degrees QTc Int : 472 ms Sinus rhythm with occasional Premature ventricular complexes Abnormal ECG When compared with ECG of 07-FEB-2022 09:48, No significant change Confirmed by Kam Marcos ([id number]) on 02/09/2022 5:36:54 AM Referred By: REFERRED SELF Confirmed By:Kam Marcos
== END 2022-02-08 18:57 | disposition home or self-care (01) | DRG 190 ==
LOC: ED 08:46 → SUATTDRO 14:57 → EDINP 14:57 → 3N 16:52